=== PATIENT | male | born 1945 | race Caucasian/White ===

== ENCOUNTER 2020-05-09 08:36 | Inpatient (IN) ==
--- NOTE | 2020-05-05 09:35 | Anesthesiology Consultation ---
Date of Service May 05, 2020 Assessment & Plan (1) Encounter for pre-operative examination: Chart Review Chart Review: Acceptable Risk for Surgery (pending 05/05 Covid testing ) and Patient NOT seen in Pre Admission Testing Per nursing assessment 05/02/20, resides in [facility]. Having preop Covid test done 05/05 Last seen by cardio 03/01/19= No recurrence of a fib since 2011. Initially on AC but changed to ASA two years ago. Secondary to remote hx of a fib and absence of arrhythmia in six years- reasonable to continue without AC. CAD- nonobstructive. Hx of PVCs in bigeminy- regular rhythm at appt. F/u in one year. History Surgery Operation Date: 05/09/20 10:20 Proposed Procedures p Laparoscopic Assisted Takedown of Colovesicular Fistula - Lex Marquez MD Height/Weight Height: 5 ft 11 in Weight: 99.79 kg Allergies Allergy/AdvReac Type Severity Reaction Status Date / Time ezetimibe [From Zetia] AdvReac Intermediate sore joints Verified 05/02/20 07:21 lovastatin AdvReac Intermediate sore joints Verified 05/02/20 07:21 Medications Home Medications Medication Instructions Recorded Confirmed Last Taken atorvastatin 10 mg tablet 10 mg PO QPM #90 tab 09/06/19 05/02/20 Unknown metoprolol tartrate 25 mg tablet 25 mg PO BID #180 tab 09/18/19 05/02/20 Unknown lisinopril 5 mg tablet 5 mg PO DAILY 03/21/20 05/02/20 Unknown aspirin 81 mg tablet,delayed 81 mg PO DAILY 04/17/20 05/02/20 Unknown release acetaminophen [Tylenol Extra 500 mg PO DAILY PRN 05/02/20 05/02/20 Unknown Strength] omeprazole 40 mg PO QPM 05/02/20 05/02/20 Unknown sucralfate 1 g PO BID 05/02/20 05/02/20 Unknown Past Medical History Medical History Arteriosclerotic cardiovascular disease Non obstructive CAD Atrial fibrillation follows with [facility] [place] Cardiology, annually. no cardioversion. Colovesical fistula GERD (gastroesophageal reflux disease) "silent" Gout Hyperlipidemia Hypertension Osteoarthritis Urinary tract infection Past Family History Family History Brother Prostate cancer Heart disease Father Heart disease Other No family history of adverse response to anesthesia Past Surgical History Surgical History History of adenoidectomy History of cardiac cath ~2004 & ~2011. no stents. History of colonoscopy History of ear surgery right History of esophagogastroduodenoscopy (EGD) x1 with FB removal and x1 for recheck History of tonsillectomy S/P inguinal hernia repair right inguinal with hernia mesh Social History Smoking Status: Never smoker Do You Dip or Chew Tobacco: Yes (1 can/3 days (advised)) Hx Alcohol Use: No Hx Substance Use: No substance use type: does not use Testing Laboratory Results 04/27/20= WBC: 9.0 H/H: 14.8/45.1 PLATELETS: 209 SODIUM: 141 POTASSIUM: 4.4 CHLORIDE: 107 CO2: 29 BUN: 25 CREATININE: 1.3 GLUCOSE: 92 Electrocardiogram Date: 04/27/20 Findings: + SB @ (51) Chest X-Ray Date: 04/27/20 COPD changes- linear areas of scar/atelecasis in the lower portions of the chest. Hyperaeration and diaphragmatic flattening suggesting underlying COPD. No focal infiltrate, pleural effusion or pulmonary edema.
[~2020-05-09 08:36] MED LIST: LR 15ML/HR IV SCH
[2020-05-09] MEDS ORDERED: PROPOFOL IV EMULSION 10 MG/ML 20 ML VIAL IV ONE (10:08)
[2020-05-09] MEDS ORDERED: LIDOCAINE HCL 2% 2 ML VIAL/AMP(20MG/ML) INFIL ONE (10:08)
[2020-05-09] MEDS ORDERED: fentaNYL citrate 100 MCG/2 ML VIAL ONE ×2 (10:08→11:22)
[2020-05-09] MEDS ORDERED: MIDAZOLAM HCL 1 MG/ML 2ML VIAL ONE (10:08)
[2020-05-09] MEDS ORDERED: ONDANSETRON INJ 2 MG/ML 2 ML VIAL ONE (10:09)
[2020-05-09] MEDS ORDERED: ONDANSETRON INJ 2 MG/ML 2 ML VIAL IV PRN (10:12)
[2020-05-09] MEDS ORDERED: ATROPINE SULFATE 0.1 MG/ML 10ML SYR IV PRN (10:12)
[2020-05-09] MEDS ORDERED: ePHEDrine sulfate 50 MG/ML AMP IV PRN (10:12)
[2020-05-09] MEDS ORDERED: HYDROmorphone INJ 2 MG/ML SYR/VIAL IV PRN (10:12)
[2020-05-09] MEDS ORDERED: fentaNYL citrate 100 MCG/2 ML VIAL IV PRN (10:12)
--- NOTE | 2020-05-09 10:25 | History & Physical Bridge Note ---
Date of Service May 09, 2020 History & Physical Bridge Note I have examined the patient, reviewed the History & Physical and in the interval since the performance of the History & Physical I have noted the following changes of clinical significance: no changes noted all questions answered , admit order written
--- NOTE | 2020-05-09 11:35 | Anesthesiology Progress Note ---
Date of Service May 09, 2020 Anesthesia Post Procedure Vital Signs Vital Signs: Temp Pulse Resp BP Pulse Ox 05/09/20 09:11 36.6 C 60 20 140/69 98 Pain Intensity Right Lower Abdomen: Pain Intensity: 2 Transfer of Care Handoff Completed per policy Notes Mental Status: alert / awake / arousable and participated in evaluation Patient Amnestic to Procedure: Yes Nausea / Vomiting: adequately controlled Pain: adequately controlled Airway Patency, RR, SpO2: stable & adequate BP & HR: stable & adequate Hydration State: stable & adequate Anesthetic Complications: no major complications apparent and Pt Satisfied with anesthetic care
[2020-05-09] MEDS ORDERED: cefOXitin 2,000 MG in DEXTROSE 5% 50 ML IV STA (12:02)
[2020-05-09] MEDS ORDERED: ALBUMIN HUMAN 5% 12.5 GM/250 ML VIAL IV ONE (12:33)
[2020-05-09] MEDS ORDERED: METHYLENE BLUE 0.5% 10 ML VIAL ONE (13:16)
[2020-05-09] MEDS ORDERED: GLYCOPYRROLATE 0.2 MG/ML VIAL ONE (13:44)
[2020-05-09] MEDS ORDERED: NEOSTIGMINE METHYLSULFATE 5 MG/5 ML SYR ONE (13:44)
[2020-05-09] MEDS ORDERED: HYDROmorphone INJ 2 MG/ML SYR/VIAL ONE (13:52)
--- NOTE | 2020-05-09 14:22 | Post Operative Brief Note ---
PG Immediate Post Op with CF Date of Surgery May 09, 2020 Pre & Post Diagnosis Operation Date: 05/09/20 10:20 Pre-Op Diagnosis: Colovesical Fistula Post-Op Diagnosis: Colovesical Fistula I identified the patient and participated in the time-out.: Yes Procedure Operation Date: 05/09/20 10:20 Actual Procedures p Laparoscopic Assisted Takedown of Colovesicular Fistula, Sigmoid Colon Resection, Protective Ileostomy(Not Applicable) - Lex Marquez MD Surgeon Lex Marquez MD Prepleater b denton berkowitz Estimated Blood Loss 250 Findings Consistent with Post-Op Diagnosis Specimens Specimen Description: Culture #1: Urine Clean Catch - Catheter culture and sensitivity Fresh Specimen: A.) Portion of Sigmoid Colon Drains Pablo Drain (19 KITTITIAN), Dsouza Catheter (16 slovenian 10 ml balloon) and [place] Drain (1/4 inch)
--- NOTE | 2020-05-09 14:37 | Operative Report ---
PG Post Operative Report Pre & Post Diagnosis Operation Date: 05/09/20 10:20 Pre-Op Diagnosis: Colovesical Fistula Post-Op Diagnosis: Colovesical Fistula I identified the patient and participated in the time-out.: Yes Procedure Operation Date: 05/09/20 10:20 Actual Procedures p Laparoscopic Assisted Takedown of Colovesicular Fistula, Sigmoid Colon Res ection, Protective Ileostomy(Not Applicable) - Lex Marquez MD The patient was brought into the operating theater supine position general trach anesthesia Dsouza catheter was inserted the abdomen was prepped byline solution properly draped systemic antibiotics given timeout was had the patient was identified this point we made a small incision linearly above the umbilicus sufficient enough to place a Veress needle followed by CO2 followed by 5 mm trocar laparoscopically replaced patient was placed in Trendelenburg visualized the pelvis we could see the patient on the left lateral wall as it entered the pelvic rim significant amount of tissue scarred down very hard area most likely consistent with a primary process of a colovesical fistula. At this point we mobilized the left colon almost to the splenic flexure by dividing just above the white line of Toldt bluntly dissection was instituted where we felt we had enough mobility for possibility colon resection and anastomosis at this point since the patient has significant amount of thick very hard process down in the pelvis and at this point I converted to an open procedure make a lower midline incision deepened through subcutaneous tissue entered the peritoneal cavity Bookwalter instrument was inserted at this point we were able to palpate a near frozen sigmoid colon to the left lateral wall of the pelvis we continued our dissection by taking down proximal sigmoid colon were pathologically it felt free of any disease the indurated area was just adjacent to the hard area that we were seen on the lateral wall we did most of this with blunt dissection were able to break through this very scarred down tissue sigmoid colon that was plastered on the bladder. Bluntly we took down the chronic process that we were able to elevate the sigmoid colon and the pathology out of the pelvis. We can see the bladder there was no active obvious fistula but there was an area just inferior to the dome of the left side where possibility this was the fistulous track we would then we closed this eventually with 2 rows of interrupted 2-0 Vicryl sutures. At this point we then resected the sigmoid colon distally just at the rectal area and divided approximately with a GREGOR stapler specimen was removed after dividing the mesentery we were met with distally with this resected the sigmoid colon and rectum with a right angle clamp I took the right angle clamp and the line of resection appeared to be bluish in nature I was not happy with this so I took more of the distal sigmoid rectal area proximally again we were met with some tension on the proximal colon therefore immobilized more the left colon up towards the splenic flexure by enlarging the incision we then did an end-to-end anastomosis 2 layer using 3-0 silk outer layer 3-0 chromic interlayer there was viability but I was a little concerned still that it was slightly more congested than I would like therefore I elected to do a protective ileostomy. Prior to doing this we took a long tongue of omentum and brought it down onto the area where we thought was the fistula and tied it down with 2-0 Vicryl sutures and silk sutures addendum prior to resecting the sigmoid area we identified the left ureter and mobilized that placing on a vessel loop there was a small venous plexus on the ureter that we did not talk having completed this we then elected to give some methylene blue to see if there was any leak but by the time we finished we had not seen any methylene blue even though the patient was making good urine given the status of the anastomosis that I was uncomfortable with just did not split is viable as I would have liked it I elected to close to a protective a protective ileostomy which we did by taken out silver spoon skin and subcutaneous tissue in the right lower quadrant and bringing out a loop of ileum terminal ileum probably about a foot from the ileocecal valve once we made the opening in the anterior rectus sheath to accommodate 3 fingers we brought out the loop of terminal ileum we placed over a bolster plastic bolster we closed the abdomen by first placing a 19 Pablo drain through the left flank down into the pelvic area attaching significant edge with 2-0 silk suture I closed the abdominal incision using #1 chromic in a running manner to close the peritoneum and we closed the anterior rectus with interrupted #1 PDS Promise drain was placed in the subcu attaching distally approximately 2-0 silk suture and roger for skin edges at this point we matured the ileostomy by using electrocautery Mohave taken a loop out of the anterior surface opening at three quarters the way and inverting over the mucosa with 3-0 chromic suture dressing was applied procedure was tolerated well by the patient estimated blood loss approximately 250 cc addendum Reshma berkowitz present throughout the procedure and helped with exposure suturing wound closure and camera work Surgeon Lex Marquez MD Clerical Assistant price berkowitz Estimated Blood Loss 250 Findings Consistent with Post-Op Diagnosis Specimens sigmoid colon Description of Procedure merda I attest to the content of the Intraoperative Record and any orders documented therein. Any exceptions are noted below.
--- NOTE | 2020-05-09 15:22 | Anesthesiology Progress Note ---
Date of Service May 09, 2020 Anesthesia Post Procedure Vital Signs Vital Signs: Temp Pulse Pulse Resp BP BP Pulse Ox 05/09/20 15:10 91 H 20 114/86 96 05/09/20 15:00 80 18 121/80 98 05/09/20 14:50 83 16 126/87 98 05/09/20 14:43 96.8 F L 88 18 143/79 H 97 05/09/20 09:11 97.9 F 60 20 140/69 98 Pain Intensity Right Lower Abdomen: Pain Intensity: 2 Transfer of Care Handoff Completed per policy Notes Mental Status: alert / awake / arousable and participated in evaluation Patient Amnestic to Procedure: Yes Nausea / Vomiting: adequately controlled Pain: adequately controlled Airway Patency, RR, SpO2: stable & adequate BP & HR: stable & adequate Hydration State: stable & adequate Anesthetic Complications: no major complications apparent and Pt Satisfied with anesthetic care
[2020-05-09] MEDS ORDERED: NALOXONE HCL 0.4 MG/1 ML VIAL/CARP IV PRN (15:37)
[2020-05-09] MEDS ORDERED: SODIUM CHLORIDE 0.9% 1000ML 1,000 ML IV SCH (16:00)
[2020-05-09] MEDS: LACTATED RINGER'S 1,000 ML IV SCH ×2 (16:58→23:27)
[2020-05-09] MEDS: cefOXitin 2,000 MG in DEXTROSE 5% 50 ML IV SCH ×2 (17:35→23:26)
[2020-05-09] MEDS: MORPHINE SULFATE PCA 30 MG/30 ML IV PRN (18:54)
[2020-05-09] MEDS: METOPROLOL TARTRATE 25 MG TAB PO SCH (20:15)
[2020-05-09] MEDS: HEPARIN SOD 5,000 UNIT/0.5 ML VIAL SQ SCH (20:15)
[2020-05-10] MEDS: cefOXitin 2,000 MG in DEXTROSE 5% 50 ML IV SCH ×2 (05:41→11:37)
[2020-05-10 06:20] LABS: Basophils # (auto) 0.01 K/uL (0-0.2); Basophils % (auto) 0.1 %; Eosinophils # (auto) 0.02 K/uL (0-0.5); Eosinophils % (auto) 0.2 %; Hematocrit (blood only) 45.5 % (42-52); Hemoglobin 14.7 g/dL (14.0-18.0); Immature Granulocytes # (auto) 0.02 K/uL (0.00-0.02); Immature Granulocytes % (auto) 0.2 %; Lymphocytes # (auto) 1.05 K/uL (1.2-3.4); Lymphocytes % (auto) 9.5 %; Mean Corpuscular Hemoglobin 29.4 pg (25-34); Mean Corpuscular Hgb Conc 32.3 g/dL (32-36); Mean Platelet Volume 10.1 fL (7.4-10.4); Neutrophils # (auto) 8.99 K/uL (1.4-6.5); Platelet Count 189 K/uL (130-400); RDW Coefficient of Variation 13.7 % (11.5-14.5); RDW Standard Deviation 45.2 fL (36.4-46.3); White Blood Count 11.09 K/uL (4.8-10.8)
[2020-05-10 06:50] LABS: BUN Creatinine Ratio 13.7 (10-20); Calcium 8.6 mg/dl (8.5-10.1); Creatinine Clr Calc Pharmacy 52.3 ml/min; Est GFR (African American) 53.7; Est GFR (Non-African American) 46.3; Potassium 4.1 mmol/L (3.5-5.1)
[2020-05-10] MEDS: LACTATED RINGER'S 1,000 ML IV SCH ×3 (07:28→20:45)
--- NOTE | 2020-05-10 07:28 | Surgery Progress Note ---
Date of Service May 10, 2020 Assessment & Plan (1) Colovesical fistula: POD 1 sigmoid colectomy, repair colovesical fistula, protective ileostomy NG out overnight, ok to leave out will start on clears, po meds keep matthews for [address] Marquez Supervising Physician Co-Signing Physician Notes Patient clinically dry give a bolus fluid is alert coherent NG tube pulled out last night had minimal drainage I will leave it out his abdomen is slightly distended as expected ileostomy is viable with little output Pablo drainage serosanguineous Intraoperative findings was discussed the patient including the need for ileostomy and plan to close this after a contrast study in approximately 10 days or so at that time we will also get a cystogram and plan to remove the Matthews if fine He is aware that we will leave the Matthews in for approximately 10 days Subjective No c/o, pain controlled Physical Exam 2 Gastrointestinal (Abdomen): Inspection/Auscultation: + abdominal surgical incision (dry dressing, ileostomy pink); abdomen not distended FREDIS 30 cc overnight UOP 400 Results & Data Vital Signs (Past 12 Hours) Vital Signs Temp Pulse Pulse Resp BP BP Pulse Ox 05/10/20 04:10 36.6 C 91 H 16 147/97 H 95 05/09/20 23:05 36.6 C 100 H 16 150/100 H 95 05/09/20 22:08 36.8 C 96 H 14 145/100 H 93 05/09/20 21:12 36.6 C 98 H 14 150/99 H 97 05/09/20 20:00 36.9 C 98 H 14 146/98 H 97 05/09/20 19:40 36.8 C 100 H 16 152/90 H 96 PG Care Time/CCT Total # of Minutes Spent Total Time Spent with Patient: Total time spent is greater than 50% in coordination of care (as documented) at patient's floor/unit and/or counseling patient: Coding Level of Care Code None Diagnoses Colovesical fistula N32.1
[2020-05-10] MEDS: HEPARIN SOD 5,000 UNIT/0.5 ML VIAL SQ SCH ×2 (09:01→20:56)
[2020-05-10] MEDS: SUCRALFATE 1 GM TAB PO SCH ×2 (09:04→20:53)
[2020-05-10] MEDS: PANTOprazole 40 MG TAB PO SCH (09:04)
[2020-05-10] MEDS: METOPROLOL TARTRATE 25 MG TAB PO SCH ×2 (09:04→20:53)
[2020-05-10] MEDS: ASPIRIN 81 MG ECTAB PO SCH (09:04)
[2020-05-10] MEDS: lisinopriL 5 MG TAB PO SCH (20:53)
[2020-05-10] MEDS: ATORVASTATIN 10 MG TAB PO SCH (20:54)
[2020-05-10] MEDS: MORPHINE SULFATE PCA 30 MG/30 ML IV PRN (21:54)
[2020-05-11] MEDS: LACTATED RINGER'S 1,000 ML IV SCH ×4 (03:30→21:31)
--- NOTE | 2020-05-11 06:07 | Surgery Progress Note ---
Date of Service May 11, 2020 Assessment & Plan (1) Colovesical fistula: POD 2 Overall progressing well plan to leave the Matthews in for approximately 10 days image him through a cystogram and at the same time to a barium contrast study for the anastomosis We will plan to bring him back in close the ileostomy The lab is pending this morning creatinine was slightly up yesterday just related to fluid status as was the hemoglobin fluid boluses and IV at 150 increase his urine output as expected we will await the labs this morning may cut down on his IV fluids since his urine output appears adequate at this time The path is pending POD 1 sigmoid colectomy, repair colovesical fistula, protective ileostomy NG out overnight, ok to leave out will start on clears, po meds keep matthews for [address] Marquez Subjective Had a good night overall a good day yesterday oral intake fair although he did experience some nausea no vomiting No c/o, pain controlled Physical Exam Physical Exam: Is alert coherent slept well last night easily awoken this morning The abdomen is softly distended dressing is dry ileostomy viable with some drainage Urine clear and output is increased Results & Data Vital Signs (Past 12 Hours) Vital Signs Temp Pulse Pulse Resp BP BP Pulse Ox 05/11/20 03:45 36.9 C 87 18 155/90 H 96 05/10/20 23:10 36.8 C 90 18 152/93 H 94 05/10/20 20:51 88 138/85 05/10/20 19:31 37.1 C 94 H 25 H 145/96 H 95 PG Care Time/CCT Total # of Minutes Spent Total Time Spent with Patient: Total time spent is greater than 50% in coordination of care (as documented) at patient's floor/unit and/or counseling patient: Coding Level of Care Code None Diagnoses Colovesical fistula N32.1
[2020-05-11] MEDS: HEPARIN SOD 5,000 UNIT/0.5 ML VIAL SQ SCH ×3 (06:21→20:49)
[2020-05-11 07:38] LABS: Basophils # (auto) 0.01 K/uL (0-0.2); Basophils % (auto) 0.1 %; Eosinophils # (auto) 0.04 K/uL (0-0.5); Eosinophils % (auto) 0.3 %; Hematocrit (blood only) 41.3 % (42-52); Hemoglobin 13.3 g/dL (14.0-18.0); Immature Granulocytes # (auto) 0.02 K/uL (0.00-0.02); Immature Granulocytes % (auto) 0.2 %; Lymphocytes # (auto) 1.01 K/uL (1.2-3.4); Lymphocytes % (auto) 8.1 %; Mean Corpuscular Hemoglobin 29.1 pg (25-34); Mean Corpuscular Hgb Conc 32.2 g/dL (32-36); Mean Corpuscular Volume 90.4 fL (80-100); Mean Platelet Volume 10.1 fL (7.4-10.4); Monocytes # (auto) 1.53 K/uL (0.11-0.59); Monocytes % (auto) 12.2 %; Neutrophils # (auto) 9.88 K/uL (1.4-6.5); Neutrophils % (auto) 79.1 %; Platelet Count 192 K/uL (130-400); RDW Coefficient of Variation 13.5 % (11.5-14.5); RDW Standard Deviation 44.7 fL (36.4-46.3); Red Blood Count 4.57 M/uL (4.7-6.1); White Blood Count 12.49 K/uL (4.8-10.8)
[2020-05-11 08:10] LABS: BUN Creatinine Ratio 12.6 (10-20); Calcium 8.7 mg/dl (8.5-10.1); Creatinine Clr Calc Pharmacy 90.5 ml/min; Est GFR (African American) 99.5; Est GFR (Non-African American) 85.8; Potassium 3.8 mmol/L (3.5-5.1)
[2020-05-11] MEDS: METOPROLOL TARTRATE 25 MG TAB PO SCH ×2 (08:33→20:48)
[2020-05-11] MEDS: SUCRALFATE 1 GM TAB PO SCH ×2 (08:33→20:48)
[2020-05-11] MEDS: ASPIRIN 81 MG ECTAB PO SCH (08:33)
[2020-05-11] MEDS: PANTOprazole 40 MG TAB PO SCH (08:33)
[2020-05-11] MEDS: ATORVASTATIN 10 MG TAB PO SCH (20:48)
[2020-05-11] MEDS: lisinopriL 5 MG TAB PO SCH (20:48)
[2020-05-12] MEDS: ACETAMINOPHEN 1,000 MG/100 ML VIAL IV PRN (00:10)
[2020-05-12] MEDS: HEPARIN SOD 5,000 UNIT/0.5 ML VIAL SQ SCH ×2 (05:30→17:11)
[2020-05-12 06:58] LABS: Basophils # (auto) 0.01 K/uL (0-0.2); Basophils % (auto) 0.1 %; Eosinophils # (auto) 0.09 K/uL (0-0.5); Eosinophils % (auto) 0.6 %; Hematocrit (blood only) 45.7 % (42-52); Hemoglobin 15.3 g/dL (14.0-18.0); Immature Granulocytes # (auto) 0.05 K/uL (0.00-0.02); Immature Granulocytes % (auto) 0.3 %; Lymphocytes # (auto) 1.18 K/uL (1.2-3.4); Lymphocytes % (auto) 7.8 %; Mean Corpuscular Hemoglobin 29.6 pg (25-34); Mean Corpuscular Hgb Conc 33.5 g/dL (32-36); Mean Corpuscular Volume 88.4 fL (80-100); Mean Platelet Volume 10.5 fL (7.4-10.4); Monocytes # (auto) 1.45 K/uL (0.11-0.59); Monocytes % (auto) 9.6 %; Neutrophils # (auto) 12.29 K/uL (1.4-6.5); Neutrophils % (auto) 81.6 %; Platelet Count 241 K/uL (130-400); RDW Coefficient of Variation 13.5 % (11.5-14.5); RDW Standard Deviation 44.1 fL (36.4-46.3); Red Blood Count 5.17 M/uL (4.7-6.1); White Blood Count 15.07 K/uL (4.8-10.8)
[2020-05-12] MEDS ORDERED: PIPERACILL/TAZOBAC CONSULT ACTIVE PRN (07:23)
[2020-05-12 07:27] LABS: BUN Creatinine Ratio 14.7 (10-20); Calcium 9.4 mg/dl (8.5-10.1); Creatinine Clr Calc Pharmacy 83.6 ml/min; Est GFR (African American) 94.6; Est GFR (Non-African American) 81.6
--- NOTE | 2020-05-12 07:34 | Surgery Progress Note ---
Date of Service May 12, 2020 Assessment & Plan (1) Colovesical fistula: POD#3 sigmoid colectomy, take-down of colovesicular fistula, and creation of protective ileostomy - Patient feels more bloated today and because of nausea will order to replace NGT and back down diet to NPO - WBC up today to 15 from 12 yesterday, will start empiric zosyn for GI coverage - Will also order CT a/p for further evaluation - Some bleeding at midline incision, will decrease heparin to q12 for now. Dressing changed this AM and can change daily & prn. FREDIS drain output is serosanguineous - Increase IVF to 150 - Encourage ambulation and OOB with assistance - Keep matthews in for total of 10 days - Pt seen and examined with Dr. Marquez Supervising Physician Co-Signing Physician Notes 05/14/20 POD #3 The patient does not feel as good as he did yesterday is complaining some nausea no emesis the abdomen is distended the abdominal incision had some drainage bloody most likely related to the heparin he does have some generalized a bdominal guarding Pablo drainage in the left lower quadrant with serosanguineous drainage The ileostomy is viable with some liquid drainage At this point I suspect he just has a postoperative ileus related to the surgery a bit more concerned regarding his white count and also some hemoconcentration lows BUN and creatinine are normal we will increase his IV fluids to 150 cc/h we will insert an NG tube and get an abdominal CAT scan with IV contrast The patient had extensive dissection down in the pelvis the path report on the specimen was noted at this time I suspect it is just a postoperative ileus but will get a CAT scan to rule out any other abdominal cause for his ileus Patient clinically dry give a bolus fluid is alert coherent NG tube pulled out last night had minimal drainage I will leave it out his abdomen is slightly distended as expected ileostomy is viable with little output Pablo drainage serosanguineous Intraoperative findings was discussed the patient including the need for ileostomy and plan to close this after a contrast study in approximately 10 days or so at that time we will also get a cystogram and plan to remove the Matthews if fine He is aware that we will leave the Matthews in for approximately 10 days Subjective Patient awoken from sleep, easily arousable. Feels okay, not up ambulating much. Tolerating some clears, but feeling nauseated. Physical Exam Physical Exam: easily arousable Respiratory: normal respiratory effort Gastrointestinal (Abdomen): Inspection/Auscultation: + abdomen distended, + abdominal surgical incision (midline incision oozy, moderate bloody output on dressing) and + abdominal surgical drain present (Serosanguineous output) Percussion/Palpation: + abdomen tender (generalized ttp) ileostomy viable with some liquid drainage Results & Data Vital Signs (Past 12 Hours) Vital Signs Temp Pulse Pulse Resp BP BP Pulse Ox 05/12/20 02:55 36.9 C 99 H 16 136/94 98 05/12/20 00:52 102 H 128/87 05/12/20 00:13 102 H 162/106 H 05/11/20 23:08 36.7 C 101 H 22 161/106 H 161/115 H 97 05/11/20 20:44 103 H 18 137/90 97 PG Care Time/CCT Total # of Minutes Spent Total Time Spent with Patient: Total time spent is greater than 50% in coordination of care (as documented) at patient's floor/unit and/or counseling patient: Coding Level of Care Code None Diagnoses Colovesical fistula N32.1
[2020-05-12] MEDS ORDERED: PIPERACILLIN/TAZOBACTAM 3.375 GM in DEXTROSE 5% 100 ML IV ONE (07:45)
[2020-05-12] MEDS ORDERED: IOVERSOL 100ml IV PRN (08:05)
--- NOTE | 2020-05-12 08:28 | CT Scan Report ---
CT abd pelvis IV con only CLINICAL HISTORY: Abdominal distention. Postoperative examination. COMPARISON STUDY: 03/24/2020 TECHNIQUE: The patient was scanned in a dynamic helical fashion during intravenous administration of 94 cc of Optiray 320 A dose lowering technique was utilized adhering to the principles of ALARA. CT DOSE: 1227.91 mGy.cm FINDINGS: Lower chest: There is a trace right pleural effusion. There are bibasilar dependent opacity statistic ally atelectatic. Liver: No focal hepatic masses are visualized. There is perihepatic fluid present. Gallbladder: Mildly distended. No calculi visualized. Spleen: No splenic masses. There is perisplenic fluid. Pancreas: Unremarkable. Adrenal glands: Unremarkable. Kidneys: There is symmetric renal cortical enhancement. The kidneys are normal in size without hydron ephrosis. Bowel: There are fluid-filled mildly dilated small bowel loops. The bowel is dilated down to the leve l of a right lower quadrant double barrel ileostomy. The small bowel obstructive pattern may be secon karen to edema at the ostomy site. There is colonic diverticulosis. There is evidence for sigmoid dive rticulitis. Peritoneum: There is an indwelling peritoneal drain which terminates within the pelvis. There is trac e gas in the left inguinal canal, likely postsurgical. There is a tiny air bubble posterior to the le ft rectus sheath, likely postsurgical. There is a tiny air bubble within the right rectus musculature likely postsurgical there are anterior skin roger present. Vasculature: The abdominal aorta is normal in course and caliber. Adenopathy: None. Pelvic viscera: There is an indwelling Dsouza catheter. There is gas present within the bladder, likel y secondary to the Dsouza catheter. The prostate is enlarged. Skeletal structures: No destructive osseous lesions are seen. IMPRESSION: 1. Interval surgery with creation of a double barrel right lower quadrant ileostomy 2. Small bowel obstruction, with a transition at the level of the right-sided ileostomy possibly seco ndary to postsurgical edema 3. Sigmoid diverticulitis 4. Low volume ascites ACT 112: Negative or not required by law. Electronically signed by: John Paul Ramos M.D. 05/12/2020 8:27 AM
[2020-05-12] MEDS ORDERED: HEPARIN SOD 5,000 UNIT/0.5 ML VIAL SQ SCH (09:00)
[2020-05-12] MEDS: LACTATED RINGER'S 1,000 ML IV SCH ×2 (09:14→17:01)
[2020-05-12] MEDS: SUCRALFATE 1 GM TAB PO SCH ×2 (10:33→20:20)
[2020-05-12] MEDS: ASPIRIN 81 MG ECTAB PO SCH (10:33)
[2020-05-12] MEDS: PANTOprazole 40 MG in SYRINGE 0 ML IV SCH (10:33)
[2020-05-12] MEDS: METOPROLOL TARTRATE 25 MG TAB PO SCH ×2 (10:33→20:20)
[2020-05-12] MEDS: ENALAPRILAT 0.625 MG in SYRINGE 9.5 ML IV SCH ×3 (12:34→20:20)
[2020-05-12] MEDS: PIPERACILLIN/TAZOBACTAM 3.375 GM in DEXTROSE 5% 100 ML IV SCH ×2 (13:11→21:53)
--- NOTE | 2020-05-12 16:14 | Consultation ---
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 Marquez Reason for Consultation: Medical management Attending Physician: Lex Marquez MD History of Present Illness 75 yo male with recent history of takedown of possible colovesical fistula, sigmoidectomy and diverting ileostomy, he is post op day 3. He was recovering well until this morning when he developed increased abdominal pain, nausea and vomiting. WBC was elevated at 16k. NGT was placed to LIS with immediate return of biliary fluid, drainage gave him relief. CT abdomen/pelvis showed a possible obstruction at the ileostomy site vs ileus. He says that he has felt warm and was experiencing sweats at night. He denies any chest pain, dyspnea, cough. 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 He has a matthews in place to allow bladder wall to heal. Review of labs today shows WBC 15k, Hb 15, BUN 14, Cr 0.9 and normal CO2 of 26. He has a history of atrial fibrillation that is well controlled. He says he takes aspirin every day for stroke prevention, says he used to take Coumadin but it was stopped years ago. He admits to having hypertension. He denies a history of IL, stroke, DM, kidney disease, cancer. Allergies Allergy/AdvReac Type Severity Reaction Status Date / Time ezetimibe [From Zetia] AdvReac Intermediate sore joints Verified 05/09/20 09:07 lovastatin AdvReac Intermediate sore joints Verified 05/09/20 09:07 Home Medications Home Medications Medication Instructions Recorded Confirmed Type atorvastatin 10 mg tablet 10 mg PO QPM #90 tab 09/06/19 05/09/20 Rx metoprolol tartrate 25 mg tablet 25 mg PO BID #180 tab 09/18/19 05/09/20 Rx lisinopril 5 mg tablet 5 mg PO DAILY 03/21/20 05/09/20 History aspirin 81 mg tablet,delayed 81 mg PO DAILY 04/17/20 05/09/20 History release acetaminophen [Tylenol Extra 500 mg PO DAILY PRN 05/02/20 05/09/20 History Strength] omeprazole 40 mg PO QPM 05/02/20 05/09/20 History sucralfate [Carafate] 1 g PO BID 05/02/20 05/09/20 History Patient History Medical History Arteriosclerotic cardiovascular disease Non obstructive CAD Atrial fibrillation follows with [facility], annually. no cardioversion. Colovesical fistula GERD (gastroesophageal reflux disease) "silent" Gout Hyperlipidemia Hypertension Osteoarthritis Urinary tract infection Surgical History History of adenoidectomy History of cardiac cath ~2004 & ~2011. no stents. 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 Beliefs That Will Affect Care: None marital status: Current Living Situation: Spouse current occupational status: employed current occupation: [employer] Other Information That Helps Us Care for You: No Feels Safe at Home: Yes Safety Concerns: Feels Safe At This Time Smoking Status: Never smoker Do You Dip or Chew Tobacco: Yes (1 can/3 days (advised)) ; Second Hand Exposure: No ; Tobacco Cessation Education Requested by Patient: No Hx Alcohol Use: No Hx Substance Use: No Review of Systems Review of Systems: All systems reviewed & are unremarkable except as noted in HPI & below Physical Exam Constitutional: well developed, well nourished and + diaphoretic; no acute distress Eyes: PERRL, conjunctivae normal, anicteric sclerae ENMT: external ear and nose normal, oropharynx normal Neck: trachea midline, no thyromegaly Respiratory: normal respiratory effort, lungs clear to auscultation Cardiovascular: RRR, no murmur, no edema Gastrointestinal (Abdomen): Inspection/Auscultation: + abdomen distended, + abdominal surgical incision, + abdominal surgical drain present (ileostomy) and + hypoactive bowel sounds Percussion/Palpation: + abdomen tender; no guarding and abdomen not rigid Musculoskeletal: no cyanosis or clubbing, extremities motor strength 5/5 Skin: no rashes, warm and dry Neurologic: patellar DTR's 2+ bilat, sensation intact and PERRL, EOMI, accommodation nl, no face palsy, no dysarthria Psychiatric: A+Ox3, euthymic affect Lymphatic: no cervical or axillary lymphadenopathy Results & Data ([facility]) Vital Signs (Past 12 Hours) Vital Signs Temp Pulse Resp BP Pulse Ox 05/12/20 13:37 36.8 C 99 H 18 137/91 96 05/12/20 08:17 36.5 C 90 18 154/97 H 94 Laboratory Results Laboratory Results - last 24 hr 05/12/20 05/12/20 06:25 06:25 WBC 15.07 H RBC 5.17 Hgb 15.3 Hct 45.7 MCV 88.4 MCH 29.6 MCHC 33.5 RDW Std Deviation 44.1 RDW Coeff of Alda 13.5 Plt Count 241 MPV 10.5 H Immature Gran % (Auto) 0.3 Neut % (Auto) 81.6 Lymph % (Auto) 7.8 [place] % (Auto) 9.6 Eos % (Auto) 0.6 Baso % (Auto) 0.1 Neut # (Auto) 12.29 H Lymph # (Auto) 1.18 L [place] # (Auto) 1.45 H Eos # (Auto) 0.09 Baso # (Auto) 0.01 Immature Gran # (Auto) 0.05 H Sodium 135 L Potassium 4.0 Chloride 101 Carbon Dioxide 26 Anion Gap 9.0 BUN 14 Creatinine 0.92 Est Cr Clr Drug Dosing 83.6 Est GFR ( Amer) 94.6 Est GFR (Non-Af Amer) 81.6 BUN/Creatinine Ratio 14.7 Glucose 119 H Calcium 9.4 Medications Administered Current Inpatient Medications Aspirin (Ecotrin Ectab) 81 mg PO DAILY [facility] Stop: 06/09/20 08:59 Last Admin: 05/12/20 10:33 Dose: 81 mg Documented by: Atorvastatin Calcium (Lipitor) 10 mg PO QPM [facility] Stop: 06/09/20 20:59 Last Admin: 05/11/20 20:48 Dose: 10 mg Documented by: Heparin Sodium (Porcine) (Heparin Sodium (Porcine)) 5,000 units SQ Q12H [facility] Stop: 06/11/20 17:59 Lactated Ringer's (Lr) 1,000 mls @ 150 mls/hr IV .Q6H40M [facility] Stop: 06/08/20 15:59 Last Admin: 05/12/20 09:14 Dose: 150 mls/hr Documented by: Acetaminophen (Ofirmev) 1,000 mg in 100 mls @ 400 mls/hr IV Q8H PRN PRN Reason: Pain Stop: 05/14/20 15:36 Last Infusion: 05/12/20 00:25 Dose: Infused Documented by: Piperacillin Sod/Tazobactam (Sod 3.375 gm/ Dextrose) 115 mls @ 28.75 mls/hr IV Q8H [facility]; Protocol Stop: 05/22/20 13:59 Last Admin: 05/12/20 13:11 Dose: 28.8 mls/hr Documented by: Pantoprazole Sodium 40 mg/ (Syringe) 10 mls @ 5 mls/min IV DAILY@1100 [facility] Stop: 06/11/20 10:59 Last Admin: 05/12/20 10:33 Dose: 5 mls/min Documented by: Enalaprilat 0.625 mg/ Syringe 10 mls @ 2 mls/min IV QID [facility] Stop: 06/11/20 12:59 Last Admin: 05/12/20 12:34 Dose: 2 mls/min Documented by: Ioversol (Optiray 320 100ml) 94 ml IV ONCE PRN PRN Reason: Interaction Checking Stop: 05/16/20 08:04 Last Admin: 05/12/20 08:05 Dose: 94 ml Documented by: Lisinopril (Zestril) 5 mg PO QPM [facility] Stop: 06/09/20 20:59 Last Admin: 05/11/20 20:48 Dose: 5 mg Documented by: Metoprolol Tartrate (Lopressor) 25 mg PO BID [facility] Stop: 06/08/20 20:59 Last Admin: 05/12/20 10:33 Dose: 25 mg Documented by: Miscellaneous Information (Consult) 1 ea N/A UD PRN PRN Reason: Consult Stop: 06/11/20 07:22 Morphine Sulfate () 30 mg IV PRN PRN; Protocol PRN Reason: PEDIATRIC IMMUNOLOGIST Pain Titration Stop: 05/23/20 15:36 Last Admin: 05/10/20 21:54 Dose: 30 mg Documented by: Naloxone HCl (Narcan) 0.1 mg IV Q5M PRN; Protocol PRN Reason: Oversedation/Resp Depression Stop: 05/23/20 15:36 Ondansetron HCl (Zofran) 4 mg IV Q4H PRN PRN Reason: Nausea And Vomiting Stop: 06/08/20 15:36 Sucralfate (Carafate Tab) 1 gm PO BID [facility] Stop: 06/09/20 08:59 Last Admin: 05/12/20 10:33 Dose: 1 gm Documented by: PG Care Time/CCT Total # of Minutes Spent Total Time Spent with Patient: Total time spent is greater than 50% in coordination of care (as documented) at patient's floor/unit and/or counseling patient: Coding Level of Care Code 00003 Inpt Consult Level 3 Diagnoses Leukocytosis D72.829 Colovesical fistula N32.1 Atrial fibrillation I48.91 Arteriosclerotic cardiovascular disease I25.10 Hyperlipidemia E78.5 Gout M10.9
[2020-05-12] MEDS: MORPHINE SULFATE PCA 30 MG/30 ML IV PRN ×2 (17:58→23:09)
[2020-05-13] MEDS: LACTATED RINGER'S 1,000 ML IV SCH ×4 (00:17→22:27)
[2020-05-13] MEDS: PIPERACILLIN/TAZOBACTAM 3.375 GM in DEXTROSE 5% 100 ML IV SCH ×3 (06:13→21:44)
[2020-05-13] MEDS: HEPARIN SOD 5,000 UNIT/0.5 ML VIAL SQ SCH ×2 (06:17→18:05)
[2020-05-13 08:02] LABS: Basophils # (auto) 0.01 K/uL (0-0.2); Basophils % (auto) 0.1 %; Eosinophils # (auto) 0.13 K/uL (0-0.5); Hemoglobin 13.9 g/dL (14.0-18.0); Immature Granulocytes # (auto) 0.02 K/uL (0.00-0.02); Immature Granulocytes % (auto) 0.2 %; Lymphocytes # (auto) 1.19 K/uL (1.2-3.4); Lymphocytes % (auto) 9.4 %; Mean Corpuscular Hemoglobin 29.6 pg (25-34); Mean Corpuscular Hgb Conc 33.1 g/dL (32-36); Mean Corpuscular Volume 89.4 fL (80-100); Mean Platelet Volume 10.3 fL (7.4-10.4); Monocytes # (auto) 1.08 K/uL (0.11-0.59); Monocytes % (auto) 8.5 %; Neutrophils # (auto) 10.23 K/uL (1.4-6.5); Neutrophils % (auto) 80.8 %; Platelet Count 292 K/uL (130-400); RDW Coefficient of Variation 13.6 % (11.5-14.5); White Blood Count 12.66 K/uL (4.8-10.8)
[2020-05-13] MEDS ORDERED: MoRPHine SULFATE 4 MG/ML 1 ML CARP\\VIAL IV PRN (08:14)
--- NOTE | 2020-05-13 08:21 | Surgery Progress Note ---
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 Marquez Subjective feels a little better Physical Exam Gastrointestinal (Abdomen): Inspection/Auscultation: + abdomen distended (less) and + abdominal surgical incision (some old blood on dressing) Percussion/Palpation: abdomen soft UOP 200 NGT 210 ileostomy patent by digital exam Results & Data Vital Signs (Past 12 Hours) Vital Signs Temp Pulse Pulse Resp BP BP Pulse Ox 05/13/20 07:50 16 135/88 94 05/13/20 06:50 37 C 88 20 158/126 H 158/126 H 95 05/13/20 04:08 36.8 C 101 H 18 157/98 H 92 05/12/20 23:30 37 C 99 H 17 158/99 H 93 05/12/20 20:17 96 H 164/99 H PG Care Time/CCT Total # of Minutes Spent Total Time Spent with Patient: Total time spent is greater than 50% in coordination of care (as documented) at patient's floor/unit and/or counseling patient: Coding Level of Care Code None Diagnoses Colovesical fistula N32.1
[2020-05-13 08:37] LABS: BUN Creatinine Ratio 21.2 (10-20); Calcium 8.5 mg/dl (8.5-10.1); Creatinine Clr Calc Pharmacy 88.4 ml/min; Est GFR (African American) 98.5; Potassium 3.7 mmol/L (3.5-5.1)
[2020-05-13] MEDS: ASPIRIN 81 MG ECTAB PO SCH (10:28)
[2020-05-13] MEDS: SUCRALFATE 1 GM TAB PO SCH ×2 (10:28→21:33)
[2020-05-13] MEDS: ENALAPRILAT 0.625 MG in SYRINGE 9.5 ML IV SCH ×4 (10:40→21:34)
[2020-05-13] MEDS: PANTOprazole 40 MG in SYRINGE 0 ML IV SCH (10:41)
[2020-05-13] MEDS: METOPROLOL TARTRATE 25 MG TAB PO SCH ×2 (10:41→21:34)
--- NOTE | 2020-05-13 12:35 | XRay Report ---
XR KUB/Abdomen 1 view CLINICAL HISTORY: post op COMPARISON STUDY: No previous studies for comparison. FINDINGS: Postoperative ileus persists. There is drainage catheter in the soft tissue pelvis. No sign ificant colonic distention. IMPRESSION: Mild postoperative nonobstructive ileus. ACT 112: Negative or not required by law. The above report was generated using voice recognition software. It may contain grammatical, syntax or spelling errors. Electronically signed by: Carlos Enrique Zarate M.D. 05/13/2020 12:34 PM
--- NOTE | 2020-05-13 15:50 | Hospitalist Progress Note ---
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 (3) Atrial fibrillation: examines normal rhythm holding Lopressor 25mg BID while he is NPO normally on aspirin 81mg daily for stroke prevention (4) Arteriosclerotic cardiovascular disease: normally on aspirin, resume once okay with surgery (5) Hyperlipidemia: takes Lipitor 10mg (6) Gout: (7) Hypertension: BP stable, continue Enalapril QID IV resume PO medications once taking PO Admission and Anticipated Discharge Date Admission Date: May 09, 2020 Subjective patient feeling a lot better today, NGT removed, abdomen less distended, no nausea WBC trending down, BMP shows stable Cr and electrolytes surgery d/c MANAGER HOUSE pump still no diet BP acceptable this afternoon at 140/98, was slightly higher this morning in 150's but still not too high Review of Systems Review of Systems: All systems reviewed & are unremarkable except as noted in HPI & below Respiratory: no cough and no dyspnea Cardiovascular: no chest pain and no edema Gastrointestinal: + abdominal pain (mild); no nausea, no vomiting, no co nstipation and no diarrhea/loose stools Physical Exam Constitutional: well developed, well nourished and + diaphoretic; no acute distress Eyes: PERRL, conjunctivae normal, anicteric sclerae ENMT: external ear and nose normal, oropharynx normal Neck: trachea midline, no thyromegaly Respiratory: normal respiratory effort, lungs clear to auscultation Cardiovascular: RRR, no murmur, no edema Gastrointestinal (Abdomen): Inspection/Auscultation: + abdominal surgical incision, + abdominal surgical drain present (ileostomy) and + hypoactive bowel sounds; abdomen not distended Percussion/Palpation: abdomen soft; abdomen nontender, no guarding and abdomen not rigid Musculoskeletal: no cyanosis or clubbing, extremities motor strength 5/5 Skin: no rashes, warm and dry Neurologic: patellar DTR's 2+ bilat, sensation intact and PERRL, EOMI, accommodation nl, no face palsy, no dysarthria Psychiatric: A+Ox3, euthymic affect Lymphatic: no cervical or axillary lymphadenopathy Results & Data Results & Data ([facility]) Vital Signs (Past 12 Hours) Vital Signs Temp Pulse Pulse Pulse Resp BP BP 05/13/20 15:04 37.1 C 89 18 140/98 05/13/20 14:35 157/96 H 05/13/20 14:06 101 H 155/111 H 05/13/20 11:27 36.9 C 87 18 155/91 H 05/13/20 11:15 92 H 162/94 H 05/13/20 10:39 92 H 158/90 H 05/13/20 07:50 16 135/88 05/13/20 06:50 37 C 88 20 158/126 H 158/126 H 05/13/20 04:08 36.8 C 101 H 18 157/98 H Pulse Ox 05/13/20 15:04 94 05/13/20 14:35 05/13/20 14:06 05/13/20 11:27 92 05/13/20 11:15 05/13/20 10:39 05/13/20 07:50 94 05/13/20 06:50 95 05/13/20 04:08 92 Laboratory Results Laboratory Results - last 24 hr 05/13/20 05/13/20 05/13/20 07:36 07:36 14:24 WBC 12.66 H RBC 4.70 Hgb 13.9 L Hct 42.0 MCV 89.4 MCH 29.6 MCHC 33.1 RDW Std Deviation 45.0 RDW Coeff of Alda 13.6 Plt Count 292 MPV 10.3 Immature Gran % (Auto) 0.2 Neut % (Auto) 80.8 Lymph % (Auto) 9.4 [place] % (Auto) 8.5 Eos % (Auto) 1.0 Baso % (Auto) 0.1 Neut # (Auto) 10.23 H Lymph # (Auto) 1.19 L [place] # (Auto) 1.08 H Eos # (Auto) 0.13 Baso # (Auto) 0.01 Immature Gran # (Auto) 0.02 Sodium 136 Potassium 3.7 Chloride 102 Carbon Dioxide 24 Anion Gap 10.0 BUN 19 H Creatinine 0.87 Est Cr Clr Drug Dosing 88.4 Est GFR ( Amer) 98.5 Est GFR (Non-Af Amer) 85.0 BUN/Creatinine Ratio 21.2 H Glucose 203 H Calcium 8.5 Fluid Creatinine 0.88 Medications Administered Current Inpatient Medications Aspirin (Ecotrin Ectab) 81 mg PO DAILY [facility] Stop: 06/09/20 08:59 Last Admin: 05/13/20 10:28 Dose: Not Given Documented by: Atorvastatin Calcium (Lipitor) 10 mg PO QPM [facility] Stop: 06/09/20 20:59 Last Admin: 05/11/20 20:48 Dose: 10 mg Documented by: Heparin Sodium (Porcine) (Heparin Sodium (Porcine)) 5,000 units SQ Q12H [facility] Stop: 06/11/20 17:59 Last Admin: 05/13/20 06:17 Dose: 5,000 units Documented by: Lactated Ringer's (Lr) 1,000 mls @ 150 mls/hr IV .Q6H40M [facility] Stop: 06/08/20 15:59 Last Admin: 05/13/20 14:02 Dose: 150 mls/hr Documented by: Acetaminophen (Ofirmev) 1,000 mg in 100 mls @ 400 mls/hr IV Q8H PRN PRN Reason: Pain Stop: 05/14/20 15:36 Last Infusion: 05/12/20 00:25 Dose: Infused Documented by: Piperacillin Sod/Tazobactam (Sod 3.375 gm/ Dextrose) 115 mls @ 28.75 mls/hr IV Q8H [facility]; Protocol Stop: 05/22/20 13:59 Last Admin: 05/13/20 13:58 Dose: 28.8 mls/hr Documented by: Pantoprazole Sodium 40 mg/ (Syringe) 10 mls @ 5 mls/min IV DAILY@1100 [facility] Stop: 06/11/20 10:59 Last Admin: 05/13/20 10:41 Dose: 5 mls/min Documented by: Enalaprilat 0.625 mg/ Syringe 10 mls @ 2 mls/min IV QID [facility] Stop: 06/11/20 12:59 Last Admin: 05/13/20 14:21 Dose: 2 mls/min Documented by: Ioversol (Optiray 320 100ml) 94 ml IV ONCE PRN PRN Reason: Interaction Checking Stop: 05/16/20 08:04 Last Admin: 05/12/20 08:05 Dose: 94 ml Documented by: Lisinopril (Zestril) 5 mg PO QPM [facility] Stop: 06/09/20 20:59 Last Admin: 05/11/20 20:48 Dose: 5 mg Documented by: Metoprolol Tartrate (Lopressor) 25 mg PO BID [facility] Stop: 06/08/20 20:59 Last Admin: 05/13/20 10:41 Dose: Not Given Documented by: Miscellaneous Information (Consult) 1 ea N/A UD PRN PRN Reason: Consult Stop: 06/11/20 07:22 Morphine Sulfate (Morphine Sulfate) 4 mg IV Q1H PRN PRN Reason: Pain Stop: 05/27/20 08:13 Morphine Sulfate (Morphine Sulfate) 2 mg IV Q1H PRN PRN Reason: Pain Stop: 05/27/20 08:13 Naloxone HCl (Narcan) 0.1 mg IV Q5M PRN; Protocol PRN Reason: Oversedation/Resp Depression Stop: 05/23/20 15:36 Ondansetron HCl (Zofran) 4 mg IV Q4H PRN PRN Reason: Nausea And Vomiting Stop: 06/08/20 15:36 Sucralfate (Carafate Tab) 1 gm PO BID [facility] Stop: 06/09/20 08:59 Last Admin: 05/13/20 10:28 Dose: Not Given Documented by: PG Care Time/CCT Total # of Minutes Spent Total Time Spent with Patient: Total time spent is greater than 50% in coordination of care (as documented) at patient's floor/unit and/or counseling patient: Coding Level of Care Code 31378 Subseq Hosp Care Lvl 2 Diagnoses Leukocytosis D72.829 Colovesical fistula N32.1 Atrial fibrillation I48.91 Arteriosclerotic cardiovascular disease I25.10 Hyperlipidemia E78.5 Gout M10.9 Hypertension I10
[2020-05-13] MEDS: MoRPHine SULFATE 2 MG/ML CARP IV PRN (23:42)
[2020-05-14] MEDS ORDERED: SODIUM CHLORIDE 0.9% 1000ML 1,000 ML IV SCH (01:00)
[2020-05-14] MEDS: MoRPHine SULFATE 2 MG/ML CARP IV PRN (02:02)
[2020-05-14] MEDS: ACETAMINOPHEN 1,000 MG/100 ML VIAL IV PRN (03:51)
[2020-05-14] MEDS: PIPERACILLIN/TAZOBACTAM 3.375 GM in DEXTROSE 5% 100 ML IV SCH ×3 (05:29→22:43)
[2020-05-14] MEDS: HEPARIN SOD 5,000 UNIT/0.5 ML VIAL SQ SCH ×2 (05:30→18:28)
[2020-05-14] MEDS: lisinopriL 20 MG TAB PO SCH (08:30)
[2020-05-14] MEDS: ASPIRIN 81 MG ECTAB PO SCH (08:31)
[2020-05-14] MEDS: SUCRALFATE 1 GM TAB PO SCH ×2 (08:31→20:10)
[2020-05-14] MEDS: METOPROLOL TARTRATE 25 MG TAB PO SCH ×2 (08:31→20:10)
--- NOTE | 2020-05-14 09:29 | Surgery Progress Note ---
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 Marquez POD 5 At this point we will start clear liquids increase his activity use an abdominal binder for his incision keep the patient here for today making sure that he tolerates a diet and is comfortable of DC the FORGESMITH and IV fluids He had moderate amount of drainage last 48 hours from his Kimi drainage we did send out for creatinine which was normal As stated before our plan is to keep the Dsouza catheter least 10 days prior to removal get a contrast study of his bladder and at the same time get a contrast timing of his lower there anastomosis and plan reversal if radiographically shows no leak Subjective Patient feels much better today he had a good night last night not complaining of abdominal pain and is appears more active Physical Exam Physical Exam: Is alert coherent resting comfortably in bed appears well- hydrated without any complaints The abdomen is much softer the ileostomy has increased output bilious in nature the abdominal incision shows moderate amount of drainage still has a Promise in place I do not palpate any defect in the incision concerned that he may have had a developing of one problem we will keep an eye on it Results & Data Vital Signs (Past 12 Hours) Vital Signs Temp Pulse Pulse Resp BP BP Pulse Ox 05/14/20 07:45 36.9 C 76 18 184/126 H 92 05/14/20 06:18 36.8 C 59 L 16 197/111 H 93 05/14/20 03:58 92 H 173/104 H 05/14/20 00:29 79 161/101 H 05/13/20 23:35 37.1 C 84 20 169/104 H 93 05/13/20 21:31 37 C 101 H 152/90 H 92 PG Care Time/CCT Total # of Minutes Spent Total Time Spent with Patient: Total time spent is greater than 50% in coordination of care (as documented) at patient's floor/unit and/or counseling patient: Coding Level of Care Code None Diagnoses Colovesical fistula N32.1
[2020-05-14 10:06] LABS: Basophils # (auto) 0.01 K/uL (0-0.2); Basophils % (auto) 0.1 %; Eosinophils # (auto) 0.28 K/uL (0-0.5); Hematocrit (blood only) 38.6 % (42-52); Hemoglobin 12.5 g/dL (14.0-18.0); Immature Granulocytes # (auto) 0.04 K/uL (0.00-0.02); Immature Granulocytes % (auto) 0.4 %; Lymphocytes % (auto) 11.8 %; Mean Corpuscular Hemoglobin 29.2 pg (25-34); Mean Corpuscular Hgb Conc 32.4 g/dL (32-36); Mean Corpuscular Volume 90.2 fL (80-100); Mean Platelet Volume 9.4 fL (7.4-10.4); Monocytes # (auto) 0.77 K/uL (0.11-0.59); Monocytes % (auto) 8.3 %; Neutrophils # (auto) 7.11 K/uL (1.4-6.5); Neutrophils % (auto) 76.4 %; Platelet Count 287 K/uL (130-400); RDW Coefficient of Variation 13.6 % (11.5-14.5); RDW Standard Deviation 44.9 fL (36.4-46.3); Red Blood Count 4.28 M/uL (4.7-6.1); White Blood Count 9.31 K/uL (4.8-10.8)
[2020-05-14 10:29] LABS: BUN Creatinine Ratio 18.7 (10-20); Calcium 8.5 mg/dl (8.5-10.1); Creatinine Clr Calc Pharmacy 78.5 ml/min; Est GFR (African American) 87.7; Est GFR (Non-African American) 75.6; Potassium 3.5 mmol/L (3.5-5.1)
[2020-05-14] MEDS: PANTOprazole 40 MG in SYRINGE 0 ML IV SCH (10:34)
--- NOTE | 2020-05-14 11:07 | Hospitalist Progress Note ---
Date of Service May 14, 2020 Assessment & Plan (1) Leukocytosis: unclear etiology, no inflammatory/infectious changes seen on CT no pneumonia seen in bases of lungs WBC down to normal at 9k today likely reactive from surgery if he had fevers would check blood cultures continue on Zosyn for now, duration of therapy per surgery (2) Colovesical fistula: POD 5 from takedown of fistula, bladder repair, sigmoidectomy and ileostomy creation now with obstruction/ileus, resolving NGT removed 05/13, some air and small amount of fluid via ostomy general surgery managing NPO excepts sips and meds COMMUNICATIONS ASSISTANT discontinued for PRN pain control (3) Atrial fibrillation: examines normal rhythm resumed Lopressor 25mg BID, HR in 70's normally on aspirin 81mg daily for stroke prevention (4) Arteriosclerotic cardiovascular disease: normally on aspirin, resume once okay with surgery (5) Hyperlipidemia: takes Lipitor 10mg (6) Gout: (7) Hypertension: BP stable, continue Lopressor, Lisinopril increased to 20mg from 5mg Admission and Anticipated Discharge Date Admission Date: May 09, 2020 Subjective patient is now a one to one, has been confused, pulling at IV and pulling at abdominal dressings he is pleasant, oriented to person and place, says he will try to behave himself he is taking his medications, blood pressure better reviewed labs, WBC down to normal at 9k, Hb stable, Cr normal and electrolytes stable will reduce fluids to 75cc/hr as he is positive 10 liters Review of Systems Review of Systems: All systems reviewed & are unremarkable except as noted in HPI & below Respiratory: + cough (dry); no dyspnea Cardiovascular: no chest pain and no edema Gastrointestinal: + abdominal pain; no nausea, no vomiting, no constipation and no diarrhea/loose stools Physical Exam Constitutional: well developed and well nourished; no acute distress Eyes: PERRL, conjunctivae normal, anicteric sclerae ENMT: external ear and nose normal, oropharynx normal Neck: trachea midline, no thyromegaly Respiratory: normal respiratory effort, lungs clear to auscultation Cardiovascular: RRR, no murmur, no edema Gastrointestinal (Abdomen): Inspection/Auscultation: + abdominal surgical incision, + abdominal surgical drain present (ileostomy) and + hypoactive bowel sounds; abdomen not distended Percussion/Palpation: abdomen soft; abdomen nontender, no guarding and abdomen not rigid Musculoskeletal: no cyanosis or clubbing, extremities motor strength 5/5 Skin: no rashes, warm and dry Neurologic: patellar DTR's 2+ bilat, sensation intact and PERRL, EOMI, accommodation nl, no face palsy, no dysarthria Psychiatric: Orientation: alert, oriented to person, oriented to place and cooperative; + not oriented to time Lymphatic: no cervical or axillary lymphadenopathy Results & Data Results & Data ([facility]) Vital Signs (Past 12 Hours) Vital Signs Temp Pulse Pulse Resp BP Pulse Ox 05/14/20 10:40 76 136/93 05/14/20 07:45 36.9 C 76 18 184/126 H 92 05/14/20 06:18 36.8 C 59 L 16 197/111 H 93 05/14/20 03:58 92 H 173/104 H 05/14/20 00:29 79 161/101 H 05/13/20 23:35 37.1 C 84 20 169/104 H 93 Laboratory Results Laboratory Results - last 24 hr 05/13/20 05/14/20 05/14/20 14:24 09:53 09:53 WBC 9.31 RBC 4.28 L Hgb 12.5 L Hct 38.6 L MCV 90.2 MCH 29.2 MCHC 32.4 RDW Std Deviation 44.9 RDW Coeff of Alda 13.6 Plt Count 287 MPV 9.4 Immature Gran % (Auto) 0.4 Neut % (Auto) 76.4 Lymph % (Auto) 11.8 Carter % (Auto) 8.3 Eos % (Auto) 3.0 Baso % (Auto) 0.1 Neut # (Auto) 7.11 H Lymph # (Auto) 1.10 L Carter # (Auto) 0.77 H Eos # (Auto) 0.28 Baso # (Auto) 0.01 Immature Gran # (Auto) 0.04 H Sodium 137 Potassium 3.5 Chloride 105 Carbon Dioxide 26 Anion Gap 6.0 BUN 18 Creatinine 0.98 Est Cr Clr Drug Dosing 78.5 Est GFR ( Amer) 87.7 Est GFR (Non-Af Amer) 75.6 BUN/Creatinine Ratio 18.7 Glucose 122 H Calcium 8.5 Fluid Creatinine 0.88 Medications Administered Current Inpatient Medications Aspirin (Ecotrin Ectab) 81 mg PO DAILY [facility] Stop: 06/09/20 08:59 Last Admin: 05/14/20 08:31 Dose: 81 mg Documented by: Atorvastatin Calcium (Lipitor) 10 mg PO QPM [facility] Stop: 06/09/20 20:59 Last Admin: 05/11/20 20:48 Dose: 10 mg Documented by: Heparin Sodium (Porcine) (Heparin Sodium (Porcine)) 5,000 units SQ Q12H [facility] Stop: 06/11/20 17:59 Last Admin: 05/14/20 05:30 Dose: 5,000 units Documented by: Piperacillin Sod/Tazobactam (Sod 3.375 gm/ Dextrose) 115 mls @ 28.75 mls/hr IV Q8H [facility]; Protocol Stop: 05/22/20 13:59 Last Infusion: 05/14/20 10:11 Dose: Infused Documented by: Pantoprazole Sodium 40 mg/ (Syringe) 10 mls @ 5 mls/min IV DAILY@1100 [facility] Stop: 06/11/20 10:59 Last Admin: 05/14/20 10:34 Dose: 5 mls/min Documented by: Ioversol (Optiray 320 100ml) 94 ml IV ONCE PRN PRN Reason: Interaction Checking Stop: 05/16/20 08:04 Last Admin: 05/12/20 08:05 Dose: 94 ml Documented by: Lisinopril (Zestril) 20 mg PO QAM [facility] Stop: 06/13/20 08:59 Last Admin: 05/14/20 08:30 Dose: 20 mg Documented by: Metoprolol Tartrate (Lopressor) 25 mg PO BID [facility] Stop: 06/08/20 20:59 Last Admin: 05/14/20 08:31 Dose: 25 mg Documented by: Miscellaneous Information (Consult) 1 ea N/A UD PRN PRN Reason: Consult Stop: 06/11/20 07:22 Ondansetron HCl (Zofran) 4 mg IV Q4H PRN PRN Reason: Nausea And Vomiting Stop: 06/08/20 15:36 Oxycodone/Acetaminophen (Percocet 5mg/325mg) 1 tab PO Q4H PRN PRN Reason: Pain Stop: 05/28/20 09:31 Sucralfate (Carafate Tab) 1 gm PO BID [facility] Stop: 06/09/20 08:59 Last Admin: 05/14/20 08:31 Dose: 1 gm Documented by: PG Care Time/CCT Total # of Minutes Spent Total Time Spent with Patient: Total time spent is greater than 50% in coordination of care (as documented) at patient's floor/unit and/or counseling patient: Coding Level of Care Code 47295 Subseq Hosp Care Lvl 2 Diagnoses Leukocytosis D72.829 Colovesical fistula N32.1 Atrial fibrillation I48.91 Arteriosclerotic cardiovascular disease I25.10 Hyperlipidemia E78.5 Gout M10.9 Hypertension I10
[2020-05-14] MEDS: OXYCODONE/ACETAMINOPHEN 5mg/325mg TAB PO PRN ×2 (13:37→18:30)
[2020-05-15] MEDS: PIPERACILLIN/TAZOBACTAM 3.375 GM in DEXTROSE 5% 100 ML IV SCH ×3 (06:02→21:49)
[2020-05-15] MEDS: HEPARIN SOD 5,000 UNIT/0.5 ML VIAL SQ SCH ×2 (06:06→18:01)
[2020-05-15 06:46] LABS: Hematocrit (blood only) 37.7 % (42-52); Hemoglobin 12.5 g/dL (14.0-18.0); Mean Corpuscular Hemoglobin 29.3 pg (25-34); Mean Corpuscular Hgb Conc 33.2 g/dL (32-36); Mean Corpuscular Volume 88.3 fL (80-100); Mean Platelet Volume 9.6 fL (7.4-10.4); Platelet Count 270 K/uL (130-400); RDW Coefficient of Variation 13.4 % (11.5-14.5); RDW Standard Deviation 43.2 fL (36.4-46.3); Red Blood Count 4.27 M/uL (4.7-6.1)
--- NOTE | 2020-05-15 07:07 | Surgery Progress Note ---
Date of Service May 15, 2020 Assessment & Plan (1) Colovesical fistula: At this point I think the best thing is to take the patient to surgery explore his wound for possible dehiscence We will keep the patient n.p.o. surgery was called and they will be ready within a few hours if they can get the staff and anesthesia to staff the room The procedure was explained to the patient and he would like to proceed accordingly Permit this was signed witnessed Present on Admission?: Yes Subjective Overall without any complaints he tolerated his fluid yesterday without any problem and not complaining of any abdominal pain the binders still on that we placed yesterday Physical Exam Physical Exam: Is alert coherent very comfortable in no distress Still moderate amount of drainage from the incision still has a Winthrop in the upper aspect of the incision sutures of the skin in the lower aspect similarly the amount of drainage is seem to be serous slightly sanguinous at this point I explored the wound by taking some 4 5 roger out removing the Promise drain and probed the wound with a Q-tip I could not be 100% sure whether or not the fascia is intact but certainly there was no evidence of any bowel contents per my exploration with a Q-tip Results & Data Vital Signs (Past 12 Hours) Vital Signs Temp Pulse Pulse Resp BP BP Pulse Ox 05/14/20 23:21 37.5 C 76 18 186/112 H 90 05/14/20 19:49 37.0 C 97 H 20 159/108 H 91 PG Care Time/CCT Total # of Minutes Spent Total Time Spent with Patient: Total time spent is greater than 50% in coordination of care (as documented) at patient's floor/unit and/or counseling patient: Coding Level of Care Code None Diagnoses Colovesical fistula N32.1
[2020-05-15 07:16] LABS: BUN Creatinine Ratio 15.8 (10-20); Calcium 8.4 mg/dl (8.5-10.1); Creatinine Clr Calc Pharmacy 83.6 ml/min; Est GFR (African American) 94.6; Est GFR (Non-African American) 81.6; Potassium 3.7 mmol/L (3.5-5.1)
[2020-05-15] MEDS ORDERED: HydrALAZINE HCL 20 MG/ML VIAL IV PRN (07:22)
[2020-05-15] MEDS: ENALAPRILAT 1.25 MG in DEXTROSE 5% 25 ML IV SCH ×4 (07:44→23:37)
[2020-05-15] MEDS ORDERED: MoRPHine SULFATE 4 MG/ML 1 ML CARP\\VIAL IV PRN (08:16)
[2020-05-15] MEDS: METOPROLOL TARTRATE 25 MG TAB PO SCH ×2 (09:00→21:30)
[2020-05-15] MEDS: SUCRALFATE 1 GM TAB PO SCH ×2 (09:00→21:30)
[2020-05-15] MEDS: lisinopriL 20 MG TAB PO SCH (09:00)
[2020-05-15] MEDS: ASPIRIN 81 MG ECTAB PO SCH (09:00)
[2020-05-15] MEDS: MoRPHine SULFATE 2 MG/ML CARP IV PRN ×2 (09:15→14:06)
[2020-05-15] MEDS: LACTATED RINGER'S 1,000 ML IV SCH ×2 (09:28→18:01)
[2020-05-15] MEDS ORDERED: fentaNYL citrate 100 MCG/2 ML VIAL ONE ×2 (09:32→10:47)
[2020-05-15] MEDS ORDERED: ePHEDrine sulfate 50 MG/ML AMP IV PRN (10:06)
[2020-05-15] MEDS ORDERED: PROMETHAZINE HCL 6.25 MG in SODIUM CHLORIDE 0.9% 50 ML IV PRN (10:06)
[2020-05-15] MEDS ORDERED: ONDANSETRON INJ 2 MG/ML 2 ML VIAL IV PRN (10:06)
[2020-05-15] MEDS ORDERED: ATROPINE SULFATE 0.1 MG/ML 10ML SYR IV PRN (10:06)
--- NOTE | 2020-05-15 10:06 | Anesthesiology Consultation ---
Date of Service May 15, 2020 Assessment & Plan (1) Encounter for pre-operative examination: Chart Review Chart Review: Acceptable Risk for Surgery and Patient NOT seen in Pre Admission Testing Consults Requested none ASA ASA3 Proposed Anesthesia Anesthesia Type: General Risk / Benefits Reviewed With: PT / POA / Parent / Guardian, Accepts Plan and In formed Consent Obtained History Surgery Operation Date: 05/09/20 10:20 Proposed Procedures p Laparoscopic Assisted Takedown of Colovesicular Fistula - Lex Marquez MD Operation Date: 05/15/20 11:50 Proposed Procedures p Exploratory Abdominal Wound, Possible Dehiscence - Lex Marquez MD Height/Weight Height: 5 ft 11 in Weight: 96.8 kg Allergies Allergy/AdvReac Type Severity Reaction Status Date / Time ezetimibe [From Zetia] AdvReac Intermediate sore joints Verified 05/09/20 09:07 lovastatin AdvReac Intermediate sore joints Verified 05/09/20 09:07 Medications Home Medications Medication Instructions Recorded Confirmed Last Taken atorvastatin 10 mg tablet 10 mg PO QPM #90 tab 09/06/19 05/09/20 05/08/20 22:00 metoprolol tartrate 25 mg tablet 25 mg PO BID #180 tab 09/18/19 05/09/20 05/09/20 06:00 lisinopril 5 mg tablet 5 mg PO DAILY 03/21/20 05/09/20 05/08/20 22:00 aspirin 81 mg tablet,delayed 81 mg PO DAILY 04/17/20 05/09/20 05/08/20 22:00 release acetaminophen [Tylenol Extra 500 mg PO DAILY PRN 05/02/20 05/09/20 05/02/20 Strength] omeprazole 40 mg PO QPM 05/02/20 05/09/20 05/08/20 22:00 sucralfate [Carafate] 1 g PO BID 05/02/20 05/09/20 05/09/20 06:00 Active Medications Generic Name Dose Route Start Last Admin Trade Name Freq PRN Reason Stop Dose Admin Aspirin 81 mg 05/10/20 09:00 05/14/20 08:31 Ecotrin Ectab PO 06/09/20 08:59 81 mg DAILY POLI Administration Atorvastatin Calcium 10 mg 05/10/20 21:00 06/25/20 20:48 Lipitor PO 06/09/20 20:59 10 mg QPM POLI Administration Heparin Sodium (Porcine) 5,000 units 05/12/20 18:00 05/15/20 06:06 Heparin Sodium (Porcine) SQ 06/11/20 17:59 5,000 units Q12H POLI Administration Piperacillin Sod/Tazobactam 115 mls @ 28.75 mls/hr 05/12/20 14:00 05/15/20 08 :05 Sod 3.375 gm/ Dextrose IV 05/22/20 13:59 28.8 mls/hr Q8H POLI Infusion Protocol Pantoprazole Sodium 40 mg/ 10 mls @ 5 mls/min 05/12/20 11:00 05/14/20 10:34 Syringe IV 06/11/20 10:59 5 mls/min DAILY@1100 [facility]I Administration Enalaprilat 1.25 mg/ Dextrose 26 mls @ 100 mls/hr 05/15/20 07:25 05/15/20 08:05 IV 06/14/20 07:24 Infused Q6 [facility]I Infusion Lactated Ringer's 1,000 mls @ 125 mls/hr 05/15/20 08:45 05/15/20 09:28 Lr IV 06/14/20 08:44 125 mls/hr .Q8H POLI Administration Ioversol 94 ml 05/12/20 08:05 05/12/20 08:05 Optiray 320 100ml IV 05/16/20 08:04 94 ml ONCE PRN Administration Interaction Checking Lisinopril 20 mg 05/14/20 09:00 05/14/20 08:30 Zestril PO 06/13/20 08:59 20 mg QAM POLI Administration Metoprolol Tartrate 25 mg 05/09/20 21:00 05/14/20 20:10 Lopressor PO 06/08/20 20:59 25 mg BID POLI Administration Morphine Sulfate 2 mg 05/15/20 08:16 05/15/20 09:15 Morphine Sulfate IV 05/29/20 08:15 2 mg Q4H PRN Administration Pain Oxycodone/Acetaminophen 1 tab 05/14/20 09:32 05/14/20 18:30 Percocet 5mg/325mg PO 05/28/20 09:31 1 tab Q4H PRN Administration Pain Sucralfate 1 gm 05/10/20 09:00 05/14/20 20:10 Carafate Tab PO 06/09/20 08:59 1 gm BID POLI Administration NPO Date Last Intake of Fluids: 05/14/20 Time Last Intake of Fluids: 18:00 Last Intake of Fluids Comment: had few sips of water this am at 0600 Date Last Intake of Solids: 05/14/20 Time Last Intake of Solids: 18:00 Last Intake of Solids Comment: clear liquid diet times three days Past Medical History Medical History Arteriosclerotic cardiovascular disease Non obstructive CAD Atrial fibrillation follows with [facility], annually. no cardioversion. Colovesical fistula GERD (gastroesophageal reflux disease) "silent" Gout Hyperlipidemia Hypertension Osteoarthritis Urinary tract infection Exercise / Class Metabolic Activity II 4-5 Yardwork/Stairs/Walk up hill Past Family History Family History Brother Prostate cancer Heart disease Father Heart disease Other No family history of adverse response to anesthesia Past Surgical History Surgical History History of adenoidectomy History of cardiac cath ~2004 & ~2011. no stents. History of colonoscopy History of ear surgery right History of esophagogastroduodenoscopy (EGD) x1 with FB removal and x1 for recheck History of tonsillectomy S/P inguinal hernia repair right inguinal with hernia mesh Past Anesthesia History No Hx of Anesthesia Complications and No Family Hx of Anesthesia Complications History of PONV No Hx of PONV and No Hx of Motion Sickness Social History Smoking Status: Never smoker Do You Dip or Chew Tobacco: Yes (1 can/3 days (advised)) Hx Alcohol Use: No Hx Substance Use: No substance use type: does not use Physical Exam Vital Signs Last Vital Signs Temp 36.8 C 05/15/20 09:52 Pulse 90 05/15/20 09:52 Resp 20 05/15/20 09:52 BP 169/114 H 05/15/20 09:52 Pulse Ox 94 05/15/20 09:52 ENMT Mouth: no dentition abnormality Thyromental Distance: > or= 3.5 Finger Breadths Mallampati Class: II Neck normal visual inspection Respiratory normal respiratory effort Auscultation: lungs clear to auscultation bilaterally Cardiovascular Rate/Rhythm: regular rate and regular rhythm Psychiatric Orientation: alert Testing Laboratory Results 05/15/20 06:36 05/15/20 06:36 05/09/20 11:00 Urine Culture - Final Urine,Indwelling Cath Three types of organisms present, all low counts probable skin brittnee. No further identifications or sensitivities to follow. Electrocardiogram Date: 04/27/20 Findings: + SB @ (51) Chest X-Ray Date: 04/27/20 COPD changes- linear areas of scar/atelecasis in the lower portions of the chest. Hyperaeration and diaphragmatic flattening suggesting underlying COPD. No focal infiltrate, pleural effusion or pulmonary edema.
[2020-05-15] MEDS ORDERED: DEXAMETHASONE SOD INJ 4 MG/ML VIAL ONE (10:24)
[2020-05-15] MEDS ORDERED: PROPOFOL IV EMULSION 10 MG/ML 20 ML VIAL IV ONE (10:24)
[2020-05-15] MEDS ORDERED: ONDANSETRON INJ 2 MG/ML 2 ML VIAL ONE (10:24)
[2020-05-15] MEDS ORDERED: LIDOCAINE HCL 2% 2 ML VIAL/AMP(20MG/ML) INFIL ONE (10:24)
[2020-05-15] MEDS ORDERED: PHENYLEPHRINE HCL 10 MG/ML VIAL ONE (11:04)
[2020-05-15] MEDS ORDERED: ePHEDrine sulfate 50 MG/ML AMP ONE (11:04)
--- NOTE | 2020-05-15 11:13 | Post Operative Brief Note ---
PG Immediate Post Op with CF Date of Surgery May 15, 2020 Pre & Post Diagnosis Operation Date: 05/09/20 10:20 Pre-Op Diagnosis: Colovesical Fistula Post-Op Diagnosis: Colovesical Fistula Operation Date: 05/15/20 11:50 Pre-Op Diagnosis: Colovesical Fistula Post-Op Diagnosis: Colovesical Fistula I identified the patient and participated in the time-out.: Yes Procedure Operation Date: 05/09/20 10:20 Actual Procedures p Laparoscopic Assisted Takedown of Colovesicular Fistula, Sigmoid Colon Resection, Protective Ileostomy(Not Applicable) - Lex Marquez MD Operation Date: 05/15/20 11:50 Actual Procedures p Exploratory Abdominal Wound Closure abdominal dehisence - Lex Marquez MD Surgeon Lex Maruqez MD Finish Opener b denton berkowitz Estimated Blood Loss 50 Findings Consistent with Post-Op Diagnosis Specimens Specimen Description: Culture#1 abdominal wound for aerobic, anaerobic, gram stain Drains Dsouza Catheter, Perry-Valencia Drain and [place] Drain
--- NOTE | 2020-05-15 11:33 | Operative Report ---
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 I identified the patient and participated in the time-out.: Yes Procedure Operation Date: 05/09/20 10:20 Actual Procedures p Laparoscopic Assisted Takedown of Colovesicular Fistula, Sigmoid Colon Resection, Protective Ileostomy(Not Applicable) - Lex Marquez MD Operation Date: 05/15/20 11:50 Actual Procedures p Exploratory Abdominal Wound Closure abdominal dehisence - Lex Marquez MD The patient was brought into the operating theater general endotracheal anesthesia the abdomen prepped Betadine solution properly draped timeout was had patient was identified there is a hemostat to remove the roger and lower midline incision once that was all removed we were finger dissected out the subcutaneous tissue and encountered some old blood and pretty much once we freed this all up we saw that the whole incision in the fascial closure it come undone there was no evidence of any bowel we could see the omentum we did not touch any of this we irrigated the wound took cultures and then closed with retention sutures #5 Ethibond that would be tied over a bolster and #1 PDS continuous fascia at this point I felt that the repair was quite solid we irrigated and I placed 1/4 inch [place] in the subcu after we closed the retention sutures on top of the incision with a bolster dressing was applied the procedure was tolerated well by the patient estimated blood loss 50 cc patient was taken recovery in good condition addendum I talk with the son Kris and brought him up-to-date Surgeon Lex Marquez MD Full Roll Inspector price berkowitz Estimated Blood Loss 50 Findings Consistent with Post-Op Diagnosis Specimens none Description of Procedure merda I attest to the content of the Intraoperative Record and any orders documented therein. Any exceptions are noted below.
[2020-05-15] MEDS: fentaNYL citrate 100 MCG/2 ML VIAL IV PRN ×2 (11:58→12:04)
--- NOTE | 2020-05-15 12:29 | Anesthesiology Progress Note ---
Date of Service May 15, 2020 Anesthesia Post Procedure Vital Signs Vital Signs: Temp Pulse Pulse Pulse Resp BP BP 05/15/20 12:15 36.9 C 101 H 16 148/96 H 05/15/20 12:05 36.9 C 107 H 16 121/96 05/15/20 11:55 115 H 16 126/92 05/15/20 11:45 117 H 16 116/87 05/15/20 11:35 106 H 16 104/79 05/15/20 11:26 36.4 C L 107 H 16 117/92 05/15/20 09:52 36.8 C 90 20 169/114 H 05/15/20 08:16 137/103 H 155/110 H 05/15/20 07:12 87 20 170/104 H 183/121 H 05/14/20 23:21 37.5 C 76 18 186/112 H 05/14/20 19:49 37.0 C 97 H 20 159/108 H 05/14/20 14:59 36.5 C 85 18 137/94 Pulse Ox 05/15/20 12:15 94 05/15/20 12:05 94 05/15/20 11:55 94 05/15/20 11:45 97 05/15/20 11:35 97 05/15/20 11:26 93 05/15/20 09:52 94 05/15/20 08:16 05/15/20 07:12 93 05/14/20 23:21 90 05/14/20 19:49 91 05/14/20 14:59 94 Pain Intensity Right Lower Abdomen: Pain Intensity: 0 Abdomen: Pain Intensity: 5 Transfer of Care Handoff Completed per policy Notes Mental Status: alert / awake / arousable Patient Amnestic to Procedure: Yes Nausea / Vomiting: adequately controlled Pain: adequately controlled Airway Patency, RR, SpO2: stable & adequate BP & HR: stable & adequate Hydration State: stable & adequate Anesthetic Complications: no major complications apparent
[2020-05-15] MEDS: PANTOprazole 40 MG in SYRINGE 0 ML IV SCH (12:56)
[2020-05-15] MEDS: ATORVASTATIN 10 MG TAB PO SCH (21:30)
[2020-05-16] MEDS ORDERED: LORazepam 2 MG/4 ML VIAL IV ONE (01:30)
[2020-05-16] MEDS: LACTATED RINGER'S 1,000 ML IV SCH ×3 (02:37→19:05)
[2020-05-16] MEDS: ENALAPRILAT 1.25 MG in DEXTROSE 5% 25 ML IV SCH ×3 (05:38→17:11)
[2020-05-16] MEDS: HEPARIN SOD 5,000 UNIT/0.5 ML VIAL SQ SCH ×2 (06:00→17:21)
[2020-05-16] MEDS: PIPERACILLIN/TAZOBACTAM 3.375 GM in DEXTROSE 5% 100 ML IV SCH ×3 (06:04→21:38)
--- NOTE | 2020-05-16 06:50 | Surgery Progress Note ---
Date of Service May 16, 2020 Assessment & Plan (1) Dehiscence of fascia: The patient is 7 days status post resection of colovesicular fistula He is 1 day postop closure abdominal dehiscence He appears comfortable without any extrusion pain in the ileostomy has some output he has good urine output for at this time we will start him on a diet and hopefully his mental status will improve His vitals also show that he was not hypoxic Present on Admission?: Yes Subjective Beeping and as I walked into the room easily awoken although still a bit confused Nurses report he was really agitated all of a sudden 11:00 last night and received some Ativan and stating that this is the almost he has been When I talked to him he was not complaining of abdominal pain and the nurses likewise stated that during the night did not complain of any pain Physical Exam Physical Exam: As stated above the patient was asleep but easily awoken but bit confused to time and place The abdomen is soft he has moderate amount of drainage on the dressing as expected there is a Celeste drain in the incision although the incision is free of any cellulitis and the retention sutures are intact He has moderate amount of drainage through the ileostomy tube Results & Data Vital Signs (Past 12 Hours) Vital Signs Temp Pulse Pulse Pulse Pulse Resp BP 05/16/20 06:33 36.7 C 83 22 05/16/20 04:30 05/16/20 03:07 36.5 C 94 H 18 05/15/20 22:55 37.2 C 106 H 18 05/15/20 21:26 103 H 102 H 158/105 H 05/15/20 19:06 37.0 C 100 H 20 BP Pulse Ox 05/16/20 06:33 154/97 H 91 05/16/20 04:30 170/102 H 05/16/20 03:07 165/107 H 91 05/15/20 22:55 159/108 H 96 05/15/20 21:26 166/120 H 05/15/20 19:06 137/93 96 PG Care Time/CCT Total # of Minutes Spent Total Time Spent with Patient: Total time spent is greater than 50% in coordination of care (as documented) at patient's floor/unit and/or counseling patient: Coding Level of Care Code None Diagnoses Dehiscence of fascia T81.30XA
[2020-05-16 07:14] LABS: Basophils # (auto) 0.02 K/uL (0-0.2); Basophils % (auto) 0.1 %; Eosinophils # (auto) 0.08 K/uL (0-0.5); Eosinophils % (auto) 0.6 %; Hematocrit (blood only) 36.4 % (42-52); Hemoglobin 12.1 g/dL (14.0-18.0); Immature Granulocytes # (auto) 0.13 K/uL (0.00-0.02); Immature Granulocytes % (auto) 0.9 %; Lymphocytes # (auto) 1.18 K/uL (1.2-3.4); Lymphocytes % (auto) 8.6 %; Mean Corpuscular Hemoglobin 29.3 pg (25-34); Mean Corpuscular Hgb Conc 33.2 g/dL (32-36); Mean Corpuscular Volume 88.1 fL (80-100); Mean Platelet Volume 9.5 fL (7.4-10.4); Monocytes # (auto) 1.25 K/uL (0.11-0.59); Monocytes % (auto) 9.1 %; Neutrophils # (auto) 11.08 K/uL (1.4-6.5); Neutrophils % (auto) 80.7 %; Platelet Count 286 K/uL (130-400); RDW Coefficient of Variation 13.4 % (11.5-14.5); Red Blood Count 4.13 M/uL (4.7-6.1); White Blood Count 13.74 K/uL (4.8-10.8)
[2020-05-16 07:45] LABS: BUN Creatinine Ratio 13.7 (10-20); Calcium 8.5 mg/dl (8.5-10.1); Creatinine Clr Calc Pharmacy 73.2 ml/min; Est GFR (African American) 80.7; Est GFR (Non-African American) 69.6; Potassium 3.8 mmol/L (3.5-5.1)
--- NOTE | 2020-05-16 08:20 | Anesthesiology Progress Note ---
Date of Service May 16, 2020 Anesthesia Post Procedure Vital Signs Vital Signs: Temp Pulse Pulse Pulse Pulse Pulse Resp 05/16/20 06:33 36.7 C 83 22 05/16/20 04:30 05/16/20 03:07 36.5 C 94 H 18 05/15/20 22:55 37.2 C 106 H 18 05/15/20 21:26 103 H 102 H 05/15/20 19:06 37.0 C 100 H 20 05/15/20 15:23 37.1 C 106 H 18 05/15/20 13:43 36.5 C 103 H 18 05/15/20 13:08 36.6 C 104 H 18 05/15/20 12:40 36.5 C 103 H 16 05/15/20 12:15 36.9 C 101 H 16 05/15/20 12:05 36.9 C 107 H 16 05/15/20 11:55 115 H 16 05/15/20 11:45 117 H 16 05/15/20 11:35 106 H 05/15/20 11:26 36.4 C L 107 H 05/15/20 09:52 36.8 C 90 20 05/15/20 08:16 BP BP Pulse Ox 05/16/20 06:33 154/97 H 91 05/16/20 04:30 170/102 H 05/16/20 03:07 165/107 H 91 05/15/20 22:55 159/108 H 96 05/15/20 21:26 158/105 H 166/120 H 05/15/20 19:06 137/93 96 05/15/20 15:23 143/89 H 95 05/15/20 13:43 119/86 94 05/15/20 13:08 123/90 93 05/15/20 12:40 140/93 92 05/15/20 12:15 148/96 H 94 05/15/20 12:05 121/96 94 05/15/20 11:55 126/92 94 05/15/20 11:45 116/87 97 05/15/20 11:35 104/79 97 05/15/20 11:26 117/92 93 05/15/20 09:52 169/114 H 94 05/15/20 08:16 137/103 H 155/110 H Pain Intensity Right Lower Abdomen: Pain Intensity: 0 Abdomen: Pain Intensity: 0 Notes Mental Status: see notes below (Patient has been somewhat confused since 11 pm 05/15, has been sedated, but arouses when stimulated....one-on-one nursing cove rage required.) Patient Amnestic to Procedure: Yes Nausea / Vomiting: adequately controlled Pain: adequately controlled Airway Patency, RR, SpO2: stable & adequate BP & HR: stable & adequate Hydration State: stable & adequate Anesthetic Complications: no major complications apparent and Pt Satisfied with anesthetic care
[2020-05-16] MEDS: ASPIRIN 81 MG ECTAB PO SCH (09:34)
[2020-05-16] MEDS: SUCRALFATE 1 GM TAB PO SCH ×2 (09:34→20:04)
[2020-05-16] MEDS: METOPROLOL TARTRATE 25 MG TAB PO SCH ×2 (09:34→20:04)
[2020-05-16] MEDS: lisinopriL 20 MG TAB PO SCH (09:35)
[2020-05-16] MEDS: PANTOprazole 40 MG in SYRINGE 0 ML IV SCH (10:51)
[2020-05-16] MEDS: NYSTATIN SUSP 500,000 U/5 ML UDC PO SCH ×3 (13:36→20:04)
[2020-05-16] MEDS: TRIAMCINOLONE ACET NASAL SPRAY 10.8ML BTL NAE SCH (13:36)
[2020-05-16] MEDS: ATORVASTATIN 10 MG TAB PO SCH (20:03)
[2020-05-16] MEDS: OXYCODONE/ACETAMINOPHEN 5mg/325mg TAB PO PRN (20:09)
--- NOTE | 2020-05-16 21:23 | Hospitalist Progress Note ---
Date of Service May 16, 2020 Assessment & Plan (1) Colovesical fistula: POD #7 s/p takedown of fistula, bladder repair, sigmoidectomy and ileostomy creation. NGT removed 05/13. Tolerating liquids. Good ostomy output. General surgery managing. Post-op course complicated by dehiscence of incision/fascia - see below. (2) Dehiscence of fascia: POD #1 s/p exploratory abdominal wound closure due to abdominal dehiscence. Intra-op culture with pseudomonas - sensitivities pending. Cont zosyn for now. Defer management to surgery. (3) Atrial fibrillation: Continue Lopressor 25mg BID. He is not on chronic anticoagulation at home. (4) Arteriosclerotic cardiovascular disease: Typically takes 81mg asa. Resume when ok with gen surgery. (5) Hyperlipidemia: Cont lipitor (6) Gout: no flares at this time (7) Hypertension: still high despite recent increase in lisinopril. increase metoprolol to 50mg BID. adjust further if needed. stop IV enalapril. (8) Candidiasis of mouth and esophagus: nystatin amanda - 5cc qid (9) Metabolic encephalopathy: likely 2nd to hospital psychosis, narcotics, cannot rule out pseudomonas infection contributing. supportive care. (10) DVT prophylaxis: heparin SC will cont to follow Admission and Anticipated Discharge Date Admission Date: May 09, 2020 Subjective patient confused; stating he has to go outside and take care of the animals. interesting he remembers his surgeries. eating <50% of full liquid meals. passing stool via ostomy. no dyspnea. c/o post-nasal drip/throat clearing. sitter at bedside. Review of Systems Respiratory: no cough and no dyspnea Cardiovascular: no chest pain and no orthopnea Gastrointestinal: + abdominal pain; no vomiting Physical Exam Constitutional: + altered mental status; no acute distress ENMT: Mouth: + oral mucosal abnormality (thrush plaques ) and + dry oral mucous membranes Respiratory: normal respiratory effort, lungs clear to auscultation Auscultation: + crackles (dry, bases ) Cardiovascular: Rate/Rhythm: regular rate and regular rhythm Heart Sounds: normal S1 and normal S2; no murmur Vessels: posterior tibial pulses present and dorsalis pedis pulses present; no JVD Extremities: no edema Gastrointestinal (Abdomen): Inspection/Auscultation: + abdomen distended and normal bowel sounds Percussion/Palpation: abdomen nontender abdominal binder and drain in place; ostomy in place with brown/green stool Psychiatric: Orientation: alert and oriented to person; + not oriented to place and + not oriented to time Results & Data Results & Data ([facility]) Vital Signs (Past 12 Hours) Vital Signs Temp Pulse Pulse Resp BP BP Pulse Ox 05/16/20 19:44 36.7 C 92 H 17 172/118 H 93 05/16/20 15:14 36.9 C 90 22 173/117 H 170/114 H 95 Laboratory Results Laboratory Results - last 24 hr 05/16/20 05/16/20 05/16/20 07:03 07:03 07:03 WBC 13.74 H RBC 4.13 L Hgb 12.1 L Hct 36.4 L MCV 88.1 MCH 29.3 MCHC 33.2 RDW Std Deviation 43.0 RDW Coeff of Alda 13.4 Plt Count 286 MPV 9.5 Immature Gran % (Auto) 0.9 Neut % (Auto) 80.7 Lymph % (Auto) 8.6 [place] % (Auto) 9.1 Eos % (Auto) 0.6 Baso % (Auto) 0.1 Neut # (Auto) 11.08 H Lymph # (Auto) 1.18 L [place] # (Auto) 1.25 H Eos # (Auto) 0.08 Baso # (Auto) 0.02 Immature Gran # (Auto) 0.13 H Sodium 138 Potassium 3.8 Chloride 106 Carbon Dioxide 27 Anion Gap 5.0 BUN 14 Creatinine 1.05 Est Cr Clr Drug Dosing 73.2 Est GFR ( Amer) 80.7 Est GFR (Non-Af Amer) 69.6 BUN/Creatinine Ratio 13.7 Glucose 103 H Calcium 8.5 Magnesium 2.0 PG Care Time/CCT Total # of Minutes Spent Total Time Spent with Patient: Total time spent is greater than 50% in coordination of care (as documented) at patient's floor/unit and/or counseling patient: Coding Level of Care Code 99388 Subseq Hosp Care Lvl 2 Diagnoses Colovesical fistula N32.1 Dehiscence of fascia T81.30XD Encounter type: subsequent encounter Atrial fibrillation I48.0 Atrial fibrillation type: paroxysmal Arteriosclerotic cardiovascular disease I25.10 Hyperlipidemia E78.2 Hyperlipidemia type: mixed hyperlipidemia Gout M10.9 Hypertension I10 Candidiasis of mouth and esophagus B37.81; B37.0 Metabolic encephalopathy G93.41 DVT prophylaxis Z29.9 (1) Atrial fibrillation Atrial fibrillation type: paroxysmal Qualified Code(s): I48.0 - Paroxysmal atrial fibrillation (2) Hyperlipidemia Hyperlipidemia type: mixed hyperlipidemia Qualified Code(s): E78.2 - Mixed hyperlipidemia (3) Dehiscence of fascia Encounter type: subsequent encounter Qualified Code(s): T81.30XD - Disruption of wound, unspecified, subsequent encounter
[2020-05-16] MEDS ORDERED: METOPROLOL TARTRATE 25 MG TAB PO ONE (22:00)
[2020-05-17 05:41] LABS: Basophils # (auto) 0.02 K/uL (0-0.2); Basophils % (auto) 0.2 %; Eosinophils # (auto) 0.39 K/uL (0-0.5); Hematocrit (blood only) 38.3 % (42-52); Hemoglobin 12.6 g/dL (14.0-18.0); Immature Granulocytes # (auto) 0.16 K/uL (0.00-0.02); Immature Granulocytes % (auto) 1.2 %; Lymphocytes # (auto) 1.44 K/uL (1.2-3.4); Lymphocytes % (auto) 11.2 %; Mean Corpuscular Hemoglobin 29.1 pg (25-34); Mean Corpuscular Hgb Conc 32.9 g/dL (32-36); Mean Corpuscular Volume 88.5 fL (80-100); Mean Platelet Volume 9.6 fL (7.4-10.4); Monocytes % (auto) 10.9 %; Neutrophils % (auto) 73.5 %; Platelet Count 383 K/uL (130-400); RDW Coefficient of Variation 13.6 % (11.5-14.5); RDW Standard Deviation 43.9 fL (36.4-46.3); Red Blood Count 4.33 M/uL (4.7-6.1); White Blood Count 12.81 K/uL (4.8-10.8)
[2020-05-17 06:20] LABS: BUN Creatinine Ratio 16.8 (10-20); Calcium 8.3 mg/dl (8.5-10.1); Est GFR (Non-African American) 78.5
[2020-05-17] MEDS: PIPERACILLIN/TAZOBACTAM 3.375 GM in DEXTROSE 5% 100 ML IV SCH (06:22)
[2020-05-17] MEDS: HEPARIN SOD 5,000 UNIT/0.5 ML VIAL SQ SCH ×2 (06:23→17:08)
--- NOTE | 2020-05-17 07:10 | Surgery Progress Note ---
Date of Service He said he had a very good night and yesterday was a fairly good day he tolerated some diet without any problem minimal abdominal discomfort May 17, 2020 Assessment & Plan (1) Dehiscence of fascia: At this point will increase diet cut back on fluids increase activity I removed the Promise drain from subcu tomorrow Patient is approximately 8 days postop colon resection closure of colovesical fistula with protective ileostomy Patient is 2 days postop closure abdominal wound dehiscence Present on Admission?: Yes Subjective He was sleeping when I walked in the room nurses state that he slept pretty much all night he awoke easily and is oriented to type in place Physical Exam Physical Exam: Is comfortable well-hydrated in no distress The abdomen is softly distended no tenderness ileostomy is output liquid greenish as expected the abdominal incision is unchanged some drainage on the bandage he has a Promise drain Results & Data Vital Signs (Past 12 Hours) Vital Signs Temp Pulse Pulse Resp BP BP Pulse Ox 05/17/20 06:33 37.1 C 79 20 160/104 H 161/104 H 93 05/16/20 23:04 36.8 C 81 20 151/97 H 93 05/16/20 19:44 36.7 C 92 H 17 172/118 H 93 lab this morning noted his white count is decreasing renal function back to normal PG Care Time/CCT Total # of Minutes Spent Total Time Spent with Patient: Total time spent is greater than 50% in coordination of care (as documented) at patient's floor/unit and/or counseling patient: Coding Level of Care Code None Diagnoses Dehiscence of fascia T81.30XA
[2020-05-17] MEDS ORDERED: Nursing to Pharmacy Communication SCH (08:30)
[2020-05-17] MEDS: TRIAMCINOLONE ACET NASAL SPRAY 10.8ML BTL NAE SCH (08:55)
[2020-05-17] MEDS: ASPIRIN 81 MG ECTAB PO SCH (08:56)
[2020-05-17] MEDS: PANTOprazole 40 MG TAB PO SCH (08:56)
[2020-05-17] MEDS: NYSTATIN SUSP 500,000 U/5 ML UDC PO SCH ×4 (08:56→20:47)
[2020-05-17] MEDS: SUCRALFATE 1 GM TAB PO SCH ×2 (08:56→20:45)
[2020-05-17] MEDS: METOPROLOL TARTRATE 50 MG TAB PO SCH ×2 (08:56→20:46)
[2020-05-17] MEDS: lisinopriL 20 MG TAB PO SCH (08:56)
[2020-05-17] MEDS: ONDANSETRON INJ 2 MG/ML 2 ML VIAL IV PRN (10:02)
[2020-05-17] MEDS: AMLODIPINE BESYLATE 5 MG TAB PO SCH (10:33)
[2020-05-17] MEDS: OXYCODONE/ACETAMINOPHEN 5mg/325mg TAB PO PRN (16:12)
[2020-05-17] MEDS: ATORVASTATIN 10 MG TAB PO SCH (20:45)
[2020-05-17] MEDS: CIPROFLOXACIN 500 MG TAB PO SCH (20:46)
--- NOTE | 2020-05-17 23:30 | Hospitalist Progress Note ---
Date of Service May 17, 2020 Assessment & Plan (1) Colovesical fistula: POD #8 s/p takedown of fistula, bladder repair, sigmoidectomy and ileostomy creation. NGT removed 05/13. Tolerating liquids and diet advanced by surgery today. Good ostomy output. General surgery managing. Post-op course complicated by dehiscence of incision/fascia - see below. (2) Dehiscence of fascia: POD #2 s/p exploratory abdominal wound closure due to abdominal dehis cence. Intra-op culture with pseudomonas - pansensitive. I spoke with Dr Marquez. He is ok with stopping zosyn; transitioning to oral abx. will go with cipro. would recommend a week of oral cipro at minimum. (3) Atrial fibrillation: Continue Lopressor 25mg BID. He is not on chronic anticoagulation at home. (4) Arteriosclerotic cardiovascular disease: cont asa cont statin (5) Hyperlipidemia: Cont lipitor (6) Gout: no flares at this time (7) Hypertension: improved with increased dose of metoprolol to 50mg BID and increased dose of lisinopril 20mg daily. (8) Candidiasis of mouth and esophagus: nystatin amanda - 5cc qid improving (9) Metabolic encephalopathy: likely 2nd to hospital psychosis, narcotics, cannot rule out pseudomonas infection contributing. much improved today (10) DVT prophylaxis: heparin SC d/c matthews?? updated pt's extensively on 05/17 by phone PT/OT evals today - possibly can return home - did well Admission and Anticipated Discharge Date Admission Date: May 09, 2020 Subjective during my visit patient was sitting in chair by bedside. he looked great today. he was alert and oriented. remembered events of last few days. worked with PT today and surprisingly walked 200+ feet. may be able to return home at d/c. mild abdominal discomfort but otherwise feeling good. Review of Systems Constitutional: no fever, no chills and no anorexia Respiratory: no dyspnea on exertion Cardiovascular: no chest pain Gastrointestinal: no nausea and no vomiting Physical Exam Constitutional: no acute distress and no altered mental status looks good today ENMT: Mouth: + oral mucosal abnormality (thrush plaques improved ); oral mucous membranes not dry Respiratory: normal respiratory effort, lungs clear to auscultation Auscultation: + crackles (dry, bases ) Cardiovascular: Rate/Rhythm: regular rate and regular rhythm Heart Sounds: normal S1 and normal S2; no murmur Vessels: posterior tibial pulses present and dorsalis pedis pulses present; no JVD Extremities: no edema Gastrointestinal (Abdomen): Inspection/Auscultation: + abdomen distended and normal bowel sounds Percussion/Palpation: abdomen nontender binder in place; drain in place; ostomy bag with liquid stool Psychiatric: Orientation: alert and oriented x 3 Results & Data Results & Data ([facility]) Vital Signs (Past 12 Hours) Vital Signs Temp Pulse Resp BP Pulse Ox 05/17/20 15:38 37.1 C 90 16 137/89 92 Laboratory Results Laboratory Results - last 24 hr 05/17/20 05/17/20 05:12 05:12 WBC 12.81 H RBC 4.33 L Hgb 12.6 L Hct 38.3 L MCV 88.5 MCH 29.1 MCHC 32.9 RDW Std Deviation 43.9 RDW Coeff of Alda 13.6 Plt Count 383 MPV 9.6 Immature Gran % (Auto) 1.2 Neut % (Auto) 73.5 Lymph % (Auto) 11.2 [place] % (Auto) 10.9 Eos % (Auto) 3.0 Baso % (Auto) 0.2 Neut # (Auto) 9.40 H Lymph # (Auto) 1.44 [place] # (Auto) 1.40 H Eos # (Auto) 0.39 Baso # (Auto) 0.02 Immature Gran # (Auto) 0.16 H Sodium 137 Potassium 4.0 Chloride 106 Carbon Dioxide 28 Anion Gap 3.0 BUN 16 Creatinine 0.95 Est Cr Clr Drug Dosing 81.0 Est GFR ( Amer) 91.0 Est GFR (Non-Af Amer) 78.5 BUN/Creatinine Ratio 16.8 Glucose 99 Calcium 8.3 L PG Care Time/CCT Total # of Minutes Spent Total Time Spent with Patient: Total time spent is greater than 50% in coordination of care (as documented) at patient's floor/unit and/or counseling patient: Coding Level of Care Code 17635 Subseq Hosp Care Lvl 3 Diagnoses Colovesical fistula N32.1 Dehiscence of fascia T81.30XD Encounter type: subsequent encounter Atrial fibrillation I48.0 Atrial fibrillation type: paroxysmal Arteriosclerotic cardiovascular disease I25.10 Hyperlipidemia E78.2 Hyperlipidemia type: mixed hyperlipidemia Gout M10.9 Hypertension I10 Candidiasis of mouth and esophagus B37.81; B37.0 Metabolic encephalopathy G93.41 DVT prophylaxis Z29.9 (1) Atrial fibrillation Atrial fibrillation type: paroxysmal Qualified Code(s): I48.0 - Paroxysmal atrial fibrillation (2) Hyperlipidemia Hyperlipidemia type: mixed hyperlipidemia Qualified Code(s): E78.2 - Mixed hyperlipidemia (3) Dehiscence of fascia Encounter type: subsequent encounter Qualified Code(s): T81.30XD - Disruption of wound, unspecified, subsequent encounter
[2020-05-18] MEDS: LACTATED RINGER'S 1,000 ML IV SCH (02:09)
[2020-05-18] MEDS: HEPARIN SOD 5,000 UNIT/0.5 ML VIAL SQ SCH ×2 (06:12→18:17)
[2020-05-18 06:16] LABS: Basophils # (auto) 0.03 K/uL (0-0.2); Basophils % (auto) 0.2 %; Eosinophils # (auto) 0.39 K/uL (0-0.5); Eosinophils % (auto) 2.8 %; Hematocrit (blood only) 39.5 % (42-52); Immature Granulocytes # (auto) 0.24 K/uL (0.00-0.02); Immature Granulocytes % (auto) 1.7 %; Lymphocytes # (auto) 1.73 K/uL (1.2-3.4); Lymphocytes % (auto) 12.2 %; Mean Corpuscular Hemoglobin 29.5 pg (25-34); Mean Corpuscular Hgb Conc 32.9 g/dL (32-36); Mean Corpuscular Volume 89.6 fL (80-100); Mean Platelet Volume 9.5 fL (7.4-10.4); Monocytes # (auto) 1.44 K/uL (0.11-0.59); Monocytes % (auto) 10.2 %; Neutrophils % (auto) 72.9 %; Platelet Count 427 K/uL (130-400); RDW Coefficient of Variation 13.6 % (11.5-14.5); RDW Standard Deviation 44.5 fL (36.4-46.3); Red Blood Count 4.41 M/uL (4.7-6.1); White Blood Count 14.13 K/uL (4.8-10.8)
[2020-05-18 06:52] LABS: BUN Creatinine Ratio 19.3 (10-20); Calcium 8.7 mg/dl (8.5-10.1); Creatinine Clr Calc Pharmacy 70.6 ml/min; Est GFR (African American) 77.1; Est GFR (Non-African American) 66.5; Potassium 3.8 mmol/L (3.5-5.1)
[2020-05-18] MEDS: ASPIRIN 81 MG ECTAB PO SCH (08:41)
[2020-05-18] MEDS: AMLODIPINE BESYLATE 5 MG TAB PO SCH (08:41)
[2020-05-18] MEDS: CIPROFLOXACIN 500 MG TAB PO SCH ×2 (08:41→21:59)
[2020-05-18] MEDS: SUCRALFATE 1 GM TAB PO SCH ×2 (08:41→21:59)
[2020-05-18] MEDS: PANTOprazole 40 MG TAB PO SCH (08:41)
[2020-05-18] MEDS: NYSTATIN SUSP 500,000 U/5 ML UDC PO SCH ×4 (08:41→22:00)
[2020-05-18] MEDS: lisinopriL 20 MG TAB PO SCH (08:41)
[2020-05-18] MEDS: METOPROLOL TARTRATE 50 MG TAB PO SCH ×2 (08:41→21:59)
[2020-05-18] MEDS: TRIAMCINOLONE ACET NASAL SPRAY 10.8ML BTL NAE SCH (08:42)
--- NOTE | 2020-05-18 13:34 | Surgery Progress Note ---
Date of Service May 18, 2020 Assessment & Plan (1) Dehiscence of fascia: POD#3 closure of abdominal wall dehiscence; POD#9 colon resection and with closure of colo-vesicle fistula and creation of protective ileoostomy WBC 14, patient afebrile. Agree with switching abx to Flagyl Keep yina drain in today as still with some serosang. drainage + output from ostomy; pt tolerating a regular diet Continue to work on ambulation as tolerates Keep matthews catheter in place Possible discharge over next 24-48hrs pending ongoing progress Will change to Tramadol and Tylenol prn pain to see if this helps with confusion Pt seen and examined with Dr. Marquez Subjective Patient visualized walking the halls with PT and we evaluated him at bedside thereafter. Voices no complaints. Hoping to go home soon, states he has good support to help him after discharge. Physical Exam Physical Exam: awake Gastrointestinal (Abdomen): Inspection/Auscultation: + abdominal surgical drain present (FREDIS serosang.) midline incision intact with yina drain and retention sutures. some expected ecchymosis vinh-incision. Incision draining some serosanguineous fluid. Ostomy with brown liquid output. Results & Data Vital Signs (Past 12 Hours) Vital Signs Temp Pulse Resp BP Pulse Ox /02/20 07:40 36.8 C 73 18 149/96 H 94 PG Care Time/CCT Total # of Minutes Spent Total Time Spent with Patient: Total time spent is greater than 50% in coordination of care (as documented) at patient's floor/unit and/or counseling patient: Coding Level of Care Code None Diagnoses Dehiscence of fascia T81.30XD Encounter type: subsequent encounter (1) Dehiscence of fascia Encounter type: subsequent encounter Qualified Code(s): T81.30XD - Disruption of wound, unspecified, subsequent encounter
--- NOTE | 2020-05-18 16:50 | Hospitalist Progress Note ---
Date of Service May 18, 2020 Assessment & Plan (1) Colovesical fistula: s/p takedown of fistula, bladder repair, sigmoidectomy and ileostomy creation on 05/09. NGT removed 05/13. Tolerating liquids and diet advanced by surgery today. Good ostomy output. General surgery managing. Post-op course complicated by dehiscence of incision/fascia - see below. (2) Dehiscence of fascia: s/p exploratory abdominal wound closure due to abdominal dehiscence on 05/15 Intra-op culture with pseudomonas - pansensitive. Dr Marquez agrees with stopping zosyn; transitioning to oral abx. will go with cipro starting 05/17 x1 week at minimum. (3) Atrial fibrillation: Continue Lopressor 25mg BID. aspirin 81mg at home (4) Arteriosclerotic cardiovascular disease: cont asa cont statin (5) Hyperlipidemia: Cont lipitor (6) Gout: no flares at this time (7) Hypertension: improved with increased dose of metoprolol to 50mg BID and increased dose of lisinopril 20mg daily. (8) Candidiasis of mouth and esophagus: nystatin amanda - 5cc qid improving (9) Metabolic encephalopathy: likely 2nd to hospital psychosis, narcotics, cannot rule out pseudomonas infection contributing. (10) DVT prophylaxis: heparin SC d/c matthews?? PT/OT jonah--recs for home Admission and Anticipated Discharge Date Admission Date: May 09, 2020 Subjective Pt feels he is improving. Slight abd pain, but manageable. States he ate without issue this AM, but with decreased appetite. Has been urinating but low output per nursing. Pt denies fever, SOB, chest pain, n/v/c/d, LE pain or swelling. Review of Systems Review of Systems: Pertinent positives and negatives reviewed in HPI--all others negative Physical Exam Constitutional: WD/WN, vitals as above Eyes: normal visual watters by confrontation and + anicteric sclerae Neck: normal visual inspection and trachea midline Respiratory: normal respiratory effort, lungs clear to auscultation Cardiovascular: Rate/Rhythm: regular rate and regular rhythm Gastrointestinal (Abdomen): Inspection/Auscultation: + abdomen distended Percussion/Palpation: abdomen soft; abdomen nontender (light palpation) Musculoskeletal: Head/Neck/Chest: normocephalic and head atraumatic negative for edema, peripheral pulses intact Skin: no rashes, warm and dry Neurologic: awake; not confused Speech / Cognition: normal speech Psychiatric: A+Ox3, euthymic affect Results & Data Results & Data ([facility]) Vital Signs (Past 12 Hours) Vital Signs Temp Pulse Pulse Resp BP Pulse Ox 05/18/20 16:00 36.7 C 70 16 136/90 94 05/18/20 07:40 36.8 C 73 18 149/96 H 94 PG Care Time/CCT Total # of Minutes Spent Total Time Spent with Patient: Total time spent is greater than 50% in coordination of care (as documented) at patient's floor/unit and/or counseling patient: Coding Level of Care Code 54907 Subseq Hosp Care Lvl 3 Diagnoses Colovesical fistula N32.1 Dehiscence of fascia T81.30XD Encounter type: subsequent encounter Atrial fibrillation I48.0 Atrial fibrillation type: paroxysmal Arteriosclerotic cardiovascular disease I25.10 Hyperlipidemia E78.2 Hyperlipidemia type: mixed hyperlipidemia Gout M10.9 Hypertension I10 Candidiasis of mouth and esophagus B37.81; B37.0 Metabolic encephalopathy G93.41 DVT prophylaxis Z29.9 (1) Dehiscence of fascia Encounter type: subsequent encounter Qualified Code(s): T81.30XD - Disruption of wound, unspecified, subsequent encounter (2) Atrial fibrillation Atrial fibrillation type: paroxysmal Qualified Code(s): I48.0 - Paroxysmal atrial fibrillation (3) Hyperlipidemia Hyperlipidemia type: mixed hyperlipidemia Qualified Code(s): E78.2 - Mixed hyperlipidemia
[2020-05-18] MEDS: ACETAMINOPHEN 325 MG TAB PO PRN (21:59)
[2020-05-18] MEDS: ATORVASTATIN 10 MG TAB PO SCH (21:59)
[2020-05-18] MEDS: TRAMADOL HCL 50 MG TABLET PO PRN (22:44)
[2020-05-19] MEDS: HEPARIN SOD 5,000 UNIT/0.5 ML VIAL SQ SCH ×2 (06:06→17:50)
[2020-05-19 06:26] LABS: Hematocrit (blood only) 36.6 % (42-52); Hemoglobin 11.9 g/dL (14.0-18.0); Mean Corpuscular Hemoglobin 29.6 pg (25-34); Mean Corpuscular Hgb Conc 32.5 g/dL (32-36); Mean Platelet Volume 9.6 fL (7.4-10.4); Platelet Count 392 K/uL (130-400); RDW Coefficient of Variation 13.7 % (11.5-14.5); RDW Standard Deviation 45.2 fL (36.4-46.3); Red Blood Count 4.02 M/uL (4.7-6.1); White Blood Count 12.49 K/uL (4.8-10.8)
[2020-05-19 07:03] LABS: BUN Creatinine Ratio 15.4 (10-20); Calcium 8.6 mg/dl (8.5-10.1); Creatinine Clr Calc Pharmacy 69.3 ml/min; Est GFR (African American) 75.4; Est GFR (Non-African American) 65.1; Potassium 3.8 mmol/L (3.5-5.1)
--- NOTE | 2020-05-19 07:07 | Surgery Progress Note ---
Date of Service May 19, 2020 Assessment & Plan (1) Colovesical fistula: At this point the patient is not ready to be discharged his mental status needs to improve apparently arrangements have been made that he would go at home with visiting nurse At this point he is 10 days postop primary colon resection closure of the colovesical fistula Since he has pulled out his Dsouza I would like to get the Dsouza out before discharge therefore today we will order a cystogram make sure that the repair is intact and may remove the Dsouza catheter Similarly I will discuss with radiologist to see if we can get a contrast study of the low colon anastomosis to check for any leaks in anticipation the close the ileostomy in the near future Of importance the patient must maintain well hydration since the ileostomy output may be quite significant Lab was noted the white count is decreased Present on Admission?: Yes Subjective Patient is awake but confused respond somewhat appropriately but apparently during the night he really became confused and pulled out his catheter medical service was notified of this and talking to the nurses this morning he has maintained a good urine output He states he ate fairly well yesterday complaining minimal abdominal pain Physical Exam Physical Exam: As stated above confused but at times he was appropriate response The abdomen is softly distended without any localized tenderness Good output through the ileostomy which is liquid bilious in nature The abdominal incision still has retention sutures in with a Promise drain showed moderate amount of serous drainage The Dsouza catheter is draining a little blood-tinged Results & Data Vital Signs (Past 12 Hours) Vital Signs Temp Pulse Resp BP Pulse Ox 05/18/20 23:29 36.8 C 69 20 123/78 95 PG Care Time/CCT Total # of Minutes Spent Total Time Spent with Patient: Total time spent is greater than 50% in coord ination of care (as documented) at patient's floor/unit and/or counseling patient: Coding Level of Care Code None Diagnoses Colovesical fistula N32.1
[2020-05-19] MEDS: PANTOprazole 40 MG TAB PO SCH (10:10)
[2020-05-19] MEDS: AMLODIPINE BESYLATE 5 MG TAB PO SCH (10:10)
[2020-05-19] MEDS: METOPROLOL TARTRATE 50 MG TAB PO SCH ×2 (10:10→20:49)
[2020-05-19] MEDS: CIPROFLOXACIN 500 MG TAB PO SCH ×2 (10:10→20:49)
[2020-05-19] MEDS: SUCRALFATE 1 GM TAB PO SCH ×2 (10:10→20:49)
[2020-05-19] MEDS: ASPIRIN 81 MG ECTAB PO SCH (10:10)
[2020-05-19] MEDS: NYSTATIN SUSP 500,000 U/5 ML UDC PO SCH ×4 (10:11→20:49)
[2020-05-19] MEDS: TRIAMCINOLONE ACET NASAL SPRAY 10.8ML BTL NAE SCH (10:11)
[2020-05-19] MEDS: lisinopriL 20 MG TAB PO SCH (10:12)
--- NOTE | 2020-05-19 13:05 | Fluoroscopy Report ---
[place] cystogram CLINICAL HISTORY: to check for leaks s/p closure of colovesical fistula COMPARISON STUDY: Abdomen and pelvis CT 05/12/2020. FLUOROSCOPY TIME: 0.7 minutes.. 10 fluoroscopic spot images obtained. FINDINGS: Telephone Interceptor Operator images demonstrate a surgical drain overlying the pelvis. A total of 175 cc of Cysto- Conray was placed in the bladder through the indwelling Dsouza catheter. Mild deformity along the left superior bladder dome. Otherwise, the bladder is normal in size. No extraluminal contrast to suggest a leak or residual fistula. Postevacuation study demonstrates a small post residual. IMPRESSION: No extraluminal contrast to suggest a leak or residual colovesical fistula. Small post vo id residual. ACT 112: Negative or not required by law. Electronically signed by: Mickey Barney M.D. 05/19/2020 1:04 PM
[2020-05-19] MEDS: ACETAMINOPHEN 325 MG TAB PO PRN ×2 (13:55→19:51)
--- NOTE | 2020-05-19 15:05 | Urology Consultation ---
Date of Consultation May 19, 2020 Assessment & Plan (1) Colovesical fistula: Fistula s/p takedown and repair - no leak on cystogram - some retaining contrast within the bladder after 45 min - matthews appears appropriately positioned, but based on the images, I suspect the tip of the catheter was resting within a small tic or against some edematous bladder wall - I was able to manipulate it and feel it is draining appropriately - blood is nearly certainly from his matthews pull/trauma - he reports baseline voiding dysfunction - but no treatments plan: 1. leave matthews tonight - possible voiding trial tomorrow if no issues overnight 2. start tamsulosin History of Present Illness Attending Physician: Lex Marquez MD History of Present Illness colovesical fistula from diverticulitis - s/p take down and repair - progressing appropriately from surgery - matthews in place - minor matthews trauma earlier this week (pulled/confusion) - cystogram today - no leak, but his 45min post film still had some contrast within the bladder - matthews positioning seems appropriate - describes bladder spasms over the past several days- but gradually decreasing - good UoP - labs appropriate Allergies Allergy/AdvReac Type Severity Reaction Status Date / Time ezetimibe [From Zetia] AdvReac Intermediate sore joints Verified 05/09/20 09:07 lovastatin AdvReac Intermediate sore joints Verified 05/09/20 09:07 Home Medications Home Medications Medication Instructions Recorded Confirmed Type atorvastatin 10 mg tablet 10 mg PO QPM #90 tab 09/06/19 05/09/20 Rx metoprolol tartrate 25 mg tablet 25 mg PO BID #180 tab 09/18/19 05/09/20 Rx lisinopril 5 mg tablet 5 mg PO DAILY 03/21/20 05/09/20 History aspirin 81 mg tablet,delayed 81 mg PO DAILY 04/17/20 05/09/20 History release acetaminophen [Tylenol Extra 500 mg PO DAILY PRN 05/02/20 05/09/20 History Strength] omeprazole 40 mg PO QPM 05/02/20 05/09/20 History sucralfate [Carafate] 1 g PO BID 05/02/20 05/09/20 History Patient History Medical History Arteriosclerotic cardiovascular disease Non obstructive CAD Atrial fibrillation follows with [facility], annually. no cardioversion. Colovesical fistula GERD (gastroesophageal reflux disease) "silent" Gout Hyperlipidemia Hypertension Osteoarthritis Urinary tract infection Surgical History H/O exploratory laparotomy (05/15/20) Exploratory Abdominal Wound Closure abdominal dehisence Dr. Marquez 05/15/20 History of adenoidectomy History of cardiac cath ~2004 & ~2011. no stents. 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 Beliefs That Will Affect Care: None marital status: Current Living Situation: Spouse current occupational status: employed current occupation: [employer] Other Information That Helps Us Care for You: No Feels Safe at Home: Yes Safety Concerns: Feels Safe At This Time Smoking Status: Never smoker Do You Dip or Chew Tobacco: Yes (1 can/3 days (advised)) ; Second Hand Exposure: No ; Tobacco Cessation Education Requested by Patient: No Hx Alcohol Use: No Hx Substance Use: No Review of Systems Constitutional: no fever and no chills Ear, Nose, Mouth, Throat: no hearing loss Respiratory: no cough and no dyspnea Cardiovascular: no chest pain Gastrointestinal: no abdominal pain Genitourinary: + hematuria Musculoskeletal: no back pain and no limited range of motion Integumentary: no rash Neurologic: no gait abnormality Psychiatric: + confusion Endocrine: no fatigue Physical Exam Constitutional: well developed and well nourished Neck: neck nontender Respiratory: normal respiratory effort; no respiratory distress and does not use accessory muscles Cardiovascular: Rate/Rhythm: regular rate Vessels: radial pulses present Extremities: no edema Gastrointestinal (Abdomen): Percussion/Palpation: abdomen soft (incisions healing, stoma healthy); abdomen nontender and no guarding Musculoskeletal: Head/Neck/Chest: normocephalic and head atraumatic Extremities: extremities normal to inspection Skin: no rashes and no lesions Trauma: no evidence of skin trauma Neurologic: awake; not obtunded Speech / Cognition: normal speech Motor/Sensory: no tremor Psychiatric: Orientation: alert interacts appropriately - but certainly with some difficulty answering quetions re his hx Genitourinary: no CVA tenderness slightly bloody urine Lymphatic: no lymphadenopathy Results & Data Vital Signs (Past 12 Hours) Vital Signs Temp Pulse Resp BP Pulse Ox 05/19/20 14:49 36.6 C 66 19 114/77 98 05/19/20 07:45 37.0 C 78 16 137/84 95 PG Care Time/CCT Total # of Minutes Spent Total Time Spent with Patient: Total time spent is greater than 50% in coordination of care (as documented) at patient's floor/unit and/or counseling patient: Coding Level of Care Code 22712 Inpt Consult Level 4 Diagnoses Colovesical fistula N32.1
--- NOTE | 2020-05-19 15:15 | Hospitalist Progress Note ---
Date of Service May 19, 2020 Assessment & Plan (1) Colovesical fistula: s/p takedown of fistula, bladder repair, sigmoidectomy and ileostomy creation on 05/09. NGT removed 05/13. Tolerating liquids and diet advanced by surgery today. Good ostomy output. General surgery managing. Post-op course complicated by dehiscence of incision/fascia - see below. (2) Dehiscence of fascia: s/p exploratory abdominal wound closure due to abdominal dehiscence on 05/15 Intra-op culture with pseudomonas - pansensitive. Dr Marquez agrees with stopping zosyn; transitioning to oral abx. Cipro since 05/17 x1 week at minimum. (3) Atrial fibrillation: Continue Lopressor 25mg BID. aspirin 81mg at home (4) Arteriosclerotic cardiovascular disease: cont asa cont statin (5) Hyperlipidemia: Cont lipitor (6) Gout: no flares at this time (7) Hypertension: improved with increased dose of metoprolol to 50mg BID and increased dose of lisinopril 20mg daily. (8) Candidiasis of mouth and esophagus: nystatin amanda - 5cc qid improving (9) Metabolic encephalopathy: likely 2nd to hospital psychosis, narcotics, cannot rule out pseudomonas infection contributing. (10) DVT prophylaxis: heparin SC Cystoscopy on 05/19 after pt pulled out matthews PT/OT evals--recs for home Admission and Anticipated Discharge Date Admission Date: May 09, 2020 Subjective Pt still with slight abd pain, but manageable. Tolerating PO, but with decreased appetite. Ongoing UOP. Pt denies fever, SOB, chest pain, n/v/c/d, LE pain or swelling. Review of Systems Review of Systems: Pertinent positives and negatives reviewed in HPI--all others negative Physical Exam Constitutional: WD/WN, vitals as above Eyes: normal visual watters by confrontation and + anicteric sclerae Neck: normal visual inspection and trachea midline Respiratory: normal respiratory effort, lungs clear to auscultation Cardiovascular: Rate/Rhythm: regular rate and regular rhythm Gastrointestinal (Abdomen): Inspection/Auscultation: + abdomen distended Percussion/Palpation: abdomen soft; abdomen nontender (light palpation) Musculoskeletal: Head/Neck/Chest: normocephalic and head atraumatic Skin: no rashes, warm and dry Neurologic: awake; not confused Speech / Cognition: normal speech Psychiatric: A+Ox3, euthymic affect Results & Data Results & Data ([facility]) Vital Signs (Past 12 Hours) Vital Signs Temp Pulse Resp BP Pulse Ox 05/19/20 14:49 36.6 C 66 19 114/77 98 05/19/20 07:45 37.0 C 78 16 137/84 95 PG Care Time/CCT Total # of Minutes Spent Total Time Spent with Patient: Total time spent is greater than 50% in coordi nation of care (as documented) at patient's floor/unit and/or counseling patient: Coding Level of Care Code 26967 Inpt Consult Level 3 Diagnoses Colovesical fistula N32.1 Dehiscence of fascia T81.30XD Encounter type: subsequent encounter Atrial fibrillation I48.0 Atrial fibrillation type: paroxysmal Arteriosclerotic cardiovascular disease I25.10 Hyperlipidemia E78.2 Hyperlipidemia type: mixed hyperlipidemia Gout M10.9 Hypertension I10 Candidiasis of mouth and esophagus B37.81; B37.0 Metabolic encephalopathy G93.41 DVT prophylaxis Z29.9 (1) Dehiscence of fascia Encounter type: subsequent encounter Qualified Code(s): T81.30XD - Disruption of wound, unspecified, subsequent encounter (2) Atrial fibrillation Atrial fibrillation type: paroxysmal Qualified Code(s): I48.0 - Paroxysmal atrial fibrillation (3) Hyperlipidemia Hyperlipidemia type: mixed hyperlipidemia Qualified Code(s): E78.2 - Mixed hyperlipidemia
[2020-05-19] MEDS: ATORVASTATIN 10 MG TAB PO SCH (20:49)
[2020-05-19] MEDS: TAMSULOSIN HCL 0.4 MG CAP PO SCH (20:49)
[2020-05-20] MEDS: HEPARIN SOD 5,000 UNIT/0.5 ML VIAL SQ SCH ×2 (06:07→18:31)
[2020-05-20 07:27] LABS: Basophils # (auto) 0.03 K/uL (0-0.2); Basophils % (auto) 0.2 %; Eosinophils # (auto) 0.23 K/uL (0-0.5); Eosinophils % (auto) 1.4 %; Hematocrit (blood only) 37.1 % (42-52); Hemoglobin 12.3 g/dL (14.0-18.0); Immature Granulocytes # (auto) 0.19 K/uL (0.00-0.02); Immature Granulocytes % (auto) 1.2 %; Lymphocytes # (auto) 1.14 K/uL (1.2-3.4); Mean Corpuscular Hemoglobin 29.8 pg (25-34); Mean Corpuscular Hgb Conc 33.2 g/dL (32-36); Mean Corpuscular Volume 89.8 fL (80-100); Mean Platelet Volume 9.2 fL (7.4-10.4); Monocytes # (auto) 1.28 K/uL (0.11-0.59); Monocytes % (auto) 7.9 %; Neutrophils % (auto) 82.3 %; Platelet Count 422 K/uL (130-400); RDW Coefficient of Variation 13.6 % (11.5-14.5); Red Blood Count 4.13 M/uL (4.7-6.1); White Blood Count 16.27 K/uL (4.8-10.8)
[2020-05-20 07:52] LABS: BUN Creatinine Ratio 13.4 (10-20); Calcium 8.7 mg/dl (8.5-10.1); Creatinine Clr Calc Pharmacy 76.9 ml/min; Est GFR (African American) 85.6; Est GFR (Non-African American) 73.8; Potassium 3.8 mmol/L (3.5-5.1)
--- NOTE | 2020-05-20 08:59 | Surgery Progress Note ---
Date of Service May 20, 2020 Assessment & Plan (1) Dehiscence of fascia: With the elevated white count the lower abdominal incision I removed the skin sutures probed the skin with a Q-tip went into the subcutaneous tissue without any drainage of the fascia appears to be intact with the retention suture in the midportion I packed it with 1/4 inch plain gauze the Promise drain was removed the Pablo drainage in the left lower quadrant continues to have serous slightly sanguinous fluid low volume and this was removed Dr. Herrera yesterday reposition the Dsouza catheter since the patient had pulled it the night before and there was some bloody drainage with the urine he felt that this is in good position now in fact the urine is clear nonbloody theoretically could probably take the Dsouza catheter out since the cystogram was normal no leak but given his overall situation I felt the best to leave it in to monitor more closely As far as the elevated white count we will get a chest x-ray this morning and get an EKG may need CT angiogram to rule out a PE this was discussed with Dr. Lo cosme and he will follow-up on those results At this point I do not think he needs a CTA of the abdomen but if his blood count continues to be elevated then we may have to look for another source to a ccount for it Is present antibiotic coverage is Cipro 500 mg twice daily to treat the Pseudomonas cultures that was taken at the time of the wound dehiscence exploration in the OR antibiotic coverage may need to be expanded pending further work-up results Subjective Intermittently alert and coherent pretty much unchanged from the last few days this morning is complaining of left lower chest wall pain not really associated with any shortness of breath does not radiate has not had any coughing spells does not feel like he is short of breath states that he had a fairly good day yesterday he ate well.complaining of any abdominal pain Physical Exam Physical Exam: As stated above he is intermittently coherent to time and place but overall appears comfortable The chest discomfort is appears to be more chest wall in nature with pain in the left lower chest laterally no abdominal findings He appears well-hydrated The ileostomy continues to have bilious drainage as expected The abdominal incision with retention sutures there is no evidence of any cellulitis except for the skin sutures are between the retention sutures the Promise is still in the subcu the drainage appears to be serous slightly sanguinous nonpurulent in nature No calf tenderness The Dsouza catheter is draining clear urine nonbloody Results & Data Vital Signs (Past 12 Hours) Vital Signs Temp Pulse Pulse Pulse Resp BP Pulse Ox 05/20/20 07:01 36.8 C 96 H 96 H 18 150/97 H 92 05/20/20 00:15 36.8 C 76 18 147/89 H 94 vitals were noted slightly tachycardia 96 his white count was elevated today PG Care Time/CCT Total # of Minutes Spent Total Time Spent with Patient: Total time spent is greater than 50% in coordination of care (as documented) at patient's floor/unit and/or counseling patient: Coding Level of Care Code None Diagnoses Dehiscence of fascia T81.30XD Encounter type: subsequent encounter (1) Dehiscence of fascia Encounter type: subsequent encounter Qualified Code(s): T81.30XD - Disruption of wound, unspecified, subsequent encounter
--- NOTE | 2020-05-20 09:09 | Urology Progress Note ---
Date of Service May 20, 2020 Assessment & Plan (1) Hematuria: Stable from a standpoint Still trying to stabilize other aspects of his care Does not appear to have an active infection of his incision Catheter remains slightly blood-tingedlikely all related to the Dsouza trauma from self DC of the catheter earlier this week I think at this stage it is reasonable to remove his catheter when he has stabilized overall I have started him on tamsulosin to try to improve the likelihood of passing his voiding trial Subjective No major issues from a standpoint overnight Appropriate urine output Urine remains pink White count increased today, Dr. Marquez open his abdominal wound which did not appear to show active infection Subjectively complaining only of some left upper abdominal/lower chest discomfort Review of Systems Review of Systems: All systems reviewed & are unremarkable except as noted in HPI & below Physical Exam Physical Exam: Retention sutures remain in place, stoma healthy Catheter draining pink-tinged urine Constitutional: well developed and well nourished Respiratory: no respiratory distress Cardiovascular: Extremities: no pedal edema Gastrointestinal (Abdomen): Inspection/Auscultation: abdomen normal to inspection Results & Data Vital Signs (Past 12 Hours) Vital Signs Temp Pulse Pulse Pulse Resp BP Pulse Ox 05/20/20 07:01 36.8 C 96 H 96 H 18 150/97 H 92 05/20/20 00:15 36.8 C 76 18 147/89 H 94 PG Care Time/CCT Total # of Minutes Spent Total Time Spent with Patient: Total time spent is greater than 50% in coordination of care (as documented) at patient's floor/unit and/or counseling patient: Coding Level of Care Code 60956 Subseq Hosp Care Lvl 2 Diagnoses Hematuria R31.9
--- NOTE | 2020-05-20 09:44 | XRay Report ---
XR chest 1V portable HISTORY: 75 years-old Male elevated WBC left lower chest pain acute atypical chest pain with leukocy tosis COMPARISON: CT abdomen and pelvis 05/12/2020 TECHNIQUE: Portable AP view of the chest FINDINGS: Cardiomediastinal and hilar silhouettes are within normal limits. Ill-defined hazy bibasilar densitie s suggest probable atelectasis/scarring. No pneumothorax, large pleural effusion, overt pulmonary ryan ma or airspace consolidation typical for pneumonia. Degenerative changes of the shoulders and spine i nclude severe osteoarthritis of the glenohumeral joint. IMPRESSION: No acute process. ACT 112: Negative or not required by law. The above report was generated using voice recognition software. It may contain grammatical, syntax o r spelling errors. Electronically signed by: Joseluis Vang M.D. 05/20/2020 9:42 AM
[2020-05-20] MEDS: SUCRALFATE 1 GM TAB PO SCH ×2 (09:48→21:45)
[2020-05-20] MEDS: CIPROFLOXACIN 500 MG TAB PO SCH (09:48)
[2020-05-20] MEDS: METOPROLOL TARTRATE 50 MG TAB PO SCH ×2 (09:48→21:44)
[2020-05-20] MEDS: PANTOprazole 40 MG TAB PO SCH (09:49)
[2020-05-20] MEDS: lisinopriL 20 MG TAB PO SCH (09:49)
[2020-05-20] MEDS: ASPIRIN 81 MG ECTAB PO SCH (09:49)
[2020-05-20] MEDS: NYSTATIN SUSP 500,000 U/5 ML UDC PO SCH ×4 (09:49→21:44)
[2020-05-20] MEDS: AMLODIPINE BESYLATE 5 MG TAB PO SCH (09:49)
[2020-05-20] MEDS: TRIAMCINOLONE ACET NASAL SPRAY 10.8ML BTL NAE SCH (09:50)
[2020-05-20] MEDS ORDERED: PIPERACILL/TAZOBAC CONSULT ACTIVE PRN (13:06)
[2020-05-20] MEDS ORDERED: PIPERACILLIN/TAZOBACTAM 3.375 GM in DEXTROSE 5% 100 ML IV ONE (14:00)
--- NOTE | 2020-05-20 14:39 | Electrocardiogram Report ---
Test Reason : Blood Pressure : / mmHG Vent. Rate : 116 BPM Atrial Rate : 116 BPM P-R Int : 130 ms QRS Dur : 096 ms QT Int : 340 ms P-R-T Axes : 032 -17 000 degrees QTc Int : 472 ms Sinus tachycardia Nonspecific ST abnormality Abnormal ECG No previous ECGs available Confirmed by Robb Donahue ([id number]) on 05/20/2020 2:39:03 PM Referred By: Lex Marquez Confirmed By:Robb Donahue
[2020-05-20] MEDS ORDERED: OPTIRAY 320 125ml IV PRN (17:22)
[2020-05-20 17:59] LABS: Base Excess VBG -0.3 mEq/L; HCO3 VBG 24 mmol/L; PCO2 VBG 40 mmHg (38-50); PO2 VBG 26 mmHg; pH VBG 7.41 (7.36-7.41)
--- NOTE | 2020-05-20 17:59 | CT Scan Report ---
CT ANGIOGRAPHY OF THE CHEST, PULMONARY EMBOLUS PROTOCOL CLINICAL HISTORY: left-sided chest pain, recent surgery x 2; eval PE COMPARISON STUDY: Chest radiograph May 20, 2020. TECHNIQUE: Following IV administration of 90 mL of Optiray-320, helical axial images of the chest wer e obtained utilizing the pulmonary embolus protocol. Maximal intensity projections and sagittal and coronal reformats were viewed on an independent 3D workstation. IV contrast was administered without complication. Automated exposure control was utilized for the study. A dose lowering technique was utilized adhering to the principles of ALARA. CT DOSE: 620.40 mGy.cm FINDINGS: Numerous bilateral pulmonary emboli. These are located within the lobar and segmental pulm onary arteries of both lungs. There is no CT evidence for right heart strain. A subpleural right lowe r lobe opacity favors infarct. There is a possible additional lingular infarct. Lungs are suboptimall y assessed given respiratory motion. There is a trace left pleural effusion. There is no pneumothorax . There is no thoracic lymphadenopathy. Bony structures unremarkable. A few mildly dilated loops of s mall bowel within the upper abdomen are incidentally noted. IMPRESSION: 1. Numerous bilateral pulmonary emboli. Suspected right lower lobe pulmonary infarct. Possible additi onal infarcts within the lingula. 2. Trace left pleural effusion. 3. Mild dilatation of several small bowel loops within the upper abdomen, partially imaged on this ex am. ACT 112: Negative or not required by law. Electronically signed by: Figueroa Wu M.D. 05/20/2020 5:58 PM
[2020-05-20 18:02] LABS: Oxygen Saturation VBG < 60.0 %
--- NOTE | 2020-05-20 18:35 | Hospitalist Progress Note ---
Date of Service May 20, 2020 Assessment & Plan (1) Pulmonary embolism and infarction: Cause of chest complaints today, tachypnea, and probably even the mild leukocytosis on cbc this am. Tachycardia this am also likely due to PEs. PROVOKED - 2 recent surgeries. Unfortunately developed VTE despite heparin SC DVT prophylaxis. 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 NGT removed 05/13. Tolerating diet with good ostomy output. Post-op course complicated by dehiscence of incision/fascia - see below. POD #5 from surgery for such. Course now also complicated by VTE. (3) Dehiscence of fascia: POD #5 s/p exploratory abdominal wound closure due to abdominal dehiscence. Intra-op culture with pseudomonas - pansensitive. Dr Marquez inspected the wound today - no purulent material obtained and no drainage. [id number], because of leukocytosis, cipro changed back to Zosyn IV. (4) Atrial fibrillation: Continue Lopressor 25mg BID. He is not on chronic anticoagulation at home. I spoke with today regarding PAF. She could not remember a specific reason why he was taken off anticoagulation for PAF. She doesn't recall GI bleeding, falls, etc (5) Arteriosclerotic cardiovascular disease: cont asa cont statin EKG today w/o ischemic changes troponin negative (6) Hyperlipidemia: Cont lipitor (7) Gout: no flares at this time (8) Hypertension: controlled cont metoprolol 50mg BID and lisinopril 20mg daily. (9) Candidiasis of mouth and esophagus: nystatin amanda - 5cc qid improved/resolved (10) Metabolic encephalopathy: likely 2nd to hospital psychosis at this point. now 11 days into his stay. little access to sunlight given his room location. start risperdal 0.25mg at HS. I have asked staff that when he transfers to [facility] that he be placed by window to allow access to sunlight, etc. (11) DVT prophylaxis: heparin drip I updated pt's extensively by phone today care also d/w Dr Marquez twice minor blood from rectum today likely from hemorrhoid -- start anusol cream transfer patient to [facility] because of VTE Admission and Anticipated Discharge Date Admission Date: May 09, 2020 Subjective Prior to my visit with patient Dr Marquez had informed me that the patient had complained of chest discomfort on left this am. During my rounds the patient did confirm such with me. He stated it was left- sided chest, coming and going, and worse with deep breaths. Denied substernal chest pain. Denied orthopnea or cough. He was confused, stating that he "had been outside working hard and that is why my chest is hurting." Eating decently per flowsheets. Staff report that during a trip to the bathroom he passed a formed stool that had blood covering the stool. Dsouza with gross hematuria. Review of Systems Constitutional: no fever Respiratory: no cough and no pain on inspiration Cardiovascular: as per Subjective / HPI; no dyspnea Gastrointestinal: no abdominal pain, no nausea and no vomiting Physical Exam Constitutional: + acute distress (Mild "quiet" tachypnea noted but no retractions or accessory muscle use) and + altered mental status ENMT: Mouth: + oral mucosal abnormality (thrush plaques improved ) Respiratory: + tachypneic Auscultation: no crackles and no wheezes Cardiovascular: Rate/Rhythm: regular rate and regular rhythm Heart Sounds: normal S1 and normal S2; no murmur Vessels: posterior tibial pulses present and dorsalis pedis pulses present; no JVD Extremities: no edema Gastrointestinal (Abdomen): Inspection/Auscultation: normal bowel sounds; abdomen not distended Percussion/Palpation: abdomen soft; abdomen nontender, no guarding and no hepatosplenomegaly dressings in place abdominal wall LUCILA - hemorrhoid at 6 o'clock; no gross blood ostomy bag in place right abdomen with dark green stool Psychiatric: Orientation: alert and oriented to person; + not oriented to place and + not oriented to time Results & Data Results & Data ([facility]) Vital Signs (Past 12 Hours) Vital Signs Temp Pulse Pulse Resp BP Pulse Ox 05/20/20 15:47 36.9 C 90 28 H 110/72 95 05/20/20 07:01 36.8 C 96 H 96 H 18 150/97 H 92 Laboratory Results Laboratory Results - last 24 hr 05/20/20 05/20/20 05/20/20 07:07 07:07 17:48 WBC 16.27 H RBC 4.13 L Hgb 12.3 L Hct 37.1 L MCV 89.8 MCH 29.8 MCHC 33.2 RDW Std Deviation 45.0 RDW Coeff of Alda 13.6 Plt Count 422 H MPV 9.2 Immature Gran % (Auto) 1.2 Neut % (Auto) 82.3 Lymph % (Auto) 7.0 [place] % (Auto) 7.9 Eos % (Auto) 1.4 Baso % (Auto) 0.2 Neut # (Auto) 13.40 H Lymph # (Auto) 1.14 L [place] # (Auto) 1.28 H Eos # (Auto) 0.23 Baso # (Auto) 0.03 Immature Gran # (Auto) 0.19 H APTT PTT Ratio VBG pH VBG pCO2 VBG pO2 VBG HCO3 VBG O2 Saturation VBG Base Excess Barometric Pressure Sodium 138 Potassium 3.8 Chloride 106 Carbon Dioxide 29 Anion Gap 3.0 BUN 13 Creatinine 1.00 Est Cr Clr Drug Dosing 76.9 Est GFR ( Amer) 85.6 Est GFR (Non-Af Amer) 73.8 BUN/Creatinine Ratio 13.4 Glucose 104 H Lactate Calcium 8.7 Troponin I < 0.015 05/20/20 05/20/20 05/20/20 17:48 17:48 20:27 WBC RBC Hgb Hct MCV MCH MCHC RDW Std Deviation RDW Coeff of Alda Plt Count MPV Immature Gran % (Auto) Neut % (Auto) Lymph % (Auto) [place] % (Auto) Eos % (Auto) Baso % (Auto) Neut # (Auto) Lymph # (Auto) [place] # (Auto) Eos # (Auto) Baso # (Auto) Immature Gran # (Auto) APTT > 139.0 H* PTT Ratio > 5.0 VBG pH 7.41 VBG pCO2 40 VBG pO2 26 VBG HCO3 24 VBG O2 Saturation < 60.0 VBG Base Excess -0.3 Barometric Pressure 730.5 Sodium Potassium Chloride Carbon Dioxide Anion Gap BUN Creatinine Est Cr Clr Drug Dosing Est GFR ( Amer) Est GFR (Non-Af Amer) BUN/Creatinine Ratio Glucose Lactate 1.4 Calcium Troponin I 05/20/20 21:40 WBC RBC Hgb Hct MCV MCH MCHC RDW Std Deviation RDW Coeff of Alda Plt Count MPV Immature Gran % (Auto) Neut % (Auto) Lymph % (Auto) [place] % (Auto) Eos % (Auto) Baso % (Auto) Neut # (Auto) Lymph # (Auto) [place] # (Auto) Eos # (Auto) Baso # (Auto) Immature Gran # (Auto) APTT 59.5 H* PTT Ratio 2.1 VBG pH VBG pCO2 VBG pO2 VBG HCO3 VBG O2 Saturation VBG Base Excess Barometric Pressure Sodium Potassium Chloride Carbon Dioxide Anion Gap BUN Creatinine Est Cr Clr Drug Dosing Est GFR ( Amer) Est GFR (Non-Af Amer) BUN/Creatinine Ratio Glucose Lactate Calcium Troponin I Diagnostic Findings CTA chest - b/l PEs; RLL pulmonary infarction; possible infarcts lingula PG Care Time/CCT Total # of Minutes Spent Total Time Spent with Patient: Total time spent is greater than 50% in coordination of care (as documented) at patient's floor/unit and/or counseling patient: Coding Level of Care Code 44425 Subseq Hosp Care Lvl 3 Diagnoses Pulmonary embolism and infarction I26.99 Colovesical fistula N32.1 Dehiscence of fascia T81.30XD Encounter type: subsequent encounter Atrial fibrillation I48.0 Atrial fibrillation type: paroxysmal Arteriosclerotic cardiovascular disease I25.10 Hyperlipidemia E78.2 Hyperlipidemia type: mixed hyperlipidemia Gout M10.9 Hypertension I10 Candidiasis of mouth and esophagus B37.81; B37.0 Metabolic encephalopathy G93.41 DVT prophylaxis Z29.9 (1) Atrial fibrillation Atrial fibrillation type: paroxysmal Qualified Code(s): I48.0 - Paroxysmal atrial fibrillation (2) Hyperlipidemia Hyperlipidemia type: mixed hyperlipidemia Qualified Code(s): E78.2 - Mixed hyperlipidemia (3) Dehiscence of fascia Encounter type: subsequent encounter Qualified Code(s): T81.30XD - Disruption of wound, unspecified, subsequent encounter
[2020-05-20] MEDS ORDERED: HEPARIN IV BOLUS 7,000 UNITS in SYRINGE 0 ML IV ONE (19:30)
--- NOTE | 2020-05-20 20:03 | Ultrasound Report ---
BILATERAL LOWER EXTREMITY VENOUS DOPPLER CLINICAL HISTORY: b/l PEs; eval for LE DVT COMPARISON STUDY: No previous studies for comparison. TECHNIQUE: Sonography of the deep venous system of the bilateral lower extremities was performed. Co mpression and augmentation were evaluated. FINDINGS: The bilateral common femoral, superficial femoral and popliteal veins were compressible. A ugmentation was normal. No was made of deep venous thrombus within a right peroneal vein and both lef t peroneal veins. IMPRESSION: Deep venous thrombus within the bilateral peroneal veins. ACT 112: Negative or not required by law. Electronically signed by: Figueroa Wu M.D. 05/20/2020 8:02 PM
[2020-05-20] MEDS: PIPERACILLIN/TAZOBACTAM 3.375 GM in DEXTROSE 5% 100 ML IV SCH (20:06)
[2020-05-20] MEDS: HEPARIN SODIUM/DEXTROSE 25,000 UNITS/500 ML BAG IV SCH ×2 (20:06→22:32)
[2020-05-20 20:54] LABS: Partial Thromboplastin Ratio > 5.0
[2020-05-20 21:06] LABS: Partial Thromboplastin Time > 139.0 Seconds (21.0-31.0)
[2020-05-20] MEDS: TAMSULOSIN HCL 0.4 MG CAP PO SCH (21:43)
[2020-05-20] MEDS: ATORVASTATIN 10 MG TAB PO SCH (21:45)
[2020-05-20] MEDS: HYDROCORTISONE HC 2.5% CRM 30GM TUBE EXT SCH (21:46)
[2020-05-20] MEDS ORDERED: risperiDONE 0.5 MG TABLET PO SCH (21:50)
[2020-05-20 22:19] LABS: Partial Thromboplastin Ratio 2.1
[2020-05-20 22:26] LABS: Partial Thromboplastin Time 59.5 Seconds (21.0-31.0)
[2020-05-21] MEDS: PIPERACILLIN/TAZOBACTAM 3.375 GM in DEXTROSE 5% 100 ML IV SCH ×3 (04:52→19:50)
[2020-05-21 05:17] LABS: Partial Thromboplastin Ratio 1.4; Partial Thromboplastin Time 39.1 Seconds (21.0-31.0)
[2020-05-21] MEDS ORDERED: HEPARIN IV BOLUS 7,000 UNITS in SYRINGE 0 ML IV ONE (07:15)
[2020-05-21 08:39] LABS: Basophils # (auto) 0.03 K/uL (0-0.2); Basophils % (auto) 0.2 %; Eosinophils # (auto) 0.33 K/uL (0-0.5); Eosinophils % (auto) 1.9 %; Hematocrit (blood only) 35.9 % (42-52); Hemoglobin 11.6 g/dL (14.0-18.0); Immature Granulocytes # (auto) 0.14 K/uL (0.00-0.02); Immature Granulocytes % (auto) 0.8 %; Lymphocytes # (auto) 1.16 K/uL (1.2-3.4); Lymphocytes % (auto) 6.7 %; Mean Corpuscular Hgb Conc 32.3 g/dL (32-36); Mean Corpuscular Volume 89.8 fL (80-100); Mean Platelet Volume 9.8 fL (7.4-10.4); Monocytes % (auto) 8.7 %; Neutrophils # (auto) 14.18 K/uL (1.4-6.5); Neutrophils % (auto) 81.7 %; Platelet Count 486 K/uL (130-400); RDW Coefficient of Variation 13.6 % (11.5-14.5); RDW Standard Deviation 44.9 fL (36.4-46.3); White Blood Count 17.34 K/uL (4.8-10.8)
--- NOTE | 2020-05-21 08:39 | Urology Progress Note ---
Date of Service May 21, 2020 Assessment & Plan (1) Hematuria: Catheter draining appropriately Hematuria has resolved Okay to remove catheter when deemed appropriate by the primary team Continue tamsulosin We will arrange outpatient follow-up Subjective Subjectively reports that he feels well No drastic changes abdominal discomfort He is actively eating breakfast and reports that he is having no issue with diet His urine has cleared His labs are pending for today Physical Exam Physical Exam: Unchanged abdominal exam Stoma healthy Retention sutures in place No significant drainage or change in appearance of the surrounding skin Urine is clear in the tubing and catheter bag Constitutional: well developed and well nourished Respiratory: no respiratory distress Cardiovascular: Extremities: no pedal edema Results & Data Vital Signs (Past 12 Hours) Vital Signs Temp Pulse Pulse Resp BP BP Pulse Ox 05/21/20 07:29 88 05/21/20 05:39 96 H 05/21/20 03:13 36.4 C L 83 19 122/77 94 05/20/20 23:41 36.8 C 76 20 118/65 93 05/20/20 21:15 37.1 C 95 H 18 134/77 95 PG Care Time/CCT Total # of Minutes Spent Total Time Spent with Patient: Total time spent is greater than 50% in coordination of care (as documented) at patient's floor/unit and/or counseling patient: Coding Level of Care Code 05792 Subseq Hosp Care Lvl 2 Diagnoses Hematuria R31.9
[2020-05-21 08:49] LABS: BUN Creatinine Ratio 12.4 (10-20); Creatinine Clr Calc Pharmacy 72.7 ml/min; Est GFR (African American) 80.7; Est GFR (Non-African American) 69.6; Potassium 4.1 mmol/L (3.5-5.1)
--- NOTE | 2020-05-21 08:49 | Surgery Progress Note ---
Date of Service May 21, 2020 Assessment & Plan (1) Dehiscence of fascia: This point from his pulmonary status is seems to be stabilized he is less tachycardic and O2 sats are 94 room air He is afebrile and does not appear to be septic I am concerned that his white count is elevated and his abdomen is still low but distended even though he has good output through the ileostomy I will get a KUB of his abdomen today and will plan probably to get a CT scan of the abdomen and pelvis tomorrow Certainly the etiology of his weighted white count could be related pulmonary but certainly could be an intra-abdominal process since he had abdominal wound dehiscence and he had a pretty significant inflammatory process in the left lower quadrant and last CAT scan the redness possibly diverticulitis Also of note yesterday he had a bowel movement which by Dr. Moffett reported was bloody and felt that may been related to his hemorrhoid I talked to his this morning for about 15 minutes brought her up-to-date on what is going on and she was going to try to come in and spend some time with him today which I think will help his mental status and I asked her to bring something that he has at home that may orient him to that status Present on Admission?: Yes Subjective Just had breakfast clear liquids without any issues denies any nausea only abdominal discomfort is with a Dsouza catheter: That seems like his point on his bladder The left lower chest pain that he had yesterday he denies have any pain today denies any shortness of breath denies any nausea Physical Exam Physical Exam: Patient continues to have periods of confusion in fact today he was not sure if family member came in to see him yesterday Is resting comfortably sitting up in his bed just finished breakfast The abdomen is still distended there is no tenderness the ileostomy has good output the abdominal incision the retention sutures are intact continues to have some serous slightly sanguinous drainage The extremities without any peripheral edema Results & Data Vital Signs (Past 12 Hours) Vital Signs Temp Pulse Pulse Resp BP BP Pulse Ox 05/21/20 07:29 88 05/21/20 05:39 96 H 05/21/20 03:13 36.4 C L 83 19 122/77 94 05/20/20 23:41 36.8 C 76 20 118/65 93 05/20/20 21:15 37.1 C 95 H 18 134/77 95 the white count continues to increase with increasing left shift PG Care Time/CCT Total # of Minutes Spent Total Time Spent with Patient: Total time spent is greater than 50% in coordination of care (as documented) at patient's floor/unit and/or counseling patient: Coding Level of Care Code None Diagnoses Dehiscence of fascia T81.30XD Encounter type: subsequent encounter (1) Dehiscence of fascia Encounter type: subsequent encounter Qualified Code(s): T81.30XD - Disruption of wound, unspecified, subsequent encounter
[2020-05-21] MEDS: PANTOprazole 40 MG TAB PO SCH (09:36)
[2020-05-21] MEDS: lisinopriL 20 MG TAB PO SCH (09:36)
[2020-05-21] MEDS: SUCRALFATE 1 GM TAB PO SCH ×2 (09:36→20:13)
[2020-05-21] MEDS: AMLODIPINE BESYLATE 5 MG TAB PO SCH (09:36)
[2020-05-21] MEDS: ASPIRIN 81 MG ECTAB PO SCH (09:36)
[2020-05-21] MEDS: METOPROLOL TARTRATE 50 MG TAB PO SCH ×2 (09:36→20:13)
[2020-05-21] MEDS: NYSTATIN SUSP 500,000 U/5 ML UDC PO SCH ×4 (09:37→20:13)
[2020-05-21] MEDS: TRIAMCINOLONE ACET NASAL SPRAY 10.8ML BTL NAE SCH (09:37)
--- NOTE | 2020-05-21 10:06 | XRay Report ---
KUB CLINICAL HISTORY: Possible ileus. COMPARISON STUDY: CT of the abdomen and pelvis May 12, 2020. KUB May 13, 2020. FINDINGS: Contrast is noted within the bladder. Multiple loops of moderately dilated small bowel annita ure up to 5.8 cm in caliber. This has mildly increased since exam of May 13, 2020. There is a paucit y of colonic gas. IMPRESSION: Increase in moderate small bowel dilatation. The findings favor a small bowel obstructio n. An ileus could appear similar but is considered less likely. ACT 112: Negative or not required by law. Electronically signed by: Figueroa Wu M.D. 05/21/2020 10:04 AM
[2020-05-21] MEDS: HYDROCORTISONE HC 2.5% CRM 30GM TUBE EXT SCH ×3 (10:30→21:36)
--- NOTE | 2020-05-21 11:57 | Surgery Progress Note ---
Date of Service This is the second visit today after I reviewed the KUB that was done this morning Seem like it may be either partial obstruction or an ileus and I have asked that the NG tube be inserted but the nurses stated that the patient refused they tried a few times and he does not want this is both been going on with him since the day of of surgery where he keeps pulling the NG tube However he feels very comfortable no abdominal discomfort in fact he stated that he is passing some flatus through the rectum and nurses report good output through the ileostomy almost formed contents May 21, 2020 Assessment & Plan (1) Dehiscence of fascia: At this point we will keep the patient that n.p.o. and see how he does unless the condition deteriorates overnight I plan to get a CAT scan on him tomorrow since he has this elevated white count although he is afebrile his pulse was up to 110 blood pressure is 101/69 he appears to be making good urine output although it seems like it slight blood-tinged Slight elevation of creatinine therefore I restarted his fluids at 125 cc an hour Present on Admission?: Yes Physical Exam Physical Exam: In bed comfortably at this time without any complaints the nurses have him completely undressed there emptying out the ileostomy tube and doing wound dressing his abdomen appears softer than areas this morning the patient denies any nausea or any emesis Results & Data Vital Signs (Past 12 Hours) Vital Signs Temp Pulse Pulse Resp BP Pulse Ox 05/21/20 08:00 37.1 C 110 H 18 101/69 93 05/21/20 07:29 88 05/21/20 05:39 96 H 05/21/20 03:13 36.4 C L 83 19 122/77 94 PG Care Time/CCT Total # of Minutes Spent Total Time Spent with Patient: Total time spent is greater than 50% in c oordination of care (as documented) at patient's floor/unit and/or counseling patient: Coding Level of Care Code None Diagnoses Dehiscence of fascia T81.30XD Encounter type: subsequent encounter (1) Dehiscence of fascia Encounter type: subsequent encounter Qualified Code(s): T81.30XD - Disruption of wound, unspecified, subsequent encounter
[2020-05-21] MEDS: HEPARIN SODIUM/DEXTROSE 25,000 UNITS/500 ML BAG IV SCH ×2 (11:58→14:24)
[2020-05-21] MEDS: LACTATED RINGER'S 1,000 ML IV SCH ×2 (11:58→18:21)
[2020-05-21 13:33] LABS: Partial Thromboplastin Ratio 2.7
[2020-05-21 13:34] LABS: Partial Thromboplastin Time 75.7 Seconds (21.0-31.0)
--- NOTE | 2020-05-21 17:58 | Hospitalist Progress Note ---
Date of Service May 21, 2020 Assessment & Plan (1) Pulmonary embolism and infarction: PROVOKED - 2 recent surgeries. With b/l peroneal vein DVTs. Unfortunately developed VTE despite heparin SC DVT prophylaxis. Continue heparin drip per protocol. (2) DVT (deep venous thrombosis): b/l peroneal vein DVTs. Heparin drip. will choose oral agent later in admission once it is clear patient will not need any additional procedures, etc. (3) Colovesical fistula: POD #12 s/p takedown of fistula, bladder repair, sigmoidectomy and ileostomy creation. NGT removed 6. Had been tolerating diet with good ostomy output. Then developed small bowel dilatation and distension on exam today. NG tube refused by patient. Patient made NPO and placed back on IVF by Dr Marquez. Post-op course also complicated by dehiscence of incision/fascia - see below. POD #6 from surgery for such. Course also complicated by VTE. (4) Dehiscence of fascia: POD #6 s/p exploratory abdominal wound closure due to abdominal dehiscence. Intra-op culture with pseudomonas - pansensitive. Dr Marquez inspected the wound 7/ - no purulent drainage. [id number], because of worsening leukocytosis, cipro changed back to Zosyn IV on 05/20. Dr Marquez likely to perform CT on 7. (5) Atrial fibrillation: Continue Lopressor 25mg BID. He is not on chronic anticoagulation at home. I spoke with regarding PAF. She could not remember a specific reason why he was taken off anticoagulation for PAF. She doesn't recall GI bleeding, falls, etc Patient will be on anticoagulation for VTE. Would advise anticoagulation for PAF long-term after course for VTE is complete. (6) Metabolic encephalopathy: ongoing. likely 2nd to hospital psychosis. Urine cx negative but final culture pending. VBG yesterday w/o hypercarbia. now 12 days into his stay. started risperdal 0.25mg at HS on 05/20. Will increase dose to 0.5mg tonight. If necessary can repeat the 0.5mg dose for total of 1mg. If confusion continues consider head imaging. (7) Arteriosclerotic cardiovascular disease: cont asa cont statin EKG 05/20 w/o ischemic changes troponin negative 05/20 (8) Hyperlipidemia: Cont lipitor (9) Gout: no flares at this time (10) Hypertension: controlled cont metoprolol 50mg BID and lisinopril 20mg daily. (11) Candidiasis of mouth and esophagus: nystatin amanda - 5cc qid resolved, but would keep on nystatin due to ongoing broad-spectrum IV abx use (12) DVT prophylaxis: heparin drip I updated pt's extensively by phone 05/20/20 Admission and Anticipated Discharge Date Admission Date: May 09, 2020 Subjective patient was very confused overnight; had significant sundowning despite scheduled risperdal during the visit he was confused but calm telling stories about his did know it was 2019 and it was May but didn't realize he was in the hospital tele stable overnight c/o mild abdominal discomfort Review of Systems Respiratory: no dyspnea Cardiovascular: no chest pain Gastrointestinal: no vomiting Physical Exam Constitutional: + altered mental status; no acute distress ENMT: external ear and nose normal, oropharynx normal Mouth: no oral mucosal abnormality (thrush plaques resolved ) Respiratory: normal respiratory effort, lungs clear to auscultation no respiratory distress Auscultation: + crackles (minimal - bases ) Cardiovascular: Rate/Rhythm: regular rate and regular rhythm Heart Sounds: normal S1 and normal S2; no murmur Vessels: posterior tibial pulses present and dorsalis pedis pulses present; no JVD Extremities: no edema Gastrointestinal (Abdomen): Inspection/Auscultation: + abdomen distended and normal bowel sounds (decreased) Percussion/Palpation: abdomen nontender, no guarding and no hepatosplenomegaly ileostomy right abdomen with liquid stool Psychiatric: Orientation: alert, oriented to person and oriented to time; + not oriented to place Results & Data Results & Data ([facility]) Vital Signs (Past 12 Hours) Vital Signs Temp Pulse Pulse Resp BP BP Pulse Ox 05/21/20 15:47 36.9 C 77 20 122/76 93 05/21/20 15:14 80 05/21/20 08:00 37.1 C 110 H 18 101/69 93 05/21/20 07:29 88 Laboratory Results Laboratory Results - last 24 hr 05/20/20 05/20/20 05/20/20 17:48 17:48 17:48 WBC RBC Hgb Hct MCV MCH MCHC RDW Std Deviation RDW Coeff of Alda Plt Count MPV Immature Gran % (Auto) Neut % (Auto) Lymph % (Auto) [place] % (Auto) Eos % (Auto) Baso % (Auto) Neut # (Auto) Lymph # (Auto) [place] # (Auto) Eos # (Auto) Baso # (Auto) Immature Gran # (Auto) APTT PTT Ratio VBG pH 7.41 VBG pCO2 40 VBG pO2 26 VBG HCO3 24 VBG O2 Saturation < 60.0 VBG Base Excess -0.3 Barometric Pressure 730.5 Sodium Potassium Chloride Carbon Dioxide Anion Gap BUN Creatinine Est Cr Clr Drug Dosing Est GFR ( Amer) Est GFR (Non-Af Amer) BUN/Creatinine Ratio Glucose Lactate 1.4 Calcium Troponin I < 0.015 05/20/20 05/20/20 05/21/20 20:27 21:40 04:50 WBC RBC Hgb Hct MCV MCH MCHC RDW Std Deviation RDW Coeff of Alda Plt Count MPV Immature Gran % (Auto) Neut % (Auto) Lymph % (Auto) [place] % (Auto) Eos % (Auto) Baso % (Auto) Neut # (Auto) Lymph # (Auto) [place] # (Auto) Eos # (Auto) Baso # (Auto) Immature Gran # (Auto) APTT > 139.0 H* 59.5 H* 39.1 H PTT Ratio > 5.0 2.1 1.4 VBG pH VBG pCO2 VBG pO2 VBG HCO3 VBG O2 Saturation VBG Base Excess Barometric Pressure Sodium Potassium Chloride Carbon Dioxide Anion Gap BUN Creatinine Est Cr Clr Drug Dosing Est GFR ( Amer) Est GFR (Non-Af Amer) BUN/Creatinine Ratio Glucose Lactate Calcium Troponin I 05/21/20 05/21/20 05/21/20 08:18 08:18 12:59 WBC 17.34 H RBC 4.00 L Hgb 11.6 L Hct 35.9 L MCV 89.8 MCH 29.0 MCHC 32.3 RDW Std Deviation 44.9 RDW Coeff of Alda 13.6 Plt Count 486 H MPV 9.8 Immature Gran % (Auto) 0.8 Neut % (Auto) 81.7 Lymph % (Auto) 6.7 [place] % (Auto) 8.7 Eos % (Auto) 1.9 Baso % (Auto) 0.2 Neut # (Auto) 14.18 H Lymph # (Auto) 1.16 L [place] # (Auto) 1.50 H Eos # (Auto) 0.33 Baso # (Auto) 0.03 Immature Gran # (Auto) 0.14 H APTT 75.7 H* PTT Ratio 2.7 VBG pH VBG pCO2 VBG pO2 VBG HCO3 VBG O2 Saturation VBG Base Excess Barometric Pressure Sodium 136 Potassium 4.1 Chloride 104 Carbon Dioxide 24 Anion Gap 9.0 BUN 13 Creatinine 1.05 Est Cr Clr Drug Dosing 72.7 Est GFR ( Amer) 80.7 Est GFR (Non-Af Amer) 69.6 BUN/Creatinine Ratio 12.4 Glucose 113 H Lactate Calcium 9.0 Troponin I Diagnostic Findings b/l dopplers with peroneal vein DVT PG Care Time/CCT Total # of Minutes Spent Total Time Spent with Patient: Total time spent is greater than 50% in coordination of care (as documented) at patient's floor/unit and/or counseling patient: Coding Level of Care Code 69986 Subseq Hosp Care Lvl 2 Diagnoses Pulmonary embolism and infarction I26.99 DVT (deep venous thrombosis) I82.409 Colovesical fistula N32.1 Dehiscence of fascia T81.30XD Encounter type: subsequent encounter Atrial fibrillation I48.0 Atrial fibrillation type: paroxysmal Metabolic encephalopathy G93.41 Arteriosclerotic cardiovascular disease I25.10 Hyperlipidemia E78.2 Hyperlipidemia type: mixed hyperlipidemia Gout M10.9 Hypertension I10 Candidiasis of mouth and esophagus B37.81; B37.0 DVT prophylaxis Z29.9 (1) Dehiscence of fascia Encounter type: subsequent encounter Qualified Code(s): T81.30XD - Disruption of wound, unspecified, subsequent encounter (2) Atrial fibrillation Atrial fibrillation type: paroxysmal Qualified Code(s): I48.0 - Paroxysmal atrial fibrillation (3) Hyperlipidemia Hyperlipidemia type: mixed hyperlipidemia Qualified Code(s): E78.2 - Mixed hyperlipidemia
[2020-05-21] MEDS: ATORVASTATIN 10 MG TAB PO SCH (20:13)
[2020-05-21] MEDS: risperiDONE 0.5 MG TABLET PO SCH (20:13)
[2020-05-21] MEDS: TAMSULOSIN HCL 0.4 MG CAP PO SCH (20:13)
[2020-05-21 20:31] LABS: Partial Thromboplastin Ratio 2.2
[2020-05-21 20:36] LABS: Partial Thromboplastin Time 60.9 Seconds (21.0-31.0)
[2020-05-22] MEDS: ACETAMINOPHEN 325 MG TAB PO PRN (00:24)
[2020-05-22] MEDS: LACTATED RINGER'S 1,000 ML IV SCH ×2 (02:19→10:07)
[2020-05-22] MEDS: HEPARIN SODIUM/DEXTROSE 25,000 UNITS/500 ML BAG IV SCH ×2 (02:51→17:54)
[2020-05-22 03:05] LABS: Basophils # (auto) 0.01 K/uL (0-0.2); Basophils % (auto) 0.1 %; Eosinophils # (auto) 0.24 K/uL (0-0.5); Eosinophils % (auto) 1.5 %; Hematocrit (blood only) 30.9 % (42-52); Hemoglobin 10.5 g/dL (14.0-18.0); Immature Granulocytes # (auto) 0.12 K/uL (0.00-0.02); Immature Granulocytes % (auto) 0.7 %; Lymphocytes # (auto) 1.15 K/uL (1.2-3.4); Lymphocytes % (auto) 7.1 %; Mean Corpuscular Hemoglobin 29.9 pg (25-34); Mean Platelet Volume 8.9 fL (7.4-10.4); Monocytes # (auto) 1.41 K/uL (0.11-0.59); Monocytes % (auto) 8.7 %; Neutrophils # (auto) 13.26 K/uL (1.4-6.5); Neutrophils % (auto) 81.9 %; Platelet Count 437 K/uL (130-400); RDW Coefficient of Variation 13.7 % (11.5-14.5); Red Blood Count 3.51 M/uL (4.7-6.1); White Blood Count 16.19 K/uL (4.8-10.8)
[2020-05-22] MEDS: PANTOprazole 40 MG in DEXTROSE 5% 100 ML IV SCH ×5 (03:20→22:30)
[2020-05-22 03:25] LABS: BUN Creatinine Ratio 8.8 (10-20); Calcium 8.4 mg/dl (8.5-10.1); Creatinine Clr Calc Pharmacy 67.5 ml/min; Est GFR (African American) 73.8; Est GFR (Non-African American) 63.7; Magnesium 1.8 mg/dl (1.8-2.4); Potassium 3.7 mmol/L (3.5-5.1)
[2020-05-22 03:27] LABS: Partial Thromboplastin Ratio 1.9
[2020-05-22 03:34] LABS: Partial Thromboplastin Time 52.8 Seconds (21.0-31.0)
[2020-05-22] MEDS: PIPERACILLIN/TAZOBACTAM 3.375 GM in DEXTROSE 5% 100 ML IV SCH ×3 (04:19→19:28)
--- NOTE | 2020-05-22 06:02 | Communication Note ---
Date of Service: May 22, 2020 Patient having continued hematuria with clot obstruction and minimal output requiring manual irrigation by nursing before getting about 700 cc's out. Hemocc ult of ileostomy output was positive. Despite patient's bilateral DVT and PE with infarction made decision to stop heparin drip. H and H showing hemoglobin of 10.5 this has been steadily dropping from normal at admission. Consulted vascular surgery for placement of IVC filter. Will discuss with primary in am.
--- NOTE | 2020-05-22 07:25 | XRay Report ---
XR KUB/Abdomen 1 view CLINICAL HISTORY: follow up bowel ileus COMPARISON STUDY: 05/21/2020 FINDINGS: Slight improvement in the pattern previously described. Air-filled small bowel distention i s diminished. Sample loop previously evident diameter 5.7 cm has diminished to 5.0 cm. No secondary signs of free air. Slight increase in gas within the colon. IMPRESSION: Slight improvement in bowel pattern with a mild decrease in small bowel distention. ACT 112: Negative or not required by law. The above report was generated using voice recognition software. It may contain grammatical, syntax or spelling errors. Electronically signed by: Carlos Enrique Zarate M.D. 05/22/2020 7:24 AM
--- NOTE | 2020-05-22 08:02 | Surgery Progress Note ---
Date of Service States he feels better than yesterday denies any emesis or any nausea states that he moved his bowels through the rectum and has good output through the ileostomy May 22, 2020 Assessment & Plan (1) Dehiscence of fascia: He appears to have improved since yesterday or yesterday he has moderate amount of small bowel distention try to put an NG tube and he could not tolerated and refused At this point since he is clinically appears improved I will hold off any imaging studies restart him on a diet We will check the liver function tests look at his albumin and prealbumin since his oral intake has been off and on since surgery We will replace his abdominal binder and increase his activity as tolerated Present on Admission?: Yes Physical Exam Physical Exam: He appears to be more coherent although he still has some periods where he is may be confused states that he has not seen his who I thought was coming in yesterday she very well could have been here and he does not remember He is resting comfortably in bed without any complaints The abdomen is much softer than yesterday appears to have good output through the ileostomy just bilious large amount Inspected the abdominal incision where the cellulitis around the retention suture has decreased I took the packing out that I had placed in one area and there was no evidence of any purulent drainage is serous sanguinous I repacked it No peripheral edema noticed in his ankle Results & Data Vital Signs (Past 12 Hours) Vital Signs Temp Pulse Pulse Resp BP Pulse Ox 05/22/20 07:24 88 05/22/20 06:23 36.7 C 82 20 132/78 92 05/22/20 03:00 36.8 C 84 18 144/84 H 95 05/22/20 01:47 87 05/21/20 22:54 37.1 C 80 16 129/83 96 His white count is slightly decreased her diet could be related to her rehydration is abdominal x-ray this morning showed her to have less small bowel distention PG Care Time/CCT Total # of Minutes Spent Total Time Spent with Patient: Total time spent is greater than 50% in coordination of care (as documented) at patient's floor/unit and/or counseling patient: Coding Level of Care Code None Diagnoses Dehiscence of fascia T81.30XD Encounter type: subsequent encounter (1) Dehiscence of fascia Encounter type: subsequent encounter Qualified Code(s): T81.30XD - Disruption of wound, unspecified, subsequent encounter
[2020-05-22] MEDS: METOPROLOL TARTRATE 50 MG TAB PO SCH ×2 (08:44→20:30)
[2020-05-22] MEDS: ASPIRIN 81 MG ECTAB PO SCH (08:44)
[2020-05-22] MEDS: SUCRALFATE 1 GM TAB PO SCH ×2 (08:44→20:29)
[2020-05-22] MEDS: NYSTATIN SUSP 500,000 U/5 ML UDC PO SCH ×4 (08:44→20:30)
[2020-05-22] MEDS: AMLODIPINE BESYLATE 5 MG TAB PO SCH (08:44)
[2020-05-22] MEDS: lisinopriL 20 MG TAB PO SCH (08:44)
[2020-05-22] MEDS: TRIAMCINOLONE ACET NASAL SPRAY 10.8ML BTL NAE SCH (08:49)
[2020-05-22] MEDS: HYDROCORTISONE HC 2.5% CRM 30GM TUBE EXT SCH ×3 (08:50→20:30)
[2020-05-22 08:54] LABS: Bilirubin Direct 0.2 mg/dl (0-0.2); Bilirubin,Total 0.8 mg/dl (0.2-1); Prealbumin 10.5 mg/dl (20-40); Total Protein 5.7 gm/dl (6.4-8.2)
--- NOTE | 2020-05-22 09:28 | Consultation ---
Date of Consultation May 22, 2020 Assessment & Plan (1) DVT (deep venous thrombosis): Pt also seen by Dr Latham today. Pt with nearly clear urine presently. Do not recommend IVC filter insertion at this time. Recommend continue AC as soon as able. Please call if needed. Patient was seen, examined, and chart reviewed. Agree with exam and treatment plan of the Vascular PA. Thank you very much for letting us participate in the care of this patient. (2) Pulmonary embolism and infarction: see above History of Present Illness Reason for Consultation: DVT/PE, hematuria Attending Physician: Lex Marquez MD History of Present Illness 75 yo m with multiple medical problems, including HTN, gout, hyperlipidemia, a fib, CAD, admitted after takedown of colovesical fistula with ileostomy, post operatively with wound dehiscence requiring surgical repair and DVT/PE, seen in consultation today after developing hematuria for possible IVC filter insertion. Pt is somewhat confused and has been pulling at his matthews per staff. Admits minimal abd pain at incisions. Denies LOGAN, fever, chills, chest pain, N/V, rest pain, claudication, other complaints. Allergies Allergy/AdvReac Type Severity Reaction Status Date / Time ezetimibe [From Zetia] AdvReac Intermediate sore joints Verified 05/09/20 09:07 lovastatin AdvReac Intermediate sore joints Verified 05/09/20 09:07 Home Medications Home Medications Medication Instructions Recorded Confirmed Type atorvastatin 10 mg tablet 10 mg PO QPM #90 tab 09/06/19 05/09/20 Rx metoprolol tartrate 25 mg tablet 25 mg PO BID #180 tab 09/18/19 05/09/20 Rx lisinopril 5 mg tablet 5 mg PO DAILY 03/21/20 05/09/20 History aspirin 81 mg tablet,delayed 81 mg PO DAILY 04/17/20 05/09/20 History release acetaminophen [Tylenol Extra 500 mg PO DAILY PRN 05/02/20 05/09/20 History Strength] omeprazole 40 mg PO QPM 05/02/20 05/09/20 History sucralfate [Carafate] 1 g PO BID 05/02/20 05/09/20 History Patient History Medical History Arteriosclerotic cardiovascular disease Non obstructive CAD Atrial fibrillation follows with [facility] [place] Cardiology, annually. no cardioversion. Colovesical fistula GERD (gastroesophageal reflux disease) "silent" Gout Hyperlipidemia Hypertension Osteoarthritis Urinary tract infection Surgical History H/O exploratory laparotomy (05/15/20) Exploratory Abdominal Wound Closure abdominal dehisence Dr. Marquez 05/15/20 History of adenoidectomy History of cardiac cath ~2004 & ~2011. no stents. History of colonoscopy History of ear surgery right History of esophagogastroduodenoscopy (EGD) x1 with FB removal and x1 for recheck History of tonsillectomy S/P inguinal hernia repair right inguinal with hernia mesh Family History Brother Prostate cancer Heart disease Father Heart disease Other No family history of adverse response to anesthesia Social History Preferred Language: [place] Citizen Communication Ability: Effective Grades 1 Through 5 Teacher Required: No Beliefs That Will Affect Care: None marital status: Current Living Situation: Spouse current occupational status: employed current occupation: [employer] Other Information That Helps Us Care for You: No Feels Safe at Home: Yes Safety Concerns: Feels Safe At This Time Smoking Status: Never smoker Do You Dip or Chew Tobacco: Yes (1 can/3 days (advised)) ; Second Hand Exposure: No ; Tobacco Cessation Education Requested by Patient: No Hx Alcohol Use: No Hx Substance Use: No Review of Systems Review of Systems: All systems reviewed & are unremarkable except as noted in HPI & below (pt is mildly confused) Physical Exam Constitutional: WD/WN, vitals as above healthy appearing, cooperative and comfortable; not in distress Eyes: PERRL, conjunctivae normal, anicteric sclerae ENMT: external ear and nose normal, oropharynx normal Neck: normal visual inspection Respiratory: normal respiratory effort, lungs clear to auscultation Cardiovascular: Rate/Rhythm: + irregularly irregular Vessels: posterior tibial pulses present, dorsalis pedis pulses present, brachial pulses present and radial pulses present; no carotid bruit Extremities: normal capillary refill; no edema Gastrointestinal (Abdomen): Inspection/Auscultation: normal bowel sounds and + abdominal surgical incision Percussion/Palpation: + abdomen tender (mildly) Musculoskeletal: no cyanosis or clubbing, extremities motor strength 5/5 Skin: no rashes, warm and dry Neurologic: moves all extremities, awake and + confused (mild); no focal motor deficits Psychiatric: Orientation: oriented to person and oriented to place; + not oriented to time Results & Data Vital Signs (Past 12 Hours) Vital Signs Temp Pulse Pulse Resp BP Pulse Ox 05/22/20 07:24 88 05/22/20 06:23 36.7 C 82 20 132/78 92 05/22/20 03:00 36.8 C 84 18 144/84 H 95 05/22/20 01:47 87 05/21/20 22:54 37.1 C 80 16 129/83 96
--- NOTE | 2020-05-22 09:36 | Gastrointestinal Consultation ---
Date of Consultation May 22, 2020 Assessment & Plan (1) Colovesical fistula: (2) Heme positive stool: 1. Agree with holding heparin. 2. Continue PPI ggt with Protonix at 8 mg/hr. 3. NPO as per surgery. 4. Continue supportive care. Thank you for allowing us to participate in the care of this patient. If you have any questions or concerns, please do not hesitate contact us. Supervising Physician Co-Signing Physician Notes Agree with ARA Sheldon Abd: Soft, NT, Ostomy draining dark green liquid, no blood Continue supportive care Off Heparin gtt at this time without blood in ostomy bag Continue Protonix gtt History of Present Illness Reason for Consultation: Heme positive stool Requesting Physician: Dr. Elias Attending Physician: Lex Marquez MD History of Present Illness Patient is a 75 year-old male with a history of colon polyps and diverticular disease typically followed by Dr. Klein in [place], [place]. States he did have his last colonoscopy ~ 3 years ago which was reportedly unremarkable. Interestingly, he did develop a colovesical fistula and is s/p sigmoid resection with diverting ostomy complicated by wound dehiscence and DVT/PE. On heparin, he has been noted to have heme positive stool and gross hematuria. The heparin ggt was discontinued last evening and he has been placed on a PPI ggt. He currently denies any abdominal pain, nausea or vomiting. Hemoglobin did drop from 11.6 to 10.5 this morning. Allergies Allergy/AdvReac Type Severity Reaction Status Date / Time ezetimibe [From Zetia] AdvReac Intermediate sore joints Verified 05/09/20 09:07 lovastatin AdvReac Intermediate sore joints Verified 05/09/20 09:07 Home Medications Home Medications Medication Instructions Recorded Confirmed Type atorvastatin 10 mg tablet 10 mg PO QPM #90 tab 09/06/19 05/09/20 Rx metoprolol tartrate 25 mg tablet 25 mg PO BID #180 tab 09/18/19 05/09/20 Rx lisinopril 5 mg tablet 5 mg PO DAILY 03/21/20 05/09/20 History aspirin 81 mg tablet,delayed 81 mg PO DAILY 04/17/20 05/09/20 History release acetaminophen [Tylenol Extra 500 mg PO DAILY PRN 05/02/20 05/09/20 History Strength] omeprazole 40 mg PO QPM 05/02/20 05/09/20 History sucralfate [Carafate] 1 g PO BID 05/02/20 05/09/20 History Patient History Medical History Arteriosclerotic cardiovascular disease Non obstructive CAD Atrial fibrillation follows with [facility] Cardiology, annually. no cardioversion. Colovesical fistula GERD (gastroesophageal reflux disease) "silent" Gout Hyperlipidemia Hypertension Osteoarthritis Urinary tract infection Surgical History H/O exploratory laparotomy (05/15/20) Exploratory Abdominal Wound Closure abdominal dehisence Dr. Marquez 05/15/20 History of adenoidectomy History of cardiac cath ~2004 & ~2011. no stents. History of colonoscopy History of ear surgery right History of esophagogastroduodenoscopy (EGD) x1 with FB removal and x1 for recheck History of tonsillectomy S/P inguinal hernia repair right inguinal with hernia mesh Family History Brother Prostate cancer Heart disease Father Heart disease Other No family history of adverse response to anesthesia Social History Preferred Language: Serbian Communication Ability: Effective Policy Loan Calculator Required: No Beliefs That Will Affect Care: None marital status: Current Living Situation: Spouse current occupational status: employed current occupation: [employer] Other Information That Helps Us Care for You: No Feels Safe at Home: Yes Safety Concerns: Feels Safe At This Time Smoking Status: Never smoker Do You Dip or Chew Tobacco: Yes (1 can/3 days (advised)) ; Second Hand Exposure: No ; Tobacco Cessation Education Requested by Patient: No Hx Alcohol Use: No Hx Substance Use: No Review of Systems Constitutional: no fever and no chills Eyes: no problem reported Ear, Nose, Mouth, Throat: no dysphagia and no pain with swallowing Respiratory: no cough and no dyspnea Cardiovascular: no chest pain and no palpitations Gastrointestinal: as per Subjective / HPI Genitourinary: + as per Subjective / HPI Musculoskeletal: no joint pain and no swelling Integumentary: no problem reported Neurologic: no problem reported Psychiatric: no problem reported Endocrine: no problem reported Physical Exam Constitutional: WD/WN, vitals as above Eyes: EOM intact bilaterally Neck: normal appearance Respiratory: normal respiratory effort Auscultation: + diminished lung sounds (bases) Cardiovascular: Rate/Rhythm: regular rate and regular rhythm Heart Sounds: no gallop and no murmur Gastrointestinal (Abdomen): Inspection/Auscultation: normal bowel sounds Percussion/Palpation: abdomen soft; abdomen nontender ostomy with greenish- black liquid stool. Dressing intact on abdomen. Musculoskeletal: Extremities: no cyanosis no lower extremity edema Skin: no rashes, warm and dry Neurologic: moves all extremities Psychiatric: A+Ox3, euthymic affect Results & Data ([facility]) Vital Signs (Past 12 Hours) Vital Signs Temp Pulse Pulse Resp BP Pulse Ox 05/22/20 07:24 88 05/22/20 06:23 36.7 C 82 20 132/78 92 05/22/20 03:00 36.8 C 84 18 144/84 H 95 05/22/20 01:47 87 05/21/20 22:54 37.1 C 80 16 129/83 96 Laboratory Results Abnormal lab results 05/21/20 05/21/20 05/21/20 Range/Units 12:59 19:55 23:40 WBC (4.8-10.8) K/uL RBC (4.7-6.1) M/uL Hgb (14.0-18.0) g/dL Hct (42-52) % Plt Count (130-400) K/uL Neut # (Auto) (1.4-6.5) K/uL Lymph # (Auto) (1.2-3.4) K/uL [place] # (Auto) (0.11-0.59) K/uL Immature Gran # (Auto) (0.00-0.02) K/uL APTT 75.7 H* 60.9 H* (21.0-31.0) Seconds BUN/Creatinine Ratio (10-20) Glucose (70-99) mg/dl Calcium (8.5-10.1) mg/dl Total Protein (6.4-8.2) gm/dl Albumin (3.4-5.0) gm/dl Prealbumin (20-40) mg/dl Stool Occult Bld Scrn Positive A (Negative) 05/22/20 05/22/20 05/22/20 Range/Units 02:56 02:56 02:56 WBC 16.19 H (4.8-10.8) K/uL RBC 3.51 L (4.7-6.1) M/uL Hgb 10.5 L (14.0-18.0) g/dL Hct 30.9 L (42-52) % Plt Count 437 H (130-400) K/uL Neut # (Auto) 13.26 H (1.4-6.5) K/uL Lymph # (Auto) 1.15 L (1.2-3.4) K/uL [place] # (Auto) 1.41 H (0.11-0.59) K/uL Immature Gran # (Auto) 0.12 H (0.00-0.02) K/uL APTT 52.8 H* (21.0-31.0) Seconds BUN/Creatinine Ratio 8.8 L (10-20) Glucose 119 H (70-99) mg/dl Calcium 8.4 L (8.5-10.1) mg/dl Total Protein (6.4-8.2) gm/dl Albumin (3.4-5.0) gm/dl Prealbumin (20-40) mg/dl Stool Occult Bld Scrn (Negative) 05/22/20 Range/Units 02:56 WBC (4.8-10.8) K/uL RBC (4.7-6.1) M/uL Hgb (14.0-18.0) g/dL Hct (42-52) % Plt Count (130-400) K/uL Neut # (Auto) (1.4-6.5) K/uL Lymph # (Auto) (1.2-3.4) K/uL [place] # (Auto) (0.11-0.59) K/uL Immature Gran # (Auto) (0.00-0.02) K/uL APTT (21.0-31.0) Seconds BUN/Creatinine Ratio (10-20) Glucose (70-99) mg/dl Calcium (8.5-10.1) mg/dl Total Protein 5.7 L (6.4-8.2) gm/dl Albumin 2.0 L (3.4-5.0) gm/dl Prealbumin 10.5 L (20-40) mg/dl Stool Occult Bld Scrn (Negative) PG Care Time/CCT Total # of Minutes Spent Total Time Spent with Patient: Total time spent is greater than 50% in coordination of care (as documented) at patient's floor/unit and/or counseling patient: Coding Level of Care Code 13121 Initial Inpt Care Lvl 3 Diagnoses Colovesical fistula N32.1 Heme positive stool R19.5
[2020-05-22] MEDS ORDERED: Heparin IV Standard *NO* Bolus IV SCH (16:39)
--- NOTE | 2020-05-22 17:14 | Hospitalist Progress Note ---
Date of Service May 22, 2020 Assessment & Plan (1) Pulmonary embolism and infarction: PROVOKED - 2 recent surgeries. With b/l peroneal vein DVTs. Unfortunately developed VTE despite heparin SC DVT prophylaxis. heparin drip stopped temporarily for some hematuria Hb is 10.5 will resume heparin drip this evening and observe for further bleeding (2) DVT (deep venous thrombosis): b/l peroneal vein DVTs. Heparin drip. will choose oral agent later in admission once it is clear patient will not need any additional procedures, etc. 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 NGT removed 6. Had been tolerating diet with good ostomy output. developed small bowel dilatation and distension on exam on 05/21 NG tube refused by patient. Patient made NPO and placed back on IVF by Dr Marquez. no he can have liquid diet, IV fluids stopped monitor closely Post-op course also complicated by dehiscence of incision/fascia - see below. POD #7 from surgery for such. Course also complicated by VTE. (4) Dehiscence of fascia: POD #7 s/p exploratory abdominal wound closure due to abdominal dehiscence. Intra-op culture with pseudomonas - pansensitive. Dr Marquez inspected the wound / - no purulent drainage. [id number], because of worsening leukocytosis, cipro changed back to Zosyn IV on 05/20. KUB 7/6 with less bowel distension (5) Atrial fibrillation: Continue Lopressor 25mg BID. He is not on chronic anticoagulation at home. She could not remember a specific reason why he was taken off anticoagulation for PAF. She doesn't recall GI bleeding, falls, etc Patient will be on anticoagulation for VTE. Would advise anticoagulation for PAF long-term after course for VTE is complete. (6) Metabolic encephalopathy: ongoing. likely 2nd to hospital psychosis. Urine cx negative but final culture pending. VBG 05/20 w/o hypercarbia. now 13 days into his stay. started risperdal 0.25mg at HS on 05/20. increased to 0.5mg 05/21 If necessary can repeat the 0.5mg dose for total of 1mg. patient more cooperative today, monitor closely (7) Arteriosclerotic cardiovascular disease: cont asa cont statin EKG 05/20 w/o ischemic changes troponin negative 05/20 (8) Hyperlipidemia: Cont lipitor (9) Gout: no flares at this time (10) Hypertension: controlled cont metoprolol 50mg BID and lisinopril 20mg daily. (11) Candidiasis of mouth and esophagus: nystatin amanda - 5cc qid resolved, but would keep on nystatin due to ongoing broad-spectrum IV abx use (12) DVT prophylaxis: heparin drip Admission and Anticipated Discharge Date Admission Date: May 09, 2020 Subjective reviewed chart from last night, d/w night resident had some hematuria and heme tested ostomy output with + blood heparin drip stopped vascular consult appreciated, no indication for IVC filter patient is doing better, he is tolerating diet, no abdominal pain, no nausea labs reviewed, WBC 16k, Hb 10.5, Cr is normal and electrolytes stable Review of Systems Review of Systems: All systems reviewed & are unremarkable except as noted in HPI & below Respiratory: no cough and no dyspnea Cardiovascular: no chest pain and no edema Gastrointestinal: no abdominal pain, no nausea, no vomiting, no constipation and no diarrhea/loose stools Physical Exam Constitutional: well developed and well nourished; no acute distress Eyes: PERRL, conjunctivae normal, anicteric sclerae ENMT: external ear and nose normal, oropharynx normal Neck: trachea midline, no thyromegaly Respiratory: normal respiratory effort, lungs clear to auscultation Cardiovascular: RRR, no murmur, no edema Gastrointestinal (Abdomen): Inspection/Auscultation: normal bowel sounds, + abdominal surgical incision and + abdominal surgical drain present (ileostomy); abdomen not distended Percussion/Palpation: abdomen soft; abdomen nontender, no guarding and abdomen not rigid Musculoskeletal: no cyanosis or clubbing, extremities motor strength 5/5 Skin: no rashes, warm and dry Neurologic: patellar DTR's 2+ bilat, sensation intact and PERRL, EOMI, accommodation nl, no face palsy, no dysarthria Psychiatric: A+Ox3, euthymic affect Orientation: alert, oriented to person, oriented to place and cooperative; + not oriented to time Lymphatic: no cervical or axillary lymphadenopathy Results & Data Results & Data ([facility]) Vital Signs (Past 12 Hours) Vital Signs Temp Pulse Pulse Resp BP BP Pulse Ox 05/22/20 11:22 36.6 C 86 16 111/73 95 05/22/20 07:24 88 05/22/20 06:23 36.7 C 82 20 132/78 92 Laboratory Results Laboratory Results - last 24 hr 05/21/20 05/21/20 05/22/20 19:55 23:40 02:56 WBC 16.19 H RBC 3.51 L Hgb 10.5 L Hct 30.9 L MCV 88.0 MCH 29.9 MCHC 34.0 RDW Std Deviation 44.0 RDW Coeff of Lada 13.7 Plt Count 437 H MPV 8.9 Immature Gran % (Auto) 0.7 Neut % (Auto) 81.9 Lymph % (Auto) 7.1 [place] % (Auto) 8.7 Eos % (Auto) 1.5 Baso % (Auto) 0.1 Neut # (Auto) 13.26 H Lymph # (Auto) 1.15 L [place] # (Auto) 1.41 H Eos # (Auto) 0.24 Baso # (Auto) 0.01 Immature Gran # (Auto) 0.12 H APTT 60.9 H* PTT Ratio 2.2 Sodium Potassium Chloride Carbon Dioxide Anion Gap BUN Creatinine Est Cr Clr Drug Dosing Est GFR ( Amer) Est GFR (Non-Af Amer) BUN/Creatinine Ratio Glucose Calcium Magnesium Total Bilirubin Direct Bilirubin AST ALT Alkaline Phosphatase Total Protein Albumin Prealbumin Stool Occult Bld Scrn Positive A 05/22/20 05/22/20 05/22/20 02:56 02:56 02:56 WBC RBC Hgb Hct MCV MCH MCHC RDW Std Deviation RDW Coeff of Alda Plt Count MPV Immature Gran % (Auto) Neut % (Auto) Lymph % (Auto) [place] % (Auto) Eos % (Auto) Baso % (Auto) Neut # (Auto) Lymph # (Auto) [place] # (Auto) Eos # (Auto) Baso # (Auto) Immature Gran # (Auto) APTT 52.8 H* PTT Ratio 1.9 Sodium 137 Potassium 3.7 Chloride 106 Carbon Dioxide 27 Anion Gap 4.0 BUN 10 Creatinine 1.13 Est Cr Clr Drug Dosing 67.5 Est GFR ( Amer) 73.8 Est GFR (Non-Af Amer) 63.7 BUN/Creatinine Ratio 8.8 L Glucose 119 H Calcium 8.4 L Magnesium 1.8 Total Bilirubin 0.8 Direct Bilirubin 0.2 AST 20 ALT 32 Alkaline Phosphatase 103 Total Protein 5.7 L Albumin 2.0 L Prealbumin 10.5 L Stool Occult Bld Scrn Medications Administered Current Inpatient Medications Acetaminophen (Tylenol) 650 mg PO Q6H PRN PRN Reason: Pain Stop: 06/17/20 13:42 Last Admin: 05/22/20 00:24 Dose: 650 mg Documented by: Amlodipine Besylate (Norvasc) 5 mg PO QAM [facility] Stop: 06/16/20 08:59 Last Admin: 05/22/20 08:44 Dose: 5 mg Documented by: Aspirin (Ecotrin Ectab) 81 mg PO DAILY [facility] Stop: 06/09/20 08:59 Last Admin: 05/22/20 08:44 Dose: 81 mg Documented by: Atorvastatin Calcium (Lipitor) 10 mg PO QPM [facility] Stop: 06/09/20 20:59 Last Admin: 05/21/20 20:13 Dose: 10 mg Documented by: Hydrocortisone (Proctozone Hc 2.5%) 1 appln EXT TID [facility] Stop: 06/19/20 20:59 Last Admin: 05/22/20 14:39 Dose: 1 appln Documented by: Piperacillin Sod/Tazobactam (Sod 3.375 gm/ Dextrose) 115 mls @ 28.75 mls/hr IV Q8H [facility]; Protocol Stop: 05/30/20 19:59 Last Admin: 05/22/20 19:28 Dose: 28.8 mls/hr Documented by: Pantoprazole Sodium 40 mg/ (Dextrose) 100 mls @ 20 mls/hr IV Q5H [facility] Stop: 06/21/20 03:29 Last Admin: 05/22/20 17:26 Dose: 8 mg/hr, 20 mls/hr Documented by: Heparin Sodium/Dextrose (Heparin Sodium/Dextrose) 25,000 units in 500 mls @ 30 mls/hr IV .[id number] [facility]; Protocol Stop: 06/21/20 17:49 Last Titration: 05/22/20 19:20 Dose: 1,500 units/hr, 30 mls/hr Documented by: Lisinopril (Zestril) 20 mg PO QAM [facility] Stop: 06/13/20 08:59 Last Admin: 05/22/20 08:44 Dose: 20 mg Documented by: Metoprolol Tartrate (Lopressor) 50 mg PO BID [facility] Stop: 06/16/20 08:59 Last Admin: 05/22/20 08:44 Dose: 50 mg Documented by: Miscellaneous Information (Consult) 1 ea N/A UD PRN PRN Reason: Consult Stop: 06/19/20 13:05 Nystatin (Mycostatin) 5 ml PO QID [facility] Stop: 05/26/20 12:59 Last Admin: 05/22/20 17:53 Dose: 5 ml Documented by: Ondansetron HCl (Zofran) 4 mg IV Q4H PRN PRN Reason: Nausea And Vomiting Stop: 06/08/20 15:36 Last Admin: 05/17/20 10:02 Dose: 4 mg Documented by: Risperidone (Risperdal) 0.5 mg PO [facility] Stop: 06/20/20 20:59 Last Admin: 05/21/20 20:13 Dose: 0.5 mg Documented by: Sucralfate (Carafate Tab) 1 gm PO BID [facility] Stop: 06/09/20 08:59 Last Admin: 05/22/20 08:44 Dose: 1 gm Documented by: Tamsulosin HCl (Flomax) 0.4 mg PO [facility] Stop: 06/18/20 20:59 Last Admin: 05/21/20 20:13 Dose: 0.4 mg Documented by: Tramadol HCl (Ultram) 50 mg PO Q4H PRN PRN Reason: Pain Stop: 06/17/20 13:42 Last Admin: 05/18/20 22:44 Dose: 50 mg Documented by: Triamcinolone Acetonide (Nasacort) 2 sprays ROSSY DAILY [facility] Stop: 06/15/20 12:24 Last Admin: 05/22/20 08:49 Dose: 2 sprays Documented by: PG Care Time/CCT Total # of Minutes Spent Total Time Spent with Patient: Total time spent is greater than 50% in coordination of care (as documented) at patient's floor/unit and/or counseling patient: Coding Level of Care Code 38145 Subseq Hosp Care Lvl 3 Diagnoses Pulmonary embolism and infarction I26.99 DVT (deep venous thrombosis) I82.409 Colovesical fistula N32.1 Dehiscence of fascia T81.30XD Encounter type: subsequent encounter Atrial fibrillation I48.0 Atrial fibrillation type: paroxysmal Metabolic encephalopathy G93.41 Arteriosclerotic cardiovascular disease I25.10 Hyperlipidemia E78.2 Hyperlipidemia type: mixed hyperlipidemia Gout M10.9 Hypertension I10 Candidiasis of mouth and esophagus B37.81; B37.0 DVT prophylaxis Z29.9 (1) Atrial fibrillation Atrial fibrillation type: paroxysmal Qualified Code(s): I48.0 - Paroxysmal atrial fibrillation (2) Hyperlipidemia Hyperlipidemia type: mixed hyperlipidemia Qualified Code(s): E78.2 - Mixed hyperlipidemia (3) Dehiscence of fascia Encounter type: subsequent encounter Qualified Code(s): T81.30XD - Disruption of wound, unspecified, subsequent encounter
[2020-05-22] MEDS: risperiDONE 0.5 MG TABLET PO SCH (20:30)
[2020-05-22] MEDS: ATORVASTATIN 10 MG TAB PO SCH (20:30)
[2020-05-22] MEDS: TAMSULOSIN HCL 0.4 MG CAP PO SCH (20:30)
[2020-05-23 00:27] LABS: Partial Thromboplastin Ratio 1.4; Partial Thromboplastin Time 39.2 Seconds (21.0-31.0)
[2020-05-23] MEDS ORDERED: HEPARIN IV BOLUS 7,000 UNITS in SYRINGE 0 ML IV ONE (01:00)
[2020-05-23] MEDS: PANTOprazole 40 MG in DEXTROSE 5% 100 ML IV SCH ×4 (03:08→18:22)
[2020-05-23] MEDS: PIPERACILLIN/TAZOBACTAM 3.375 GM in DEXTROSE 5% 100 ML IV SCH ×3 (04:01→21:00)
[2020-05-23 07:32] LABS: Basophils # (auto) 0.02 K/uL (0-0.2); Basophils % (auto) 0.2 %; Eosinophils % (auto) 3.5 %; Hematocrit (blood only) 35.2 % (42-52); Hemoglobin 11.1 g/dL (14.0-18.0); Immature Granulocytes # (auto) 0.09 K/uL (0.00-0.02); Immature Granulocytes % (auto) 0.8 %; Lymphocytes # (auto) 1.37 K/uL (1.2-3.4); Lymphocytes % (auto) 11.9 %; Mean Corpuscular Hemoglobin 28.6 pg (25-34); Mean Corpuscular Hgb Conc 31.5 g/dL (32-36); Mean Corpuscular Volume 90.7 fL (80-100); Mean Platelet Volume 8.9 fL (7.4-10.4); Monocytes # (auto) 1.15 K/uL (0.11-0.59); Monocytes % (auto) 9.9 %; Neutrophils # (auto) 8.53 K/uL (1.4-6.5); Neutrophils % (auto) 73.7 %; Platelet Count 466 K/uL (130-400); RDW Coefficient of Variation 13.9 % (11.5-14.5); Red Blood Count 3.88 M/uL (4.7-6.1); White Blood Count 11.56 K/uL (4.8-10.8)
[2020-05-23 07:57] LABS: Partial Thromboplastin Ratio 2.6
[2020-05-23] MEDS: TRIAMCINOLONE ACET NASAL SPRAY 10.8ML BTL NAE SCH (07:58)
[2020-05-23] MEDS: HYDROCORTISONE HC 2.5% CRM 30GM TUBE EXT SCH ×3 (07:58→21:12)
[2020-05-23] MEDS: ASPIRIN 81 MG ECTAB PO SCH (07:58)
[2020-05-23] MEDS: METOPROLOL TARTRATE 50 MG TAB PO SCH ×2 (07:58→21:08)
[2020-05-23] MEDS: lisinopriL 20 MG TAB PO SCH (07:58)
[2020-05-23] MEDS: NYSTATIN SUSP 500,000 U/5 ML UDC PO SCH ×4 (07:58→21:08)
[2020-05-23] MEDS: AMLODIPINE BESYLATE 5 MG TAB PO SCH (07:58)
[2020-05-23] MEDS: SUCRALFATE 1 GM TAB PO SCH ×2 (07:59→21:07)
[2020-05-23 08:00] LABS: BUN Creatinine Ratio 6.9 (10-20); Calcium 8.9 mg/dl (8.5-10.1); Creatinine Clr Calc Pharmacy 59.8 ml/min; Est GFR (African American) 62.9; Est GFR (Non-African American) 54.3
[2020-05-23 08:01] LABS: Phosphorus 2.8 mg/dl (2.5-4.9)
--- NOTE | 2020-05-23 08:21 | Surgery Progress Note ---
Date of Service May 23, 2020 Assessment & Plan (1) Dehiscence of fascia: WBC 11.5, down from 16 yesterday.. continues on zosyn On heparin gtt for PE's, trending PTT's Advance to regular diet today, + output from ostomy and abdominal exam improving Will change midline packing at bedside later today Will discuss with urology removing matthews catheter today pt seen and examined with Dr. Marquez Supervising Physician Co-Signing Physician Notes The patient appears a bit more oriented today but the nurses state that times he keeps pulling on his Matthews catheter is blood-tinged but no clots according to the records he has had good urine output we checked there is catheter is not been irrigated according to the nurses He tolerated all his diet this morning without any nausea the abdomen is much softer the incision is minimal cellulitis around the retention sutures we will plan to change the quarter inch packing later today His labs noted that his white count is dropping as his left shift is hemoglobin stable Only issue is his creatinine is slightly going up and does not appear to be dehydrated his BUN is 9 discussed with urology and the plan to take the Matthews catheter out at this time see how he does may need an ultrasound to visualize the kidney for possible hydro-from obstruction although unlikely He has had no further bowel movements he has had only one episode of bloody bowel movement approximately 5 days ago but resolved without any further issues now he has some liquid bowel movements not bloody Plan is to leave him on antibiotics for now may eventually change him to Cipro oral twice daily Once his mental status improves and he is voiding without any issues tolerating a diet her plans to be discharged whether he goes home or possibly rehab needs to be decided Subjective Patient tolerating a regular diet. Has + ostomy output. Not sure if he had a BM from below. Remains slightly confused this AM. Physical Exam Physical Exam: Awake Gastrointestinal (Abdomen): + output from ostomy, midline incision with retention sutures in place, some surrounding ecchymosis, packing in midline, abdomen more soft Genitourinary: bloody output from matthews catheter Results & Data Vital Signs (Past 12 Hours) Vital Signs Temp Pulse Pulse Resp BP BP Pulse Ox 05/23/20 08:00 36.8 C 85 18 96/63 L 92 05/23/20 03:17 36.5 C 81 18 120/79 92 05/23/20 01:15 78 05/22/20 22:53 36.8 C 80 20 151/78 H 94 PG Care Time/CCT Total # of Minutes Spent Total Time Spent with Patient: Total time spent is greater than 50% in coordination of care (as documented) at patient's floor/unit and/or counseling patient: Coding Level of Care Code None Diagnoses Dehiscence of fascia T81.30XD Encounter type: subsequent encounter (1) Dehiscence of fascia Encounter type: subsequent encounter Qualified Code(s): T81.30XD - Disruption of wound, unspecified, subsequent encounter
[2020-05-23] MEDS: HEPARIN SODIUM/DEXTROSE 25,000 UNITS/500 ML BAG IV SCH (09:19)
--- NOTE | 2020-05-23 10:04 | Gastroenterology Progress Note ---
Date of Service May 23, 2020 Assessment & Plan (1) Heme positive stool: 1. No further blood in stool. 2. Continue supportive care and recommendations as per general surgery. 3. Will sign off from a GI standpoint. Thank you for allowing us to participate in the care of this patient. If you h ave any questions or concerns, please do not hesitate contact us. Admission and Anticipated Discharge Date Admission Date: May 09, 2020 Supervising Physician Co-Signing Physician Notes I personally evaluated the patient and agree with the findings as documented by RAA Sheldon Exam: abd: soft, right sided tenderness, nd; stool output is dark black/yellowish hgb improving, will sign off at this time, recall as needed. Subjective Stool remains green in the ostomy bag without any overt blood noted. He reports some mild incisional abdominal pain but is otherwise not having any GI com plaints. Review of Systems Constitutional: no fever and no chills Gastrointestinal: as per Subjective / HPI Physical Exam Constitutional: WD/WN, vitals as above Eyes: EOM intact bilaterally Gastrointestinal (Abdomen): Inspection/Auscultation: normal bowel sounds Percussion/Palpation: abdomen soft ostomy bag in place with green liquid stool Psychiatric: A+Ox3, euthymic affect Results & Data Results & Data ([facility]) Vital Signs (Past 12 Hours) Vital Signs Temp Pulse Pulse Resp BP BP Pulse Ox 05/23/20 08:00 36.8 C 85 18 96/63 L 92 05/23/20 03:17 36.5 C 81 18 120/79 92 05/23/20 01:15 78 05/22/20 22:53 36.8 C 80 20 151/78 H 94 PG Care Time/CCT Total # of Minutes Spent Total Time Spent with Patient: Total time spent is greater than 50% in coordination of care (as documented) at patient's floor/unit and/or counseling patient: Coding Level of Care Code 02720 Subseq Hosp Care Lvl 2 Diagnoses Heme positive stool R19.5
[2020-05-23] MEDS ORDERED: Nursing to Pharmacy Communication SCH (11:15)
--- NOTE | 2020-05-23 13:24 | Urology Progress Note ---
Date of Service May 23, 2020 Assessment & Plan (1) Hematuria: Colovesical fistula status post takedown; prostate trauma secondary to self DC of Dsouza catheter His urine is been draining appropriately for the last several days He does have intermittent hematuriayesterday he was relatively clear and then today bloodier again I think it is okay to remove his catheter He will likely have continued hematuria but I think he will ultimately be safer without the catheter Subjective Gradually progressing from a general surgery standpoint Urinary status is stable He continues to have hematuria He has good urine output His creatinine is increased slightly over the last several days Physical Exam Constitutional: well developed and well nourished Respiratory: no respiratory distress Cardiovascular: Extremities: no pedal edema Gastrointestinal (Abdomen): Incision without drainage Stoma healthy Genitourinary: Dsouza catheter still in placedark urine, maroon-colored, but draining appropriately Results & Data Vital Signs (Past 12 Hours) Vital Signs Temp Pulse Resp BP BP Pulse Ox 05/23/20 11:50 36.8 C 79 20 103/67 94 05/23/20 08:00 36.8 C 85 18 96/63 L 92 05/23/20 03:17 36.5 C 81 18 120/79 92 PG Care Time/CCT Total # of Minutes Spent Total Time Spent with Patient: Total time spent is greater than 50% in coordination of care (as documented) at patient's floor/unit and/or counseling patient: Coding Level of Care Code 46731 Subseq Hosp Care Lvl 2 Diagnoses Hematuria R31.9
[2020-05-23 14:22] LABS: Partial Thromboplastin Time 28.3 Seconds (21.0-31.0)
[2020-05-23] MEDS: TAMSULOSIN HCL 0.4 MG CAP PO SCH (21:07)
[2020-05-23] MEDS: ATORVASTATIN 10 MG TAB PO SCH (21:08)
[2020-05-23] MEDS: risperiDONE 0.5 MG TABLET PO SCH (21:12)
--- NOTE | 2020-05-23 22:27 | Hospitalist Progress Note ---
Date of Service May 23, 2020 Assessment & Plan (1) Pulmonary embolism and infarction: PROVOKED - 2 recent surgeries. With b/l peroneal vein DVTs. Unfortunately developed VTE despite heparin SC DVT prophylaxis. heparin drip stopped temporarily for some hematuria evaluated for IVC filter on 05/22, no indication found resumed heparin drip evening of 05/22, now with hematuria again and dark ostomy output stop heparin drip again and observe (2) DVT (deep venous thrombosis): b/l peroneal vein DVTs. Heparin drip again on hold will choose oral agent later in admission once it is clear patient will not need any additional procedures, etc. (3) Colovesical fistula: POD #14 s/p takedown of fistula, bladder repair, sigmoidectomy and ileostomy creation. NGT removed 05/13. tolerating liquid diet today has output from ostomy Post-op course also complicated by dehiscence of incision/fascia - see below. POD #8 from surgery for such. Course also complicated by VTE. (4) Dehiscence of fascia: POD #8 s/p exploratory abdominal wound closure due to abdominal dehiscence. Intra-op culture with pseudomonas - pansensitive. Dr Marquez inspected the wound 05/20 - no purulent drainage. [id number], because of worsening leukocytosis, cipro changed back to Zosyn IV on 05/20. KUB 7/ with less bowel distension WBC going down (5) Atrial fibrillation: Continue Lopressor 25mg BID. He is not on chronic anticoagulation at home. he could not remember a specific reason why he was taken off anticoagulation for PAF. he doesn't recall GI bleeding, falls, etc Patient will be on anticoagulation for VTE. Would advise anticoagulation for PAF long-term after course for VTE is complete. (6) Metabolic encephalopathy: ongoing. likely 2nd to hospital psychosis. Urine cx negative but final culture pending. VBG 05/20 w/o hypercarbia. now 14 days into his stay. started risperdal 0.25mg at HS on 05/20. increased to 0.5mg 05/21 If necessary can repeat the 0.5mg dose for total of 1mg. patient more cooperative today, monitor closely (7) Arteriosclerotic cardiovascular disease: cont asa cont statin EKG 05/20 w/o ischemic changes troponin negative 05/20 (8) Hyperlipidemia: Cont lipitor (9) Gout: no flares at this time (10) Hypertension: controlled cont metoprolol 50mg BID and lisinopril 20mg daily. (11) Candidiasis of mouth and esophagus: nystatin amanda - 5cc qid resolved, but would keep on nystatin due to ongoing broad-spectrum IV abx use (12) DVT prophylaxis: heparin drip Admission and Anticipated Discharge Date Admission Date: May 09, 2020 Subjective patient doing fine he had more hematuria in matthews today, darker output via ostomy ordered heparin to be stopped this morning Hb actually going up WBC down, no fever tolerating diet, has been up and ambulating Review of Systems Review of Systems: All systems reviewed & are unremarkable except as noted in HPI & below Respiratory: no cough and no dyspnea Cardiovascular: no chest pain Gastrointestinal: + diarrhea/loose stools; no abdominal pain, no nausea, no vomiting and no constipation Genitourinary: + hematuria Physical Exam Constitutional: well developed and well nourished; no acute distress Eyes: PERRL, conjunctivae normal, anicteric sclerae ENMT: external ear and nose normal, oropharynx normal Neck: trachea midline, no thyromegaly Respiratory: normal respiratory effort, lungs clear to auscultation Cardiovascular: RRR, no murmur, no edema Gastrointestinal (Abdomen): Inspection/Auscultation: normal bowel sounds, + abdominal surgical incision and + abdominal surgical drain present (ileostomy); abdomen not distended Percussion/Palpation: abdomen soft; abdomen nontender, no guarding and abdomen not rigid Musculoskeletal: no cyanosis or clubbing, extremities motor strength 5/5 Skin: no rashes, warm and dry Neurologic: patellar DTR's 2+ bilat, sensation intact and PERRL, EOMI, accommodation nl, no face palsy, no dysarthria Psychiatric: A+Ox3, euthymic affect Orientation: alert, oriented to person, oriented to place and cooperative; + not oriented to time Lymphatic: no cervical or axillary lymphadenopathy Results & Data Results & Data ([facility] [place]) Vital Signs (Past 12 Hours) Vital Signs Temp Pulse Pulse Resp BP Pulse Ox 05/23/20 18:46 37.2 C 91 H 18 110/74 93 05/23/20 15:12 87 05/23/20 15:04 36.8 C 72 18 106/66 93 05/23/20 11:50 36.8 C 79 20 103/67 94 Laboratory Results Laboratory Results - last 24 hr 05/23/20 05/23/20 05/23/20 00:01 07:23 07:23 WBC 11.56 H RBC 3.88 L Hgb 11.1 L Hct 35.2 L MCV 90.7 MCH 28.6 MCHC 31.5 L RDW Std Deviation 46.0 RDW Coeff of Alda 13.9 Plt Count 466 H MPV 8.9 Immature Gran % (Auto) 0.8 Neut % (Auto) 73.7 Lymph % (Auto) 11.9 Emmons % (Auto) 9.9 Eos % (Auto) 3.5 Baso % (Auto) 0.2 Neut # (Auto) 8.53 H Lymph # (Auto) 1.37 Emmons # (Auto) 1.15 H Eos # (Auto) 0.40 Baso # (Auto) 0.02 Immature Gran # (Auto) 0.09 H APTT 39.2 H PTT Ratio 1.4 Sodium 137 Potassium 4.0 Chloride 104 Carbon Dioxide 29 Anion Gap 4.0 BUN 9 Creatinine 1.29 Est Cr Clr Drug Dosing 59.8 Est GFR ( Amer) 62.9 Est GFR (Non-Af Amer) 54.3 BUN/Creatinine Ratio 6.9 L Glucose 112 H Calcium 8.9 Phosphorus 2.8 Magnesium 2.0 05/23/20 05/23/20 07:23 13:57 WBC RBC Hgb Hct MCV MCH MCHC RDW Std Deviation RDW Coeff of Alda Plt Count MPV Immature Gran % (Auto) Neut % (Auto) Lymph % (Auto) Emmons % (Auto) Eos % (Auto) Baso % (Auto) Neut # (Auto) Lymph # (Auto) Emmons # (Auto) Eos # (Auto) Baso # (Auto) Immature Gran # (Auto) APTT 73.0 H* 28.3 PTT Ratio 2.6 1.0 Sodium Potassium Chloride Carbon Dioxide Anion Gap BUN Creatinine Est Cr Clr Drug Dosing Est GFR ( Amer) Est GFR (Non-Af Amer) BUN/Creatinine Ratio Glucose Calcium Phosphorus Magnesium Medications Administered Current Inpatient Medications Acetaminophen (Tylenol) 650 mg PO Q6H PRN PRN Reason: Pain Stop: 06/17/20 13:42 Last Admin: 05/22/20 00:24 Dose: 650 mg Documented by: Amlodipine Besylate (Norvasc) 5 mg PO QAM [facility] Stop: 06/16/20 08:59 Last Admin: 05/23/20 07:58 Dose: 5 mg Documented by: Aspirin (Ecotrin Ectab) 81 mg PO DAILY [facility] Stop: 06/09/20 08:59 Last Admin: 05/23/20 07:58 Dose: 81 mg Documented by: Atorvastatin Calcium (Lipitor) 10 mg PO QPM [facility] Stop: 06/09/20 20:59 Last Admin: 05/23/20 21:08 Dose: 10 mg Documented by: Hydrocortisone (Proctozone Hc 2.5%) 1 appln EXT TID [facility] Stop: 06/19/20 20:59 Last Admin: 05/23/20 21:12 Dose: 1 appln Documented by: Piperacillin Sod/Tazobactam (Sod 3.375 gm/ Dextrose) 115 mls @ 28.75 mls/hr IV Q8H [facility]; Protocol Stop: 05/30/20 19:59 Last Admin: 05/23/20 21:00 Dose: 28.8 mls/hr Documented by: Pantoprazole Sodium 40 mg/ (Dextrose) 100 mls @ 20 mls/hr IV Q5H [facility] Stop: 06/21/20 03:29 Last Admin: 05/23/20 18:22 Dose: 8 mg/hr, 20 mls/hr Documented by: Heparin Sodium/Dextrose (Heparin Sodium/Dextrose) 25,000 units in 500 mls @ 35 mls/hr IV .[id number] [facility]; Protocol Stop: 06/21/20 17:49 Last Titration: 05/23/20 10:52 Dose: 0 units/hr, 0 mls/hr Documented by: Lisinopril (Zestril) 20 mg PO QAM [facility] Stop: 06/13/20 08:59 Last Admin: 05/23/20 07:58 Dose: 20 mg Documented by: Metoprolol Tartrate (Lopressor) 50 mg PO BID [facility] Stop: 06/16/20 08:59 Last Admin: 05/23/20 21:08 Dose: 50 mg Documented by: Miscellaneous Information (Consult) 1 ea N/A UD PRN PRN Reason: Consult Stop: 06/19/20 13:05 Nystatin (Mycostatin) 5 ml PO QID [facility] Stop: 05/26/20 12:59 Last Admin: 05/23/20 21:08 Dose: 5 ml Documented by: Ondansetron HCl (Zofran) 4 mg IV Q4H PRN PRN Reason: Nausea And Vomiting Stop: 06/08/20 15:36 Last Admin: 05/17/20 10:02 Dose: 4 mg Documented by: Risperidone (Risperdal) 0.5 mg PO [facility] Stop: 06/20/20 20:59 Last Admin: 05/23/20 21:12 Dose: 0.5 mg Documented by: Sucralfate (Carafate Tab) 1 gm PO BID [facility] Stop: 06/09/20 08:59 Last Admin: 05/23/20 21:07 Dose: 1 gm Documented by: Tamsulosin HCl (Flomax) 0.4 mg PO [facility] Stop: 06/18/20 20:59 Last Admin: 05/23/20 21:07 Dose: 0.4 mg Documented by: Tramadol HCl (Ultram) 50 mg PO Q4H PRN PRN Reason: Pain Stop: 06/17/20 13:42 Last Admin: 05/18/20 22:44 Dose: 50 mg Documented by: Triamcinolone Acetonide (Nasacort) 2 sprays ROSSY DAILY [facility] Stop: 06/15/20 12:24 Last Admin: 05/23/20 07:58 Dose: 2 sprays Documented by: PG Care Time/CCT Total # of Minutes Spent Total Time Spent with Patient: Total time spent is greater than 50% in coordination of care (as documented) at patient's floor/unit and/or counseling patient: Coding Level of Care Code 16295 Subseq Hosp Care Lvl 2 Diagnoses Pulmonary embolism and infarction I26.99 DVT (deep venous thrombosis) I82.409 Colovesical fistula N32.1 Dehiscence of fascia T81.30XD Encounter type: subsequent encounter Atrial fibrillation I48.0 Atrial fibrillation type: paroxysmal Metabolic encephalopathy G93.41 Arteriosclerotic cardiovascular disease I25.10 Hyperlipidemia E78.2 Hyperlipidemia type: mixed hyperlipidemia Gout M10.9 Hypertension I10 Candidiasis of mouth and esophagus B37.81; B37.0 DVT prophylaxis Z29.9 (1) Dehiscence of fascia Encounter type: subsequent encounter Qualified Code(s): T81.30XD - Disruption of wound, unspecified, subsequent encounter (2) Atrial fibrillation Atrial fibrillation type: paroxysmal Qualified Code(s): I48.0 - Paroxysmal atrial fibrillation (3) Hyperlipidemia Hyperlipidemia type: mixed hyperlipidemia Qualified Code(s): E78.2 - Mixed hyperlipidemia
[2020-05-24] MEDS: PANTOprazole 40 MG in DEXTROSE 5% 100 ML IV SCH ×5 (00:49→19:10)
[2020-05-24] MEDS: PIPERACILLIN/TAZOBACTAM 3.375 GM in DEXTROSE 5% 100 ML IV SCH (03:39)
[2020-05-24 06:48] LABS: Basophils # (auto) 0.02 K/uL (0-0.2); Basophils % (auto) 0.2 %; Eosinophils # (auto) 0.51 K/uL (0-0.5); Eosinophils % (auto) 4.9 %; Hematocrit (blood only) 34.1 % (42-52); Hemoglobin 10.7 g/dL (14.0-18.0); Immature Granulocytes # (auto) 0.09 K/uL (0.00-0.02); Immature Granulocytes % (auto) 0.9 %; Lymphocytes # (auto) 1.16 K/uL (1.2-3.4); Lymphocytes % (auto) 11.1 %; Mean Corpuscular Hgb Conc 31.4 g/dL (32-36); Mean Corpuscular Volume 89.3 fL (80-100); Monocytes % (auto) 9.5 %; Neutrophils % (auto) 73.4 %; Platelet Count 511 K/uL (130-400); RDW Coefficient of Variation 13.9 % (11.5-14.5); RDW Standard Deviation 45.3 fL (36.4-46.3); Red Blood Count 3.82 M/uL (4.7-6.1); White Blood Count 10.48 K/uL (4.8-10.8)
[2020-05-24 07:05] LABS: Partial Thromboplastin Time 26.8 Seconds (21.0-31.0)
[2020-05-24 07:15] LABS: BUN Creatinine Ratio 9.5 (10-20); Calcium 8.9 mg/dl (8.5-10.1); Creatinine Clr Calc Pharmacy 57.5 ml/min; Est GFR (African American) 60.6; Est GFR (Non-African American) 52.3; Potassium 3.5 mmol/L (3.5-5.1)
--- NOTE | 2020-05-24 07:27 | Surgery Progress Note ---
Date of Service May 24, 2020 Assessment & Plan (1) Dehiscence of fascia: This point the patient does not seem to have any active bleeding from the heparin apparently is voided without any blood in his urine the ileostomy output is free of any grossly bloody contents the contents are more bilious in nature he has not had any more blood through the rectum The patient had a significant output through the ileostomy as far as volume and I am concerned that this may be a problem if he goes home to maintaining his hydration therefore at this time I was going to get a barium enema to visualize the anastomosis and a colorectal area and may consider closure of the ileostomy before discharge if no leak is appreciated If we decide that he is not a candidate at this time to close the ileostomy and I think the patient would be better served to go to a rehab rather than home where someone can monitor his care closer The white count is normal decreasing left shift at this point I do not see any need to continue antibiotics Present on Admission?: Yes Subjective Patient denies any abdominal pain according to the patient he ate a regular diet yesterday Physical Exam Physical Exam: Patient appears more confused this morning he responds appropriately at times The abdomen is completely benign lower midline incision is free of any cellulitis and no drainage The ileostomy has moderate amount of dark green bilious drainage somewhat formed no evidence of any coffee-ground or blood The abdomen is completely benign We left the packing in the incision in one area retention suture are loosening up but not ready to be removed Results & Data Vital Signs (Past 12 Hours) Vital Signs Temp Pulse Pulse Resp BP Pulse Ox 05/24/20 06:59 87 05/24/20 06:56 36.9 C 90 20 111/71 99 05/24/20 03:34 36.8 C 83 20 107/68 94 05/24/20 03:20 76 05/23/20 23:28 36.8 C 66 18 97/66 L 95 this morning lab was reviewed hemoglobin appears stable slight increase in his creatinine and BUN most likely related to the moderate output that he has through the ileostomy does have an IV running PG Care Time/CCT Total # of Minutes Spent Total Time Spent with Patient: Total time spent is greater than 50% in coordination of care (as documented) at patient's floor/unit and/or counseling patient: Coding Level of Care Code None Diagnoses Dehiscence of fascia T81.30XD Encounter type: subsequent encounter (1) Dehiscence of fascia Encounter type: subsequent encounter Qualified Code(s): T81.30XD - Disruption of wound, unspecified, subsequent encounter
[2020-05-24] MEDS: lisinopriL 20 MG TAB PO SCH (07:37)
[2020-05-24] MEDS: AMLODIPINE BESYLATE 5 MG TAB PO SCH (07:37)
[2020-05-24] MEDS: NYSTATIN SUSP 500,000 U/5 ML UDC PO SCH ×4 (07:38→21:31)
[2020-05-24] MEDS: SUCRALFATE 1 GM TAB PO SCH ×2 (07:38→21:30)
[2020-05-24] MEDS: ASPIRIN 81 MG ECTAB PO SCH (07:38)
[2020-05-24] MEDS: METOPROLOL TARTRATE 50 MG TAB PO SCH ×2 (07:38→21:33)
[2020-05-24] MEDS: TRIAMCINOLONE ACET NASAL SPRAY 10.8ML BTL NAE SCH (07:38)
[2020-05-24] MEDS: HYDROCORTISONE HC 2.5% CRM 30GM TUBE EXT SCH ×3 (07:39→21:31)
--- NOTE | 2020-05-24 09:13 | Fluoroscopy Report ---
FL barium enema CLINICAL HISTORY: Status post colorectal anastomosis. Evaluate for anastomotic leak. COMPARISON STUDY: None FLUOROSCOPY TIME: 36 seconds. NUMBER OF FLUOROSCOPIC IMAGES: 16 FINDINGS: A rectal enema tip was inserted and the balloon was inflated under direct fluoroscopic visu alization. Gastrografin was infused in a retrograde fashion. There is chronic diverticulosis, most pr onounced the level the sigmoid colon. There is no evidence for contrast extravasation. There is no ev idence for anastomotic leak. A linear defect within the rectum is felt to represent postsurgical galeas ge. IMPRESSION: 1. Postsurgical changes of a colorectal anastomosis 2. No evidence of anastomotic leak 3. Diverticulosis ACT 112: Negative or not required by law. Electronically signed by: John Paul Ramos M.D. 05/24/2020 9:12 AM
[2020-05-24] MEDS: LACTATED RINGER'S 1,000 ML IV SCH ×2 (09:57→21:29)
[2020-05-24] MEDS ORDERED: Heparin IV Standard *NO* Bolus IV SCH (10:48)
[2020-05-24] MEDS: HEPARIN SODIUM/DEXTROSE 25,000 UNITS/500 ML BAG IV SCH (11:21)
--- NOTE | 2020-05-24 11:29 | Urology Progress Note ---
Date of Service May 24, 2020 Assessment & Plan (1) Hematuria: Patient voiding dark colored urine Check PVR Subjective Afebrile, VSS Somewhat confused this morning Dsouza has been removed Nurse reports patient has voided 75ml of dark colored urine this morning and the PVR was 0. Review of Systems Constitutional: as per Subjective / HPI Genitourinary: + as per Subjective / HPI Psychiatric: as per Subjective / HPI Physical Exam Constitutional: well developed and well nourished; no acute distress Respiratory: normal respiratory effort and able to speak in complete sentences Cardiovascular: Vessels: radial pulses present Skin: warm and dry, normal color to exposed skin areas Neurologic: moves all extremities, awake and + confused Results & Data Vital Signs (Past 12 Hours) Vital Signs Temp Pulse Pulse Resp BP Pulse Ox 05/24/20 11:14 36.4 C L 78 20 96/67 L 92 05/24/20 06:59 87 05/24/20 06:56 36.9 C 90 20 111/71 99 05/24/20 03:34 36.8 C 83 20 107/68 94 05/24/20 03:20 76 05/23/20 23:28 36.8 C 66 18 97/66 L 95 PG Care Time/CCT Total # of Minutes Spent Total Time Spent with Patient: Total time spent is greater than 50% in coordination of care (as documented) at patient's floor/unit and/or counseling patient: Coding Level of Care Code 71152 Subseq Hosp Care Lvl 1 Diagnoses Hematuria R31.9
[2020-05-24 16:52] LABS: Partial Thromboplastin Ratio 1.2; Partial Thromboplastin Time 33.1 Seconds (21.0-31.0)
[2020-05-24] MEDS ORDERED: HEPARIN IV BOLUS 7,000 UNITS in SYRINGE 0 ML IV ONE (17:45)
--- NOTE | 2020-05-24 20:38 | Hospitalist Progress Note ---
Date of Service May 24, 2020 Assessment & Plan (1) Pulmonary embolism and infarction: PROVOKED - 2 recent surgeries. With b/l peroneal vein DVTs. Unfortunately developed VTE despite heparin SC DVT prophylaxis. heparin drip stopped temporarily for some hematuria evaluated for IVC filter on 7, no indication found resumed heparin drip now that Hb is stable, no more significant signs of bleeding (2) Urinary retention: not much urine output since matthews removed this morning d/w urology, if he retains urine then place 18F Coude catheter, not straight cath (3) DVT (deep venous thrombosis): b/l peroneal vein DVTs. Heparin drip will choose oral agent later in admission once it is clear patient will not need any additional procedures, etc. (4) Colovesical fistula: POD #15 s/p takedown of fistula, bladder repair, sigmoidectomy and ileostomy creation. NGT removed 6. tolerating diet today has output from ostomy and he had a BM today Post-op course also complicated by dehiscence of incision/fascia - see below. POD #9 from surgery for such. Course also complicated by VTE. (5) Dehiscence of fascia: POD #9 s/p exploratory abdominal wound closure due to abdominal dehiscence. Intra-op culture with pseudomonas - pansensitive. Dr Marquez inspected the wound 7/ - no purulent drainage. KUB 7/6 with less bowel distension WBC normal, stop Zosyn IV (6) Atrial fibrillation: Continue Lopressor 25mg BID. He is not on chronic anticoagulation at home. he could not remember a specific reason why he was taken off anticoagulation for PAF. he doesn't recall GI bleeding, falls, etc Patient will be on anticoagulation for VTE. Would advise anticoagulation for PAF long-term after course for VTE is complete. (7) Metabolic encephalopathy: ongoing. likely 2nd to hospital psychosis. Urine cx negative. VBG 05/20 w/o hypercarbia. now 15 days into his stay. started risperdal 0.25mg at HS on 05/20. increased to 0.5mg 05/21 will increase to 1mg HS starting tonight (8) Arteriosclerotic cardiovascular disease: cont asa cont statin EKG 05/20 w/o ischemic changes troponin negative 05/20 (9) Hyperlipidemia: Cont lipitor (10) Gout: no flares at this time (11) Hypertension: controlled cont metoprolol 50mg BID and lisinopril 20mg daily. (12) Candidiasis of mouth and esophagus: nystatin amanda - 5cc qid resolved, but would keep on nystatin due to ongoing broad-spectrum IV abx use (13) DVT prophylaxis: heparin drip Admission and Anticipated Discharge Date Admission Date: May 09, [address] Marquez this morning, Hb stable, no signs of bleeding, he is okay with resuming heparin drip discussed with Dr. Herrera, he recommended pulling matthews catheter, bleeding likely from trauma matthews pulled, very little in way of UO today, only 75mL although he may have voided when he had a BM bladder scan with very little, only 45mL in bladder patient eating well but he is more confused today, unclear etiology, would not participate much with therapy Dr. Marquez will stop Zosyn as WBC normal, plans to reverse/close up the diverting ostomy during this hospital stay reviewed labs, WBC normal, Hb stable at 10.7, Cr up slightly at 1.3 when he was having trouble voiding, d/w Dr. Herrera, he said that if he retains or cannot void, he would recommend 18F Coude catheter, not straight cath Review of Systems Review of Systems: Unobtainable due to cognitive status (confused) Physical Exam Constitutional: well developed and well nourished; no acute distress Eyes: PERRL, conjunctivae normal, anicteric sclerae ENMT: external ear and nose normal, oropharynx normal Neck: trachea midline, no thyromegaly Respiratory: normal respiratory effort, lungs clear to auscultation Cardiovascular: RRR, no murmur, no edema Gastrointestinal (Abdomen): Inspection/Auscultation: normal bowel sounds, + abdominal surgical incision and + abdominal surgical drain present (ileostomy); abdomen not distended Percussion/Palpation: abdomen soft; abdomen nontender, no guarding and abdomen not rigid Musculoskeletal: no cyanosis or clubbing, extremities motor strength 5/5 Skin: no rashes, warm and dry Neurologic: patellar DTR's 2+ bilat, sensation intact and PERRL, EOMI, accommodation nl, no face palsy, no dysarthria Psychiatric: Orientation: alert, oriented to person, oriented to place and cooperative; + not oriented to time Lymphatic: no cervical or axillary lymphadenopathy Results & Data Results & Data ([facility]) Vital Signs (Past 12 Hours) Vital Signs Temp Pulse Pulse Pulse Resp BP BP 05/24/20 19:06 36.5 C 71 18 115/76 05/24/20 17:03 79 05/24/20 15:03 36.7 C 76 106 H 19 118/74 05/24/20 11:14 36.4 C L 78 20 96/67 L Pulse Ox 05/24/20 19:06 96 05/24/20 17:03 05/24/20 15:03 94 05/24/20 11:14 92 Laboratory Results Laboratory Results - last 24 hr 05/24/20 05/24/20 05/24/20 06:24 06:24 06:24 WBC 10.48 RBC 3.82 L Hgb 10.7 L Hct 34.1 L MCV 89.3 MCH 28.0 MCHC 31.4 L RDW Std Deviation 45.3 RDW Coeff of Alda 13.9 Plt Count 511 H MPV 9.0 Immature Gran % (Auto) 0.9 Neut % (Auto) 73.4 Lymph % (Auto) 11.1 Briscoe % (Auto) 9.5 Eos % (Auto) 4.9 Baso % (Auto) 0.2 Neut # (Auto) 7.70 H Lymph # (Auto) 1.16 L [place]iscoe # (Auto) 1.00 H Eos # (Auto) 0.51 H Baso # (Auto) 0.02 Immature Gran # (Auto) 0.09 H APTT 26.8 PTT Ratio 1.0 Sodium 137 Potassium 3.5 Chloride 103 Carbon Dioxide 28 Anion Gap 6.0 BUN 13 Creatinine 1.33 Est Cr Clr Drug Dosing 57.5 Est GFR ( Amer) 60.6 Est GFR (Non-Af Amer) 52.3 BUN/Creatinine Ratio 9.5 L Glucose 110 H Calcium 8.9 05/24/20 16:24 WBC RBC Hgb Hct MCV MCH MCHC RDW Std Deviation RDW Coeff of Alda Plt Count MPV Immature Gran % (Auto) Neut % (Auto) Lymph % (Auto) Briscoe % (Auto) Eos % (Auto) Baso % (Auto) Neut # (Auto) Lymph # (Auto) Briscoe # (Auto) Eos # (Auto) Baso # (Auto) Immature Gran # (Auto) APTT 33.1 H PTT Ratio 1.2 Sodium Potassium Chloride Carbon Dioxide Anion Gap BUN Creatinine Est Cr Clr Drug Dosing Est GFR ( Amer) Est GFR (Non-Af Amer) BUN/Creatinine Ratio Glucose Calcium Medications Administered Current Inpatient Medications Acetaminophen (Tylenol) 650 mg PO Q6H PRN PRN Reason: Pain Stop: 06/17/20 13:42 Last Admin: 05/22/20 00:24 Dose: 650 mg Documented by: Amlodipine Besylate (Norvasc) 5 mg PO QAM [facility] Stop: 06/16/20 08:59 Last Admin: 05/24/20 07:37 Dose: 5 mg Documented by: Aspirin (Ecotrin Ectab) 81 mg PO DAILY [facility] Stop: 06/09/20 08:59 Last Admin: 05/24/20 07:38 Dose: 81 mg Documented by: Atorvastatin Calcium (Lipitor) 10 mg PO QPM [facility] Stop: 06/09/20 20:59 Last Admin: 05/23/20 21:08 Dose: 10 mg Documented by: Hydrocortisone (Proctozone Hc 2.5%) 1 appln EXT TID [facility] Stop: 06/19/20 20:59 Last Admin: 05/24/20 13:11 Dose: Not Given Documented by: Pantoprazole Sodium 40 mg/ (Dextrose) 100 mls @ 20 mls/hr IV Q5H [facility] Stop: 06/21/20 03:29 Last Admin: 05/24/20 19:10 Dose: 8 mg/hr, 20 mls/hr Documented by: Lactated Ringer's (Lr) 1,000 mls @ 80 mls/hr IV .[id number] [facility] Stop: 06/23/20 08:29 Last Admin: 05/24/20 09:57 Dose: 80 mls/hr Documented by: Heparin Sodium/Dextrose (Heparin Sodium/Dextrose) 25,000 units in 500 mls @ 37 mls/hr IV .[id number] [facility]; Protocol Stop: 06/23/20 11:14 Last Titration: 05/24/20 17:09 Dose: 1,850 units/hr, 37 mls/hr Documented by: Lisinopril (Zestril) 20 mg PO QAM [facility] Stop: 06/13/20 08:59 Last Admin: 05/24/20 07:37 Dose: 20 mg Documented by: Metoprolol Tartrate (Lopressor) 50 mg PO BID [facility] Stop: 06/16/20 08:59 Last Admin: 05/24/20 07:38 Dose: 50 mg Documented by: Nystatin (Mycostatin) 5 ml PO QID [facility] Stop: 05/26/20 12:59 Last Admin: 05/24/20 17:48 Dose: 5 ml Documented by: Ondansetron HCl (Zofran) 4 mg IV Q4H PRN PRN Reason: Nausea And Vomiting Stop: 06/08/20 15:36 Last Admin: 05/17/20 10:02 Dose: 4 mg Documented by: Risperidone (Risperdal) 0.5 mg PO HS [facility] Stop: 06/20/20 20:59 Last Admin: 05/23/20 21:12 Dose: 0.5 mg Documented by: Sucralfate (Carafate Tab) 1 gm PO BID [facility] Stop: 06/09/20 08:59 Last Admin: 05/24/20 07:38 Dose: 1 gm Documented by: Tamsulosin HCl (Flomax) 0.4 mg PO HS [facility] Stop: 06/18/20 20:59 Last Admin: 05/23/20 21:07 Dose: 0.4 mg Documented by: Tramadol HCl (Ultram) 50 mg PO Q4H PRN PRN Reason: Pain Stop: 06/17/20 13:42 Last Admin: 05/18/20 22:44 Dose: 50 mg Documented by: Triamcinolone Acetonide (Nasacort) 2 sprays ROSSY DAILY [facility] Stop: 06/15/20 12:24 Last Admin: 05/24/20 07:38 Dose: 2 sprays Documented by: PG Care Time/CCT Total # of Minutes Spent Total Time Spent with Patient: Total time spent is greater than 50% in coordination of care (as documented) at patient's floor/unit and/or counseling patient: Coding Level of Care Code 15859 Subseq Hosp Care Lvl 3 Diagnoses Pulmonary embolism and infarction I26.99 Urinary retention R33.9 DVT (deep venous thrombosis) I82.409 Colovesical fistula N32.1 Dehiscence of fascia T81.30XD Encounter type: subsequent encounter Atrial fibrillation I48.0 Atrial fibrillation type: paroxysmal Metabolic encephalopathy G93.41 Arteriosclerotic cardiovascular disease I25.10 Hyperlipidemia E78.2 Hyperlipidemia type: mixed hyperlipidemia Gout M10.9 Hypertension I10 Candidiasis of mouth and esophagus B37.81; B37.0 DVT prophylaxis Z29.9 (1) Dehiscence of fascia Encounter type: subsequent encounter Qualified Code(s): T81.30XD - Disruption of wound, unspecified, subsequent encounter (2) Atrial fibrillation Atrial fibrillation type: paroxysmal Qualified Code(s): I48.0 - Paroxysmal atrial fibrillation (3) Hyperlipidemia Hyperlipidemia type: mixed hyperlipidemia Qualified Code(s): E78.2 - Mixed hyperlipidemia
[2020-05-24] MEDS: TAMSULOSIN HCL 0.4 MG CAP PO SCH (21:30)
[2020-05-24] MEDS: risperiDONE 1 MG TABLET PO SCH (21:32)
[2020-05-24] MEDS: ATORVASTATIN 10 MG TAB PO SCH (21:33)
[2020-05-24] MEDS: ACETAMINOPHEN 325 MG TAB PO PRN (21:34)
[2020-05-24] MEDS: TRAMADOL HCL 50 MG TABLET PO PRN (22:04)
[2020-05-24 22:13] LABS: Partial Thromboplastin Ratio 2.5
[2020-05-24] MEDS ORDERED: LIDOCAINE 2% JELLY 5 ML TUBE EXT ONE (22:15)
[2020-05-24 22:18] LABS: Partial Thromboplastin Time 68.6 Seconds (21.0-31.0)
[2020-05-25] MEDS: PANTOprazole 40 MG in DEXTROSE 5% 100 ML IV SCH ×5 (00:38→21:17)
[2020-05-25] MEDS: HEPARIN SODIUM/DEXTROSE 25,000 UNITS/500 ML BAG IV SCH (02:07)
[2020-05-25 06:21] LABS: Basophils # (auto) 0.02 K/uL (0-0.2); Basophils % (auto) 0.2 %; Eosinophils # (auto) 0.37 K/uL (0-0.5); Eosinophils % (auto) 4.3 %; Hematocrit (blood only) 30.9 % (42-52); Immature Granulocytes # (auto) 0.11 K/uL (0.00-0.02); Immature Granulocytes % (auto) 1.3 %; Lymphocytes # (auto) 1.47 K/uL (1.2-3.4); Lymphocytes % (auto) 16.9 %; Mean Corpuscular Hemoglobin 28.6 pg (25-34); Mean Corpuscular Hgb Conc 32.4 g/dL (32-36); Mean Corpuscular Volume 88.3 fL (80-100); Mean Platelet Volume 8.9 fL (7.4-10.4); Monocytes # (auto) 0.79 K/uL (0.11-0.59); Monocytes % (auto) 9.1 %; Neutrophils # (auto) 5.92 K/uL (1.4-6.5); Neutrophils % (auto) 68.2 %; Platelet Count 501 K/uL (130-400); RDW Coefficient of Variation 13.6 % (11.5-14.5); RDW Standard Deviation 43.5 fL (36.4-46.3); White Blood Count 8.68 K/uL (4.8-10.8)
[2020-05-25 06:31] LABS: Partial Thromboplastin Ratio 1.1; Partial Thromboplastin Time 30.6 Seconds (21.0-31.0)
--- NOTE | 2020-05-25 07:08 | Communication Note ---
Date of Service: May 25, 2020 Was called to evaluate patient for worsening abdominal pain and inability to void, Placed matthews catheter and had clots and dark red hematuria, decision was made after irrigating bladder and having continued dark red hematuria to discontinue heparin drip for now. May be candidate for IVC filter.
[2020-05-25 07:30] LABS: BUN Creatinine Ratio 11.7 (10-20); Calcium 8.5 mg/dl (8.5-10.1); Creatinine Clr Calc Pharmacy 58.8 ml/min; Est GFR (African American) 62.3; Est GFR (Non-African American) 53.8
[2020-05-25] MEDS: NYSTATIN SUSP 500,000 U/5 ML UDC PO SCH ×4 (08:01→21:20)
[2020-05-25] MEDS: METOPROLOL TARTRATE 50 MG TAB PO SCH ×2 (08:01→21:20)
[2020-05-25] MEDS: AMLODIPINE BESYLATE 5 MG TAB PO SCH (08:01)
[2020-05-25] MEDS: ASPIRIN 81 MG ECTAB PO SCH (08:02)
[2020-05-25] MEDS: HYDROCORTISONE HC 2.5% CRM 30GM TUBE EXT SCH ×3 (08:02→21:21)
[2020-05-25] MEDS: lisinopriL 20 MG TAB PO SCH (08:02)
[2020-05-25] MEDS: SUCRALFATE 1 GM TAB PO SCH ×2 (08:02→21:19)
[2020-05-25] MEDS: TRIAMCINOLONE ACET NASAL SPRAY 10.8ML BTL NAE SCH (08:02)
--- NOTE | 2020-05-25 09:46 | Surgery Progress Note ---
Date of Service May 25, 2020 Assessment & Plan (1) Dehiscence of fascia: On evaluation patient seen resting in bed, arousable, and appears comfortable; remains on 1:1 for confusion - Overnight patient w/ increased abdominal pain and low urine output, matthews was replaced it had bloody output apparently mixed with some clots... heparin gtt currently on hold - WBC: 8.6, Hb, and VSS - Patient may need to be re-considered for IVC filter with vascular - Can advance diet if no decision for IVC today - Keep matthews catheter in place for now - Abdominal wound looks well, packing changed at bedside - Pt seen and examined with Dr. Marquez Subjective Patient seen resting in bed. Still with some ongoing confusion. He has been tolerating a diet. Physical Exam Physical Exam: resting in bed, easily arousable Constitutional: no acute distress Gastrointestinal (Abdomen): midline wound looks well, retention sutures in place. nu-gauze packing changed at bedside. Ostomy with + output Results & Data Vital Signs (Past 12 Hours) Vital Signs Temp Pulse Pulse Resp BP Pulse Ox 05/25/20 07:28 36.4 C L 71 18 104/69 99 05/25/20 07:08 72 05/24/20 23:59 112 H 05/24/20 23:03 36.4 C L 85 20 103/71 95 PG Care Time/CCT Total # of Minutes Spent Total Time Spent with Patient: Total time spent is greater than 50% in coordination of care (as documented) at patient's floor/unit and/or counseling patient: Coding Level of Care Code None Diagnoses Dehiscence of fascia T81.30XD Encounter type: subsequent encounter (1) Dehiscence of fascia Encounter type: subsequent encounter Qualified Code(s): T81.30XD - Disruption of wound, unspecified, subsequent encounter
[2020-05-25] MEDS: LACTATED RINGER'S 1,000 ML IV SCH ×2 (10:33→21:21)
--- NOTE | 2020-05-25 10:51 | Urology Progress Note ---
Date of Service May 25, 2020 Assessment & Plan (1) Hematuria: Significant hematuria I have manually irrigated his bladder and was able to evacuate a significant amount of small clot We are somewhat limited on manual irrigation secondary to the size of this catheter At present I do not want to switch his catheter but I would continue to manage him conservatively His creatinine is 1.3 which is stable from yesterday but up from baseline Heparin drip held If he continues to clot his catheter regularly I would likely upgrade him to a 22 Niuean three-way hematuria catheter to allow better irrigation and free his bladder of all clot I would try to avoid cystoscopy and clot evacuation unless he is truly failing catheters Avoid CBI given his recent fistula repair Subjective 75-year-old gentleman with a complex history including takedown of a colovesical fistula He is also had Dsouza trauma secondary to self DC of a Dsouza catheter last week He has hematuriawas on a heparin drip Attempted voiding trial yesterday but he was unable to void Ultimately had catheter replaced and he had quite significant hematuria after replacement of the catheter They placed an 18 Niuean three-way Dsouza catheter This is been draining appropriately throughout the morning, but he did require manual irrigation on several occasions last night Review of Systems Review of Systems: All systems reviewed & are unremarkable except as noted in HPI & below Physical Exam Constitutional: well developed and well nourished Neck: neck nontender Respiratory: normal respiratory effort; no respiratory distress and does not use accessory muscles Cardiovascular: Rate/Rhythm: regular rate Vessels: radial pulses present Extremities: no edema Gastrointestinal (Abdomen): Percussion/Palpation: abdomen soft; abdomen nontender and no guarding Incision stable, stoma healthy Musculoskeletal: Head/Neck/Chest: normocephalic and head atraumatic Extremities: extremities normal to inspection Skin: no rashes and no lesions Trauma: no evidence of skin trauma Neurologic: awake; not obtunded Speech / Cognition: normal speech Motor/Sensory: no tremor Psychiatric: Orientation: alert and oriented x 3 Genitourinary: no CVA tenderness Bloody urine18 Niuean three-way Dsouza catheter in place Lymphatic: no lymphadenopathy Results & Data Vital Signs (Past 12 Hours) Vital Signs Temp Pulse Pulse Resp BP Pulse Ox 05/25/20 07:28 36.4 C L 71 18 104/69 99 05/25/20 07:08 72 05/24/20 23:59 112 H 05/24/20 23:03 36.4 C L 85 20 103/71 95 PG Care Time/CCT Total # of Minutes Spent Total Time Spent with Patient: Total time spent is greater than 50% in coordination of care (as documented) at patient's floor/unit and/or counseling patient: Coding Level of Care Code 13205 Subseq Hosp Care Lvl 2 Diagnoses Hematuria R31.9
--- NOTE | 2020-05-25 15:22 | Surgery Progress Note ---
Date of Service May 25, 2020 Assessment & Plan (1) DVT (deep venous thrombosis): Pt discussed wtih Dr Latham. D/T increased hematuria whenever AC restarted, recommend IVC filter insertion. Scheduled for tomorrow AM. Will have Dr Latham discuss consent with , Meena, d/t pt confusion. (2) Pulmonary embolism and infarction: see above Subjective 75 yo m with multiple medical problems, including a fib, HTN, CAD, hyperlipidemia, gout, confusion, and colovesical fistula now s/p takedown and ileostomy, seen d/t increased hematuria while on AC for DVT/PE. Pt very confused and unable to give any hx. Review of Systems Review of Systems: Unobtainable due to cognitive status Physical Exam Constitutional: WD/WN, vitals as above healthy appearing, cooperative and comfortable; not in distress Respiratory: normal respiratory effort, lungs clear to auscultation Cardiovascular: Rate/Rhythm: + irregularly irregular Vessels: posterior tibial pulses present, dorsalis pedis pulses present, brachial pulses present and radial pulses present; no carotid bruit Extremities: normal capillary refill; no edema Gastrointestinal (Abdomen): Inspection/Auscultation: normal bowel sounds and + abdominal surgical incision (ileostomy) Percussion/Palpation: + abdomen tender (mildly) Musculoskeletal: no cyanosis or clubbing, extremities motor strength 5/5 Skin: no rashes, warm and dry Neurologic: moves all extremities, awake and + confused (mild); no focal motor deficits Psychiatric: Orientation: oriented to person and oriented to place; + not oriented to time Results & Data Vital Signs (Past 12 Hours) Vital Signs Temp Pulse Pulse Resp BP Pulse Ox 05/25/20 15:13 75 05/25/20 10:53 36.7 C 70 18 105/66 94 05/25/20 07:28 36.4 C L 71 18 104/69 99 05/25/20 07:08 72
[2020-05-25] MEDS: ATORVASTATIN 10 MG TAB PO SCH (21:19)
[2020-05-25] MEDS: TAMSULOSIN HCL 0.4 MG CAP PO SCH (21:19)
[2020-05-25] MEDS: risperiDONE 1 MG TABLET PO SCH (21:21)
--- NOTE | 2020-05-25 23:44 | Hospitalist Progress Note ---
Date of Service May 25, 2020 Assessment & Plan (1) Pulmonary embolism and infarction: PROVOKED - 2 recent surgeries. With b/l peroneal vein DVTs. Unfortunately developed VTE despite heparin SC DVT prophylaxis. heparin drip stopped temporarily for some hematuria evaluated for IVC filter on 05/22, no indication found resumed heparin drip now that Hb is stable, again with hematuria on 05/24 plan for IVC filter on 05/[address] Latham (2) Urinary retention: required repeat matthews insertion on 05/[address] Herrera following will keep matthews for time being, anticipate being discharged with it unless urology wants voiding trial prior to discharge (3) DVT (deep venous thrombosis): b/l peroneal vein DVTs. Heparin drip off plan for IVC filter (4) Colovesical fistula: POD #16 s/p takedown of fistula, bladder repair, sigmoidectomy and ileostomy creation. NGT removed 05/13. tolerating diet for several days has output from ostomy and he had a BM 05/24 Post-op course also complicated by dehiscence of incision/fascia - see below. POD #10 from surgery for such. Course also complicated by VTE, plan for IVC filter due to recurrent hematuria (5) Dehiscence of fascia: POD #10 s/p exploratory abdominal wound closure due to abdominal dehiscence. Intra-op culture with pseudomonas - pansensitive. Dr Marquez inspected the wound 05/20 - no purulent drainage. KUB 7/6 with less bowel distension WBC normal, stop Zosyn IV (6) Atrial fibrillation: Continue Lopressor 25mg BID. He is not on chronic anticoagulation at home. he could not remember a specific reason why he was taken off anticoagulation for PAF. he doesn't recall GI bleeding, falls, etc Patient will be on anticoagulation for VTE. Would advise anticoagulation for PAF long-term after course for VTE is complete. hold on anticoagulation until hematuria resolved (7) Metabolic encephalopathy: ongoing. likely 2nd to hospital psychosis. Urine cx negative. VBG 05/20 w/o hypercarbia. now 16 days into his stay. started risperdal 0.25mg at HS on 05/20. increased to 0.5mg 05/21 will increase to 1mg HS on 05/24 he is oriented to time, thinks he is in [facility], he is cooperative still with one to one because he will occasionally pull at lines (8) Arteriosclerotic cardiovascular disease: cont asa cont statin EKG 05/20 w/o ischemic changes troponin negative 05/20 (9) Hyperlipidemia: Cont lipitor (10) Gout: no flares at this time (11) Hypertension: controlled cont metoprolol 50mg BID and lisinopril 20mg daily. (12) Candidiasis of mouth and esophagus: nystatin amanda - 5cc qid resolved, but would keep on nystatin due to ongoing broad-spectrum IV abx use (13) DVT prophylaxis: holding heparin IVC filter Admission and Anticipated Discharge Date Admission Date: May 09, 2020 Subjective discussed recurrent hematuria and need for new matthews catheter with vascular surgery Dr. Latham plans for IVC filter tomorrow, heparin drip is off patient calmer today, he thinks he is in [facility], he knows it is May 2020 updated his daughter at the bedside discussed with Dr. Marquez, he still plans to close up ileostomy at some point during hospitalization reviewed labs, WBC 8k, Hb 10, plts 501, Cr 1.3 and electrolytes stable Review of Systems Review of Systems: All systems reviewed & are unremarkable except as noted in Subjective Physical Exam Constitutional: well developed and well nourished; no acute distress Eyes: PERRL, conjunctivae normal, anicteric sclerae ENMT: external ear and nose normal, oropharynx normal Neck: trachea midline, no thyromegaly Respiratory: normal respiratory effort, lungs clear to auscultation Cardiovascular: RRR, no murmur, no edema Gastrointestinal (Abdomen): Inspection/Auscultation: normal bowel sounds, + abdominal surgical incision and + abdominal surgical drain present (ileostomy); abdomen not distended Percussion/Palpation: abdomen soft; abdomen nontender, no guarding and abdomen not rigid Musculoskeletal: no cyanosis or clubbing, extremities motor strength 5/5 Skin: no rashes, warm and dry Neurologic: patellar DTR's 2+ bilat, sensation intact and PERRL, EOMI, accommodation nl, no face palsy, no dysarthria Psychiatric: A+Ox3, euthymic affect Orientation: alert, oriented to person, oriented to place and cooperative; + not oriented to time Lymphatic: no cervical or axillary lymphadenopathy Results & Data Results & Data ([facility]) Vital Signs (Past 12 Hours) Vital Signs Temp Pulse Pulse Resp BP Pulse Ox 05/25/20 22:54 36.8 C 83 19 111/72 98 05/25/20 19:00 36.9 C 80 19 114/75 94 05/25/20 15:13 75 Laboratory Results Laboratory Results - last 24 hr 05/25/20 05/25/20 05/25/20 06:04 06:04 06:04 WBC 8.68 RBC 3.50 L Hgb 10.0 L Hct 30.9 L MCV 88.3 MCH 28.6 MCHC 32.4 RDW Std Deviation 43.5 RDW Coeff of Alda 13.6 Plt Count 501 H MPV 8.9 Immature Gran % (Auto) 1.3 Neut % (Auto) 68.2 Lymph % (Auto) 16.9 [place] % (Auto) 9.1 Eos % (Auto) 4.3 Baso % (Auto) 0.2 Neut # (Auto) 5.92 Lymph # (Auto) 1.47 [place] # (Auto) 0.79 H Eos # (Auto) 0.37 Baso # (Auto) 0.02 Immature Gran # (Auto) 0.11 H APTT 30.6 PTT Ratio 1.1 Sodium 142 Potassium 4.0 Chloride 108 H Carbon Dioxide 28 Anion Gap 6.0 BUN 15 Creatinine 1.30 Est Cr Clr Drug Dosing 58.8 Est GFR ( Amer) 62.3 Est GFR (Non-Af Amer) 53.8 BUN/Creatinine Ratio 11.7 Glucose 103 H Calcium 8.5 SARS-CoV-2 RNA (RT-PCR) 05/25/20 14:10 WBC RBC Hgb Hct MCV MCH MCHC RDW Std Deviation RDW Coeff of Alda Plt Count MPV Immature Gran % (Auto) Neut % (Auto) Lymph % (Auto) [place] % (Auto) Eos % (Auto) Baso % (Auto) Neut # (Auto) Lymph # (Auto) [place] # (Auto) Eos # (Auto) Baso # (Auto) Immature Gran # (Auto) APTT PTT Ratio Sodium Potassium Chloride Carbon Dioxide Anion Gap BUN Creatinine Est Cr Clr Drug Dosing Est GFR ( Amer) Est GFR (Non-Af Amer) BUN/Creatinine Ratio Glucose Calcium SARS-CoV-2 RNA (RT-PCR) Pending Medications Administered Current Inpatient Medications Acetaminophen (Tylenol) 650 mg PO Q6H PRN PRN Reason: Pain Stop: 06/17/20 13:42 Last Admin: 05/24/20 21:34 Dose: 650 mg Documented by: Amlodipine Besylate (Norvasc) 5 mg PO QAM [facility] Stop: 06/16/20 08:59 Last Admin: 05/25/20 08:01 Dose: 5 mg Documented by: Aspirin (Ecotrin Ectab) 81 mg PO DAILY [facility] Stop: 06/09/20 08:59 Last Admin: 05/25/20 08:02 Dose: 81 mg Documented by: Atorvastatin Calcium (Lipitor) 10 mg PO QPM [facility] Stop: 06/09/20 20:59 Last Admin: 05/25/20 21:19 Dose: 10 mg Documented by: Hydrocortisone (Proctozone Hc 2.5%) 1 appln EXT TID [facility] Stop: 06/19/20 20:59 Last Admin: 05/25/20 21:21 Dose: 1 appln Documented by: Pantoprazole Sodium 40 mg/ (Dextrose) 100 mls @ 20 mls/hr IV Q5H [facility] Stop: 06/21/20 03:29 Last Admin: 05/25/20 21:17 Dose: 8 mg/hr, 20 mls/hr Documented by: Lactated Ringer's (Lr) 1,000 mls @ 80 mls/hr IV .[id number] [facility] Stop: 06/23/20 08:29 Last Admin: 05/25/20 21:21 Dose: 80 mls/hr Documented by: Heparin Sodium/Dextrose (Heparin Sodium/Dextrose) 25,000 units in 500 mls @ 0 mls/hr IV .Q0M [facility]; Protocol Stop: 06/23/20 11:14 Last Titration: 05/25/20 07:04 Dose: Infused Documented by: Cefazolin Sodium (Ancef 2000mg) 2,000 mg in 15 mls @ 2.5 mls/min IV PREOP [facility]; Protocol Stop: 05/26/20 06:01 Lisinopril (Zestril) 20 mg PO QAM [facility] Stop: 06/13/20 08:59 Last Admin: 05/25/20 08:02 Dose: 20 mg Documented by: Metoprolol Tartrate (Lopressor) 50 mg PO BID [facility] Stop: 06/16/20 08:59 Last Admin: 05/25/20 21:20 Dose: 50 mg Documented by: Nystatin (Mycostatin) 5 ml PO QID [facility] Stop: 05/26/20 12:59 Last Admin: 05/25/20 21:20 Dose: 5 ml Documented by: Ondansetron HCl (Zofran) 4 mg IV Q4H PRN PRN Reason: Nausea And Vomiting Stop: 06/08/20 15:36 Last Admin: 05/17/20 10:02 Dose: 4 mg Documented by: Risperidone (Risperdal) 1 mg PO HS [facility] Stop: 06/23/20 20:59 Last Admin: 05/25/20 21:21 Dose: 1 mg Documented by: Sucralfate (Carafate Tab) 1 gm PO BID [facility] Stop: 06/09/20 08:59 Last Admin: 05/25/20 21:19 Dose: 1 gm Documented by: Tamsulosin HCl (Flomax) 0.4 mg PO [facility] Stop: 06/18/20 20:59 Last Admin: 05/25/20 21:19 Dose: 0.4 mg Documented by: Tramadol HCl (Ultram) 50 mg PO Q4H PRN PRN Reason: Pain Stop: 06/17/20 13:42 Last Admin: 05/24/20 22:04 Dose: 50 mg Documented by: Triamcinolone Acetonide (Nasacort) 2 sprays ROSSY DAILY [facility] Stop: 06/15/20 12:24 Last Admin: 05/25/20 08:02 Dose: 2 sprays Documented by: PG Care Time/CCT Total # of Minutes Spent Total Time Spent with Patient: Total time spent is greater than 50% in coordination of care (as documented) at patient's floor/unit and/or counseling patient: Coding Level of Care Code 23604 Subseq Hosp Care Lvl 3 Diagnoses Pulmonary embolism and infarction I26.99 Urinary retention R33.9 DVT (deep venous thrombosis) I82.409 Colovesical fistula N32.1 Dehiscence of fascia T81.30XD Encounter type: subsequent encounter Atrial fibrillation I48.0 Atrial fibrillation type: paroxysmal Metabolic encephalopathy G93.41 Arteriosclerotic cardiovascular disease I25.10 Hyperlipidemia E78.2 Hyperlipidemia type: mixed hyperlipidemia Gout M10.9 Hypertension I10 Candidiasis of mouth and esophagus B37.81; B37.0 DVT prophylaxis Z29.9 (1) Dehiscence of fascia Encounter type: subsequent encounter Qualified Code(s): T81.30XD - Disruption of wound, unspecified, subsequent encounter (2) Atrial fibrillation Atrial fibrillation type: paroxysmal Qualified Code(s): I48.0 - Paroxysmal atrial fibrillation (3) Hyperlipidemia Hyperlipidemia type: mixed hyperlipidemia Qualified Code(s): E78.2 - Mixed hyperlipidemia
[2020-05-26] MEDS: PANTOprazole 40 MG in DEXTROSE 5% 100 ML IV SCH ×5 (01:50→21:32)
[2020-05-26] MEDS ORDERED: CEFAZOLIN 2000MG 2,000 MG/15 ML SYR IV SCH ×2 (06:00→08:15)
--- NOTE | 2020-05-26 07:37 | Surgery Progress Note ---
Date of Service May 26, 2020 Assessment & Plan (1) Dehiscence of fascia: Patient is to have a [place] filter placed today He continues to have hematuria gross and Dsouza catheter even though the heparin has been stopped since yesterday His mental status is not improving not sure the etiology could be multifactorial I am considering closing the ileostomy prior to the patient being discharged since I feel with his mental status and possibly going home without proper care he may become dehydrated with colostomy output Patient no doubt will be here over the weekend and will make the final decision on Friday hopefully by that time his mental status may normalize Present on Admission?: Yes Subjective Patient was sleeping when I went to see him this morning he is one-on-one in the nurse stated that he has not slept all night On awakening him he continues to be confused Physical Exam Physical Exam: He appears well-hydrated The abdomen is completely benign The incision was virtually no drainage no cellulitis retention sutures are loosening up the packings intact will change it later today The ileostomy continues to have good drainage bilious in nature nonbloody The Dsouza catheter continues to drain with moderate amount of blood tinged Results & Data Vital Signs (Past 12 Hours) Vital Signs Temp Pulse Pulse Resp BP Pulse Ox 05/26/20 04:04 36.9 C 81 18 109/67 97 05/26/20 02:55 89 05/25/20 22:54 36.8 C 83 19 111/72 98 Lab from this morning is pending PG Care Time/CCT Total # of Minutes Spent Total Time Spent with Patient: Total time spent is greater than 50% in coordination of care (as documented) at patient's floor/unit and/or counseling patient: Coding Level of Care Code None Diagnoses Dehiscence of fascia T81.30XD Encounter type: subsequent encounter (1) Dehiscence of fascia Encounter type: subsequent encounter Qualified Code(s): T81.30XD - Disruption of wound, unspecified, subsequent encounter
[2020-05-26 07:46] LABS: Basophils # (auto) 0.02 K/uL (0-0.2); Basophils % (auto) 0.2 %; Eosinophils # (auto) 0.38 K/uL (0-0.5); Eosinophils % (auto) 4.1 %; Hematocrit (blood only) 29.6 % (42-52); Hemoglobin 9.5 g/dL (14.0-18.0); Immature Granulocytes # (auto) 0.06 K/uL (0.00-0.02); Immature Granulocytes % (auto) 0.6 %; Lymphocytes # (auto) 0.82 K/uL (1.2-3.4); Lymphocytes % (auto) 8.8 %; Mean Corpuscular Hgb Conc 32.1 g/dL (32-36); Mean Corpuscular Volume 90.2 fL (80-100); Mean Platelet Volume 8.7 fL (7.4-10.4); Monocytes # (auto) 0.81 K/uL (0.11-0.59); Monocytes % (auto) 8.7 %; Neutrophils # (auto) 7.24 K/uL (1.4-6.5); Neutrophils % (auto) 77.6 %; Platelet Count 498 K/uL (130-400); RDW Coefficient of Variation 13.6 % (11.5-14.5); RDW Standard Deviation 45.6 fL (36.4-46.3); Red Blood Count 3.28 M/uL (4.7-6.1); White Blood Count 9.33 K/uL (4.8-10.8)
[2020-05-26 07:54] LABS: Partial Thromboplastin Ratio 0.9; Partial Thromboplastin Time 26.4 Seconds (21.0-31.0)
[2020-05-26] MEDS ORDERED: fentaNYL citrate 100 MCG/2 ML VIAL ONE (08:13)
[2020-05-26] MEDS ORDERED: MIDAZOLAM HCL 1 MG/ML 2ML VIAL ONE (08:13)
[2020-05-26] MEDS ORDERED: HEPARIN SOD (PORCINE) 1000 UNIT/ML 10 ML VIAL ONE (08:13)
[2020-05-26 08:20] LABS: BUN Creatinine Ratio 10.3 (10-20); Calcium 8.8 mg/dl (8.5-10.1); Creatinine Clr Calc Pharmacy 67.9 ml/min; Est GFR (African American) 73.8; Est GFR (Non-African American) 63.7
[2020-05-26] MEDS: METOPROLOL TARTRATE 50 MG TAB PO SCH ×2 (08:20→20:39)
[2020-05-26] MEDS: lisinopriL 20 MG TAB PO SCH (08:20)
--- NOTE | 2020-05-26 08:20 | History & Physical Bridge Note ---
Date of Service May 26, 2020 History & Physical Bridge Note This 75-year-old gentleman who has contraindication anticoagulation due to hematuria. Filter was recommended due to his DVT and pulmonary emboli. I have discussed the risks options and benefits of the procedure with the patient's . The patient's understands the risks options and benefits and agrees to the procedure. I have examined the patient, reviewed the History & Physical and in the interval since the performance of the History & Physical I have noted the following changes of clinical significance: no changes noted
[2020-05-26] MEDS: NYSTATIN SUSP 500,000 U/5 ML UDC PO SCH (08:21)
[2020-05-26] MEDS: ASPIRIN 81 MG ECTAB PO SCH (08:21)
[2020-05-26] MEDS: AMLODIPINE BESYLATE 5 MG TAB PO SCH (08:21)
[2020-05-26] MEDS: SUCRALFATE 1 GM TAB PO SCH ×2 (08:21→20:38)
[2020-05-26] MEDS: HYDROCORTISONE HC 2.5% CRM 30GM TUBE EXT SCH ×3 (08:22→20:39)
[2020-05-26] MEDS: TRIAMCINOLONE ACET NASAL SPRAY 10.8ML BTL NAE SCH (08:26)
[2020-05-26] MEDS ORDERED: LIDOCAINE HCL 1% 20 ML VIAL ONE (08:37)
--- NOTE | 2020-05-26 09:03 | Pre Anesthesia Assessment ---
Date of Service May 26, 2020 Pre Sedation Assessment Vital Signs Temp Pulse Pulse Pulse Resp BP BP 05/26/20 08:42 36.7 C 90 16 128/86 05/26/20 04:04 36.9 C 81 18 109/67 05/26/20 02:55 89 05/25/20 22:54 36.8 C 83 19 111/72 05/25/20 19:00 36.9 C 80 19 114/75 05/25/20 15:13 75 05/25/20 10:53 36.7 C 70 18 105/66 Pulse Ox 05/26/20 08:42 94 05/26/20 04:04 97 05/26/20 02:55 05/25/20 22:54 98 05/25/20 19:00 94 05/25/20 15:13 05/25/20 10:53 94 Cardiovascular RRR, no murmur, no edema Respiratory normal respiratory effort, lungs clear to auscultation Pre-Sedation Airway Assessment Smoking Status: Never smoker Short, Thick Neck: No Thyromental Distance: > or= 3.5 Finger Breadths Oral Cavity: + WNL Mallampati Class: III ASA: ASA3 NPO Status Date of Last Intake of Fluids: 05/26/20 Time of Last Intake of Fluids: 06:00 Date of Last Intake of Solid Food: 05/25/20 Time of Last Intake of Solid Foods: 18:00 Procedure Planning Contraindications for Sedation: none Current Medications Reviewed: Yes Notes The planned sedation has been discussed with the patient. Informed Consent was obtained. I have identified the patient, determined the appropriateness of sedation and have assessed the patient immediately prior to the procedure. All medicine(s) and interventions are by my order.
--- NOTE | 2020-05-26 09:19 | Urology Progress Note ---
Date of Service May 26, 2020 Assessment & Plan (1) Hematuria: Hematuria Gradually improving Creatinine better Good urine output Heparin heldIVC filter being placed today Continue to observe for now, if persistent hematuria or trouble with the catheter I would consider a cystoscopy and fulguration early next week but no urgency given his overall stability from a standpoint Subjective Manually irrigated some clot clot out of his bladder yesterday His urine is still bloody today but draining wellgood U OP Creatinine improved Subjectively unchangedstill pleasantly confused Planning for IVC filter todayheparin gtt has been held Physical Exam Physical Exam: Urine bloody without clots Constitutional: well developed and well nourished Respiratory: no respiratory distress Cardiovascular: Extremities: no pedal edema Gastrointestinal (Abdomen): Inspection/Auscultation: abdomen normal to inspection Results & Data Vital Signs (Past 12 Hours) Vital Signs Temp Pulse Pulse Pulse Resp BP Pulse Ox 05/26/20 08:42 36.7 C 90 16 128/86 94 05/26/20 04:04 36.9 C 81 18 109/67 97 05/26/20 02:55 89 05/25/20 22:54 36.8 C 83 19 111/72 98 PG Care Time/CCT Total # of Minutes Spent Total Time Spent with Patient: Total time spent is greater than 50% in coordination of care (as documented) at patient's floor/unit and/or counseling patient: Coding Level of Care Code 11111 Subseq Hosp Care Lvl 2 Diagnoses Hematuria R31.9
--- NOTE | 2020-05-26 09:47 | Procedure Note ---
Angiogram Post Procedure Fluoroscopy Time (minutes): 1.6 Conscious Sedation Time (minutes): 23 Radiation (mGy): 55 Contrast: 20 Post Operative Report Pre & Post Diagnosis Operation Date: 05/09/20 10:20 Pre-Op Diagnosis: Colovesical Fistula Post-Op Diagnosis: Colovesical Fistula Operation Date: 05/15/20 11:50 Pre-Op Diagnosis: Colovesical Fistula Post-Op Diagnosis: Colovesical Fistula Operation Date: 05/26/20 08:50 Pre-Op Diagnosis: Deep Venous Thrombosis Pulmonary embolism and infarction Contraindication anticoagulation secondary hematuria Post-Op Diagnosis: Deep Venous Thrombosis Pulmonary embolism and infarction Contraindication anticoagulation secondary to hematuria I identified the patient and participated in the time-out.: Yes Procedure Operation Date: 05/09/20 10:20 Actual Procedures p Laparoscopic Assisted Takedown of Colovesicular Fistula, Sigmoid Colon Resection, Protective Ileostomy(Not Applicable) - Lex Marquez MD Operation Date: 05/15/20 11:50 Actual Procedures p Exploratory Abdominal Wound Closure abdominal dehisence - Lex Marquez MD Operation Date: 05/26/20 08:50 Actual Procedures p Inferior Vena Cava Filter Placement with Conscious Sedation ([id number])(Right) - Christoph Latham MD Surgeon Christoph Latham MD Compounder Flavorings MD Handy Estimated Blood Loss 0 Findings Consistent with Post-Op Diagnosis Specimens None Anesthesia Type RN Sedation Disposition Accompanied Patient To Recovery: No Disposition: Recovery Room Indications This is a 75-year-old gentleman acute deep venous thrombosis lower extremity pulmonary emboli. He has a Dsouza catheter in place secondary to a colovesical fistula repair. He is having gross hematuria while on the heparin. Stopping the heparin and placed in the filter was recommended. I have discussed the risks options and benefits of the procedure with the patient's . The patient's understands the risks options and benefits and agrees to the procedure. Description of Procedure The patient was brought to the angio suite and placed in the supine position. The patient was identified and a timeout performed. The right side of the neck was prepped and draped in the usual fashion. The right internal jugular vein was located with ultrasound. It was patent, compressed easily, and had no filling defects. The vein was then punctured under ultrasound visualization. A guidewire was then passed centrally into the inferior vena cava under fluoroscopic guidance. The puncture site was then dilated and the filter sheath inserted. It was passed to the infra renal vena cava. A venacavagram was done which showed no cava clot and an acceptable size. The renal veins were identified. The filter was then passed through the sheath and deployed in the infra renal vena cava in an upright position. Satisfied with the positioning of the filter, the sheath was removed. Pressure was applied to the puncture site. Adequate hemostasis was obtained and a sterile dressing was applied. The patient left the operation room in satisfactory condition and tolerated the procedure well. All needle and sponge counts were correct at the end of the procedure. I attest to the content of the Intraoperative Record and any orders documented therein. Any exceptions are noted below.
--- NOTE | 2020-05-26 09:50 | Post Anesthesia Assessment ---
Date of Service May 26, 2020 Post Sedation Assessment Vital Signs Temp Pulse Pulse Pulse Resp BP BP 05/26/20 09:44 77 17 100/75 05/26/20 09:39 81 17 105/76 05/26/20 09:35 85 26 H 118/79 05/26/20 09:30 88 25 H 118/83 05/26/20 09:25 87 24 104/74 05/26/20 09:20 88 24 125/72 05/26/20 09:17 92 H 20 123/85 05/26/20 08:42 36.7 C 90 16 128/86 05/26/20 04:04 36.9 C 81 18 109/67 05/26/20 02:55 89 05/25/20 22:54 36.8 C 83 19 111/72 05/25/20 19:00 36.9 C 80 19 114/75 05/25/20 15:13 75 05/25/20 10:53 36.7 C 70 18 105/66 Pulse Ox 05/26/20 09:44 99 05/26/20 09:39 97 05/26/20 09:35 99 05/26/20 09:30 99 05/26/20 09:25 99 05/26/20 09:20 99 05/26/20 09:17 99 05/26/20 08:42 94 05/26/20 04:04 97 05/26/20 02:55 05/25/20 22:54 98 05/25/20 19:00 94 05/25/20 15:13 05/25/20 10:53 94 Recovery Score Activity: Moves 4 extremities Respiration: Deep Breath/Cough Circulation: +/-20% PreAnes Value Consciousness: Fully Awake Oxygen Saturation: > 92% On Room Air Post Anesthesia Score: 10 Discharge Sedation Level of Care: Fast Track Phase II Post Sedation Plan On clinical assessment, the patient appears to have tolerated the sedation without complications. Patient is recovering as anticipated. Patient will continue to be monitored by nursing and may be discharged when sedation discharge criteria are met per below protocol. Upon Completions of procedure up to 15 minutes continue every 5 minute vital signs and the P.A.R. score; then discharge to a Phase I or Fast Track to Phase II per the following guidelines: * Discharge Patient to appropriate Phase II area if PAR is 8 or greater or return to pre- procedure baseline. The post - procedure orders will be as directed. * If PAR score is less than 8 or not return to pre-procedure baseline then patient will follow Phase I monitoring till PAR is reached for Phase II. The Phase I may be done in procedure room or may call to secure a Phase I area. * If naloxone or flumazenil are used for reversal, hold in Phase I for continued monitoring from when last reversal dose was given for a minimum of 60 minutes or longer pending the nurse and/or physician discretion of patient condition before discharge to Phase II. Please call the Sedation Physician to re-evaluate and complete post-note for discharge to Phase II area. Do NOT discharge from procedure sedation or Phase 1 until post- sedation evaluation note is complete by procedure /sedation MD Sedation Discharge Instructions to be given to the patient at discharge to home.
[2020-05-26] MEDS ORDERED: MIX: VIPERSLIDE 20ML + NITRO 5MG + NSS 1000ML IART ONE (09:51)
[2020-05-26] MEDS ORDERED: VISIPAQUE IV PRN (09:52)
--- NOTE | 2020-05-26 10:47 | Hospitalist Progress Note ---
Date of Service May 26, 2020 Assessment & Plan (1) Pulmonary embolism and infarction: PROVOKED - 2 recent surgeries. With b/l peroneal vein DVTs. Unfortunately developed VTE despite heparin SC DVT prophylaxis. heparin drip stopped temporarily for some hematuria evaluated for IVC filter on 05/22, no indication found resumed heparin drip now that Hb is stable, again with hematuria on 05/24 Again on hold 05/25 and on 05/26. Patient had IVC filter placed on 05/[address] Latham will continue to hold heparin as patient is still having hematuria. (2) Urinary retention: required repeat matthews insertion on 05/[address] Herrera following will keep matthews for time being, anticipate being discharged with it unless urology wants voiding trial prior to discharge (3) DVT (deep venous thrombosis): b/l peroneal vein DVTs. Heparin drip off plan for IVC filter. once hematuria improves, will resume heparin. 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 NGT removed 05/13. tolerating diet for several days has output from ostomy and he had a BM 7/ Post-op course also complicated by dehiscence of incision/fascia - see below. POD #10 from surgery for such. Course also complicated by VTE, plan for IVC filter due to recurrent hematuria (5) Dehiscence of fascia: POD #10 s/p exploratory abdominal wound closure due to abdominal dehiscence. Intra-op culture with pseudomonas - pansensitive. Dr Marquez inspected the wound 05/20 - no purulent drainage. KUB 7/6 with less bowel distension WBC normal, stop Zosyn IV (6) Atrial fibrillation: Continue Lopressor 25mg BID. He is not on chronic anticoagulation at home. he could not remember a specific reason why he was taken off anticoagulation for PAF. he doesn't recall GI bleeding, falls, etc Patient will be on anticoagulation for VTE. Would advise anticoagulation for PAF long-term after course for VTE is complete. hold on anticoagulation until hematuria resolved (7) Metabolic encephalopathy: ongoing. likely 2nd to hospital psychosis. Urine cx negative. VBG 05/20 w/o hypercarbia. now 17 days into his stay. started risperdal 0.25mg at HS on 05/20. increased to 0.5mg 05/21 will increase to 1mg HS on 05/24 he is oriented to time, thinks he is in [facility], he is cooperative still with one to one because he will occasionally pull at lines (8) Arteriosclerotic cardiovascular disease: cont asa cont statin EKG 05/20 w/o ischemic changes troponin negative 05/20 (9) Hyperlipidemia: Cont lipitor (10) Gout: no flares at this time (11) Hypertension: controlled cont metoprolol 50mg BID and lisinopril 20mg daily. (12) Candidiasis of mouth and esophagus: nystatin amanda - 5cc qid resolved, but would keep on nystatin due to ongoing broad-spectrum IV abx use (13) DVT prophylaxis: holding heparin IVC filter Admission and Anticipated Discharge Date Admission Date: May 09, 2020 Subjective 75 yo male reports no new symptoms today. Review of Systems Review of Systems: All systems reviewed & are unremarkable except as noted in HPI & below Physical Exam Physical Exam: Constitutional: well developed and well nourished; no acute distress Eyes: PERRL, conjunctivae normal, anicteric sclerae ENMT: external ear and nose normal, oropharynx normal Neck: trachea midline, no thyromegaly Respiratory: normal respiratory effort, lungs clear to auscultation Cardiovascular: RRR, no murmur, no edema Gastrointestinal (Abdomen): Inspection/Auscultation: normal bowel sounds, + abdominal surgical incision and + abdominal surgical drain present (ileostomy); abdomen not distended Percussion/Palpation: abdomen soft; abdomen nontender, no guarding and abdomen not rigid Musculoskeletal: no cyanosis or clubbing, extremities motor strength 5/5 Skin: no rashes, warm and dry Neurologic: patellar DTR's 2+ bilat, sensation intact and PERRL, EOMI, accommodation nl, no face palsy, no dysarthria Psychiatric: A+Ox3, euthymic affect Orientation: alert, oriented to person, oriented to place and cooperative; + not oriented to time Lymphatic: no cervical or axillary lymphadenopathy Results & Data Results & Data ([facility]) Vital Signs (Past 12 Hours) Vital Signs Temp Pulse Pulse Pulse Resp BP Pulse Ox 05/26/20 10:28 36.6 C 81 18 136/88 97 05/26/20 10:15 36.9 C 74 18 100/67 94 05/26/20 10:00 36.5 C 75 18 98/62 L 95 05/26/20 09:44 77 17 100/75 99 05/26/20 09:39 81 17 105/76 97 05/26/20 09:35 85 26 H 118/79 99 05/26/20 09:30 88 25 H 118/83 99 05/26/20 09:25 87 24 104/74 99 05/26/20 09:20 88 24 125/72 99 05/26/20 09:17 92 H 20 123/85 99 05/26/20 08:42 36.7 C 90 16 128/86 94 05/26/20 04:04 36.9 C 81 18 109/67 97 05/26/20 02:55 89 05/25/20 22:54 36.8 C 83 19 111/72 98 PG Care Time/CCT Total # of Minutes Spent Total Time Spent with Patient: Total time spent is greater than 50% in coordination of care (as documented) at patient's floor/unit and/or counseling patient: Coding Level of Care Code 95373 Subseq Hosp Care Lvl 3 Diagnoses Pulmonary embolism and infarction I26.99 Urinary retention R33.9 DVT (deep venous thrombosis) I82.409 Colovesical fistula N32.1 Dehiscence of fascia T81.30XD Encounter type: subsequent encounter Atrial fibrillation I48.0 Atrial fibrillation type: paroxysmal Metabolic encephalopathy G93.41 Arteriosclerotic cardiovascular disease I25.10 Hyperlipidemia E78.2 Hyperlipidemia type: mixed hyperlipidemia Gout M10.9 Hypertension I10 Candidiasis of mouth and esophagus B37.81; B37.0 DVT prophylaxis Z29.9 Time Spent (min) 35 (1) Atrial fibrillation Atrial fibrillation type: paroxysmal Qualified Code(s): I48.0 - Paroxysmal atrial fibrillation (2) Hyperlipidemia Hyperlipidemia type: mixed hyperlipidemia Qualified Code(s): E78.2 - Mixed hyperlipidemia (3) Dehiscence of fascia Encounter type: subsequent encounter Qualified Code(s): T81.30XD - Disruption of wound, unspecified, subsequent encounter
[2020-05-26] MEDS: LACTATED RINGER'S 1,000 ML IV SCH ×2 (11:01→22:33)
[2020-05-26] MEDS: TRAMADOL HCL 50 MG TABLET PO PRN (11:13)
[2020-05-26] MEDS: TAMSULOSIN HCL 0.4 MG CAP PO SCH (20:38)
[2020-05-26] MEDS: ATORVASTATIN 10 MG TAB PO SCH (20:39)
[2020-05-26] MEDS: risperiDONE 1 MG TABLET PO SCH (20:39)
[2020-05-26] MEDS: ACETAMINOPHEN 325 MG TAB PO PRN (20:46)
[2020-05-27] MEDS: PANTOprazole 40 MG in DEXTROSE 5% 100 ML IV SCH ×5 (02:24→22:08)
[2020-05-27] MEDS: SUCRALFATE 1 GM TAB PO SCH ×2 (09:10→20:39)
[2020-05-27] MEDS: ASPIRIN 81 MG ECTAB PO SCH (09:11)
[2020-05-27] MEDS: METOPROLOL TARTRATE 50 MG TAB PO SCH ×2 (09:12→20:40)
[2020-05-27] MEDS: AMLODIPINE BESYLATE 5 MG TAB PO SCH (09:13)
[2020-05-27] MEDS: TRIAMCINOLONE ACET NASAL SPRAY 10.8ML BTL NAE SCH (09:14)
[2020-05-27] MEDS: lisinopriL 20 MG TAB PO SCH (09:14)
[2020-05-27] MEDS: HYDROCORTISONE HC 2.5% CRM 30GM TUBE EXT SCH ×3 (09:15→20:41)
[2020-05-27 09:50] LABS: Hematocrit (blood only) 30.7 % (42-52); Mean Corpuscular Hemoglobin 28.5 pg (25-34); Mean Corpuscular Hgb Conc 32.6 g/dL (32-36); Mean Corpuscular Volume 87.5 fL (80-100); Mean Platelet Volume 8.6 fL (7.4-10.4); Platelet Count 441 K/uL (130-400); RDW Coefficient of Variation 13.4 % (11.5-14.5); RDW Standard Deviation 43.2 fL (36.4-46.3); Red Blood Count 3.51 M/uL (4.7-6.1); White Blood Count 9.09 K/uL (4.8-10.8)
[2020-05-27 10:28] LABS: BUN Creatinine Ratio 9.1 (10-20); Calcium 8.5 mg/dl (8.5-10.1); Creatinine Clr Calc Pharmacy 69.8 ml/min; Est GFR (African American) 76.2; Est GFR (Non-African American) 65.8; Potassium 4.3 mmol/L (3.5-5.1)
--- NOTE | 2020-05-27 11:01 | Surgery Progress Note ---
Date of Service May 27, 2020 Assessment & Plan (1) Dehiscence of fascia: patient now pod#1 IVC filter placement with vascular surgery he is overall stable WBC: 9, Cr: 1.[address] with ongoing hematuria, appreciate urology following along continue regular diet and conservative care over weekend will change midline packing at bedside today encourage ongoing ambulation and out of bed as tolerates dr. simon will decide early next week regarding ileostomy closure Supervising Physician Co-Signing Physician Notes Patient seen and examined, agree with above. Status post sigmoid colectomy for colovesical fistula with diverting loop ileostomy, status post takeback for dehiscence. PPD #1 IVC filter placement. Off anticoagulation, still with hematuria, appreciate urology's input. Tolerating diet, good ostomy output. Continue low fiber diet, possible takedown of ileostomy next week. Subjective Patient seen resting in bed. Tolerating a regular diet. Offers no complaints. Physical Exam Physical Exam: awake Gastrointestinal (Abdomen): Inspection/Auscultation: + abdominal surgical incision (midline wound with retention sutures in place) + brown liquid stool in ostomy bag Results & Data Vital Signs (Past 12 Hours) Vital Signs Temp Pulse Pulse Resp BP BP Pulse Ox 05/27/20 07:15 37.3 C 83 18 131/72 96 05/27/20 02:28 36.7 C 76 20 125/80 97 05/26/20 23:59 70 PG Care Time/CCT Total # of Minutes Spent Total Time Spent with Patient: Total time spent is greater than 50% in coordination of care (as documented) at patient's floor/unit and/or counseling patient: Coding Level of Care Code None Diagnoses Dehiscence of fascia T81.30XD Encounter type: subsequent encounter (1) Dehiscence of fascia Encounter type: subsequent encounter Qualified Code(s): T81.30XD - Disruption of wound, unspecified, subsequent encounter
[2020-05-27] MEDS: LACTATED RINGER'S 1,000 ML IV SCH (11:53)
--- NOTE | 2020-05-27 15:31 | Hospitalist Progress Note ---
Date of Service May 27, 2020 Assessment & Plan (1) Pulmonary embolism and infarction: PROVOKED - 2 recent surgeries. With b/l peroneal vein DVTs. Unfortunately developed VTE despite heparin SC DVT prophylaxis. heparin drip stopped temporarily due to hematuria evaluated for IVC filter on 05/22, no indication found resumed heparin drip now that Hb is stable, again with hematuria on 05/24 Again on hold 05/25 and on 05/26. Patient had IVC filter placed on 05/[address] Latham will continue to hold heparin as patient is still having hematuria. (2) Urinary retention: required repeat matthews insertion on 05/[address] Herrera following will keep matthews for time being, anticipate being discharged with it unless urology wants voiding trial prior to discharge (3) DVT (deep venous thrombosis): b/l peroneal vein DVTs. Heparin drip off plan for IVC filter. once hematuria improves, will resume heparin. (4) Colovesical fistula: s/p takedown of fistula, bladder repair, sigmoidectomy and ileostomy creation on 05/09 NGT removed 05/13. tolerating diet for several days has output from ostomy and he had a BM 05/24 Post-op course also complicated by dehiscence of incision/fascia - see below. POD #10 from surgery for such. Course also complicated by VTE, plan for IVC filter due to recurrent hematuria (5) Dehiscence of fascia: s/p exploratory abdominal wound closure on 05/15 due to abdominal dehiscence. Intra-op culture with pseudomonas - pansensitive. KUB 05/22 with less bowel distension WBC normal, stop Zosyn IV (6) Atrial fibrillation: Continue Lopressor 25mg BID. He is not on chronic anticoagulation at home. he could not remember a specific reason why he was taken off anticoagulation for PAF. he doesn't recall GI bleeding, falls, etc Patient will be on anticoagulation for VTE. Would advise anticoagulation for PAF long-term after course for VTE is complete. hold on anticoagulation until hematuria resolved (7) Metabolic encephalopathy: ongoing. likely 2nd to hospital psychosis. Urine cx negative. VBG 05/20 w/o hypercarbia. started risperdal 0.25mg at HS on 05/20. increased to 0.5mg 05/21 will increase to 1mg HS on 05/24 he is oriented to time, thinks he is in [facility], he is cooperative still with one to one because he will occasionally pull at lines (8) Arteriosclerotic cardiovascular disease: cont asa cont statin EKG 05/20 w/o ischemic changes troponin negative 05/20 (9) Hyperlipidemia: Cont lipitor (10) Gout: no flares at this time (11) Hypertension: controlled cont metoprolol 50mg BID and lisinopril 20mg daily. (12) Candidiasis of mouth and esophagus: nystatin amanda - 5cc qid resolved, but would keep on nystatin due to ongoing broad-spectrum IV abx use (13) DVT prophylaxis: holding heparin IVC filter Admission and Anticipated Discharge Date Admission Date: May 09, 2020 Subjective Pt states he is feeling pretty good today. Minimal abd pain that is related to incisions. Tolerating PO. Pt denies fever, SOB, chest pain, n/v/c/d, LE pain or swelling. Review of Systems Review of Systems: Pertinent positives and negatives reviewed in HPI--all others negative Physical Exam Constitutional: WD/WN, vitals as above Eyes: normal visual watters by confrontation and + anicteric sclerae Neck: normal visual inspection and trachea midline Respiratory: normal respiratory effort, lungs clear to auscultation Cardiovascular: Rate/Rhythm: regular rate and regular rhythm Gastrointestinal (Abdomen): Inspection/Auscultation: + abdomen distended Percussion/Palpation: abdomen soft; abdomen nontender (light palpation) Musculoskeletal: Head/Neck/Chest: normocephalic and head atraumatic Skin: no rashes, warm and dry Neurologic: awake; not confused Speech / Cognition: normal speech Psychiatric: Orientation: alert Speech: normal rate/rhythm/volume of speech Affect: euthymic affect Results & Data Results & Data ([facility]) Vital Signs (Past 12 Hours) Vital Signs Temp Pulse Resp BP BP Pulse Ox 05/27/20 12:50 36.9 C 91 H 18 107/67 95 05/27/20 07:15 37.3 C 83 18 131/72 96 PG Care Time/CCT Total # of Minutes Spent Total Time Spent with Patient: Total time spent is greater than 50% in coordination of care (as documented) at patient's floor/unit and/or counseling patient: Coding Level of Care Code 24169 Subseq Hosp Care Lvl 3 Diagnoses Pulmonary embolism and infarction I26.99 Urinary retention R33.9 DVT (deep venous thrombosis) I82.409 Colovesical fistula N32.1 Dehiscence of fascia T81.30XD Encounter type: subsequent encounter Atrial fibrillation I48.0 Atrial fibrillation type: paroxysmal Metabolic encephalopathy G93.41 Arteriosclerotic cardiovascular disease I25.10 Hyperlipidemia E78.2 Hyperlipidemia type: mixed hyperlipidemia Gout M10.9 Hypertension I10 Candidiasis of mouth and esophagus B37.81; B37.0 DVT prophylaxis Z29.9 (1) Dehiscence of fascia Encounter type: subsequent encounter Qualified Code(s): T81.30XD - Disruption of wound, unspecified, subsequent encounter (2) Atrial fibrillation Atrial fibrillation type: paroxysmal Qualified Code(s): I48.0 - Paroxysmal atrial fibrillation (3) Hyperlipidemia Hyperlipidemia type: mixed hyperlipidemia Qualified Code(s): E78.2 - Mixed hyperlipidemia
[2020-05-27] MEDS: ATORVASTATIN 10 MG TAB PO SCH (20:40)
[2020-05-27] MEDS: TAMSULOSIN HCL 0.4 MG CAP PO SCH (20:40)
[2020-05-27] MEDS: risperiDONE 1 MG TABLET PO SCH (20:41)
[2020-05-28] MEDS: LACTATED RINGER'S 1,000 ML IV SCH ×2 (00:32→13:05)
[2020-05-28] MEDS: PANTOprazole 40 MG in DEXTROSE 5% 100 ML IV SCH ×5 (03:05→23:41)
[2020-05-28 06:32] LABS: Hematocrit (blood only) 30.6 % (42-52); Hemoglobin 9.7 g/dL (14.0-18.0); Mean Corpuscular Hemoglobin 28.2 pg (25-34); Mean Corpuscular Hgb Conc 31.7 g/dL (32-36); Mean Platelet Volume 8.6 fL (7.4-10.4); Platelet Count 459 K/uL (130-400); RDW Coefficient of Variation 13.6 % (11.5-14.5); RDW Standard Deviation 44.1 fL (36.4-46.3); Red Blood Count 3.44 M/uL (4.7-6.1); White Blood Count 8.88 K/uL (4.8-10.8)
[2020-05-28 07:13] LABS: BUN Creatinine Ratio 7.8 (10-20); Calcium 8.5 mg/dl (8.5-10.1); Creatinine Clr Calc Pharmacy 74.5 ml/min; Est GFR (African American) 82.6; Est GFR (Non-African American) 71.2; Potassium 3.7 mmol/L (3.5-5.1)
[2020-05-28] MEDS: TRIAMCINOLONE ACET NASAL SPRAY 10.8ML BTL NAE SCH (08:01)
[2020-05-28] MEDS: AMLODIPINE BESYLATE 5 MG TAB PO SCH (08:01)
[2020-05-28] MEDS: lisinopriL 20 MG TAB PO SCH (08:01)
[2020-05-28] MEDS: METOPROLOL TARTRATE 50 MG TAB PO SCH ×2 (08:01→20:00)
[2020-05-28] MEDS: ASPIRIN 81 MG ECTAB PO SCH (08:01)
[2020-05-28] MEDS: HYDROCORTISONE HC 2.5% CRM 30GM TUBE EXT SCH ×3 (08:01→20:02)
[2020-05-28] MEDS: SUCRALFATE 1 GM TAB PO SCH ×2 (08:01→20:00)
--- NOTE | 2020-05-28 09:45 | Surgery Progress Note ---
Date of Service May 28, 2020 Assessment & Plan (1) Dehiscence of fascia: urine is pink, less than yesterday wound packing changed Cr 1.[address] Zazueta will review with Dr. Marquez tomorrow Subjective tolerating diet, still a little confused Physical Exam Gastrointestinal (Abdomen): Inspection/Auscultation: + abdominal surgical incision; abdomen not distended Percussion/Palpation: abdomen soft approx 300, forming UOP 2L Results & Data Vital Signs (Past 12 Hours) Vital Signs Temp Pulse Pulse Resp BP BP Pulse Ox 05/28/20 07:38 70 05/28/20 07:18 36.7 C 81 16 134/88 95 05/28/20 05:45 36.7 C 90 21 153/83 H 94 05/27/20 23:16 36.9 C 90 81 18 125/76 96 PG Care Time/CCT Total # of Minutes Spent Total Time Spent with Patient: Total time spent is greater than 50% in coordination of care (as documented) at patient's floor/unit and/or counseling patient: Coding Level of Care Code None Diagnoses Dehiscence of fascia T81.30XD Encounter type: subsequent encounter (1) Dehiscence of fascia Encounter type: subsequent encounter Qualified Code(s): T81.30XD - Disruption of wound, unspecified, subsequent encounter
--- NOTE | 2020-05-28 16:25 | Hospitalist Progress Note ---
Date of Service May 28, 2020 Assessment & Plan (1) Pulmonary embolism and infarction: PROVOKED - 2 recent surgeries. With b/l peroneal vein DVTs. Unfortunately developed VTE despite heparin SC DVT prophylaxis. heparin drip stopped temporarily due to hematuria evaluated for IVC filter on 05/22, no indication found resumed heparin drip now that Hb is stable, again with hematuria on 05/24 Again on hold 05/25 and on 05/26. Patient had IVC filter placed on 05/[address] Latham will continue to hold heparin as patient is still having hematuria. (2) Urinary retention: required repeat matthews insertion on 05/[address] Herrera following ongoing matthews for time being, anticipate being discharged with it unless urology wants voiding trial prior to discharge (3) DVT (deep venous thrombosis): b/l peroneal vein DVTs. Heparin drip off plan for IVC filter. once hematuria improves, will resume heparin. (4) Colovesical fistula: s/p takedown of fistula, bladder repair, sigmoidectomy and ileostomy creation on 05/09 NGT removed 05/13. tolerating diet for several days has output from ostomy and he had a BM 05/24 Post-op course also complicated by dehiscence of incision/fascia - see below. On 05/15 from surgery for such. Course also complicated by VTE, plan for IVC filter due to recurrent hematuria (5) Dehiscence of fascia: s/p exploratory abdominal wound closure on 05/15 due to abdominal dehiscence. Intra-op culture with pseudomonas - pansensitive. KUB 05/22 with less bowel distension WBC normal, stop Zosyn IV (6) Atrial fibrillation: Continue Lopressor 25mg BID. He is not on chronic anticoagulation at home. he could not remember a specific reason why he was taken off anticoagulation for PAF. he doesn't recall GI bleeding, falls, etc Patient will be on anticoagulation for VTE. Would advise anticoagulation for PAF long-term after course for VTE is complete. hold on anticoagulation until hematuria resolved (7) Metabolic encephalopathy: ongoing. likely 2nd to hospital psychosis. Urine cx negative. VBG 05/20 w/o hypercarbia. started risperdal 0.25mg at HS on 05/20. increased to 0.5mg 05/21 will increase to 1mg HS on 05/24 he is oriented to time, thinks he is in [facility], he is cooperative still with one to one because he will occasionally pull at lines (8) Arteriosclerotic cardiovascular disease: cont asa cont statin EKG 05/20 w/o ischemic changes troponin negative 05/20 (9) Hyperlipidemia: Cont lipitor (10) Gout: no flares at this time (11) Hypertension: controlled cont metoprolol 50mg BID and lisinopril 20mg daily. (12) Candidiasis of mouth and esophagus: nystatin amanda - 5cc qid resolved, but would keep on nystatin due to ongoing broad-spectrum IV abx use (13) DVT prophylaxis: holding heparin IVC filter Admission and Anticipated Discharge Date Admission Date: May 09, 2020 Subjective Pt continues to do well. Pt denies fever, SOB, chest pain, abd pain, n/v/c/d, LE pain or swelling. Review of Systems Review of Systems: Pertinent positives and negatives reviewed in HPI--all others negative Physical Exam Constitutional: WD/WN, vitals as above Eyes: normal visual watters by confrontation and + anicteric sclerae Neck: normal visual inspection and trachea midline Respiratory: normal respiratory effort, lungs clear to auscultation Cardiovascular: Rate/Rhythm: regular rate and regular rhythm Gastrointestinal (Abdomen): Inspection/Auscultation: + abdomen distended Percussion/Palpation: abdomen soft; abdomen nontender (light palpation) Musculoskeletal: Head/Neck/Chest: normocephalic and head atraumatic Skin: no rashes, warm and dry Neurologic: awake; not confused Speech / Cognition: normal speech Psychiatric: A+Ox3, euthymic affect Orientation: alert Speech: normal rate/rhythm/volume of speech Affect: euthymic affect Results & Data Results & Data ([facility]) Vital Signs (Past 12 Hours) Vital Signs Temp Pulse Pulse Resp BP BP Pulse Ox 05/28/20 15:11 66 05/28/20 15:03 37.0 C 73 16 97/69 L 96 05/28/20 11:31 36.6 C 70 18 107/73 99 05/28/20 07:38 70 05/28/20 07:18 36.7 C 81 16 134/88 95 05/28/20 05:45 36.7 C 90 21 153/83 H 94 PG Care Time/CCT Total # of Minutes Spent Total Time Spent with Patient: Total time spent is greater than 50% in coordination of care (as documented) at patient's floor/unit and/or counseling patient: Coding Level of Care Code 08126 Subseq Hosp Care Lvl 3 Diagnoses Pulmonary embolism and infarction I26.99 Urinary retention R33.9 DVT (deep venous thrombosis) I82.409 Colovesical fistula N32.1 Dehiscence of fascia T81.30XD Encounter type: subsequent encounter Atrial fibrillation I48.0 Atrial fibrillation type: paroxysmal Metabolic encephalopathy G93.41 Arteriosclerotic cardiovascular disease I25.10 Hyperlipidemia E78.2 Hyperlipidemia type: mixed hyperlipidemia Gout M10.9 Hypertension I10 Candidiasis of mouth and esophagus B37.81; B37.0 DVT prophylaxis Z29.9 (1) Dehiscence of fascia Encounter type: subsequent encounter Qualified Code(s): T81.30XD - Disruption of wound, unspecified, subsequent encounter (2) Atrial fibrillation Atrial fibrillation type: paroxysmal Qualified Code(s): I48.0 - Paroxysmal atrial fibrillation (3) Hyperlipidemia Hyperlipidemia type: mixed hyperlipidemia Qualified Code(s): E78.2 - Mixed hyperlipidemia
[2020-05-28] MEDS: TAMSULOSIN HCL 0.4 MG CAP PO SCH (20:00)
[2020-05-28] MEDS: risperiDONE 1 MG TABLET PO SCH (20:02)
[2020-05-28] MEDS: ATORVASTATIN 10 MG TAB PO SCH (20:02)
[2020-05-29] MEDS: LACTATED RINGER'S 1,000 ML IV SCH ×2 (01:40→14:01)
[2020-05-29] MEDS: PANTOprazole 40 MG in DEXTROSE 5% 100 ML IV SCH ×5 (05:01→23:11)
[2020-05-29 07:29] LABS: Hemoglobin 9.5 g/dL (14.0-18.0); Mean Corpuscular Hemoglobin 28.8 pg (25-34); Mean Corpuscular Hgb Conc 32.8 g/dL (32-36); Mean Corpuscular Volume 87.9 fL (80-100); Mean Platelet Volume 8.7 fL (7.4-10.4); Platelet Count 434 K/uL (130-400); RDW Coefficient of Variation 13.5 % (11.5-14.5); RDW Standard Deviation 43.3 fL (36.4-46.3); White Blood Count 8.85 K/uL (4.8-10.8)
--- NOTE | 2020-05-29 07:31 | Surgery Progress Note ---
Date of Service May 29, 2020 Assessment & Plan (1) Ileostomy in place: At this time is 20 days postop colon resection closure of colovesical fistula 15 days postop closure of wound dehiscence Contrast study through the rectum done last week the anastomosis is healed well there is no leakage The cystoscopy done approximately 10 days ago was free of any leakage At this point I feel that he probably be best to close the ileostomy I am afraid with his mental status may be a problem to keep the bag in place and secondly given his mental status he may become dehydrated from output of the ileostomy I have discussed with the patient but more so I talk with his who has power of assistant attorney general we will proceed with surgery tomorrow consent was given over the phone nurse witnessed that Given that this ileostomy has some consistency to it I will scale back on his diet to full liquid although he is been eating a regular diet for about a week and given 2 Dulcolax 5 mg tablets today Risk and complication of the procedure were explained to the patient and his and is stated the gave his consent Present on Admission?: Yes Subjective Not seen in [place] over the weekend but this morning he seems to be more oriented he knows regarding place not so much time He denies any abdominal pain states he is moved his bowels and the bag is filling up Physical Exam Physical Exam: He is awake as stated above he appears to be more oriented than he had been 72 hours ago he is without any complaints Oropharyngeal area he is well-hydrated tongue is moist The abdomen is completely benign there is no drainage from the suprapubic incision there is no cellulitis The ileostomy has good output has some substance to it No calf tenderness The urine is minimally blood-tinged Results & Data Vital Signs (Past 12 Hours) Vital Signs Temp Pulse Pulse Resp BP Pulse Ox 05/29/20 06:54 36.6 C 82 18 125/75 94 05/29/20 03:29 36.5 C 89 18 118/76 95 05/28/20 23:22 74 PG Care Time/CCT Total # of Minutes Spent Total Time Spent with Patient: Total time spent is greater than 50% in coordi nation of care (as documented) at patient's floor/unit and/or counseling patient: Coding Level of Care Code None Diagnoses Ileostomy in place Z93.2
[2020-05-29 08:02] LABS: BUN Creatinine Ratio 6.4 (10-20); Calcium 8.6 mg/dl (8.5-10.1); Est GFR (African American) 76.2; Est GFR (Non-African American) 65.8
[2020-05-29] MEDS: METOPROLOL TARTRATE 50 MG TAB PO SCH ×2 (08:06→20:05)
[2020-05-29] MEDS: ASPIRIN 81 MG ECTAB PO SCH (08:06)
[2020-05-29] MEDS: HYDROCORTISONE HC 2.5% CRM 30GM TUBE EXT SCH ×3 (08:07→20:05)
[2020-05-29] MEDS: SUCRALFATE 1 GM TAB PO SCH ×2 (08:07→20:05)
[2020-05-29] MEDS: lisinopriL 20 MG TAB PO SCH (08:07)
[2020-05-29] MEDS: TRIAMCINOLONE ACET NASAL SPRAY 10.8ML BTL NAE SCH (08:07)
[2020-05-29] MEDS: AMLODIPINE BESYLATE 5 MG TAB PO SCH (08:08)
[2020-05-29] MEDS: bisacodyL 5 MG TABEC PO PRN ×2 (11:24→23:45)
[2020-05-29] MEDS: risperiDONE 1 MG TABLET PO SCH (20:04)
[2020-05-29] MEDS: TAMSULOSIN HCL 0.4 MG CAP PO SCH (20:04)
[2020-05-29] MEDS: ATORVASTATIN 10 MG TAB PO SCH (20:04)
--- NOTE | 2020-05-29 20:47 | Hospitalist Progress Note ---
Date of Service May 29, 2020 Assessment & Plan (1) Pulmonary embolism and infarction: PROVOKED - 2 recent abdominal surgeries. With b/l peroneal vein DVTs. On 2 occasions with heparin he had significant hematuria necessitating the stoppage of heparin. Ultimately had IVC filter placed by Dr Latham on 05/26/20. Remains off anticoagulation at this time. (2) DVT (deep venous thrombosis): b/l peroneal vein DVTs. See above in "PE." (3) Colovesical fistula: POD #20 s/p takedown of fistula, bladder repair, sigmoidectomy and ileostomy creation. POD #14 s/p abdominal wound dehiscence exploratory surgery and closure. Course complicated by dehiscence as well as VTE, metabolic encephalopathy/delirium, feeding intolerance/ileus. To OR tomorrow for closure of ileostomy by Dr Marquez. (4) Dehiscence of fascia: POD #14 s/p exploratory abdominal wound closure due to abdominal dehiscence. Intra-op culture with pseudomonas - pansensitive. Received a course of IV abx for the pseudomonas above. Abx now off. (5) Atrial fibrillation: Continue Lopressor but lower dose back to 25mg BID since BPs are low. He is not on chronic anticoagulation at home. Not an anticoagulation candidate at this time due to recurrent hematuria. Remains in NSR on tele. (6) Metabolic encephalopathy: ongoing. likely 2nd to hospital psychosis. improved from last visit with him about a week ago. [id number] still confused. cont risperdal. consider head CT to r/o subacute stroke or other pathology. (7) Arteriosclerotic cardiovascular disease: cont asa cont statin EKG 05/20 w/o ischemic changes troponin negative 05/20 (8) Hyperlipidemia: Cont lipitor (9) Gout: no flares at this time (10) Hypertension: BPs low or low-normal. HOLD lisinopril. lower dose of metoprolol to 25mg from 50mg. cont amlodipine. (11) Candidiasis of mouth and esophagus: resolved (12) DVT prophylaxis: IVC filter in place ambulation chemical means contraindicated due to recent hematuria Admission and Anticipated Discharge Date Admission Date: May 09, 2020 Subjective pt resting comfortably in bed. confused as on previous visits but did know he was at [facility]. he thought we were in [place] however. knew he had recent surgery for colon. denied any complaints. tele stable overnight (NSR). Review of Systems Constitutional: no anorexia Respiratory: no cough and no dyspnea Cardiovascular: no chest pain Gastrointestinal: + abdominal pain (mild - right side of abdomen ) Physical Exam Constitutional: + altered mental status; no acute distress ENMT: external ear and nose normal, oropharynx normal Respiratory: normal respiratory effort, lungs clear to auscultation Auscultation: + diminished lung sounds (bases) Cardiovascular: Rate/Rhythm: regular rate and regular rhythm Heart Sounds: normal S1 and normal S2; no murmur Vessels: posterior tibial pulses present and dorsalis pedis pulses present; no JVD Extremities: no edema Gastrointestinal (Abdomen): Inspection/Auscultation: abdomen not distended and + abnormal bowel sounds Percussion/Palpation: abdomen soft; abdomen nontender, no guarding and no hepatosplenomegaly ostomy in place right abdomen with stool; dressings intact abdominal wall Psychiatric: Orientation: alert, oriented to person and oriented to time; + not oriented to place Results & Data Results & Data ([facility]) Vital Signs (Past 12 Hours) Vital Signs Temp Pulse Pulse Resp BP BP Pulse Ox 05/29/20 18:51 36.7 C 88 18 92/59 L 95 05/29/20 16:05 79 05/29/20 15:00 36.8 C 84 22 112/65 94 05/29/20 14:53 37.5 C 96 H 20 170/92 H 91 05/29/20 11:05 37.0 C 70 18 106/71 96 Laboratory Results Laboratory Results - last 24 hr 05/29/20 05/29/20 07:10 07:10 WBC 8.85 RBC 3.30 L Hgb 9.5 L Hct 29.0 L MCV 87.9 MCH 28.8 MCHC 32.8 RDW Std Deviation 43.3 RDW Coeff of Alda 13.5 Plt Count 434 H MPV 8.7 Sodium 141 Potassium 4.0 Chloride 108 H Carbon Dioxide 27 Anion Gap 6.0 BUN 7 Creatinine 1.10 Est Cr Clr Drug Dosing 69.0 Est GFR ( Amer) 76.2 Est GFR (Non-Af Amer) 65.8 BUN/Creatinine Ratio 6.4 L Glucose 102 H Calcium 8.6 PG Care Time/CCT Total # of Minutes Spent Total Time Spent with Patient: Total time spent is greater than 50% in coordination of care (as documented) at patient's floor/unit and/or counseling patient: Coding Level of Care Code 77082 Subseq Hosp Care Lvl 2 Diagnoses Pulmonary embolism and infarction I26.99 DVT (deep venous thrombosis) I82.409 Colovesical fistula N32.1 Dehiscence of fascia T81.30XD Encounter type: subsequent encounter Atrial fibrillation I48.0 Atrial fibrillation type: paroxysmal Metabolic encephalopathy G93.41 Arteriosclerotic cardiovascular disease I25.10 Hyperlipidemia E78.2 Hyperlipidemia type: mixed hyperlipidemia Gout M10.9 Hypertension I10 Candidiasis of mouth and esophagus B37.81; B37.0 DVT prophylaxis Z29.9 (1) Dehiscence of fascia Encounter type: subsequent encounter Qualified Code(s): T81.30XD - Disruption of wound, unspecified, subsequent encounter (2) Atrial fibrillation Atrial fibrillation type: paroxysmal Qualified Code(s): I48.0 - Paroxysmal atrial fibrillation (3) Hyperlipidemia Hyperlipidemia type: mixed hyperlipidemia Qualified Code(s): E78.2 - Mixed hyperlipidemia
[2020-05-29] MEDS: METOPROLOL TARTRATE 25 MG TAB PO SCH (21:28)
[2020-05-29] MEDS ORDERED: Nursing to Pharmacy Communication SCH (23:45)
[2020-05-30] MEDS: LACTATED RINGER'S 1,000 ML IV SCH ×4 (01:56→23:31)
[2020-05-30] MEDS: PANTOprazole 40 MG in DEXTROSE 5% 100 ML IV SCH ×4 (03:48→22:47)
[2020-05-30] MEDS: AMLODIPINE BESYLATE 5 MG TAB PO SCH (08:08)
[2020-05-30] MEDS: METOPROLOL TARTRATE 25 MG TAB PO SCH ×2 (08:08→21:37)
[2020-05-30] MEDS: TRIAMCINOLONE ACET NASAL SPRAY 10.8ML BTL NAE SCH (08:09)
[2020-05-30] MEDS: HYDROCORTISONE HC 2.5% CRM 30GM TUBE EXT SCH ×3 (08:09→20:57)
[2020-05-30] MEDS ORDERED: fentaNYL citrate 100 MCG/2 ML VIAL ONE ×3 (09:49→11:52)
[2020-05-30] MEDS ORDERED: PROPOFOL IV EMULSION 10 MG/ML 20 ML VIAL IV ONE (09:49)
[2020-05-30] MEDS ORDERED: ROCURONIUM BROMIDE 10 MG/ML 5 ML VIAL IV ONE ×4 (09:49→12:00)
--- NOTE | 2020-05-30 10:42 | History & Physical Bridge Note ---
Date of Service May 30, 2020 History & Physical Bridge Note I have examined the patient, reviewed the History & Physical and in the interval since the performance of the History & Physical I have noted the following changes of clinical significance: no changes noted pt oriented to place not day abd neg liquid output from ileostomy
--- NOTE | 2020-05-30 10:56 | Anesthesiology Consultation ---
Date of Service May 30, 2020 Assessment & Plan ASA ASA3 Proposed Anesthesia Anesthesia Type: General Risk / Benefits Reviewed With: PT / POA / Parent / Guardian, Accepts Plan and Informed Consent Obtained History Surgery Operation Date: 05/09/20 10:20 Proposed Procedures p Laparoscopic Assisted Takedown of Colovesicular Fistula - Lex Marquez MD Operation Date: 05/15/20 11:50 Proposed Procedures p Exploratory Abdominal Wound, Possible Dehiscence - Lex Marquez MD Operation Date: 05/26/20 08:50 Proposed Procedures p Inferior Vena Cava Filter Placement - Christoph Latham MD Operation Date: 05/30/20 10:00 Proposed Procedures p Closure of Ileostomy - Lex Marquez MD Height/Weight Height: 5 ft 11 in Weight: 95.8 kg Allergies Allergy/AdvReac Type Severity Reaction Status Date / Time ezetimibe [From Zetia] AdvReac Intermediate sore joints Verified 05/09/20 09:07 lovastatin AdvReac Intermediate sore joints Verified 05/09/20 09:07 Medications Home Medications Medication Instructions Recorded Confirmed Last Taken atorvastatin 10 mg tablet 10 mg PO QPM #90 tab 09/06/19 05/09/20 05/08/20 22:00 metoprolol tartrate 25 mg tablet 25 mg PO BID #180 tab 09/18/19 05/09/20 05/09/20 06:00 lisinopril 5 mg tablet 5 mg PO DAILY 03/21/20 05/09/20 05/08/20 22:00 aspirin 81 mg tablet,delayed 81 mg PO DAILY 04/17/20 05/09/20 05/08/20 22:00 release acetaminophen [Tylenol Extra 500 mg PO DAILY PRN 05/02/20 05/09/20 05/02/20 Strength] omeprazole 40 mg PO QPM 05/02/20 05/09/20 05/08/20 22:00 sucralfate [Carafate] 1 g PO BID 05/02/20 05/09/20 05/09/20 06:00 Active Medications Generic Name Dose Route Start Last Admin Trade Name Freq PRN Reason Stop Dose Admin Acetaminophen 650 mg 05/18/20 13:43 05/26/20 20:46 Tylenol PO 06/17/20 13:42 650 mg Q6H PRN Administration Pain Amlodipine Besylate 5 mg 05/17/20 09:00 05/30/20 08:08 Norvasc PO 06/16/20 08:59 5 mg QAM POLI Administration Aspirin 81 mg 05/10/20 09:00 05/29/20 08:06 Ecotrin Ectab PO 06/09/20 08:59 81 mg DAILY POLI Administration Atorvastatin Calcium 10 mg 05/10/20 21:00 05/29/20 20:04 Lipitor PO 06/09/20 20:59 10 mg QPM POLI Administration Bisacodyl 5 mg 05/29/20 07:24 05/29/20 23:45 Dulcolax PO 06/28/20 07:23 5 mg BID PRN Administration Constipation Hydrocortisone 1 appln 05/20/20 21:00 05/30/20 08:09 Proctozone Hc 2.5% EXT 06/19/20 20:59 1 appln TID POLI Administration Pantoprazole Sodium 40 mg/ 100 mls @ 20 mls/hr 05/22/20 03:30 05/30/20 10:44 Dextrose IV 06/21/20 03:29 0 mg/hr Q5H POLI 0 mls/hr Infusion 8 MG/HR Lactated Ringer's 1,000 mls @ 80 mls/hr 05/24/20 08:30 05/30/20 10:44 Lr IV 06/23/20 08:29 0 mls/hr .[id number] POLI Infusion Lisinopril 20 mg 05/14/20 09:00 05/29/20 08:07 Zestril PO 06/13/20 08:59 20 mg QAM OPLI Administration Metoprolol Tartrate 25 mg 05/29/20 21:00 05/30/20 08:08 Lopressor PO 06/28/20 20:59 25 mg BID POLI Administration Ondansetron HCl 4 mg 05/09/20 15:37 05/17/20 10:02 Zofran IV 06/08/20 15:36 4 mg Q4H PRN Administration Nausea And Vomiting Risperidone 1 mg 05/24/20 21:00 05/29/20 20:04 Risperdal PO 06/23/20 20:59 1 mg HS POLI Administration Sucralfate 1 gm 05/10/20 09:00 05/29/20 20:05 Carafate Tab PO 06/09/20 08:59 1 gm BID POLI Administration Tamsulosin HCl 0.4 mg 05/19/20 21:00 05/29/20 20:04 Flomax PO 06/18/20 20:59 0.4 mg HS POLI Administration Tramadol HCl 50 mg 05/18/20 13:43 05/26/20 11:13 Ultram PO 06/17/20 13:42 50 mg Q4H PRN Administration Pain Triamcinolone Acetonide 2 sprays 05/16/20 12:25 05/30/20 08:09 Nasacort ROSSY 06/15/20 12:24 2 sprays DAILY POLI Administration NPO Date Last Intake of Fluids: 05/29/20 Time Last Intake of Fluids: 23:00 Last Intake of Fluids Comment: sip with meds Date Last Intake of Solids: 05/25/20 Time Last Intake of Solids: 17:30 Last Intake of Solids Comment: full liquid diet Past Medical History Medical History Arteriosclerotic cardiovascular disease Non obstructive CAD Atrial fibrillation follows with [facility] Cardiology, annually. no cardioversion. Colovesical fistula GERD (gastroesophageal reflux disease) "silent" Gout Hyperlipidemia Hypertension Osteoarthritis Urinary tract infection Exercise / Class Metabolic Activity III < 4 Walking/Shop/Light housework Past Family History Family History Brother Prostate cancer Heart disease Father Heart disease Other No family history of adverse response to anesthesia Past Surgical History Surgical History H/O exploratory laparotomy (05/15/20) Exploratory Abdominal Wound Closure abdominal dehisence Dr. Marquez 05/15/20 History of adenoidectomy History of cardiac cath ~2004 & ~2011. no stents. History of colonoscopy History of ear surgery right History of esophagogastroduodenoscopy (EGD) x1 with FB removal and x1 for recheck History of tonsillectomy S/P inguinal hernia repair right inguinal with hernia mesh Past Anesthesia History No Hx of Anesthesia Complications and No Family Hx of Anesthesia Complications History of PONV No Hx of PONV and No Hx of Motion Sickness Social History Smoking Status: Never smoker Do You Dip or Chew Tobacco: Yes (1 can/3 days (advised)) Hx Alcohol Use: No Hx Substance Use: No substance use type: does not use Review of Systems denies fever/cough/ colds/ chest pain/ SOB/ FARRAH pt confused Constitutional: no fever and no chills Respiratory: no cough and no dyspnea denies FARRAH Cardiovascular: no chest pain and no dyspnea on exertion Physical Exam Vital Signs Last Vital Signs Temp 36.5 C 05/30/20 07:31 Pulse 82 05/30/20 07:31 Resp 18 05/30/20 07:31 BP 115/74 05/30/20 07:31 Pulse Ox 95 05/30/20 07:31 ENMT Mouth: no TMJ abnormality and no dentition abnormality Thyromental Distance: > or= 3.5 Finger Breadths Mallampati Class: II Neck neck extension not limited Respiratory normal respiratory effort; no respiratory distress Auscultation: lungs clear to auscultation bilaterally Cardiovascular Rate/Rhythm: regular rate and regular rhythm Neurologic moves all extremities Psychiatric Orientation: alert and oriented x 3 Testing Laboratory Results 05/29/20 07:10 05/29/20 07:10 APTT 27.0 Seconds (21.0-31.0) 05/27/20 09:37 05/20/20 15:10 Urine Culture - Final Urine,Indwelling Cath Yady albicans 05/15/20 10:32 Gram Stain - Final Abdomen Aerobic and Anaerobic Culture - Final Pseudomonas aeruginosa 05/09/20 11:00 Urine Culture - Final Urine,Indwelling Cath Three types of organisms present, all low counts probable skin brittnee. No further identifications or sensitivities to follow.
[2020-05-30] MEDS ORDERED: PHENYLEPHRINE 100MCG/ML 5ML SYR ONE ×2 (11:30→12:41)
[2020-05-30] MEDS ORDERED: ePHEDrine sulfate 50 MG/ML SYR ONE (11:30)
[2020-05-30] MEDS ORDERED: ONDANSETRON INJ 2 MG/ML 2 ML VIAL IV PRN (11:51)
[2020-05-30] MEDS ORDERED: HYDROmorphone INJ 2 MG/ML SYR/VIAL IV PRN (11:51)
[2020-05-30] MEDS ORDERED: ePHEDrine sulfate 50 MG/ML AMP IV PRN (11:51)
[2020-05-30] MEDS ORDERED: ATROPINE SULFATE 0.1 MG/ML 10ML SYR IV PRN (11:51)
[2020-05-30] MEDS ORDERED: fentaNYL citrate 100 MCG/2 ML VIAL IV PRN (11:51)
[2020-05-30] MEDS ORDERED: HYDROmorphone INJ 2 MG/ML SYR/VIAL ONE (11:56)
[2020-05-30] MEDS ORDERED: ePHEDrine sulfate 50 MG/ML AMP ONE (12:55)
[2020-05-30] MEDS ORDERED: cefOXitin 2,000 MG in DEXTROSE 5% 50 ML IV STA (13:00)
--- NOTE | 2020-05-30 13:10 | Post Operative Brief Note ---
PG Immediate Post Op with CF Date of Surgery May 30, 2020 Pre & Post Diagnosis Operation Date: 05/09/20 10:20 Pre-Op Diagnosis: Colovesical Fistula Post-Op Diagnosis: Colovesical Fistula Operation Date: 05/15/20 11:50 Pre-Op Diagnosis: Colovesical Fistula Post-Op Diagnosis: Colovesical Fistula Operation Date: 05/26/20 08:50 Pre-Op Diagnosis: Deep Venous Thrombosis Pulmonary embolism and infarction Post-Op Diagnosis: Deep Venous Thrombosis Pulmonary embolism and infarction Operation Date: 05/30/20 10:00 Pre-Op Diagnosis: Ileostomy Post-Op Diagnosis: Ileostomy I identified the patient and participated in the time-out.: Yes Procedure Operation Date: 05/09/20 10:20 Actual Procedures p Laparoscopic Assisted Takedown of Colovesicular Fistula, Sigmoid Colon Resection, Protective Ileostomy(Not Applicable) - Lex Marquez MD Operation Date: 05/15/20 11:50 Actual Procedures p Exploratory Abdominal Wound Closure abdominal dehisence - Lex Marquez MD Operation Date: 05/26/20 08:50 Actual Procedures p Inferior Vena Cava Filter Placement with Conscious Sedation(Right) - Christoph Latham MD Operation Date: 05/30/20 10:00 Actual Procedures p Small Bowel Resection with Closure of Ileostomy - Lex Marquez MD Surgeon Lex Marquez MD Warehouse Receiving Supervisor MD Handy Estimated Blood Loss 100 Findings Consistent with Post-Op Diagnosis Specimens Specimen Description: A. Portion of Ileum Drains Dsouza Catheter (Dsouza catheter in place prior to entering OR room. Dsouza drained for 900ml of clear yellow urine. Anesthesia made aware.) and Brunswick Drain (1/4") Anesthesia Type RN Sedation
[2020-05-30] MEDS ORDERED: NEOSTIGMINE METHYLSULFATE 5 MG/5 ML SYR ONE (13:13)
[2020-05-30] MEDS ORDERED: ONDANSETRON INJ 2 MG/ML 2 ML VIAL ONE (13:13)
[2020-05-30] MEDS ORDERED: GLYCOPYRROLATE 0.2 MG/ML VIAL ONE ×2 (13:13→13:17)
--- NOTE | 2020-05-30 13:19 | Operative Report ---
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 Operation Date: 05/26/20 08:50 Pre-Op Diagnosis: Deep Venous Thrombosis Pulmonary embolism and infarction Post-Op Diagnosis: Deep Venous Thrombosis Pulmonary embolism and infarction Operation Date: 05/30/20 10:00 Pre-Op Diagnosis: Ileostomy Post-Op Diagnosis: Ileostomy I identified the patient and participated in the time-out.: Yes Procedure Operation Date: 05/09/20 10:20 Actual Procedures p Laparoscopic Assisted Takedown of Colovesicular Fistula, Sigmoid Colon Resection, Protective Ileostomy(Not Applicable) - Lex Marquez MD Operation Date: 05/15/20 11:50 Actual Procedures p Exploratory Abdominal Wound Closure abdominal dehisence - Lex Marquez MD Operation Date: 05/26/20 08:50 Actual Procedures p Inferior Vena Cava Filter Placement with Conscious Sedation(Right) - Christoph Latham MD Operation Date: 05/30/20 10:00 Actual Procedures p Small Bowel Resection with Closure of Ileostomy - Lex Marquez MD The patient was brought into the operating theater supine position general endotracheal anesthesia the bridge underneath the ileostomy was removed and the abdomen was prepped Betadine solution properly draped systemic antibiotics given a timeout was had patient was identified this point we use electrocautery on a cutting set do an elliptical incision around the ileostomy in the right lower quadrant we dissected down through the subcutaneous tissue the patient had a very significant amount of reaction in the subcutaneous tissue until we were able to get to the abdominal wall and actually mobilizing the superior aspect medially with our into the mesentery of the loop of bowel that was coming out of the ileostomy area we control the bleeding with 3-0 silk sutures we then circumferentially was able to mobilize the small bowel and bring it out of the abdomen although it was quite difficulty we placed a finger around and circumferentially preperitoneal only and intraperitoneally so we can free up the loop coming out. Of note for that the patient was quite tight as far as trying to get this out so therefore we enlarged the incision and also enlarged the subcutaneous opening on the abdominal wall sufficiently that we have moved but the only. Inferior epigastric vessels were identified ligated with 2-0 silk. At this point we used a GREGOR stapler to create an opening in the anterior adjacent to the Farrand loop using a GREGOR 60 were able to divide this. The inferior inferior loop was actually quite viable the a femoral loop seem to be of dusky therefore we mobilized the incision more and I think a lot had to do with the opening and abdominal wall being too tight. Medially with dad incised the anterior rectus further till we are able to more freely deliver the a fairly fair loop quite easily. The vasculature at this time appeared quite normal and it was not dusky. We then resected the a fair loop an area that appeared to be viable with another GREGOR stapler the mesentery to this area was then divided ligated with 2-0 silk. We then oversewed the 2 staple line with interrupted 3-0 silk suture and then that did a [id number] anastomosis using 3-0 silk outer layer 3-0 chromic interlayer the vasculature was quite normal the 2 loops of bowel were normal in color and and bleeding. We then make sure that we closed the mesentery not even any opening with 2-0 silk suture. We checked the abdomen as we can see for any bleeding appear satisfactory we return to slope intra- abdominally and then were able to close the abdominal wall ostomy site by using a diagonal 5 her posterior rectus peritoneum laterally and interrupted #1 PDS to the external Bleich fascia and external anterior rectus. Subcutaneous tissue was brought together after we placed 1/4 inch Promise in the subcu as a drain suturing it laterally and medially with 2-0 silk to the skin edge dressing was applied procedure was tolerated well by the patient estimated blood loss approximately 100 cc patient was taken recovery in good condition addendum Blu berkowitz was present throughout the procedure and helped the retraction exposure wound closure Surgeon Lex Marquez MD Adjunct Communications Faculty Member MD Handy Estimated Blood Loss 100 Findings Consistent with Post-Op Diagnosis Specimens ileostomy and adjacent small bowel Description of Procedure merda I attest to the content of the Intraoperative Record and any orders documented therein. Any exceptions are noted below.
[2020-05-30] MEDS: ONDANSETRON INJ 2 MG/ML 2 ML VIAL IV PRN (14:07)
--- NOTE | 2020-05-30 14:14 | Anesthesiology Progress Note ---
Date of Service May 30, 2020 Anesthesia Post Procedure Vital Signs Vital Signs: Temp Pulse Pulse Pulse Resp BP BP 05/30/20 14:05 98.1 F 105 H 19 101/73 05/30/20 13:55 106 H 22 106/69 05/30/20 13:45 101 H 21 124/92 05/30/20 13:36 97.2 F L 101 H 21 103/65 05/30/20 11:26 79 05/30/20 10:58 98.2 F 77 20 122/76 05/30/20 07:31 97.7 F 82 18 115/74 05/30/20 03:24 97.7 F 86 20 133/82 05/29/20 23:48 82 05/29/20 22:53 97.7 F 89 18 118/70 05/29/20 18:51 98.1 F 88 18 92/59 L 05/29/20 16:05 79 05/29/20 15:00 98.2 F 84 22 112/65 05/29/20 14:53 99.5 F 96 H 20 170/92 H Pulse Ox 05/30/20 14:05 96 05/30/20 13:55 98 05/30/20 13:45 96 05/30/20 13:36 99 05/30/20 11:26 05/30/20 10:58 97 05/30/20 07:31 95 05/30/20 03:24 95 05/29/20 23:48 05/29/20 22:53 95 05/29/20 18:51 95 05/29/20 16:05 05/29/20 15:00 94 05/29/20 14:53 91 Pain Intensity Right Lower Abdomen: Pain Intensity: 10 Abdomen: Pain Intensity: 3 Right Neck: Pain Intensity: 5 Transfer of Care Handoff Completed per policy Notes Mental Status: alert / awake / arousable and participated in evaluation Patient Amnestic to Procedure: Yes Nausea / Vomiting: adequately controlled Pain: adequately controlled Airway Patency, RR, SpO2: stable & adequate BP & HR: stable & adequate Hydration State: stable & adequate Anesthetic Complications: no major complications apparent and Pt Satisfied with anesthetic care
[2020-05-30] MEDS: SUCRALFATE 1 GM TAB PO SCH (15:19)
[2020-05-30] MEDS: ASPIRIN 81 MG ECTAB PO SCH (15:19)
[2020-05-30] MEDS: MoRPHine SULFATE 2 MG/ML CARP IV PRN (16:04)
[2020-05-30 17:03] LABS: Basophils # (auto) 0.01 K/uL (0-0.2); Basophils % (auto) 0.1 %; Eosinophils % (auto) 1.4 %; Hematocrit (blood only) 30.5 % (42-52); Hemoglobin 9.8 g/dL (14.0-18.0); Immature Granulocytes # (auto) 0.04 K/uL (0.00-0.02); Immature Granulocytes % (auto) 0.3 %; Lymphocytes # (auto) 0.69 K/uL (1.2-3.4); Lymphocytes % (auto) 4.8 %; Mean Corpuscular Hemoglobin 28.5 pg (25-34); Mean Corpuscular Hgb Conc 32.1 g/dL (32-36); Mean Corpuscular Volume 88.7 fL (80-100); Mean Platelet Volume 8.8 fL (7.4-10.4); Monocytes # (auto) 0.73 K/uL (0.11-0.59); Neutrophils # (auto) 12.81 K/uL (1.4-6.5); Neutrophils % (auto) 88.4 %; Platelet Count 396 K/uL (130-400); RDW Coefficient of Variation 13.5 % (11.5-14.5); Red Blood Count 3.44 M/uL (4.7-6.1); White Blood Count 14.48 K/uL (4.8-10.8)
[2020-05-30] MEDS ORDERED: dilTIAZem HCl 5 MG/ML 5 ML VIAL IV STA (18:53)
[2020-05-30] MEDS ORDERED: METOPROLOL TARTRATE 1 MG/ML VIAL IV STA ×2 (18:55→20:31)
--- NOTE | 2020-05-30 20:02 | Hospitalist Progress Note ---
Date of Service May 30, 2020 Assessment & Plan (1) Tachycardia: on monitor HRs were staying about 140 with no variability. STAT ekg obtained - P waves could be seen, but question if this is atrial tachycardia. lopressor IV x 1 given. night-physician team informed of the patient's rapid HR and plan of care reviewed. they will assess his response to the beta stephan. awaiting BMP, mag, TSH, troponin. CBC from post-op noted (anemia present but stable). (2) Pulmonary embolism and infarction: Earlier this stay. PROVOKED due to recent abdominal surgeries. With b/l peroneal vein DVTs. On 2 occasions with heparin he had significant hematuria necessitating the stoppage of heparin. Ultimately had IVC filter placed by Dr Latham on 05/26/20. Remains off anticoagulation at this time. (3) DVT (deep venous thrombosis): b/l peroneal vein DVTs. 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 POD #15 s/p abdominal wound dehiscence exploratory surgery and closure. Course complicated by dehiscence as well as VTE, metabolic encephalopathy/delirium, feeding intolerance/ileus. s/p closure of ileostomy by Dr Marquez today. (5) Dehiscence of fascia: POD #15 s/p exploratory abdominal wound closure due to abdominal dehiscence. Intra-op culture with pseudomonas - pansensitive. Received a course of IV abx for the pseudomonas above. Abx now off. (6) Atrial fibrillation: Continue Lopressor BID. He is not on chronic anticoagulation at home. Not an anticoagulation candidate at this time due to recurrent hematuria. No PAF during this stay. Now with tachycardia -- see above. (7) Metabolic encephalopathy: ongoing. likely 2nd to hospital psychosis. cont risperdal. consider head CT to r/o subacute stroke or other pathology if this persists. (8) Arteriosclerotic cardiovascular disease: cont asa cont statin (9) Hyperlipidemia: Cont lipitor (10) Gout: no flares at this time (11) Hypertension: BPs low or low-normal last several days. HOLD lisinopril. lowered dose of metoprolol to 25mg from 50mg on 05/29. cont amlodipine. follow. (12) Candidiasis of mouth and esophagus: resolved (13) DVT prophylaxis: IVC filter in place SCDs chemical means contraindicated due to recent hematuria Admission and Anticipated Discharge Date Admission Date: May 09, 2020 Subjective saw patient post-op on medical floor. had received morphine just prior to arrival and was sound asleep. had one-to-one sitter. sitter told me he had been complaining of abdominal pain prior to morphine. unable to elicit ROS since he was asleep. Review of Systems Review of Systems: Unobtainable due to cognitive status Physical Exam Constitutional: no acute distress sleeping ENMT: external ear and nose normal, oropharynx normal NG tube in place Respiratory: normal respiratory effort, lungs clear to auscultation + tachypneic; no respiratory distress Auscultation: + diminished lung sounds (bases) Cardiovascular: Rate/Rhythm: regular rhythm and + tachycardic Heart Sounds: normal S1 and normal S2; no murmur Vessels: posterior tibial pulses present and dorsalis pedis pulses present; no JVD Extremities: no edema Gastrointestinal (Abdomen): Inspection/Auscultation: + abdomen distended; + abnormal bowel sounds (Decreased) Percussion/Palpation: abdomen nontender, no guarding and no hepatosplenomegaly Skin: dressings in place over abdominal wall Results & Data Results & Data ([facility]) Vital Signs (Past 12 Hours) Vital Signs Temp Pulse Pulse Pulse Pulse Resp BP 05/30/20 19:45 36.6 C 143 H 24 101/72 05/30/20 18:47 36.9 C 144 H 20 05/30/20 17:45 36.8 C 122 H 20 05/30/20 16:46 36.8 C 120 H 18 05/30/20 15:45 36.6 C 116 H 18 05/30/20 15:11 36.6 C 112 H 20 05/30/20 14:33 36.6 C 110 H 20 05/30/20 14:15 105 H 05/30/20 14:05 36.7 C 105 H 19 05/30/20 13:55 106 H 22 05/30/20 13:45 101 H 05/30/20 13:36 36.2 C L 101 H 05/30/20 11:26 79 05/30/20 10:58 36.8 C 77 20 BP Pulse Ox 05/30/20 19:45 91 05/30/20 18:47 120/81 92 05/30/20 17:45 122/82 92 05/30/20 16:46 110/73 98 05/30/20 15:45 102/65 98 05/30/20 15:11 100/67 94 05/30/20 14:33 103/66 93 05/30/20 14:15 117/70 95 05/30/20 14:05 101/73 96 05/30/20 13:55 106/69 98 05/30/20 13:45 124/92 96 05/30/20 13:36 103/65 99 05/30/20 11:26 05/30/20 10:58 122/76 97 Laboratory Results Laboratory Results - last 24 hr 05/30/20 16:50 WBC 14.48 H RBC 3.44 L Hgb 9.8 L Hct 30.5 L MCV 88.7 MCH 28.5 MCHC 32.1 RDW Std Deviation 44.0 RDW Coeff of Alda 13.5 Plt Count 396 MPV 8.8 Immature Gran % (Auto) 0.3 Neut % (Auto) 88.4 Lymph % (Auto) 4.8 Quay % (Auto) 5.0 Eos % (Auto) 1.4 Baso % (Auto) 0.1 Neut # (Auto) 12.81 H Lymph # (Auto) 0.69 L Quay # (Auto) 0.73 H Eos # (Auto) 0.20 Baso # (Auto) 0.01 Immature Gran # (Auto) 0.04 H PG Care Time/CCT Total # of Minutes Spent Total Time Spent with Patient: Total time spent is greater than 50% in coordination of care (as documented) at patient's floor/unit and/or counseling patient: Coding Level of Care Code 20818 Subseq Hosp Care Lvl 2 Diagnoses Tachycardia R00.0 Pulmonary embolism and infarction I26.99 DVT (deep venous thrombosis) I82.409 Colovesical fistula N32.1 Dehiscence of fascia T81.30XD Encounter type: subsequent encounter Atrial fibrillation I48.0 Atrial fibrillation type: paroxysmal Metabolic encephalopathy G93.41 Arteriosclerotic cardiovascular disease I25.10 Hyperlipidemia E78.2 Hyperlipidemia type: mixed hyperlipidemia Gout M10.9 Hypertension I10 Candidiasis of mouth and esophagus B37.81; B37.0 DVT prophylaxis Z29.9 (1) Atrial fibrillation Atrial fibrillation type: paroxysmal Qualified Code(s): I48.0 - Paroxysmal atrial fibrillation (2) Hyperlipidemia Hyperlipidemia type: mixed hyperlipidemia Qualified Code(s): E78.2 - Mixed hyperlipidemia (3) Dehiscence of fascia Encounter type: subsequent encounter Qualified Code(s): T81.30XD - Disruption of wound, unspecified, subsequent encounter
[2020-05-30] MEDS ORDERED: LACTATED RINGER'S 500 ML IV ONE ×2 (20:33→23:47)
[2020-05-30 20:35] LABS: Blood Urea Nitrogen 9 mg/dl (7-18); Calcium 8.4 mg/dl (8.5-10.1); Carbon Dioxide 26 mmol/L (21-32); Chloride 104 mmol/L (98-107); Est GFR (African American) 71.5; Est GFR (Non-African American) 61.7; Glucose 135 mg/dl (70-99); Magnesium 1.7 mg/dl (1.8-2.4); Potassium 4.2 mmol/L (3.5-5.1); Sodium 137 mmol/L (136-145)
[2020-05-30 20:45] LABS: Troponin I < 0.015 ng/ml (0-0.045)
[2020-05-30] MEDS ORDERED: LORazepam 1 MG/2 ML VIAL IV STA (21:28)
--- NOTE | 2020-05-30 21:33 | Communication Note ---
Date of Service: May 30, 2020 Carotid massage performed by myself after receiving signout performed without any noticable slowing of HR. Lopressor 5mg IV was given as pressures stable 101/72. Will give 500cc Bolus to help with hemodynamics and give hydration to see if there is a component of hypovolemia increasing rate. Rate did improve to 110s after Lopressor, around 9pm. Around 9:20pm notified that patient removed NG tube, while one-on-one was in the room. No need for restraint mittens as there is a one-on-one available. While attempting to replace, patient non-compliant with tube being placed, nursing requested medical sedative for procedure compliance. Ativan 1mg IVP ordered. Will continue to follow HR and hemodynamics.
[2020-05-30] MEDS: MoRPHine SULFATE 4 MG/ML 1 ML CARP\\VIAL IV PRN (21:47)
[2020-05-30] MEDS ORDERED: ACETAMINOPHEN 1,000 MG/100 ML VIAL IV PRN (22:31)
[2020-05-30] MEDS ORDERED: PIPERACILL/TAZOBAC CONSULT ACTIVE PRN (22:37)
--- NOTE | 2020-05-30 22:42 | Communication Note ---
Date of Service: May 30, 2020 Now febrile s/p NG tube placement. Tylenol IV ordered. Blood cultures ordered. Will start back on Zosyn. Chart review shows prior pseudomonas wound culture treatment. Since patient is medically ill. Will resume Zosyn. Fever could be from inflammation or from blood clot from PE/DVT. Since patiet fragile, will start on abx overnight with decision to continue/discontinue in the AM after re- evaluation by daytime team. Will also send UA for source of infection if this is driving fever. Hand Mittens ordered as patient is failing one-to-one being able to keep patient form removing NG tube. KUB ordered s/p NG tube placement to check position. Nursing noted some blood with placement and requested repeat Hemoglobin, will repeat H+H. 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
[2020-05-30] MEDS ORDERED: PIPERACILLIN/TAZOBACTAM 3.375 GM in DEXTROSE 5% 100 ML IV SCH (22:45)
[2020-05-30] MEDS ORDERED: PIPERACILLIN/TAZOBACTAM 3.375 GM in DEXTROSE 5% 100 ML IV ONE (23:00)
[2020-05-30 23:12] LABS: Hematocrit (blood only) 30.2 % (42-52); Hemoglobin 9.7 g/dL (14.0-18.0)
[2020-05-30] MEDS ORDERED: MAGNESIUM SULFATE / D5W 1 GM/100 ML BAG IV ONE (23:51)
[2020-05-31] MEDS ORDERED: Nursing to Pharmacy Communication SCH (01:15)
[2020-05-31 02:53] LABS: Appearance Urine Cloudy (Clear); Bacteria Urine Automated Negative (Negative); Bilirubin Urine Negative (Negative); Blood Urine 3+ (Negative); Color Urine Orange; Glucose Urine UA Negative (Negative); Ketones Urine Negative (Negative); Leukocyte Esterase Urine 1+ (Negative); Nitrite Urine Negative (Negative); Protein Urine Trace (Negative); RBC Urine Automated >30 /hpf (0-4); Specific Gravity Urine 1.013 (1.000-1.030); Urobilinogen Urine Negative (Negative)
[2020-05-31] MEDS: PANTOprazole 40 MG in DEXTROSE 5% 100 ML IV SCH ×5 (03:54→23:10)
[2020-05-31] MEDS: PIPERACILLIN/TAZOBACTAM 3.375 GM in DEXTROSE 5% 100 ML IV SCH ×3 (04:34→20:38)
[2020-05-31] MEDS: LACTATED RINGER'S 1,000 ML IV SCH ×3 (06:28→19:06)
--- NOTE | 2020-05-31 07:04 | XRay Report ---
XR KUB/Abdomen 1 view CLINICAL HISTORY: Check NG tube placement COMPARISON STUDY: 05/22/2020 FINDINGS: There is contrast within nondilated colon. There is a nasogastric tube with its tip positio petty within the stomach. There are left basilar parenchymal opacities possibly atelectatic IMPRESSION: The nasogastric tube is positioned with its tip in the stomach ACT 112: Negative or not required by law. Electronically signed by: John Paul Ramos M.D. 05/31/2020 7:02 AM
--- NOTE | 2020-05-31 07:30 | Surgery Progress Note ---
Date of Service May 31, 2020 Assessment & Plan (1) Ileostomy in place: Patient is first postoperative day status post closure ileostomy with temperature spike last night and tachycardia broad-spectrum antibiotics were instituted fluid boluses were given His temperature is down this morning his heart rate is slightly elevated 108 there is no evidence of fluid overload that is status tongue scaling oropharyngeal area dry mucosa At this time continue present therapy continue with fluid resuscitation and broad-spectrum antibiotics the patient has he had the preemie other previous surgery keeps pulling his NG tube out it was reinserted and the patient has mittens at this time and one-on-one care The lab this morning is pending last evening's lab was noted The temperature spike last night most likely related to atelectasis will obtain a chest x-ray this morning Present on Admission?: Yes Physical Exam Physical Exam: Patient is very sedated responds with verbal stimuli but not oriented to time and place The mouth is dry tongue is scaling the NG tube in place with dark nonbloody nonbilious drainage The abdomen as expected postoperatively as some tenderness in the right lower quadrant around the ileostomy closure site the rest of the abdomen appears soft there is minimal drainage from the Promise drain the edges of the skin appear a little bit cyanotic almost does have been bruised retention sutures are loosening up there is no drainage from the abdominal incision the extremities no edema Results & Data Vital Signs (Past 12 Hours) Vital Signs Temp Pulse Pulse Pulse Resp BP BP 05/31/20 07:21 37.2 C 108 H 18 111/81 05/31/20 04:00 36.9 C 98 H 20 110/73 05/30/20 23:35 37.8 C H 05/30/20 23:13 38.4 C H 120 H 26 H 93/62 L 05/30/20 22:30 38.8 C H 05/30/20 22:20 132 H 05/30/20 19:45 36.6 C 143 H 24 101/72 Pulse Ox 05/31/20 07:21 95 05/31/20 04:00 95 05/30/20 23:35 05/30/20 23:13 94 05/30/20 22:30 05/30/20 22:20 05/30/20 19:45 91 vitals were noted with temperature elevation last night this morning is afebrile his heart rate was 143 last evening responded to carotid massage and now is in the 108 fluid boluses was given his main IVs going 150 cc an hour urine output noted diluted nonbloody PG Care Time/CCT Total # of Minutes Spent Total Time Spent with Patient: Total time spent is greater than 50% in coordination of care (as documented) at patient's floor/unit and/or counseling patient: Coding Level of Care Code None Diagnoses Ileostomy in place Z93.2
--- NOTE | 2020-05-31 07:41 | Urology Progress Note ---
Date of Service May 31, 2020 Assessment & Plan (1) Urinary retention: Hematuria has resolved Gradually progressing from a general care standpoint I think it is okay to try a voiding trial again when deemed medically stable Subjective Ileostomy takedown yesterday Resting comfortably now Abdomen soft Urine clear Physical Exam Constitutional: well developed and well nourished Respiratory: no respiratory distress Cardiovascular: Extremities: no pedal edema Gastrointestinal (Abdomen): Incisions appropriate Genitourinary: No hematuria todayclear urine in the tubing and bag Results & Data Vital Signs (Past 12 Hours) Vital Signs Temp Pulse Pulse Pulse Resp BP BP 05/31/20 07:22 100 H 05/31/20 07:21 37.2 C 108 H 18 111/81 05/31/20 04:00 36.9 C 98 H 20 110/73 05/30/20 23:35 37.8 C H 05/30/20 23:13 38.4 C H 120 H 26 H 93/62 L 05/30/20 22:30 38.8 C H 05/30/20 22:20 132 H 05/30/20 19:45 36.6 C 143 H 24 101/72 Pulse Ox 05/31/20 07:22 05/31/20 07:21 95 05/31/20 04:00 95 05/30/20 23:35 05/30/20 23:13 94 05/30/20 22:30 05/30/20 22:20 05/30/20 19:45 91 PG Care Time/CCT Total # of Minutes Spent Total Time Spent with Patient: Total time spent is greater than 50% in coordination of care (as documented) at patient's floor/unit and/or counseling patient: Coding Level of Care Code 23897 Subseq Hosp Care Lvl 2 Diagnoses Urinary retention R33.9
[2020-05-31] MEDS: TRIAMCINOLONE ACET NASAL SPRAY 10.8ML BTL NAE SCH (08:00)
[2020-05-31] MEDS: METOPROLOL TARTRATE 25 MG TAB PO SCH ×2 (08:00→20:39)
[2020-05-31] MEDS: HYDROCORTISONE HC 2.5% CRM 30GM TUBE EXT SCH ×3 (08:00→20:43)
[2020-05-31 08:09] LABS: Basophils # (auto) 0.01 K/uL (0-0.2); Basophils % (auto) 0.1 %; Eosinophils # (auto) 0.13 K/uL (0-0.5); Eosinophils % (auto) 1.2 %; Hematocrit (blood only) 29.5 % (42-52); Hemoglobin 9.4 g/dL (14.0-18.0); Immature Granulocytes # (auto) 0.04 K/uL (0.00-0.02); Immature Granulocytes % (auto) 0.4 %; Lymphocytes % (auto) 6.4 %; Mean Corpuscular Hemoglobin 27.9 pg (25-34); Mean Corpuscular Hgb Conc 31.9 g/dL (32-36); Mean Corpuscular Volume 87.5 fL (80-100); Mean Platelet Volume 8.8 fL (7.4-10.4); Monocytes % (auto) 6.4 %; Neutrophils # (auto) 9.34 K/uL (1.4-6.5); Neutrophils % (auto) 85.5 %; Platelet Count 410 K/uL (130-400); RDW Coefficient of Variation 13.6 % (11.5-14.5); RDW Standard Deviation 43.8 fL (36.4-46.3); Red Blood Count 3.37 M/uL (4.7-6.1); White Blood Count 10.92 K/uL (4.8-10.8)
--- NOTE | 2020-05-31 08:10 | XRay Report ---
XR chest 1V portable CLINICAL HISTORY: possible atelectasis post op temperature elevation COMPARISON STUDY: 05/20/2020 FINDINGS: The heart is enlarged. There is a nasogastric tube which passes into the stomach. There is no failure. There is no lobar consolidation. There are mild basilar opacity statistically atelectatic . Arthritic changes are present within the shoulders.[ IMPRESSION: Mildly increased basilar markings, likely atelectatic. ACT 112: Negative or not required by law. Electronically signed by: John Paul Ramos M.D. 05/31/2020 8:08 AM
[2020-05-31 08:39] LABS: Albumin Level 1.9 gm/dl (3.4-5.0); Calcium 8.3 mg/dl (8.5-10.1); Creatinine Clr Calc Pharmacy 63.5 ml/min; Est GFR (African American) 68.6; Est GFR (Non-African American) 59.2; Potassium 3.6 mmol/L (3.5-5.1)
[2020-05-31 08:42] LABS: Albumin Globulin Ratio 0.5 (0.9-2); Bilirubin,Total 0.9 mg/dl (0.2-1); Globulin 3.7 gm/dl (2.5-4.0); T4 Free Thyroxine 1.45 ng/dl (0.8-1.6); Total Protein 5.6 gm/dl (6.4-8.2)
[2020-05-31] MEDS: MoRPHine SULFATE 2 MG/ML CARP IV PRN (11:14)
[2020-05-31 17:13] LABS: Basophils # (auto) 0.01 K/uL (0-0.2); Basophils % (auto) 0.1 %; Eosinophils # (auto) 0.06 K/uL (0-0.5); Eosinophils % (auto) 0.5 %; Hematocrit (blood only) 27.4 % (42-52); Immature Granulocytes # (auto) 0.04 K/uL (0.00-0.02); Immature Granulocytes % (auto) 0.3 %; Lymphocytes # (auto) 0.57 K/uL (1.2-3.4); Lymphocytes % (auto) 4.3 %; Mean Corpuscular Hemoglobin 28.5 pg (25-34); Mean Corpuscular Hgb Conc 32.8 g/dL (32-36); Mean Corpuscular Volume 86.7 fL (80-100); Mean Platelet Volume 8.6 fL (7.4-10.4); Monocytes # (auto) 1.05 K/uL (0.11-0.59); Monocytes % (auto) 7.9 %; Neutrophils % (auto) 86.9 %; Platelet Count 386 K/uL (130-400); RDW Coefficient of Variation 13.5 % (11.5-14.5); RDW Standard Deviation 43.3 fL (36.4-46.3); Red Blood Count 3.16 M/uL (4.7-6.1); White Blood Count 13.23 K/uL (4.8-10.8)
[2020-05-31] MEDS ORDERED: METOPROLOL TARTRATE 1 MG/ML VIAL IV STA (17:14)
[2020-05-31 17:21] LABS: Base Excess VBG 2.4 mEq/L; HCO3 VBG 26 mmol/L; PCO2 VBG 38 mmHg (38-50); PO2 VBG 22 mmHg; pH VBG 7.46 (7.36-7.41)
[2020-05-31 17:23] LABS: Oxygen Saturation VBG < 60.0 %
[2020-05-31 17:33] LABS: Albumin Level 1.9 gm/dl (3.4-5.0); BUN Creatinine Ratio 7.7 (10-20); Calcium 8.2 mg/dl (8.5-10.1); Est GFR (Non-African American) 50.9; Magnesium 1.8 mg/dl (1.8-2.4); Potassium 4.2 mmol/L (3.5-5.1)
[2020-05-31 17:41] LABS: Albumin Globulin Ratio 0.5 (0.9-2); Bilirubin,Total 1.1 mg/dl (0.2-1); Phosphorus 2.3 mg/dl (2.5-4.9); Total Protein 5.9 gm/dl (6.4-8.2)
--- NOTE | 2020-05-31 19:13 | Electrocardiogram Report ---
Test Reason : Blood Pressure : / mmHG Vent. Rate : 141 BPM Atrial Rate : 141 BPM P-R Int : 142 ms QRS Dur : 082 ms QT Int : 364 ms P-R-T Axes : 024 -29 014 degrees QTc Int : 557 ms Sinus tachycardia Nonspecific ST abnormality Otherwise normal ECG When compared with ECG of 20-MAY-2020 09:01, No significant change was found Confirmed by Pito Abraham [id number]) on 05/31/2020 7:13:08 PM Referred By: Lex Marquez Confirmed By:Joes Abraham
--- NOTE | 2020-05-31 22:33 | Hospitalist Progress Note ---
Date of Service May 31, 2020 Assessment & Plan (1) Tachycardia: on monitor HRs were staying about 140 with no variability. Patient remains tachycardic, in the low 100s, however in the afteroon again it increased to 130s. Repeat labs. His HR responded to 100. Concern over possible new infection. On zosyn, however unclear source. CBC from post-op noted (anemia present but stable). (2) Pulmonary embolism and infarction: Earlier this stay. PROVOKED due to recent abdominal surgeries. With b/l peroneal vein DVTs. On 2 occasions with heparin he had significant hematuria necessitating the stoppage of heparin. Ultimately had IVC filter placed by Dr Latham on 05/26/20. Remains off anticoagulation at this time. D/W urology, may consider restarting anticoagulant. (3) DVT (deep venous thrombosis): b/l peroneal vein DVTs. 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 POD #15 s/p abdominal wound dehiscence exploratory surgery and closure. Course complicated by dehiscence as well as VTE, metabolic encephalopathy/delirium, feeding intolerance/ileus. s/p closure of ileostomy by Dr Marquez (5) Dehiscence of fascia: POD #15 s/p exploratory abdominal wound closure due to abdominal dehiscence. Intra-op culture with pseudomonas - pansensitive. Received a course of IV abx for the pseudomonas above. Abx resumed due to fever and elevated HR. (6) Atrial fibrillation: Continue Lopressor BID. He is not on chronic anticoagulation at home. Not an anticoagulation candidate at this time due to recurrent hematuria. No PAF during this stay. Now with tachycardia -- see above. (7) Metabolic encephalopathy: ongoing. likely 2nd to hospital psychosis. cont risperdal. consider head CT to r/o subacute stroke or other pathology if this persists. (8) Arteriosclerotic cardiovascular disease: cont asa cont statin (9) Hyperlipidemia: Cont lipitor (10) Gout: no flares at this time (11) Hypertension: BPs low or low-normal last several days. HOLD lisinopril. lowered dose of metoprolol to 25mg from 50mg on 05/29. cont amlodipine. follow. (12) Candidiasis of mouth and esophagus: resolved (13) DVT prophylaxis: IVC filter in place SCDs chemical means contraindicated due to recent hematuria Admission and Anticipated Discharge Date Admission Date: May 09, 2020 Subjective 75 yo male reports no new symptoms. He continues to be confused. He wants to remove his matthews catheter. Updated family Review of Systems Review of Systems: All systems reviewed & are unremarkable except as noted in HPI & below Physical Exam Physical Exam: Constitutional: well developed and well nourished; no acute distress Eyes: PERRL, conjunctivae normal, anicteric sclerae ENMT: external ear and nose normal, oropharynx normal Neck: trachea midline, no thyromegaly Respiratory: normal respiratory effort, lungs clear to auscultation Cardiovascular: tachycardic, no murmur, no edema Gastrointestinal (Abdomen): Inspection/Auscultation: normal bowel sounds, + abdominal surgical incision; abdomen not distended Percussion/Palpation: abdomen soft; abdomen nontender, no guarding and abdomen not rigid Musculoskeletal: no cyanosis or clubbing, extremities motor strength 5/5 Skin: no rashes, warm and dry Neurologic: patellar DTR's 2+ bilat, sensation intact and PERRL, EOMI, accommodation nl, no face palsy, no dysarthria Psychiatric: A+Ox3, euthymic affect Orientation: alert, oriented to person, oriented to place and cooperative; + not oriented to time Lymphatic: no cervical or axillary lymphadenopathy Results & Data Results & Data ([facility]) Vital Signs (Past 12 Hours) Vital Signs Temp Pulse Pulse Resp BP BP BP 05/31/20 18:52 37.5 C 112 H 21 112/64 05/31/20 17:46 130 H 115/70 05/31/20 16:00 132 H 05/31/20 10:56 37.3 C 105 H 18 126/83 Pulse Ox 05/31/20 18:52 95 05/31/20 17:46 05/31/20 16:00 05/31/20 10:56 97 PG Care Time/CCT Total # of Minutes Spent Total Time Spent with Patient: Total time spent is greater than 50% in coordination of care (as documented) at patient's floor/unit and/or counseling patient: Coding Level of Care Code 20739 Subseq Hosp Care Lvl 3 Diagnoses Tachycardia R00.0 Pulmonary embolism and infarction I26.99 DVT (deep venous thrombosis) I82.409 Colovesical fistula N32.1 Dehiscence of fascia T81.30XD Encounter type: subsequent encounter Atrial fibrillation I48.0 Atrial fibrillation type: paroxysmal Metabolic encephalopathy G93.41 Arteriosclerotic cardiovascular disease I25.10 Hyperlipidemia E78.2 Hyperlipidemia type: mixed hyperlipidemia Gout M10.9 Hypertension I10 Candidiasis of mouth and esophagus B37.81; B37.0 DVT prophylaxis Z29.9 Time Spent (min) 35 (1) Atrial fibrillation Atrial fibrillation type: paroxysmal Qualified Code(s): I48.0 - Paroxysmal atrial fibrillation (2) Hyperlipidemia Hyperlipidemia type: mixed hyperlipidemia Qualified Code(s): E78.2 - Mixed hyperlipidemia (3) Dehiscence of fascia Encounter type: subsequent encounter Qualified Code(s): T81.30XD - Disruption of wound, unspecified, subsequent encounter
[2020-06-01] MEDS: MoRPHine SULFATE 2 MG/ML CARP IV PRN (00:39)
[2020-06-01] MEDS: LACTATED RINGER'S 1,000 ML IV SCH ×3 (01:54→16:12)
[2020-06-01] MEDS: PANTOprazole 40 MG in DEXTROSE 5% 100 ML IV SCH ×4 (04:00→19:26)
[2020-06-01] MEDS: PIPERACILLIN/TAZOBACTAM 3.375 GM in DEXTROSE 5% 100 ML IV SCH ×3 (05:09→20:53)
[2020-06-01 08:13] LABS: Basophils # (auto) 0.02 K/uL (0-0.2); Basophils % (auto) 0.1 %; Eosinophils # (auto) 0.34 K/uL (0-0.5); Eosinophils % (auto) 2.5 %; Hematocrit (blood only) 25.4 % (42-52); Hemoglobin 8.4 g/dL (14.0-18.0); Immature Granulocytes # (auto) 0.05 K/uL (0.00-0.02); Immature Granulocytes % (auto) 0.4 %; Lymphocytes # (auto) 0.89 K/uL (1.2-3.4); Lymphocytes % (auto) 6.5 %; Mean Corpuscular Hemoglobin 28.6 pg (25-34); Mean Corpuscular Hgb Conc 33.1 g/dL (32-36); Mean Corpuscular Volume 86.4 fL (80-100); Mean Platelet Volume 8.9 fL (7.4-10.4); Monocytes % (auto) 8.1 %; Neutrophils # (auto) 11.26 K/uL (1.4-6.5); Neutrophils % (auto) 82.4 %; Platelet Count 397 K/uL (130-400); RDW Coefficient of Variation 13.6 % (11.5-14.5); RDW Standard Deviation 43.3 fL (36.4-46.3); Red Blood Count 2.94 M/uL (4.7-6.1); White Blood Count 13.66 K/uL (4.8-10.8)
[2020-06-01 08:48] LABS: Albumin Level 1.7 gm/dl (3.4-5.0); BUN Creatinine Ratio 8.1 (10-20); Calcium 8.2 mg/dl (8.5-10.1); Creatinine Clr Calc Pharmacy 69.9 ml/min; Est GFR (African American) 77.1; Est GFR (Non-African American) 66.5; Magnesium 1.7 mg/dl (1.8-2.4); Potassium 3.8 mmol/L (3.5-5.1)
[2020-06-01 08:51] LABS: Albumin Globulin Ratio 0.4 (0.9-2); Bilirubin,Total 0.9 mg/dl (0.2-1); Globulin 3.8 gm/dl (2.5-4.0); Phosphorus 2.4 mg/dl (2.5-4.9); Total Protein 5.5 gm/dl (6.4-8.2)
[2020-06-01] MEDS: HYDROCORTISONE HC 2.5% CRM 30GM TUBE EXT SCH ×3 (09:15→20:51)
[2020-06-01] MEDS: TRIAMCINOLONE ACET NASAL SPRAY 10.8ML BTL NAE SCH (09:16)
[2020-06-01] MEDS: METOPROLOL TARTRATE 25 MG TAB PO SCH ×2 (09:18→20:50)
--- NOTE | 2020-06-01 11:32 | Surgery Progress Note ---
Date of Service June 01, 2020 Assessment & Plan (1) Ileostomy in place: At this point I think the patient is septic his tachycardia may be related to pain and actually it is subsided at this present time He is second day postoperatively and by tomorrow he is to start mobilizing fluids therefore I cut back his IV fluids to 75 cc an hour lactated Ringer's since his urine output has been quite prominent The albumin was noted and I would wait another day or so to see if his GI function returns that we can start an oral intake if not he will need hyperalimentation Continue with broad-spectrum antibiotics although I am not sure what we are actually treating at this time Present on Admission?: Yes Subjective No real complaints voiced Physical Exam Physical Exam: Patient remains pleasantly confused although he is oriented to place not so much the time he is aware that he is been a one-on-one care and also stated that the one-to-one care person will keep him out of trouble The oropharyngeal area is much better hydrated today the tongue is not scaling The NG drainage been slightly bilious minimal amount The abdomen remains fairly soft with the postoperative discomfort that he has on examination at the ileostomy closure site and superior laterally The lower midline incision is free of any drainage The urine is output nonbloody quite dilute Results & Data Vital Signs (Past 12 Hours) Vital Signs Temp Pulse Resp BP BP Pulse Ox 06/01/20 10:56 36.7 C 93 H 18 127/81 96 06/01/20 06:54 37.2 C 116 H 18 116/77 95 06/01/20 05:00 36.9 C 100 H 20 128/80 93 Results noted regarding his lab Very hard to really pinpoint accurately the intake and output PG Care Time/CCT Total # of Minutes Spent Total Time Spent with Patient: Total time spent is greater than 50% in coordination of care (as documented) at patient's floor/unit and/or counseling patient: Coding Level of Care Code None Diagnoses Ileostomy in place Z93.2
--- NOTE | 2020-06-01 14:18 | CT Scan Report ---
CT head/brain wo con CT DOSE: 537.48 mGy.cm HISTORY: Mental status change severe delirium; eval for subacute CVA TECHNIQUE: Multiaxial CT images of the head were performed without the use of intravenous contrast. A dose lowering technique was utilized adhering to the principles of ALARA. Comparison: None. Findings: The paranasal sinuses and mastoid air cells are clear. The calvarium and skull base are int act. The ventricles and sulci are within normal limits. There is no mass, hematoma, midline shift, or acute infarct. Old left cerebellar infarct. No acute intracranial hemorrhage. No evidence for midlin e shift. Impression: No acute intracranial abnormality. ACT 112: Negative or not required by law. The above report was generated using voice recognition software. It may contain grammatical, syntax or spelling errors. Electronically signed by: Carlos Enrique Zarate M.D. 06/01/2020 2:17 PM
[2020-06-01] MEDS: MAGNESIUM SULFATE / D5W 1 GM/100 ML BAG IV SCH ×2 (14:25→16:12)
[2020-06-01] MEDS: RISPERIDONE ODT 1MG PO SCH (20:49)
[2020-06-02] MEDS: PANTOprazole 40 MG in DEXTROSE 5% 100 ML IV SCH ×5 (00:31→21:06)
[2020-06-02] MEDS: LACTATED RINGER'S 1,000 ML IV SCH (04:36)
--- NOTE | 2020-06-02 05:58 | Hospitalist Progress Note ---
Date of Service June 01, 2020 Assessment & Plan (1) Tachycardia: mainly sinus tach some atrial tach at times cont beta stephan anemia, agitation, etc make the tachycardia worse cont telemetry (2) Pulmonary embolism and infarction: Earlier this stay. PROVOKED due to recent abdominal surgeries. With b/l peroneal vein DVTs. On 2 occasions with heparin he had significant hematuria necessitating the stoppage of heparin. Ultimately had IVC filter placed by Dr Latham on 05/26/20. Remains off anticoagulation at this time. (3) DVT (deep venous thrombosis): b/l peroneal vein DVTs. See above in "PE." (4) Colovesical fistula: POD #23 s/p takedown of fistula, bladder repair, sigmoidectomy and ileostomy creation. POD #17 s/p abdominal wound dehiscence exploratory surgery and closure. POD #2 s/p closure of ileostomy by Dr Marquez. Course complicated by dehiscence as well as VTE, metabolic encephalopathy/delirium, feeding intolerance/ileus, anemia. (5) Dehiscence of fascia: POD #17 s/p exploratory abdominal wound closure due to abdominal dehiscence. Intra-op culture with pseudomonas - pansensitive. Received a course of IV abx for the pseudomonas above. Placed back on zosyn for concern of repeat infectious process. None found. d/c abx; observe off of such. (6) Atrial fibrillation: Continue Lopressor BID. He is not on chronic anticoagulation at home. Not an anticoagulation candidate at this time due to recurrent hematuria. No PAF during this stay. Now with tachycardia -- see above. (7) Metabolic encephalopathy: ongoing. likely 2nd to hospital psychosis. but has been quite severe during the stay. will obtain head CT. cont risperdal - increase to 1.5mg HS. (8) Arteriosclerotic cardiovascular disease: cont asa cont statin (9) Hyperlipidemia: Cont lipitor (10) Gout: no flares at this time (11) Hypertension: BPs low or low-normal last several days. HOLD lisinopril. Hold amlodipine. lowered dose of metoprolol to 25mg from 50mg on 05/29. (12) Candidiasis of mouth and esophagus: resolved (13) DVT prophylaxis: IVC filter in place SCDs chemical means contraindicated due to recent hematuria spoke with Dr Marquez if bowel function does not return quickly will consider TPN called 's phone number - no answer, left message - 06/01/20 Admission and Anticipated Discharge Date Admission Date: May 09, 2020 Subjective patient did not sleep overnight agitated all night agitated during the day today pulling at tubes/lines - mitts applied during my visit he was groggy but easily awokened and answered questions he knew it was 2019 knew he was in hospital had hard time explaining why he was here c/o mild abd pain unable to tell me if he is having flatus Review of Systems Review of Systems: Unobtainable due to cognitive status Physical Exam Constitutional: no acute distress ENMT: external ear and nose normal, oropharynx normal NG tube in place Respiratory: normal respiratory effort, lungs clear to auscultation no respiratory distress Auscultation: + diminished lung sounds (bases) Cardiovascular: Rate/Rhythm: regular rhythm and + tachycardic Heart Sounds: normal S1 and normal S2; no murmur Vessels: posterior tibial pulses present and dorsalis pedis pulses present; no JVD Extremities: no edema Gastrointestinal (Abdomen): Inspection/Auscultation: + abdomen distended and normal bowel sounds Percussion/Palpation: abdomen nontender, no guarding and no hepatosplenomegaly Skin: dressings intact abdominal wall Psychiatric: Orientation: alert, oriented to person, oriented to place and oriented to time Results & Data Results & Data ([facility]) Vital Signs (Past 12 Hours) Vital Signs Temp Pulse Pulse Resp BP Pulse Ox 06/02/20 00:33 105 H 06/01/20 19:13 36.9 C 99 H 18 117/81 95 06/01/20 18:09 100 H Laboratory Results Laboratory Results - last 24 hr 06/01/20 06/01/20 06/01/20 07:14 07:14 07:14 WBC 13.66 H RBC 2.94 L Hgb 8.4 L Hct 25.4 L MCV 86.4 MCH 28.6 MCHC 33.1 RDW Std Deviation 43.3 RDW Coeff of Alda 13.6 Plt Count 397 MPV 8.9 Immature Gran % (Auto) 0.4 Neut % (Auto) 82.4 Lymph % (Auto) 6.5 [place] % (Auto) 8.1 Eos % (Auto) 2.5 Baso % (Auto) 0.1 Neut # (Auto) 11.26 H Lymph # (Auto) 0.89 L [place] # (Auto) 1.10 H Eos # (Auto) 0.34 Baso # (Auto) 0.02 Immature Gran # (Auto) 0.05 H Sodium 135 L Potassium 3.8 Chloride 102 Carbon Dioxide 25 Anion Gap 7.0 BUN 9 Creatinine 1.09 Est Cr Clr Drug Dosing 69.9 Est GFR ( Amer) 77.1 Est GFR (Non-Af Amer) 66.5 BUN/Creatinine Ratio 8.1 L Glucose 97 Calcium 8.2 L Phosphorus 2.4 L Magnesium 1.7 L Total Bilirubin 0.9 AST 15 ALT 11 L Alkaline Phosphatase 93 Total Protein 5.5 L Albumin 1.7 L Globulin 3.8 Albumin/Globulin Ratio 0.4 L Procalcitonin 0.29 PG Care Time/CCT Total # of Minutes Spent Total Time Spent with Patient: Total time spent is greater than 50% in coordination of care (as documented) at patient's floor/unit and/or counseling patient: Coding Level of Care Code 50515 Subseq Hosp Care Lvl 2 Diagnoses Tachycardia R00.0 Pulmonary embolism and infarction I26.99 DVT (deep venous thrombosis) I82.409 Colovesical fistula N32.1 Dehiscence of fascia T81.30XD Encounter type: subsequent encounter Atrial fibrillation I48.0 Atrial fibrillation type: paroxysmal Metabolic encephalopathy G93.41 Arteriosclerotic cardiovascular disease I25.10 Hyperlipidemia E78.2 Hyperlipidemia type: mixed hyperlipidemia Gout M10.9 Hypertension I10 Candidiasis of mouth and esophagus B37.81; B37.0 DVT prophylaxis Z29.9 (1) Atrial fibrillation Atrial fibrillation type: paroxysmal Qualified Code(s): I48.0 - Paroxysmal atrial fibrillation (2) Hyperlipidemia Hyperlipidemia type: mixed hyperlipidemia Qualified Code(s): E78.2 - Mixed hyperlipidemia (3) Dehiscence of fascia Encounter type: subsequent encounter Qualified Code(s): T81.30XD - Disruption of wound, unspecified, subsequent encounter
[2020-06-02 06:44] LABS: Basophils # (auto) 0.01 K/uL (0-0.2); Basophils % (auto) 0.1 %; Eosinophils # (auto) 0.35 K/uL (0-0.5); Hematocrit (blood only) 27.1 % (42-52); Hemoglobin 8.9 g/dL (14.0-18.0); Immature Granulocytes # (auto) 0.03 K/uL (0.00-0.02); Immature Granulocytes % (auto) 0.3 %; Lymphocytes # (auto) 0.79 K/uL (1.2-3.4); Lymphocytes % (auto) 6.8 %; Mean Corpuscular Hemoglobin 28.1 pg (25-34); Mean Corpuscular Hgb Conc 32.8 g/dL (32-36); Mean Corpuscular Volume 85.5 fL (80-100); Mean Platelet Volume 8.7 fL (7.4-10.4); Monocytes # (auto) 0.81 K/uL (0.11-0.59); Neutrophils # (auto) 9.59 K/uL (1.4-6.5); Neutrophils % (auto) 82.8 %; Platelet Count 420 K/uL (130-400); RDW Coefficient of Variation 13.4 % (11.5-14.5); Red Blood Count 3.17 M/uL (4.7-6.1); White Blood Count 11.58 K/uL (4.8-10.8)
[2020-06-02 07:26] LABS: BUN Creatinine Ratio 7.5 (10-20); Creatinine Clr Calc Pharmacy 77.8 ml/min; Est GFR (African American) 87.7; Est GFR (Non-African American) 75.6; Magnesium 2.1 mg/dl (1.8-2.4); Potassium 3.6 mmol/L (3.5-5.1)
[2020-06-02] MEDS: TRIAMCINOLONE ACET NASAL SPRAY 10.8ML BTL NAE SCH (08:26)
[2020-06-02] MEDS: METOPROLOL TARTRATE 25 MG TAB PO SCH ×2 (08:26→20:06)
[2020-06-02] MEDS: HYDROCORTISONE HC 2.5% CRM 30GM TUBE EXT SCH ×4 (08:27→20:06)
--- NOTE | 2020-06-02 09:39 | XRay Report ---
XR KUB/Abdomen 1 view CLINICAL HISTORY: ileus pain COMPARISON STUDY: 05/30/2020 FINDINGS: Nonobstructive bowel pattern. Surgical drain right lower quadrant. Minimal residual colonic contrast most prominent within the rectum. Inferior vena caval filter is unchanged in position. IMPRESSION: Nonobstructive bowel pattern. Postoperative changes right lower quadrant considered stab le. ACT 112: Negative or not required by law. The above report was generated using voice recognition software. It may contain grammatical, syntax or spelling errors. Electronically signed by: Carlos Enrique Zarate M.D. 06/02/2020 9:37 AM
--- NOTE | 2020-06-02 11:24 | Surgery Progress Note ---
Date of Service June 02, 2020 Assessment & Plan (1) Ileostomy in place: The KUB from this morning was reviewed the contrast that he had for check the low anterior anastomosis is pretty much gone from the colon to still be something in the rectum there is no evidence of any bowel distention or any ileus. The lab was noted At this point I place a PICC line and start some hyperalimentation normally it would be conceivable to take the NG tube out and start him on clear liquids but if there is any chance he needs to be reinserted the patient has a hard time getting that NG tube back in even though it is draining very little Try calling his to get permission from hyperalimentation and PICC line insertion unable to get her through the phone calls or leaves half an hour to the phone is always busy I did speak with his son Kris and brought him up-to-date and he gave permission to insert the PICC line Plans for hyperalimentation and PICC line I discussed with Dr. Hines yesterday as a possibility since his nutritional status even though he was eating a regular diet prior to ileostomy closure showed albumin to be 1.7 Once the patient has a recorded bowel movement and his belly is soft and will take the NG tube out and start him on clear liquids [facility] are covering this weekend Present on Admission?: Yes Subjective Patient is voicing no complaints Stating that he has moved his bowels although there is no records of his by the nurses He denies any nausea or any abdominal pain Physical Exam Physical Exam: His mental status is pretty much unchanged from yesterday as far as general orientation but he appears much more alert he was not sleepy as he was yesterday Respiratory: normal respiratory effort, lungs clear to auscultation Gastrointestinal (Abdomen): The abdomen is soft he still has a little induration lateral and superior to the ileostomy closing incision and I think this is related to the abdominal wall closure there is no drainage from the Promise drain the midline incision is free of any drainage His urine is dilute and clear not blood-tinged Results & Data Vital Signs (Past 12 Hours) Vital Signs Temp Pulse Pulse Resp BP Pulse Ox 06/02/20 08:00 104 H 06/02/20 06:29 37.0 C 104 H 18 154/92 H 95 06/02/20 00:33 105 H PG Care Time/CCT Total # of Minutes Spent Total Time Spent with Patient: Total time spent is greater than 50% in coordination of care (as documented) at patient's floor/unit and/or counseling patient: Coding Level of Care Code None Diagnoses Ileostomy in place Z93.2
[2020-06-02] MEDS ORDERED: TPN/PPN CONSULT PHARMACY PRN (12:26)
[2020-06-02] MEDS ORDERED: TPN/PPN CONSULT PHARMACY STA (12:30)
[2020-06-02 13:17] LABS: Phosphorus 2.8 mg/dl (2.5-4.9)
--- NOTE | 2020-06-02 13:45 | Pharmacy Report ---
Pharmacy PN Initial Consult - Date of Service June 02, 2020 - Scope Pharmacy has been consulted to manage parenteral nutrition orders and order appropriate labs. As part of the Nutrition Support Team guidelines, pharmacy will work in conjunction with dietary when determining the patients caloric needs. - Subjective The patient is a 75 year old M admitted on 05/09/20 14:38 for Colovesical Fistula. Patient is to receive parenteral nutrition for post-op ileus, prolong ed NPO status. - Objective Height: 5 ft 11 in Weight: 94.9 kg Intake & Output (Last 24Hrs): Intake & Output 05/31/20 06/01/20 06/02/20 06/03/20 06:59 06:59 06:59 06:59 Intake Total 6217.000 / 6217.000 3667.667 / 3667.667 3874.584 / 3874.584 100 / 100 Output Total 2650 / 2650 2050 / 0 4000 / 4000 Balance 3567.000 / 3567.000 1617.667 / 1617.667 -125.416 / -125.416 100 / 100 Weight 94.9 kg 94.9 kg 94.9 kg Laboratory Data (Last 24 Hrs):: 06/02/20 06/02/20 06:24 06:24 Sodium 136 Potassium 3.6 Chloride 104 Carbon Dioxide 24 BUN 7 Creatinine 0.98 Glucose 100 H Calcium 8.0 L Phosphorus 2.8 Magnesium 2.1 Triglycerides 111 Nutrition Assessment:: Please refer to the Notes section of the EMR for the most recent art preparator note. - Assessment 06/02: * Per Dr. Marquez, patient to receive parenteral nutrition to keep fluids at 100 mL/hr (2400 mL/day) * Patient to have PICC line placed today; however, due to time constraints, will dose day #1 PN as peripheral in the event that PICC line would not be placed and PN needs to be run peripherally. * Per SHAYLA Lucas, start low on dextrose and advance slowly - Plan For day 1 of PN administration, the following will be ordered: Macronutrients Amino acids 100 grams/day Dextrose 200 grams/day Lipids 50 grams/day Micronutrients Combined electrolytes 20 mL - contains 35 mEq Na, 20 meq K, 4.5 mEq Ca, 5 mEq Mg, 35 mEq Cl, 29.5 mEq acetate per 20 mL Potassium phosphate 15 mMol Magnesium sulfate 4.06 mEq Multivitamins 10 mL Trace Elements 10 mL Total volume 2400 mL to be infused over 24 hrs will provide 1580 kcal/day Final osmolarity 879.7 mOsm/L (maximum for PPN is 900 mOsm/L) Labs to be ordered per PN order protocol Pharmacy will follow and adjust parenteral nutrition orders on a daily basis. Thank you.
--- NOTE | 2020-06-02 14:45 | XRay Report ---
XR chest 1V portable CLINICAL HISTORY: Left PICC line placement COMPARISON STUDY: 05/31/2020 FINDINGS: The heart is mildly enlarged. There is mild aortic tortuosity/ectasia. There is no focal pu lmonary consolidation. There is minor left basilar atelectasis. There is a nasogastric tube which pas ses into the stomach. There is been interval placement of a left-sided PICC catheter. The tip project s over the superior vena cava. IMPRESSION: Left-sided PICC catheter is positioned with its tip projected over the superior vena cava ACT 112: Negative or not required by law. Electronically signed by: John Paul Ramos M.D. 06/02/2020 2:44 PM
[2020-06-02] MEDS ORDERED: DEXTROSE 10% 1,000 ML IV PRN (16:00)
[2020-06-02] MEDS: MoRPHine SULFATE 2 MG/ML CARP IV PRN (16:13)
[2020-06-02] MEDS: TPN IV SCH (17:01)
[2020-06-02] MEDS: PERIPHERAL PN IV SCH (17:01)
[2020-06-02] MEDS: RISPERIDONE ODT 1MG PO SCH (20:05)
--- NOTE | 2020-06-02 21:47 | Hospitalist Progress Note ---
Date of Service June 02, 2020 Assessment & Plan (1) Tachycardia: sinus tach with occasional atrial tach at times cont beta stephan anemia, agitation, etc make the tachycardia worse cont telemetry keep K at 4 and mag at 2 (2) Pulmonary embolism and infarction: Earlier this stay. PROVOKED due to recent abdominal surgeries. With b/l peroneal vein DVTs. On 2 occasions with heparin he had significant hematuria necessitating the stoppage of heparin. Ultimately had IVC filter placed by Dr Latham on 05/26/20. Remains off anticoagulation at this time. (3) DVT (deep venous thrombosis): b/l peroneal vein DVTs. See above in "PE." (4) Colovesical fistula: POD #24 s/p takedown of fistula, bladder repair, sigmoidectomy and ileostomy creation. POD #18 s/p abdominal wound dehiscence exploratory surgery and closure. POD #3 s/p closure of ileostomy by Dr Marquez. Course complicated by dehiscence as well as VTE, metabolic encephalopathy/delirium, feeding intolerance/ileus, anemia. Defer management to surgery. (5) Dehiscence of fascia: POD #18 s/p exploratory abdominal wound closure due to abdominal dehisc ence. Intra-op culture with pseudomonas - pansensitive. Received a course of IV abx for the pseudomonas above. Placed back on zosyn for concern of repeat infectious process. None found. Antibiotics d/c. (6) Atrial fibrillation: Continue Lopressor BID. He is not on chronic anticoagulation at home. Not an anticoagulation candidate at this time due to recurrent hematuria. No PAF during this stay. Occasional a-tach. Mainly sinus tach. (7) Metabolic encephalopathy: ongoing. hospital psychosis. head CT yesterday wnl. cont risperdal 1.5mg HS. (8) Arteriosclerotic cardiovascular disease: cont asa cont statin (9) Hyperlipidemia: Cont lipitor (10) Gout: no issues (11) Hypertension: BPs low or low-normal last several days. cont to HOLD lisinopril. Hold amlodipine. 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 denied 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, cp mild abdominal pain NG tube remains in place Review of Systems Respiratory: + cough; no dyspnea Cardiovascular: no chest pain and no orthopnea Gastrointestinal: + abdominal pain; no nausea and no vomiting Physical Exam Constitutional: no acute distress confused ENMT: external ear and nose normal, oropharynx normal Mouth: no oral mucosal abnormality (thrush plaques resolved ) NG tube in place Respiratory: normal respiratory effort, lungs clear to auscultation no respiratory distress Auscultation: + diminished lung sounds (bases) Cardiovascular: Rate/Rhythm: regular rhythm and + tachycardic Heart Sounds: normal S1 and normal S2; no murmur Vessels: posterior tibial pulses present and dorsalis pedis pulses present; no JVD Extremities: no edema Gastrointestinal (Abdomen): Inspection/Auscultation: normal bowel sounds; abdomen not distended Percussion/Palpation: abdomen nontender, no guarding and no hepatosplenomegaly Skin: abdominal sutures intact Psychiatric: Orientation: alert, oriented to person and oriented to place; + not oriented to time Results & Data Results & Data ([facility]) Vital Signs (Past 12 Hours) Vital Signs Temp Pulse Pulse Resp BP Pulse Ox 06/02/20 19:15 36.8 C 99 H 18 135/85 91 06/02/20 15:38 101 H 06/02/20 14:49 36.8 C 97 H 18 134/89 100 Laboratory Results Hb 8.9 Cr 0.9 electrolytes wnl WBC 11.5 PG Care Time/CCT Total # of Minutes Spent Total Time Spent with Patient: Total time spent is greater than 50% in coordination of care (as documented) at patient's floor/unit and/or counseling patient: Coding Level of Care Code 32870 Subseq Hosp Care Lvl 2 Diagnoses Tachycardia R00.0 Pulmonary embolism and infarction I26.99 DVT (deep venous thrombosis) I82.493 DVT location: lower extremity Affected thrombotic vein of extremity: other lower extremity vein Chronicity: unspecified Laterality: bilateral Colovesical fistula N32.1 Dehiscence of fascia T81.30XD Encounter type: subsequent encounter Atrial fibrillation I48.0 Atrial fibrillation type: paroxysmal Metabolic encephalopathy G93.41 Arteriosclerotic cardiovascular disease I25.10 Hyperlipidemia E78.2 Hyperlipidemia type: mixed hyperlipidemia Gout M10.9 Gout site: unspecified site Gout etiology: unspecified cause Chronicity: unspecified Hypertension I10 Hypertension type: essential hypertension Candidiasis of mouth and esophagus B37.81; B37.0 DVT prophylaxis Z29.9 (1) Gout Gout site: unspecified site Gout etiology: unspecified cause Chronicity: unspecified Qualified Code(s): M10.9 - Gout, unspecified (2) DVT (deep venous thrombosis) DVT location: lower extremity Affected thrombotic vein of extremity: other lower extremity vein Chronicity: unspecified Laterality: bilateral Qualified Code(s): I82.493 - Acute embolism and thrombosis of other specified deep vein of lower extremity, bilateral (3) Atrial fibrillation Atrial fibrillation type: paroxysmal Qualified Code(s): I48.0 - Paroxysmal atrial fibrillation (4) Hyperlipidemia Hyperlipidemia type: mixed hyperlipidemia Qualified Code(s): E78.2 - Mixed hyperlipidemia (5) Dehiscence of fascia Encounter type: subsequent encounter Qualified Code(s): T81.30XD - Disruption of wound, unspecified, subsequent encounter (6) Hypertension Hypertension type: essential hypertension Qualified Code(s): I10 - Essential (primary) hypertension
[2020-06-03] MEDS: PANTOprazole 40 MG in DEXTROSE 5% 100 ML IV SCH ×3 (00:54→11:06)
[2020-06-03] MEDS: PERIPHERAL PN IV SCH (06:00)
[2020-06-03] MEDS: TPN IV SCH (06:00)
[2020-06-03] MEDS: MoRPHine SULFATE 4 MG/ML 1 ML CARP\\VIAL IV PRN (06:49)
[2020-06-03] MEDS: METOPROLOL TARTRATE 25 MG TAB PO SCH (08:01)
[2020-06-03] MEDS: TRIAMCINOLONE ACET NASAL SPRAY 10.8ML BTL NAE SCH (08:01)
[2020-06-03] MEDS: HYDROCORTISONE HC 2.5% CRM 30GM TUBE EXT SCH ×3 (08:01→21:03)
[2020-06-03 08:03] LABS: BUN Creatinine Ratio 11.1 (10-20); Creatinine Clr Calc Pharmacy 78.6 ml/min; Est GFR (African American) 88.8; Est GFR (Non-African American) 76.6; Magnesium 2.2 mg/dl (1.8-2.4)
[2020-06-03] MEDS ORDERED: METOPROLOL TARTRATE 50 MG TAB PO SCH (09:00)
[2020-06-03] MEDS ORDERED: METOPROLOL TARTRATE 25 MG TAB PO ONE (09:30)
--- NOTE | 2020-06-03 10:55 | Surgery Progress Note ---
Date of Service June 03, 2020 Assessment & Plan (1) Colovesical fistula: s/p takedown of fistula, sigmoid resection, takeback for dehiscence, takedown of ileostomy and IVC filter placement. NG removed yesterday. Tolerating clears but some nausea and abdomen still distended/ hypoactive. Will continue on clear liquids for now. On TPN. Present on Admission?: Yes Subjective On 1:1 for confusion. Denies abdominal pain. NG removed. Has had some clear liquids. Some nausea. Review of Systems Review of Systems: Unobtainable due to cognitive status Physical Exam Gastrointestinal (Abdomen): Inspection/Auscultation: + abdomen distended; + abnormal bowel sounds (hypoactive) Percussion/Palpation: abdomen soft; abdomen nontender and no guarding incisions clean, yina in ileostomy site, retention sutures in midline Neurologic: moves all extremities Results & Data Vital Signs (Past 12 Hours) Vital Signs Temp Pulse Pulse Pulse Resp BP Pulse Ox 06/03/20 08:00 96 H 06/03/20 06:51 36.7 C 100 H 20 141/89 H 95 06/03/20 03:10 36.9 C 97 H 18 119/69 95 06/03/20 00:46 87 06/02/20 22:56 36.6 C 99 H 18 140/86 96
[2020-06-03] MEDS ORDERED: OXYCODONE HCL SOLN 5 MG/5 ML UDC PO PRN (11:28)
[2020-06-03] MEDS ORDERED: SODIUM PHOSPHATE 15 MMOL in SODIUM CHLORIDE 0.9% 250 ML IV ONE (14:00)
--- NOTE | 2020-06-03 14:46 | Hospitalist Progress Note ---
Date of Service June 03, 2020 Assessment & Plan (1) Volume overload: copious hydration since admission due to prolonged periods of NPO status, surgical procedures, etc at least 10+ liters positive since admission. lasix 20mg IV x 1. may need additional diuresis tomorrow. consider echo. (2) Tachycardia: sinus tach with occasional atrial tach at times cont beta stephan; increase back to 50mg BID today anemia, agitation, etc make the tachycardia worse cont telemetry keep K at 4 and mag at 2 (3) Pulmonary embolism and infarction: Early this hospitalization. PROVOKED due to recent abdominal surgeries. With b/l peroneal vein DVTs. On 2 occasions with heparin he had significant hematuria necessitating the stoppage of heparin. Ultimately had IVC filter placed by Dr Latham on 05/26/20. Remains off anticoagulation at this time. (4) DVT (deep venous thrombosis): b/l peroneal vein DVTs. See above in "PE." (5) Colovesical fistula: POD #25 s/p takedown of fistula, bladder repair, sigmoidectomy and ileostomy creation. POD #19 s/p abdominal wound dehiscence exploratory surgery and closure. POD #4 s/p closure of ileostomy by Dr Marquez. Course complicated by dehiscence as well as VTE, metabolic encephalopathy/delirium, feeding intolerance/ileus, anemia, volume overload. Defer management to surgery. TPN. Clears. (6) Dehiscence of fascia: POD #19 s/p exploratory abdominal wound closure due to abdominal dehiscence. Intra-op culture with pseudomonas - pansensitive. Received a course of IV abx for the pseudomonas above. Placed back on zosyn for concern of repeat infectious process later in admission. None found. No fevers. Antibiotics d/c. (7) Atrial fibrillation: Continue Lopressor BID. He is not on chronic anticoagulation as outpatient. Not an anticoagulation candidate at this time due to recurrent hematuria. No PAF during this stay. Occasional a-tach. Mainly sinus tach. (8) Metabolic encephalopathy: ongoing. hospital psychosis. head CT earlier this week wnl. cont risperdal; increase to 2mg HS. reinforce day/night cycles, avoid sedatives, etc. (9) Arteriosclerotic cardiovascular disease: asa on hold statin on hold (10) Hyperlipidemia: statin on hold (11) Gout: no issues/no flares (12) Hypertension: cont metoprolol 50 BID hold TAE hold CCB (13) Candidiasis of mouth and esophagus: resolved (14) DVT prophylaxis: IVC filter in place SCDs chemical means contraindicated due to hematuria earlier this admission discussed care w/ Dr Marquez today updated by phone evening of 06/03/20 Admission and Anticipated Discharge Date Admission Date: May 09, 2020 Subjective patient confused but not agitated or combative pleasant, cooperative, answered my questions c/o mild abd pain c/o cough could not tell me where he was or why he was here Review of Systems Respiratory: + cough and + dyspnea Cardiovascular: no chest pain Gastrointestinal: + abdominal pain; no nausea and no vomiting Physical Exam Constitutional: + altered mental status; no acute distress tachypneic, but no distress ENMT: external ear and nose normal, oropharynx normal Respiratory: + tachypneic Auscultation: + diminished lung sounds (bases) and + crackles (bases); no wheezes Cardiovascular: Rate/Rhythm: regular rhythm and + tachycardic Heart Sounds: normal S1 and normal S2; no murmur Vessels: + JVD (2/[address] up jaw ), po sterior tibial pulses present and dorsalis pedis pulses present Extremities: + edema (trace b/l ) Gastrointestinal (Abdomen): Inspection/Auscultation: normal bowel sounds; abdomen not distended Percussion/Palpation: abdomen nontender, no guarding and no hepatosplenomegaly Skin: abdominal retention sutures in place Psychiatric: Orientation: alert and oriented to person; + not oriented to place and + not oriented to time Results & Data Results & Data ([facility]) Vital Signs (Past 12 Hours) Vital Signs Temp Pulse Pulse Resp BP Pulse Ox 06/03/20 08:00 96 H 06/03/20 06:51 36.7 C 100 H 20 141/89 H 95 06/03/20 03:10 36.9 C 97 H 18 119/69 95 Laboratory Results Laboratory Results - last 24 hr 06/03/20 06/03/20 06/03/20 00:02 05:46 06:50 Sodium 138 Potassium 4.0 Chloride 105 Carbon Dioxide 28 Anion Gap 5.0 BUN 11 D Creatinine 0.97 Est Cr Clr Drug Dosing 78.6 Est GFR ( Amer) 88.8 Est GFR (Non-Af Amer) 76.6 BUN/Creatinine Ratio 11.1 Glucose 125 H POC Glucose 127 H 145 H Calcium 8.0 L Phosphorus 2.0 L Magnesium 2.2 06/03/20 11:53 Sodium Potassium Chloride Carbon Dioxide Anion Gap BUN Creatinine Est Cr Clr Drug Dosing Est GFR ( Amer) Est GFR (Non-Af Amer) BUN/Creatinine Ratio Glucose POC Glucose 126 H Calcium Phosphorus Magnesium PG Care Time/CCT Total # of Minutes Spent Total Time Spent with Patient: Total time spent is greater than 50% in coordination of care (as documented) at patient's floor/unit and/or counseling patient: Coding Level of Care Code 92229 Subseq Hosp Care Lvl 2 Diagnoses Volume overload E87.70 Hypervolemia type: unspecified Tachycardia R00.0 Pulmonary embolism and infarction I26.99 DVT (deep venous thrombosis) I82.493 Affected thrombotic vein of extremity: other lower extremity vein Chronicity: unspecified DVT location: lower extremity Laterality: bilateral Colovesical fistula N32.1 Dehiscence of fascia T81.30XD Encounter type: subsequent encounter Atrial fibrillation I48.0 Atrial fibrillation type: paroxysmal Metabolic encephalopathy G93.41 Arteriosclerotic cardiovascular disease I25.10 Hyperlipidemia E78.2 Hyperlipidemia type: mixed hyperlipidemia Gout M10.9 Chronicity: unspecified Gout etiology: unspecified cause Gout site: unspecified site Hypertension I10 Hypertension type: essential hypertension Candidiasis of mouth and esophagus B37.81; B37.0 DVT prophylaxis Z29.9 (1) Gout Chronicity: unspecified Gout etiology: unspecified cause Gout site: unspecified site Qualified Code(s): M10.9 - Gout, unspecified (2) DVT (deep venous thrombosis) Affected thrombotic vein of extremity: other lower extremity vein Chronicity: unspecified DVT location: lower extremity Laterality: bilateral Qualified Code(s): I82.493 - Acute embolism and thrombosis of other specified deep vein of lower extremity, bilateral (3) Atrial fibrillation Atrial fibrillation type: paroxysmal Qualified Code(s): I48.0 - Paroxysmal atrial fibrillation (4) Hyperlipidemia Hyperlipidemia type: mixed hyperlipidemia Qualified Code(s): E78.2 - Mixed hyperlipidemia (5) Dehiscence of fascia Encounter type: subsequent encounter Qualified Code(s): T81.30XD - Disruption of wound, unspecified, subsequent encounter (6) Hypertension Hypertension type: essential hypertension Qualified Code(s): I10 - Essential (primary) hypertension (7) Volume overload Hypervolemia type: unspecified Qualified Code(s): E87.70 - Fluid overload, unspecified
[2020-06-03] MEDS ORDERED: FUROSEMIDE 20 MG in SYRINGE 0 ML IV ONE (15:00)
[2020-06-03] MEDS: MoRPHine SULFATE 2 MG/ML CARP IV PRN (15:48)
[2020-06-03] MEDS ORDERED: CENTRAL PN IV SCH (16:00)
[2020-06-03] MEDS ORDERED: TPN IV SCH (16:00)
[2020-06-03] MEDS: ACETAMINOPHEN 325 MG TAB PO PRN (19:24)
[2020-06-03] MEDS ORDERED: RISPERIDONE ODT 1MG PO SCH (21:00)
[2020-06-03] MEDS: METOPROLOL TARTRATE 50 MG TAB PO SCH (21:03)
[2020-06-03] MEDS: PANTOprazole 40 MG TAB PO SCH (21:04)
[2020-06-04] MEDS: MoRPHine SULFATE 2 MG/ML CARP IV PRN (03:20)
[2020-06-04] MEDS: METOPROLOL TARTRATE 25 MG TAB PO ONE ×2 (04:46→05:06)
[2020-06-04 06:39] LABS: BUN Creatinine Ratio 18.7 (10-20); Calcium 8.1 mg/dl (8.5-10.1); Creatinine Clr Calc Pharmacy 87.5 ml/min; Est GFR (Non-African American) 85.4; Magnesium 2.2 mg/dl (1.8-2.4); Phosphorus 2.4 mg/dl (2.5-4.9); Potassium 3.5 mmol/L (3.5-5.1)
[2020-06-04] MEDS: TRIAMCINOLONE ACET NASAL SPRAY 10.8ML BTL NAE SCH (07:36)
[2020-06-04] MEDS: HYDROCORTISONE HC 2.5% CRM 30GM TUBE EXT SCH ×3 (07:36→20:34)
[2020-06-04] MEDS: METOPROLOL TARTRATE 50 MG TAB PO SCH ×2 (07:37→20:33)
[2020-06-04] MEDS: PANTOprazole 40 MG TAB PO SCH ×2 (07:37→20:34)
--- NOTE | 2020-06-04 08:25 | XRay Report ---
XR chest 1V portable CLINICAL HISTORY: fever COMPARISON STUDY: Chest CT May 20, 2020. Chest radiograph June 02, 2020. FINDINGS: Left PICC is in place. Cardiomediastinal silhouette is stable. Patient is mildly rotated. N o pneumothorax or pleural effusion is noted. There is no consolidation or evidence for pulmonary kai a. 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 Minimal left basilar opa city is unchanged. IMPRESSION: No acute cardiopulmonary findings. ACT 112: Negative or not required by law. Electronically signed by: Figueroa Wu M.D. 06/04/2020 8:24 AM
[2020-06-04 09:34] LABS: Appearance Urine Turbid (Clear); Bacteria Urine Automated Negative (Negative); Bilirubin Urine Negative (Negative); Blood Urine 2+ (Negative); Color Urine Yellow; Epithelial Cell Urine Auto 0-5 /lpf (0-5); Glucose Urine UA Negative (Negative); Ketones Urine Negative (Negative); Leukocyte Esterase Urine 2+ (Negative); Nitrite Urine Negative (Negative); Specific Gravity Urine 1.021 (1.000-1.030); Urobilinogen Urine Negative (Negative); pH Urine 8.5 (4.5-7.5)
[2020-06-04 09:42] LABS: Protein Urine 2+ (Negative)
[2020-06-04 09:43] LABS: Sulfosalicylic Acid Urine Positive (Negative)
[2020-06-04 09:51] LABS: Basophils # (auto) 0.01 K/uL (0-0.2); Basophils % (auto) 0.1 %; Eosinophils # (auto) 0.32 K/uL (0-0.5); Eosinophils % (auto) 3.3 %; Hematocrit (blood only) 26.5 % (42-52); Hemoglobin 8.6 g/dL (14.0-18.0); Immature Granulocytes # (auto) 0.07 K/uL (0.00-0.02); Immature Granulocytes % (auto) 0.7 %; Lymphocytes # (auto) 1.04 K/uL (1.2-3.4); Lymphocytes % (auto) 10.7 %; Mean Corpuscular Hemoglobin 28.3 pg (25-34); Mean Corpuscular Hgb Conc 32.5 g/dL (32-36); Mean Corpuscular Volume 87.2 fL (80-100); Mean Platelet Volume 8.9 fL (7.4-10.4); Monocytes # (auto) 1.15 K/uL (0.11-0.59); Monocytes % (auto) 11.9 %; Neutrophils % (auto) 73.3 %; Platelet Count 457 K/uL (130-400); RDW Coefficient of Variation 13.8 % (11.5-14.5); RDW Standard Deviation 44.6 fL (36.4-46.3); Red Blood Count 3.04 M/uL (4.7-6.1); White Blood Count 9.69 K/uL (4.8-10.8)
--- NOTE | 2020-06-04 10:53 | Surgery Progress Note ---
Date of Service June 04, 2020 Assessment & Plan (1) Ileostomy in place: The temperature elevation last evening likely due to the drainage at the ileostomy site no white count was appreciated no cellulitis on the incision and around the incision and on the right lower quadrant the midline incision without any drainage He is approximately 5 days postop closure of the ileostomy and appropriate time likely wound infection At this point he is tolerating a clear liquid diet has not had any more bowel function he is on hyperalimentation and his abdomen is benign KUB of the abdomen was ordered as stated not done yet recent being I wanted to follow up on an ileus that I cannot appreciate on a clinical finding Discussed the situation with Dr. Powers at this time I will hold off any antibiotic therapy unless the temperature would spike again keep him on a clear liquid diet and increase his activity kub seen likely ileus Present on Admission?: Yes Subjective He is sitting at the side of the bed in a chair according to the nurse has been there for about an hour he is voicing no complaints denies any abdominal pain denies any nausea has not had any more bowel movements Physical Exam Constitutional: WD/WN, vitals as above The patient mentally appears the same may be slightly more oriented to time and place He is well-hydrated his tongue is moist Place the patient back in bed reexamined his abdomen no pain no tenderness except the left lower quadrant where he may have had shots from heparin there is some ecchymosis The midline incision is free of any drainage the retention sutures are beginning to be loosened up we will leave it in for now The right lower quadrant ileostomy site that was drained were a Promise drain has some purulent drainage in the lateral drain exit therefore the drain was removed few roger were removed back to 1/2 inch plain gauze there is no cellulitis on the incision or around the area Extremities no peripheral edema Results & Data Vital Signs (Past 12 Hours) Vital Signs Temp Pulse Pulse Resp BP BP Pulse Ox 06/04/20 07:26 37.9 C H 95 H 18 128/82 96 06/04/20 07:12 108 H 06/04/20 04:05 37.6 C H 99 H 19 123/79 94 06/04/20 00:39 81 Patient had a temperature spike during the night with some tachycardia chest x- ray is negative for any infiltrate I did order an abdominal x-ray but has not been done yet no white count elevation and decreasing left shift PG Care Time/CCT Total # of Minutes Spent Total Time Spent with Patient: Total time spent is greater than 50% in coordination of care (as documented) at patient's floor/unit and/or counseling patient: Coding Level of Care Code None Diagnoses Ileostomy in place Z93.2
--- NOTE | 2020-06-04 11:29 | XRay Report ---
KUB HISTORY: follow up ileus COMPARISON: KUB 06/02/2020. FINDINGS: Mildly dilated gas-filled loops of large and small bowel are again noted. This is similar t o the prior study. An IVC filter is identified. Contrast and a Dsouza catheter within the bladder. Ski n roger within the right lower quadrant. No renal calculi. No ureteral calculi. No pneumoperitoneu m or pneumatosis. IMPRESSION: No changes in the mildly dilated gas-filled loops of large and small bowel. This favors an ileus give n the recent postoperative change. ACT 112: Negative or not required by law. Electronically signed by: Mickey Barney M.D. 06/04/2020 11:27 AM
[2020-06-04] MEDS: ACETAMINOPHEN 325 MG TAB PO PRN (11:47)
[2020-06-04] MEDS ORDERED: CENTRAL PN IV SCH (16:00)
[2020-06-04] MEDS ORDERED: TPN IV SCH (16:00)
--- NOTE | 2020-06-04 16:27 | Hospitalist Progress Note ---
Date of Service June 04, 2020 Assessment & Plan (1) SIRS (systemic inflammatory response syndrome): etiology?? blood cx's neg. urine cx pending. cxr negative. Spoke with Dr Marquez - may have been due to drain site. defer on abx for now. (2) Metabolic encephalopathy: ongoing. severe hospital psychosis. head CT earlier this week wnl. respite 2mg risperdal at HS did not sleep last night at all. d/c risperdal; change to seroquel at HS (25-50mg). B12 low-normal - replace IM for 5 days while here then PO supplementation thereafter. reinforce day/night cycles, avoid sedatives, etc. (3) Volume overload: improved s/p lasix yesterday with 2 L diuresis. volume status more appropriate today. hypoalbuminemia (alb 1.6) likely biggest contributor. (4) Tachycardia: sinus tach with occasional atrial tach at times cont metoprolol 50mg BID anemia, agitation, etc make the tachycardia worse cont telemetry keep K at 4 and mag at 2 (5) Pulmonary embolism and infarction: Early this hospitalization. PROVOKED due to recent abdominal surgeries. With b/l peroneal vein DVTs. On 2 occasions with heparin he had significant hematuria necessitating the stoppage of heparin. Ultimately had IVC filter placed by Dr Latham on 05/26/20. Remains off anticoagulation at this time. (6) DVT (deep venous thrombosis): b/l peroneal vein DVTs. 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 POD #20 s/p abdominal wound dehiscence exploratory surgery and closure. POD #5 s/p closure of ileostomy by Dr Marquez. Course complicated by dehiscence of wound as well as VTE, metabolic encephalopathy/delirium, feeding intolerance/ileus, anemia, volume overload. Defer management to surgery. TPN. Clears. (8) Dehiscence of fascia: POD #20 s/p exploratory abdominal wound closure due to abdominal dehiscence. Intra-op culture with pseudomonas - pansensitive. Received a course of IV abx for the pseudomonas above. (9) Atrial fibrillation: Continue Lopressor BID. He is not on chronic anticoagulation as outpatient. Not an anticoagulation candidate at this time due to recurrent hematuria. No PAF during this stay. Occasional a-tach. (10) Arteriosclerotic cardiovascular disease: asa on hold statin on hold (11) Hyperlipidemia: statin on hold (12) Gout: no issues/no flares (13) Hypertension: cont metoprolol 50 BID hold TAE hold CCB (14) Candidiasis of mouth and esophagus: resolved (15) B12 deficiency: level 282 technically this is normal but for elderly this is often a deficient level in light of severe delirium replace IM x 5 days straight, then po supplementation thereafter (16) DVT prophylaxis: IVC filter in place SCDs chemical means contraindicated due to hematuria earlier this admission discussed care w/ Dr Marquez again today updated by phone evening of 06/03/20 Admission and Anticipated Discharge Date Admission Date: May 09, 2020 Subjective despite 2mg risperdal last night he was up all night last night. apparently was combative with staff. this am he was calm and cooperative but very confused. most of the things he said were difficult to follow and unrelated. when asked where he was he reported somewhere other than the hospital. reported mild abd pain. tele overnight - NSR, sinus tach; 1 episode a-tach had fever overnight - blood cx's negative to date Review of Systems Review of Systems: Unobtainable due to cognitive status Physical Exam Constitutional: + altered mental status; no acute distress ENMT: external ear and nose normal, oropharynx normal Respiratory: normal respiratory effort, lungs clear to auscultation Cardiovascular: Rate/Rhythm: regular rhythm and + tachycardic Heart Sounds: normal S1 and normal S2; no murmur Vessels: posterior tibial pulses present and dorsalis pedis pulses present; no JVD Extremities: no edema Gastrointestinal (Abdomen): Inspection/Auscultation: normal bowel sounds; abdomen not distended Percussion/Palpation: abdomen nontender, no guarding and no hepatosplenomegaly Skin: abdominal sutures intact Psychiatric: Orientation: alert and oriented to person; + not oriented to place and + not oriented to time Results & Data Results & Data ([place]) Vital Signs (Past 12 Hours) Vital Signs Temp Pulse Pulse Resp BP BP Pulse Ox 06/04/20 15:15 36.8 C 91 H 18 119/82 98 06/04/20 07:26 37.9 C H 95 H 18 128/82 96 06/04/20 07:12 108 H Laboratory Results Laboratory Results - last 24 hr 06/03/20 06/04/20 06/04/20 18:05 00:03 05:25 WBC RBC Hgb Hct MCV MCH MCHC RDW Std Deviation RDW Coeff of Alda Plt Count MPV Immature Gran % (Auto) Neut % (Auto) Lymph % (Auto) [place] % (Auto) Eos % (Auto) Baso % (Auto) Neut # (Auto) Lymph # (Auto) [place] # (Auto) Eos # (Auto) Baso # (Auto) Immature Gran # (Auto) Sodium Potassium Chloride Carbon Dioxide Anion Gap BUN Creatinine Est Cr Clr Drug Dosing Est GFR ( Amer) Est GFR (Non-Af Amer) BUN/Creatinine Ratio Glucose POC Glucose 118 H 122 H Calcium Phosphorus Magnesium Vitamin B12 282 Urine Color Urine Appearance Urine pH Ur Specific [place] Urine Protein Urine Glucose (UA) Urine Ketones Urine Blood Urine Nitrite Urine Bilirubin Urine Urobilinogen Ur Leukocyte Esterase Urine WBC (Auto) Urine RBC (Auto) U Hyaline Cast (Auto) U Epithel Cells (Auto) Urine Bacteria (Auto) Urine Yeast 06/04/20 06/04/20 06/04/20 05:25 05:58 09:20 WBC 9.69 RBC 3.04 L Hgb 8.6 L Hct 26.5 L MCV 87.2 MCH 28.3 MCHC 32.5 RDW Std Deviation 44.6 RDW Coeff of Alda 13.8 Plt Count 457 H MPV 8.9 Immature Gran % (Auto) 0.7 Neut % (Auto) 73.3 Lymph % (Auto) 10.7 [place] % (Auto) 11.9 Eos % (Auto) 3.3 Baso % (Auto) 0.1 Neut # (Auto) 7.10 H Lymph # (Auto) 1.04 L [place] # (Auto) 1.15 H Eos # (Auto) 0.32 Baso # (Auto) 0.01 Immature Gran # (Auto) 0.07 H Sodium 136 Potassium 3.5 Chloride 103 Carbon Dioxide 28 Anion Gap 5.0 BUN 16 Creatinine 0.86 Est Cr Clr Drug Dosing 87.5 Est GFR ( Amer) 99.0 Est GFR (Non-Af Amer) 85.4 BUN/Creatinine Ratio 18.7 Glucose 115 H POC Glucose 145 H Calcium 8.1 L Phosphorus 2.4 L Magnesium 2.2 Vitamin B12 Urine Color Urine Appearance Urine pH Ur Specific [place] Urine Protein Urine Glucose (UA) Urine Ketones Urine Blood Urine Nitrite Urine Bilirubin Urine Urobilinogen Ur Leukocyte Esterase Urine WBC (Auto) Urine RBC (Auto) U Hyaline Cast (Auto) U Epithel Cells (Auto) Urine Bacteria (Auto) Urine Yeast 06/04/20 06/04/20 11:45 Unknown WBC RBC Hgb Hct MCV MCH MCHC RDW Std Deviation RDW Coeff of Alda Plt Count MPV Immature Gran % (Auto) Neut % (Auto) Lymph % (Auto) [place] % (Auto) Eos % (Auto) Baso % (Auto) Neut # (Auto) Lymph # (Auto) [place] # (Auto) Eos # (Auto) Baso # (Auto) Immature Gran # (Auto) Sodium Potassium Chloride Carbon Dioxide Anion Gap BUN Creatinine Est Cr Clr Drug Dosing Est GFR ( Amer) Est GFR (Non-Af Amer) BUN/Creatinine Ratio Glucose POC Glucose 112 H Calcium Phosphorus Magnesium Vitamin B12 Urine Color Yellow Urine Appearance Turbid A Urine pH 8.5 H Ur Specific [place] 1.021 Urine Protein 2+ H Urine Glucose (UA) Negative Urine Ketones Negative Urine Blood 2+ H Urine Nitrite Negative Urine Bilirubin Negative Urine Urobilinogen Negative Ur Leukocyte Esterase 2+ H Urine WBC (Auto) 10-30 H Urine RBC (Auto) 10-30 H U Hyaline Cast (Auto) 5-10 H U Epithel Cells (Auto) 0-5 Urine Bacteria (Auto) Negative Urine Yeast Present A blood cultures negative Diagnostic Findings cxr - no infiltrates PG Care Time/CCT Total # of Minutes Spent Total Time Spent with Patient: Total time spent is greater than 50% in coordination of care (as documented) at patient's floor/unit and/or counseling patient: Coding Level of Care Code 60108 Subseq Hosp Care Lvl 2 Diagnoses SIRS (systemic inflammatory response syndrome) R65.10 Metabolic encephalopathy G93.41 Volume overload E87.70 Hypervolemia type: unspecified Tachycardia R00.0 Pulmonary embolism and infarction I26.99 DVT (deep venous thrombosis) I82.493 DVT location: lower extremity Affected thrombotic vein of extremity: other lower extremity vein Chronicity: unspecified Laterality: bilateral Colovesical fistula N32.1 Dehiscence of fascia T81.30XD Encounter type: subsequent encounter Atrial fibrillation I48.0 Atrial fibrillation type: paroxysmal Arteriosclerotic cardiovascular disease I25.10 Hyperlipidemia E78.2 Hyperlipidemia type: mixed hyperlipidemia Gout M10.9 Gout site: unspecified site Gout etiology: unspecified cause Chronicity: unspecified Hypertension I10 Hypertension type: essential hypertension Candidiasis of mouth and esophagus B37.81; B37.0 B12 deficiency E53.8 DVT prophylaxis Z29.9 (1) Volume overload Hypervolemia type: unspecified Qualified Code(s): E87.70 - Fluid overload, unspecified (2) DVT (deep venous thrombosis) DVT location: lower extremity Affected thrombotic vein of extremity: other lower extremity vein Chronicity: unspecified Laterality: bilateral Qualified Code(s): I82.493 - Acute embolism and thrombosis of other specified deep vein of lower extremity, bilateral (3) Dehiscence of fascia Encounter type: subsequent encounter Qualified Code(s): T81.30XD - Disruption of wound, unspecified, subsequent encounter (4) Atrial fibrillation Atrial fibrillation type: paroxysmal Qualified Code(s): I48.0 - Paroxysmal atrial fibrillation (5) Hyperlipidemia Hyperlipidemia type: mixed hyperlipidemia Qualified Code(s): E78.2 - Mixed hyperlipidemia (6) Gout Gout site: unspecified site Gout etiology: unspecified cause Chronicity: unspecified Qualified Code(s): M10.9 - Gout, unspecified (7) Hypertension Hypertension type: essential hypertension Qualified Code(s): I10 - Essential (primary) hypertension
[2020-06-04] MEDS ORDERED: QUETIAPINE FUMARATE 25 MG TABLET PO PRN (16:43)
[2020-06-04] MEDS: POTASSIUM CHLORIDE 20 MEQ TABCR PO SCH ×2 (17:28→20:33)
[2020-06-04] MEDS: CYANOCOBALAMIN 1000 MCG/ML VIAL IM SCH (17:31)
[2020-06-04] MEDS: QUETIAPINE FUMARATE 25 MG TABLET PO SCH ×2 (20:35→22:01)
[2020-06-05 06:59] LABS: BUN Creatinine Ratio 25.7 (10-20); Calcium 8.1 mg/dl (8.5-10.1); Creatinine Clr Calc Pharmacy 86.5 ml/min; Est GFR (African American) 98.5; Magnesium 2.2 mg/dl (1.8-2.4); Potassium 3.7 mmol/L (3.5-5.1)
[2020-06-05 07:00] LABS: Phosphorus 2.4 mg/dl (2.5-4.9)
--- NOTE | 2020-06-05 07:53 | Surgery Progress Note ---
Date of Service June 05, 2020 Assessment & Plan (1) Ileostomy in place: Patient's main issue at this time remains his mental status with some days he feels responds more appropriately but this morning it was well asleep His abdomen is completely benign He has remained afebrile At this point we will advance the diet to a low residue diet keep him on hyperalimentation for today until we are sure that his oral intake is sufficient Present on Admission?: Yes Subjective Sleeping person one-on-one stated that he slept off and on during the night His roommate stated that he had a least 3 bowel movements during the night and needed to clean them up multiple times Physical Exam Physical Exam: Patient is sleeping very hard to arouse this morning he responds to verbal stimuli His tongue is moist His abdomen is completely benign much softer than yesterday lower midline incision continues to heal well there is no drainage Right lower quadrant incision at the ostomy site no cellulitis minimal draining around with the packing we will change it later today Results & Data Vital Signs (Past 12 Hours) Vital Signs Temp Pulse Pulse Resp BP Pulse Ox 06/05/20 07:08 100 H 06/05/20 06:59 36.7 C 92 H 20 123/70 97 06/05/20 01:26 98 H 06/04/20 22:45 37.2 C 92 H 20 129/80 97 There is been no recording of bowel movements since the patient had 1 approximately 48 hours ago but as stated roommate confirmed 3 bowel movements during the night PG Care Time/CCT Total # of Minutes Spent Total Time Spent with Patient: Total time spent is greater than 50% in coordination of care (as documented) at patient's floor/unit and/or counseling patient: Coding Level of Care Code None Diagnoses Ileostomy in place Z93.2
[2020-06-05] MEDS: METOPROLOL TARTRATE 50 MG TAB PO SCH ×2 (12:31→20:07)
[2020-06-05] MEDS: TRIAMCINOLONE ACET NASAL SPRAY 10.8ML BTL NAE SCH (12:31)
[2020-06-05] MEDS: POTASSIUM CHLORIDE 20 MEQ TABCR PO SCH ×2 (12:31→20:07)
[2020-06-05] MEDS: HYDROCORTISONE HC 2.5% CRM 30GM TUBE EXT SCH ×3 (12:32→20:08)
[2020-06-05] MEDS: PANTOprazole 40 MG TAB PO SCH ×2 (12:32→20:06)
[2020-06-05] MEDS: CYANOCOBALAMIN 1000 MCG/ML VIAL IM SCH (12:33)
--- NOTE | 2020-06-05 15:09 | Hospitalist Progress Note ---
Date of Service June 05, 2020 Assessment & Plan (1) Colovesical fistula: S/p takedown of fistula, bladder repair, sigmoidectomy and ileostomy creation on 05/09/2020. S/p abdominal wound dehiscence exploratory surgery and closure on 05/15/2020. - Intra-op culture from 05/15 grew Pseudomonas. S/p closure of ileostomy by Dr Marquez on 05/30/2020. - Course complicated by dehiscence of wound as well as VTE, metabolic encephalopathy/delirium, feeding intolerance/ileus, anemia, volume overload. - Defer management to surgery. - TPN & clear liquid diet per surgical team. (2) Metabolic encephalopathy: Ongoing. Likely delirium in the setting of prolonged hospitalization. Head CT on 06/01 was wnl. - Attempted risperidone without any benefit - Switched to quetiapine 25 mg PO HS - B12 low-normal - replace IM for 5 days while here then PO supplementation thereafter. (Until 06/09). - Reinforce day/night cycles, avoid sedatives, etc. (3) Volume overload: Improved s/p Lasix on 06/03 with 2 L diuresis. - Volume status more appropriate today. (4) Pulmonary embolism and infarction: Early this hospitalization. PROVOKED due to recent abdominal surgeries. With b/l peroneal vein DVTs. - On 2 occasions with heparin he had significant hematuria necessitating the stoppage of heparin. - Ultimately had IVC filter placed by Dr Latham on 05/26/20. - Remains off anticoagulation (5) Tachycardia: Sinus tach with occasional atrial tach at times. Likely due to PE/DVT, malnutrition. - Continue metoprolol 50mg BID (6) DVT (deep venous thrombosis): b/l peroneal vein DVTs. See above in "PE." (7) Atrial fibrillation: HR presently in the 80s. No paroxsymal afib this admission. - Continue Lopressor BID. - He is not on chronic anticoagulation for bleeding. Not an anticoagulation candidate at this time due to recurrent hematuria. (8) Arteriosclerotic cardiovascular disease: Holding ASA and statin for now. (9) Gout: No issues/no flares. - Monitor (10) Hypertension: BP is 125/75. - Cont metoprolol 50 BID - Hold TAE & calcium channel stephan (11) B12 deficiency: Level was 282 on 06/04/2020. Technically this is normal but for elderly this is often a deficient level. - In light of severe delirium replace IM x 5 days straight, then PO supplementation thereafter. (12) DVT prophylaxis: IVC filter in place. SCDs - Chemical means contraindicated due to hematuria earlier this admission Admission and Anticipated Discharge Date Admission Date: May 09, 2020 Subjective Pleasant for me today. Reports no fevers/chills, chest pain, shortness of breath, abdominal pain, nausea, or vomiting. Only AAOx1 (self). For place, he is not able to say hospital or [facility] or any other defining location. For time, he believes it is December 2000 and that Олег Moyer is president. Physical Exam Constitutional: WD/WN, vitals as above Eyes: EOM intact bilaterally; no conjunctival abnormality ENMT: external ear and nose normal, oropharynx normal Neck: trachea midline, no thyromegaly normal visual inspection Respiratory: normal respiratory effort, lungs clear to auscultation no respiratory distress Cardiovascular: RRR, no murmur, no edema Gastrointestinal (Abdomen): Inspection/Auscultation: abdomen normal to inspection; abdomen not distended Musculoskeletal: no cyanosis or clubbing, extremities motor strength 5/5 Skin: no rashes, warm and dry Neurologic: moves all extremities and awake Psychiatric: Orientation: alert, oriented to person and cooperative Results & Data Results & Data ([facility]) Vital Signs (Past 12 Hours) Vital Signs Temp Pulse Pulse Resp BP Pulse Ox 06/05/20 11:35 36.7 C 91 H 20 124/77 97 06/05/20 07:08 100 H 06/05/20 06:59 36.7 C 92 H 20 123/70 97 PG Care Time/CCT Total # of Minutes Spent Total Time Spent with Patient: Total time spent is greater than 50% in coordination of care (as documented) at patient's floor/unit and/or counseling patient: Coding Level of Care Code 42882 Subseq Hosp Care Lvl 3 Diagnoses Colovesical fistula N32.1 Metabolic encephalopathy G93.41 Volume overload E87.70 Hypervolemia type: unspecified Pulmonary embolism and infarction I26.99 Tachycardia R00.0 DVT (deep venous thrombosis) I82.493 DVT location: lower extremity Affected thrombotic vein of extremity: other lower extremity vein Chronicity: unspecified Laterality: bilateral Atrial fibrillation I48.0 Atrial fibrillation type: paroxysmal Arteriosclerotic cardiovascular disease I25.10 Gout M10.9 Gout site: unspecified site Gout etiology: unspecified cause Chronicity: unspecified Hypertension I10 Hypertension type: essential hypertension B12 deficiency E53.8 DVT prophylaxis Z29.9 (1) Volume overload Hypervolemia type: unspecified Qualified Code(s): E87.70 - Fluid overload, unspecified (2) DVT (deep venous thrombosis) DVT location: lower extremity Affected thrombotic vein of extremity: other lower extremity vein Chronicity: unspecified Laterality: bilateral Qualified Code(s): I82.493 - Acute embolism and thrombosis of other specified deep vein of lower extremity, bilateral (3) Atrial fibrillation Atrial fibrillation type: paroxysmal Qualified Code(s): I48.0 - Paroxysmal atrial fibrillation (4) Gout Gout site: unspecified site Gout etiology: unspecified cause Chronicity: unspecified Qualified Code(s): M10.9 - Gout, unspecified (5) Hypertension Hypertension type: essential hypertension Qualified Code(s): I10 - Essential (primary) hypertension
[2020-06-05] MEDS ORDERED: Custom Central Pn 2,000 ML in TPN BAG 0 ML IV SCH (16:00)
[2020-06-05] MEDS: COLCHICINE 0.6 MG TAB PO SCH (20:05)
[2020-06-05] MEDS: IBUPROFEN 200 MG TAB PO SCH (20:06)
[2020-06-05] MEDS: QUETIAPINE FUMARATE 25 MG TABLET PO SCH (20:08)
[2020-06-06 06:36] LABS: BUN Creatinine Ratio 30.2 (10-20); Calcium 8.4 mg/dl (8.5-10.1); Creatinine Clr Calc Pharmacy 93.7 ml/min; Magnesium 2.3 mg/dl (1.8-2.4); Potassium 4.2 mmol/L (3.5-5.1)
--- NOTE | 2020-06-06 07:41 | Surgery Progress Note ---
Date of Service June 06, 2020 Assessment & Plan (1) Ileostomy in place: The patient continues to do well his mental status appears to be improving although not completely normal he appears to be tolerating a regular diet his GI function has returned semi-formed stool normal color nonbloody At this point we will wean him off hyperalimentation after present bag infuses We will check the oral intake the BUN is slightly elevated 1 to make sure that the patient is well-hydrated and maintains his fluid intake Check with urology regarding the Dsouza catheter certainly can come on anytime but given his mental status they feel that it may be better just leave it in for now especially if he is going to rehab facility but they feel can remove anytime From a surgical point of view the patient should be ready to be transferred to a rehab facility this week we will check with the medical service make sure it is fine with them Present on Admission?: Yes Subjective Laying in bed comfortably denies any abdominal pain states she ate diet well yesterday Physical Exam Physical Exam: He is much more alert this morning still disoriented as far as time and place Oral mucosa is moist Lungs are clear The abdomen is completely benign retention sutures in the midline incision and are loosening up but not ready to be removed yet The right lower quadrant ileostomy site minimal drainage packing was removed there is no cellulitis the area was probed with a Q-tip and is very limited the fascia is intact packing was re-placed No pedal edema appreciated Dsouza in place and draining clear-colored urine Results & Data Vital Signs (Past 12 Hours) Vital Signs Temp Pulse Pulse Resp BP Pulse Ox 06/06/20 07:08 85 06/06/20 06:55 37.1 C 82 16 124/82 97 06/06/20 02:34 36.4 C L 74 18 122/81 98 06/06/20 00:35 77 06/05/20 22:54 36.3 C L 76 18 125/78 96 Patient is bowel function is returned had 2 bowel movements during the night and has been recorded PG Care Time/CCT Total # of Minutes Spent Total Time Spent with Patient: Total time spent is greater than 50% in coordination of care (as documented) at patient's floor/unit and/or counseling patient: Coding Level of Care Code None Diagnoses Ileostomy in place Z93.2
[2020-06-06] MEDS: CYANOCOBALAMIN 1000 MCG/ML VIAL IM SCH (08:29)
[2020-06-06] MEDS: POTASSIUM CHLORIDE 20 MEQ TABCR PO SCH ×2 (08:30→20:37)
[2020-06-06] MEDS: METOPROLOL TARTRATE 50 MG TAB PO SCH ×2 (08:30→20:39)
[2020-06-06] MEDS: IBUPROFEN 200 MG TAB PO SCH ×3 (08:31→20:37)
[2020-06-06] MEDS: PANTOprazole 40 MG TAB PO SCH ×2 (08:31→20:36)
[2020-06-06] MEDS: HYDROCORTISONE HC 2.5% CRM 30GM TUBE EXT SCH ×3 (08:32→20:38)
[2020-06-06] MEDS: COLCHICINE 0.6 MG TAB PO SCH ×2 (08:32→20:37)
[2020-06-06] MEDS: TRIAMCINOLONE ACET NASAL SPRAY 10.8ML BTL NAE SCH (08:32)
--- NOTE | 2020-06-06 11:46 | Hospitalist Progress Note ---
Date of Service June 06, 2020 Assessment & Plan (1) Colovesical fistula: S/p takedown of fistula, bladder repair, sigmoidectomy and ileostomy creation on 05/09/2020. S/p abdominal wound dehiscence exploratory surgery and closure on 05/15/2020. - Intra-op culture from 05/15 grew Pseudomonas. S/p closure of ileostomy by Dr Marquez on 05/30/2020. - Course complicated by dehiscence of wound as well as VTE, metabolic encephalopathy/delirium, feeding intolerance/ileus, anemia, volume overload. - Defer management to surgery. - TPN & clear liquid diet per surgical team. -> Discussed with Dr. Marquez today. Likely stop TPN today as he is tolerating diet. Possible discharge later this week. (2) Gout: Right ankle now with erythema, tenderness, and warmth. - Started ibuprofen and colchicine on 06/05. Improving today. (3) Metabolic encephalopathy: Ongoing, but improving. Likely delirium in the setting of prolonged hospitalization. Head CT on 06/01 was wnl. - Attempted risperidone without any benefit - Switched to quetiapine 25 mg PO HS - B12 low-normal - replace IM for 5 days while here then PO supplementation thereafter. (Until 06/09). - Reinforce day/night cycles, avoid sedatives, etc. (4) Volume overload: Improved s/p Lasix on 06/03 with 2 L diuresis. - Volume status more appropriate today. No further Lasix today. (5) Pulmonary embolism and infarction: Early this hospitalization. PROVOKED due to recent abdominal surgeries. With b/l peroneal vein DVTs. - On 2 occasions with heparin he had significant hematuria necessitating the stoppage of heparin. - Ultimately had IVC filter placed by Dr Latham on 05/26/20. - Remains off anticoagulation (6) Tachycardia: Sinus tach with occasional atrial tach at times. Likely due to PE/DVT, malnutrition. - Continue metoprolol 50mg BID - Improving. (7) DVT (deep venous thrombosis): b/l peroneal vein DVTs. See above in "PE." (8) Atrial fibrillation: HR presently in the 80s. No paroxsymal afib this admission. - Continue Lopressor BID. - He is not on chronic anticoagulation for bleeding. Not an anticoagulation candidate at this time due to recurrent hematuria. (9) Arteriosclerotic cardiovascular disease: Holding ASA and statin for now. (10) Hypertension: BP is 125/75. - Cont metoprolol 50 BID - Hold TAE & calcium channel stephan (11) B12 deficiency: Level was 282 on 06/04/2020. Technically this is normal but for elderly this is often a deficient level. - In light of severe delirium replace IM x 5 days straight, then PO supplementation thereafter. (12) DVT prophylaxis: IVC filter in place. SCDs - Chemical means contraindicated due to hematuria earlier this admission Admission and Anticipated Discharge Date Admission Date: May 09, 2020 Subjective Less confused today. Reports no fevers/chills, chest pain, shortness of breath, abdominal pain, nausea, or vomiting. Ankle is feeling some better. Physical Exam Constitutional: WD/WN, vitals as above Eyes: EOM intact bilaterally; no conjunctival abnormality ENMT: external ear and nose normal, oropharynx normal Neck: trachea midline, no thyromegaly normal visual inspection Respiratory: normal respiratory effort, lungs clear to auscultation no respiratory distress Cardiovascular: RRR, no murmur, no edema Gastrointestinal (Abdomen): Inspection/Auscultation: abdomen normal to inspection; abdomen not distended Musculoskeletal: no cyanosis or clubbing, extremities motor strength 5/5 Extremities: + joint enlargement (Right ankle with swelling and mild erythema.) Skin: no rashes, warm and dry Neurologic: moves all extremities and awake Psychiatric: Orientation: alert, oriented to person and cooperative Results & Data Results & Data ([facility]) Vital Signs (Past 12 Hours) Vital Signs Temp Pulse Pulse Resp BP Pulse Ox 06/06/20 07:08 85 06/06/20 06:55 37.1 C 82 16 124/82 97 06/06/20 02:34 36.4 C L 74 18 122/81 98 06/06/20 00:35 77 PG Care Time/CCT Total # of Minutes Spent Total Time Spent with Patient: Total time spent is greater than 50% in coordination of care (as documented) at patient's floor/unit and/or counseling patient: Coding Level of Care Code 99760 Subseq Hosp Care Lvl 2 Diagnoses Colovesical fistula N32.1 Gout M10.9 Gout site: unspecified site Gout etiology: unspecified cause Chronicity: unspecified Metabolic encephalopathy G93.41 Volume overload E87.70 Hypervolemia type: unspecified Pulmonary embolism and infarction I26.99 Tachycardia R00.0 DVT (deep venous thrombosis) I82.493 DVT location: lower extremity Affected thrombotic vein of extremity: other lower extremity vein Chronicity: unspecified Laterality: bilateral Atrial fibrillation I48.0 Atrial fibrillation type: paroxysmal Arteriosclerotic cardiovascular disease I25.10 Hypertension I10 Hypertension type: essential hypertension B12 deficiency E53.8 DVT prophylaxis Z29.9 (1) Volume overload Hypervolemia type: unspecified Qualified Code(s): E87.70 - Fluid overload, unspecified (2) DVT (deep venous thrombosis) DVT location: lower extremity Affected thrombotic vein of extremity: other lower extremity vein Chronicity: unspecified Laterality: bilateral Qualified Code(s): I82.493 - Acute embolism and thrombosis of other specified deep vein of lower extremity, bilateral (3) Atrial fibrillation Atrial fibrillation type: paroxysmal Qualified Code(s): I48.0 - Paroxysmal atrial fibrillation (4) Gout Gout site: unspecified site Gout etiology: unspecified cause Chronicity: unspecified Qualified Code(s): M10.9 - Gout, unspecified (5) Hypertension Hypertension type: essential hypertension Qualified Code(s): I10 - Essential (primary) hypertension
[2020-06-06] MEDS: QUETIAPINE FUMARATE 25 MG TABLET PO SCH (20:38)
--- NOTE | 2020-06-07 07:29 | Surgery Progress Note ---
Date of Service June 07, 2020 Assessment & Plan (1) Ileostomy in place: Patient is made good progress regarding GI function and urine function but his mental status is pretty much at a standstill I suspect this will improve once he comes out of the hospital and goes to rehab From the surgical point of view the patient can be discharged at any time medical service gives the okay from their point of view Patient will just needs wound care in the right lower quadrant will just go with packing changes and that should heal without any problem Would likely see in 1 week after discharge in the office and at that time consider taken out his retention sutures if he continues to make improvement on his mental status Present on Admission?: Yes Subjective Voicing no complaints stating had a good day yesterday tolerated a diet Physical Exam Physical Exam: Mental status is about the same and not oriented to time or place no neuro deficit responds appropriately to some questions like diet but I am not sure I accurate it is as far as his response He is resting comfortably in bed the sclerae nonicteric mouth oral mucosa moist The abdomen is soft midline incision retention sutures are continue to loosen up but would leave them in for now there is no drainage in the incision The right lower quadrant ileostomy site change the packing yesterday there is minimal drainage on the gauze there is no cellulitis no tenderness Extremities show swelling of the right ankle likely related to the gout the left ankle is free of any pedal edema The catheter came out was taken out yesterday the 101 stated that the patient void to the ones in the urinal another time was incontinence Seems like the bowel function has returned noted was a loose stool at midnight incontinent Results & Data Vital Signs (Past 12 Hours) Vital Signs Temp Pulse Pulse Resp BP Pulse Ox 06/07/20 06:55 36.6 C 75 16 125/79 99 06/07/20 03:47 37.0 C 73 20 118/80 97 06/06/20 23:45 75 06/06/20 22:43 37.0 C 57 L 20 117/76 99 06/06/20 20:40 82 135/80 Vitals noted PG Care Time/CCT Total # of Minutes Spent Total Time Spent with Patient: Total time spent is greater than 50% in coordination of care (as documented) at patient's floor/unit and/or counseling patient: Coding Level of Care Code None Diagnoses Ileostomy in place Z93.2
[2020-06-07] MEDS: IBUPROFEN 200 MG TAB PO SCH ×3 (07:50→21:31)
[2020-06-07] MEDS: POTASSIUM CHLORIDE 20 MEQ TABCR PO SCH ×2 (07:51→21:32)
[2020-06-07] MEDS: COLCHICINE 0.6 MG TAB PO SCH ×2 (07:51→21:32)
[2020-06-07] MEDS: PANTOprazole 40 MG TAB PO SCH ×2 (07:51→21:35)
[2020-06-07] MEDS: HYDROCORTISONE HC 2.5% CRM 30GM TUBE EXT SCH ×3 (07:52→21:35)
[2020-06-07] MEDS: CYANOCOBALAMIN 1000 MCG/ML VIAL IM SCH (07:52)
[2020-06-07] MEDS: METOPROLOL TARTRATE 50 MG TAB PO SCH ×2 (07:52→21:34)
[2020-06-07] MEDS: TRIAMCINOLONE ACET NASAL SPRAY 10.8ML BTL NAE SCH (07:53)
--- NOTE | 2020-06-07 15:33 | Hospitalist Progress Note ---
Date of Service June 07, 2020 Assessment & Plan (1) Colovesical fistula: S/p takedown of fistula, bladder repair, sigmoidectomy and ileostomy creation on 05/09/2020. S/p abdominal wound dehiscence exploratory surgery and closure on 05/15/2020. - Intra-op culture from 05/15 grew Pseudomonas. S/p closure of ileostomy by Dr Marquez on 05/30/2020. - Course complicated by dehiscence of wound as well as VTE, metabolic encephalopathy/delirium, feeding intolerance/ileus, anemia, volume overload. - Defer management to surgery. - Doing well at this point. Will foll (2) Gout: Right ankle now with erythema, tenderness, and warmth. - Started ibuprofen and colchicine on 06/05. Improving today. (3) Metabolic encephalopathy: Ongoing, but improving. Likely delirium in the setting of prolonged hospitalization. Head CT on 06/01 was wnl. - Attempted risperidone without any benefit - Switched to quetiapine 25 mg PO HS - B12 low-normal - replace IM for 5 days while here then PO supplementation thereafter. (Until 06/09). - Reinforce day/night cycles, avoid sedatives, etc. (4) Volume overload: Improved s/p Lasix on 06/03 with 2 L diuresis. - Volume status more appropriate today. No further Lasix today. (5) Pulmonary embolism and infarction: Early this hospitalization. PROVOKED due to recent abdominal surgeries. With b/l peroneal vein DVTs. - On 2 occasions with heparin he had significant hematuria necessitating the stoppage of heparin. - Ultimately had IVC filter placed by Dr Latham on 05/26/20. - Remains off anticoagulation (6) Tachycardia: Sinus tach with occasional atrial tach at times. Likely due to PE/DVT, malnutrition. - Continue metoprolol 50mg BID - Resolved. (7) DVT (deep venous thrombosis): B/l peroneal vein DVTs diagnosed on 05/20/2020. - See above in "PE." (8) Atrial fibrillation: HR presently in the 80s. No paroxsymal afib this admission. - Continue Lopressor BID. - He is not on chronic anticoagulation for bleeding. Not an anticoagulation candidate at this time due to recurrent hematuria. (9) Arteriosclerotic cardiovascular disease: - Holding ASA and statin for now. (10) Hypertension: BP is 105/75. - Cont metoprolol 50 BID - Hold TAE & calcium channel stephan (11) B12 deficiency: Level was 282 on 06/04/2020. Technically this is normal but for elderly this is often a deficient level. - In light of severe delirium replace IM x 5 days straight, then PO supplementation thereafter. (12) DVT prophylaxis: IVC filter in place. SCDs - Chemical means contraindicated due to hematuria earlier this admission Admission and Anticipated Discharge Date Admission Date: May 09, 2020 Subjective Doing some better. AAOx2 (self and date actually). Still not clear where he is. Reports no fevers/chills, chest pain, shortness of breath, abdominal pain, nausea, or vomiting. Physical Exam Constitutional: WD/WN, vitals as above Eyes: EOM intact bilaterally; no conjunctival abnormality ENMT: external ear and nose normal, oropharynx normal Neck: trachea midline, no thyromegaly normal visual inspection Respiratory: normal respiratory effort, lungs clear to auscultation no respiratory distress Cardiovascular: RRR, no murmur, no edema Gastrointestinal (Abdomen): Inspection/Auscultation: abdomen normal to inspection; abdomen not distended Musculoskeletal: no cyanosis or clubbing, extremities motor strength 5/5 Extremities: + joint enlargement (Right ankle with swelling and mild erythema.) Skin: no rashes, warm and dry Neurologic: moves all extremities and awake Psychiatric: Orientation: alert, oriented to person and cooperative Results & Data Results & Data ([facility]) Vital Signs (Past 12 Hours) Vital Signs Temp Pulse Pulse Resp BP Pulse Ox 06/07/20 15:02 77 06/07/20 11:33 36.7 C 83 19 104/74 97 06/07/20 08:00 78 06/07/20 06:55 36.6 C 75 16 125/79 99 06/07/20 03:47 37.0 C 73 20 118/80 97 PG Care Time/CCT Total # of Minutes Spent Total Time Spent with Patient: Total time spent is greater than 50% in coordination of care (as documented) at patient's floor/unit and/or counseling patient: Coding Level of Care Code 60458 Subseq Hosp Care Lvl 2 Diagnoses Colovesical fistula N32.1 Gout M10.9 Gout site: unspecified site Gout etiology: unspecified cause Chronicity: unspecified Metabolic encephalopathy G93.41 Volume overload E87.70 Hypervolemia type: unspecified Pulmonary embolism and infarction I26.99 Tachycardia R00.0 DVT (deep venous thrombosis) I82.493 DVT location: lower extremity Affected thrombotic vein of extremity: other lower extremity vein Chronicity: unspecified Laterality: bilateral Atrial fibrillation I48.0 Atrial fibrillation type: paroxysmal Arteriosclerotic cardiovascular disease I25.10 Hypertension I10 Hypertension type: essential hypertension B12 deficiency E53.8 DVT prophylaxis Z29.9 (1) Gout Gout site: unspecified site Gout etiology: unspecified cause Chronicity: unspecified Qualified Code(s): M10.9 - Gout, unspecified (2) Volume overload Hypervolemia type: unspecified Qualified Code(s): E87.70 - Fluid overload, unspecified (3) DVT (deep venous thrombosis) DVT location: lower extremity Affected thrombotic vein of extremity: other lower extremity vein Chronicity: unspecified Laterality: bilateral Qualified Code(s): I82.493 - Acute embolism and thrombosis of other specified deep vein of lower extremity, bilateral (4) Atrial fibrillation Atrial fibrillation type: paroxysmal Qualified Code(s): I48.0 - Paroxysmal atrial fibrillation (5) Hypertension Hypertension type: essential hypertension Qualified Code(s): I10 - Essential (primary) hypertension
[2020-06-07] MEDS: QUETIAPINE FUMARATE 25 MG TABLET PO SCH (21:36)
--- NOTE | 2020-06-08 07:40 | Surgery Progress Note ---
Date of Service June 08, 2020 Assessment & Plan (1) Ileostomy in place: From the surgical point of view the patient can be transferred to a rehab the issue is his mental status that I am sure will improve with time He is tolerating a regular diet his bowels are moving occasionally incontinence of urine Present on Admission?: Yes Subjective Patient is voicing no complaints stating that he ate well yesterday and bowels are moving no abdominal pain Physical Exam Physical Exam: Patient still confused [facility] but cannot identify his paulina Floyd Is comfortable laying in bed without any complaints or pain The abdomen is completely benign midline incision is healing well we will leave the retention sutures in for now although they are beginning to loosen up The right lower quadrant incision from closure ileostomy I removed the packing minimal drainage no cellulitis quarter-inch packing was reapplied Results & Data Vital Signs (Past 12 Hours) Vital Signs Temp Pulse Pulse Resp BP Pulse Ox 06/08/20 07:24 78 06/08/20 06:59 36.7 C 72 18 106/71 98 06/08/20 04:40 36.6 C 73 17 130/88 99 06/07/20 23:20 79 06/07/20 20:55 36.5 C 86 18 107/76 99 PG Care Time/CCT Total # of Minutes Spent Total Time Spent with Patient: Total time spent is greater than 50% in coordination of care (as documented) at patient's floor/unit and/or counseling patient: Coding Level of Care Code None Diagnoses Ileostomy in place Z93.2
[2020-06-08] MEDS: CYANOCOBALAMIN 1000 MCG/ML VIAL IM SCH (08:41)
[2020-06-08] MEDS: PANTOprazole 40 MG TAB PO SCH ×2 (08:41→20:48)
[2020-06-08] MEDS: METOPROLOL TARTRATE 50 MG TAB PO SCH ×2 (08:42→20:47)
[2020-06-08] MEDS: IBUPROFEN 200 MG TAB PO SCH ×2 (08:42→14:32)
[2020-06-08] MEDS: POTASSIUM CHLORIDE 20 MEQ TABCR PO SCH ×2 (08:42→20:47)
[2020-06-08] MEDS: COLCHICINE 0.6 MG TAB PO SCH ×2 (08:42→20:47)
[2020-06-08] MEDS: HYDROCORTISONE HC 2.5% CRM 30GM TUBE EXT SCH ×3 (08:43→20:48)
[2020-06-08] MEDS: TRIAMCINOLONE ACET NASAL SPRAY 10.8ML BTL NAE SCH (08:43)
--- NOTE | 2020-06-08 15:39 | Hospitalist Progress Note ---
Date of Service June 08, 2020 Assessment & Plan (1) Colovesical fistula: S/p takedown of fistula, bladder repair, sigmoidectomy and ileostomy creation on 05/09/2020. S/p abdominal wound dehiscence exploratory surgery and closure on 05/15/2020. - Intra-op culture from 05/15 grew Pseudomonas. S/p closure of ileostomy by Dr Marquez on 05/30/2020. - Course complicated by dehiscence of wound as well as VTE, metabolic encephalopathy/delirium, feeding intolerance/ileus, anemia, volume overload. - Defer management to surgery. - Doing well at this point. Will follow up as outpatient. (2) Gout: Right ankle now with erythema, tenderness, and warmth. - Started ibuprofen and colchicine on 06/05. Resolved today. - Would continue colchicine 0.6 mg PO daily x 2 more days (2 days past flare resolution). (3) Metabolic encephalopathy: Ongoing, but improving. Likely delirium in the setting of prolonged hospitalization. Head CT on 06/01 was wnl. - Attempted risperidone without any benefit - Switched to quetiapine 25 mg PO HS - B12 low-normal - replace IM for 5 days while here then PO supplementation thereafter. (Until 06/09). - Reinforce day/night cycles, avoid sedatives, etc. (4) Volume overload: Improved s/p Lasix on 06/03 with 2 L diuresis. - Volume status more appropriate today. No further Lasix today. (5) Pulmonary embolism and infarction: Early this hospitalization. PROVOKED due to recent abdominal surgeries. With b/l peroneal vein DVTs. - On 2 occasions with heparin he had significant hematuria necessitating the stoppage of heparin. - Ultimately had IVC filter placed by Dr Latham on 05/26/20. - Remains off anticoagulation (6) Tachycardia: Sinus tach with occasional atrial tach at times. Likely due to PE/DVT, malnutrition. - Continue metoprolol 50mg BID - Resolved. (7) DVT (deep venous thrombosis): B/l peroneal vein DVTs diagnosed on 05/20/2020. - See above in "PE." (8) Atrial fibrillation: HR presently in the 80s. No paroxsymal afib this admission. - Continue Lopressor BID. - He is not on chronic anticoagulation for bleeding. Not an anticoagulation candidate at this time due to recurrent hematuria. (9) Arteriosclerotic cardiovascular disease: - Holding ASA and statin for now. (10) Hypertension: BP is 105/75. - Cont metoprolol 50 BID - Hold TAE & calcium channel stephan (11) B12 deficiency: Level was 282 on 06/04/2020. Technically this is normal but for elderly this is often a deficient level. - In light of severe delirium replace IM x 5 days straight, then PO supplementation thereafter. (12) DVT prophylaxis: IVC filter in place. SCDs - Chemical means contraindicated due to hematuria earlier this admission Admission and Anticipated Discharge Date Admission Date: May 09, 2020 Subjective Doing well today. No major concerns. Ankle feels well. Reports no fevers/chills, chest pain, shortness of breath, abdominal pain, nausea, or vomiting. Physical Exam Constitutional: WD/WN, vitals as above Eyes: EOM intact bilaterally; no conjunctival abnormality ENMT: external ear and nose normal, oropharynx normal Neck: trachea midline, no thyromegaly normal visual inspection Respiratory: normal respiratory effort, lungs clear to auscultation no respiratory distress Cardiovascular: RRR, no murmur, no edema Gastrointestinal (Abdomen): Inspection/Auscultation: abdomen normal to inspection; abdomen not distended Musculoskeletal: no cyanosis or clubbing, extremities motor strength 5/5 Extremities: + joint enlargement (Right ankle with swelling and mild erythema.) Skin: no rashes, warm and dry Neurologic: moves all extremities and awake Psychiatric: Orientation: alert, oriented to person and cooperative Results & Data Results & Data ([facility]) Vital Signs (Past 12 Hours) Vital Signs Temp Pulse Pulse Resp BP Pulse Ox 06/08/20 15:30 36.4 C L 95 H 20 143/91 H 98 06/08/20 11:45 36.3 C L 77 18 108/73 97 06/08/20 08:02 77 06/08/20 07:24 78 06/08/20 06:59 36.7 C 72 18 106/71 98 06/08/20 04:40 36.6 C 73 17 130/88 99 PG Care Time/CCT Total # of Minutes Spent Total Time Spent with Patient: Total time spent is greater than 50% in coordination of care (as documented) at patient's floor/unit and/or counseling patient: Coding Level of Care Code 36961 Subseq Hosp Care Lvl 2 Diagnoses Colovesical fistula N32.1 Gout M10.9 Gout site: unspecified site Gout etiology: unspecified cause Chronicity: unspecified Metabolic encephalopathy G93.41 Volume overload E87.70 Hypervolemia type: unspecified Pulmonary embolism and infarction I26.99 Tachycardia R00.0 DVT (deep venous thrombosis) I82.493 DVT location: lower extremity Affected thrombotic vein of extremity: other lower extremity vein Chronicity: unspecified Laterality: bilateral Atrial fibrillation I48.0 Atrial fibrillation type: paroxysmal Arteriosclerotic cardiovascular disease I25.10 Hypertension I10 Hypertension type: essential hypertension B12 deficiency E53.8 DVT prophylaxis Z29.9 (1) Gout Gout site: unspecified site Gout etiology: unspecified cause Chronicity: unspecified Qualified Code(s): M10.9 - Gout, unspecified (2) Volume overload Hypervolemia type: unspecified Qualified Code(s): E87.70 - Fluid overload, unspecified (3) DVT (deep venous thrombosis) DVT location: lower extremity Affected thrombotic vein of extremity: other lower extremity vein Chronicity: unspecified Laterality: bilateral Qualified Code(s): I82.493 - Acute embolism and thrombosis of other specified deep vein of lower extremity, bilateral (4) Atrial fibrillation Atrial fibrillation type: paroxysmal Qualified Code(s): I48.0 - Paroxysmal atrial fibrillation (5) Hypertension Hypertension type: essential hypertension Qualified Code(s): I10 - Essential (primary) hypertension
[2020-06-08] MEDS: QUETIAPINE FUMARATE 25 MG TABLET PO SCH (20:49)
[2020-06-09] MEDS: METOPROLOL TARTRATE 50 MG TAB PO SCH (07:52)
[2020-06-09] MEDS: POTASSIUM CHLORIDE 20 MEQ TABCR PO SCH (07:52)
[2020-06-09] MEDS: TRIAMCINOLONE ACET NASAL SPRAY 10.8ML BTL NAE SCH (07:52)
[2020-06-09] MEDS: PANTOprazole 40 MG TAB PO SCH (07:53)
[2020-06-09] MEDS: CYANOCOBALAMIN 1000 MCG/ML VIAL IM SCH (07:53)
[2020-06-09] MEDS: COLCHICINE 0.6 MG TAB PO SCH (07:53)
[2020-06-09] MEDS: HYDROCORTISONE HC 2.5% CRM 30GM TUBE EXT SCH ×2 (07:53→12:26)
--- NOTE | 2020-06-09 08:06 | Surgery Progress Note ---
Date of Service June 09, 2020 Assessment & Plan (1) Ileostomy in place: Patient can be discharged to rehab facility today or when authorization is approved by insurance company We will see the patient in the office in approximately 1 week no restriction on his activity he can shower the packing in the right lower quadrant incision should be repacked every 48 hours Spoke with his Meena this morning and brought her up-to-date on possible discharge today activities for patient and follow-up with us in the office next week Present on Admission?: Yes Subjective Awake without any complaints states he ate well yesterday he is passing his urine off and on incontinent and his bowels are moved Denies any abdominal pain Physical Exam Physical Exam: Awake still disoriented to time and place but appears to be much more alert Oropharyngeal mucosa is moist The abdomen is completely benign the retention sutures becoming looser in the incision without any drainage The right lower quadrant ileostomy site the packing is minimal drainage there is no cellulitis except some reaction around a few roger that are remaining Results & Data Vital Signs (Past 12 Hours) Vital Signs Temp Pulse Pulse Resp BP BP Pulse Ox 06/09/20 07:34 36.5 C 83 18 114/74 96 06/09/20 07:22 74 06/09/20 03:07 36.7 C 83 19 131/87 96 06/09/20 00:25 82 06/08/20 22:56 36.9 C 80 19 150/79 H 97 Packing was removed and the ostomy site repacked with quarter inch plain gauze Retention sutures were removed PG Care Time/CCT Total # of Minutes Spent Total Time Spent with Patient: Total time spent is greater than 50% in coordination of care (as documented) at patient's floor/unit and/or counseling patient: Coding Level of Care Code None Diagnoses Ileostomy in place Z93.2
[2020-06-09] MEDS: ACETAMINOPHEN 325 MG TAB PO PRN (12:25)
--- NOTE | 2020-06-09 16:49 | Hospitalist Progress Note ---
Date of Service June 09, 2020 Assessment & Plan (1) Colovesical fistula: S/p takedown of fistula, bladder repair, sigmoidectomy and ileostomy creation on 05/09/2020. S/p abdominal wound dehiscence exploratory surgery and closure on 05/15/2020. - Intra-op culture from 05/15 grew Pseudomonas. S/p closure of ileostomy by Dr Marquez on 05/30/2020. - Course complicated by dehiscence of wound as well as VTE, metabolic encephalopathy/delirium, feeding intolerance/ileus, anemia, volume overload. - Defer management to surgery. - Doing well at this point. Will follow up as outpatient. (2) Gout: Right ankle now with erythema, tenderness, and warmth. - Started ibuprofen and colchicine on 06/05. Resolved today. - Would continue colchicine 0.6 mg PO daily x 2 more days (2 days past flare resolution). Resolved. (3) Metabolic encephalopathy: Ongoing, but improving. Likely delirium in the setting of prolonged hospitalization. Head CT on 06/01 was wnl. - Attempted risperidone without any benefit - Switched to quetiapine 25 mg PO HS - B12 low-normal - replace IM for 5 days while here then PO supplementation thereafter. (Until 06/09). - Reinforce day/night cycles, avoid sedatives, etc. (4) Volume overload: Improved s/p Lasix on 06/03 with 2 L diuresis. - Volume status more appropriate today. No further Lasix today. (5) Pulmonary embolism and infarction: Early this hospitalization. PROVOKED due to recent abdominal surgeries. With b/l peroneal vein DVTs. - On 2 occasions with heparin he had significant hematuria necessitating the stoppage of heparin. - Ultimately had IVC filter placed by Dr Latham on 05/26/20. - Remains off anticoagulation (6) Tachycardia: Sinus tach with occasional atrial tach at times. Likely due to PE/DVT, malnutrition. - Continue metoprolol 50mg BID - Resolved. (7) DVT (deep venous thrombosis): B/l peroneal vein DVTs diagnosed on 05/20/2020. - See above in "PE." (8) Atrial fibrillation: HR presently in the 80s. No paroxsymal afib this admission. - Continue Lopressor BID. - He is not on chronic anticoagulation for bleeding. Not an anticoagulation candidate at this time due to recurrent hematuria. (9) Arteriosclerotic cardiovascular disease: - Holding ASA and statin for now. (10) Hypertension: BP is 105/75. - Cont metoprolol 50 BID - Hold TAE & calcium channel stephan (11) B12 deficiency: Level was 282 on 06/04/2020. Technically this is normal but for elderly this is often a deficient level. - In light of severe delirium replace IM x 5 days straight, then PO supplementation thereafter. (12) DVT prophylaxis: IVC filter in place. SCDs - Chemical means contraindicated due to hematuria earlier this admission Admission and Anticipated Discharge Date Admission Date: May 09, 2020 Subjective Doing well today. No ankle pain. Reports no fevers/chills, chest pain, shortness of breath, abdominal pain, nausea, or vomiting. Physical Exam Constitutional: WD/WN, vitals as above Eyes: EOM intact bilaterally; no conjunctival abnormality ENMT: external ear and nose normal, oropharynx normal Neck: trachea midline, no thyromegaly normal visual inspection Respiratory: normal respiratory effort, lungs clear to auscultation no respiratory distress Cardiovascular: RRR, no murmur, no edema Gastrointestinal (Abdomen): Inspection/Auscultation: abdomen normal to inspection; abdomen not distended Musculoskeletal: no cyanosis or clubbing, extremities motor strength 5/5 Extremities: + joint enlargement (Right ankle with swelling and mild erythema.) Skin: no rashes, warm and dry Neurologic: moves all extremities and awake Psychiatric: Orientation: alert, oriented to person and cooperative Results & Data Results & Data ([facility]) Vital Signs (Past 12 Hours) Vital Signs Temp Pulse Pulse Resp BP BP Pulse Ox 06/09/20 14:21 36.3 C L 84 18 150/79 H 97/67 L 99 06/09/20 11:14 36.3 C L 84 18 97/67 L 99 06/09/20 07:34 36.5 C 83 18 114/74 96 06/09/20 07:22 74 PG Care Time/CCT Total # of Minutes Spent Total Time Spent with Patient: Total time spent is greater than 50% in coordination of care (as documented) at patient's floor/unit and/or counseling patient: Coding Level of Care Code 64831 Subseq Hosp Care Lvl 2 Diagnoses Colovesical fistula N32.1 Gout M10.9 Gout site: unspecified site Gout etiology: unspecified cause Chronicity: unspecified Metabolic encephalopathy G93.41 Volume overload E87.70 Hypervolemia type: unspecified Pulmonary embolism and infarction I26.99 Tachycardia R00.0 DVT (deep venous thrombosis) I82.493 DVT location: lower extremity Affected thrombotic vein of extremity: other lower extremity vein Chronicity: unspecified Laterality: bilateral Atrial fibrillation I48.0 Atrial fibrillation type: paroxysmal Arteriosclerotic cardiovascular disease I25.10 Hypertension I10 Hypertension type: essential hypertension B12 deficiency E53.8 DVT prophylaxis Z29.9 (1) Gout Gout site: unspecified site Gout etiology: unspecified cause Chronicity: unspecified Qualified Code(s): M10.9 - Gout, unspecified (2) Volume overload Hypervolemia type: unspecified Qualified Code(s): E87.70 - Fluid overload, unspecified (3) DVT (deep venous thrombosis) DVT location: lower extremity Affected thrombotic vein of extremity: other lower extremity vein Chronicity: unspecified Laterality: bilateral Qualified Code(s): I82.493 - Acute embolism and thrombosis of other specified deep vein of lower extremity, bilateral (4) Atrial fibrillation Atrial fibrillation type: paroxysmal Qualified Code(s): I48.0 - Paroxysmal atrial fibrillation (5) Hypertension Hypertension type: essential hypertension Qualified Code(s): I10 - Essential (primary) hypertension
--- NOTE | 2020-06-12 15:23 | Discharge Summary ---
Date of Service June 12, 2020 Principal Diagnosis Colovesical Fistula Fascial Dehiscence Pulmonary emboli DVT Metabolic encephalopathy Gout Discharge Exam awake Gastrointestinal (Abdomen) Inspection/Auscultation: + abdominal surgical incision (packing to RLQ w some roger in place. midline retention sutures removed) Percussion/Palpation: abdomen soft; abdomen nontender Discharge Data Allergies Allergy/AdvReac Type Severity Reaction Status Date / Time ezetimibe [From Zetia] AdvReac Intermediate sore joints Verified 05/09/20 09:07 lovastatin AdvReac Intermediate sore joints Verified 05/09/20 09:07 Consultations 05/12/20 08:31 Consult Hospitalist Routine 05/19/20 12:11 Consult Urology Routine 05/22/20 02:39 Consult Gastroenterology Routine 05/22/20 02:44 Consult Vascular Surgery Routine Procedures Performed Operation Date: 05/09/20 10:20 Actual Procedures p Laparoscopic Assisted Takedown of Colovesicular Fistula, Sigmoid Colon Resection, Protective Ileostomy(Not Applicable) - Lex Marquez MD Operation Date: 05/15/20 11:50 Actual Procedures p Exploratory Abdominal Wound Closure abdominal dehisence - Lex Marquez MD Operation Date: 05/26/20 08:50 Actual Procedures p Inferior Vena Cava Filter Placement with Conscious Sedation(Right) - Christoph Latham MD Operation Date: 05/30/20 10:00 Actual Procedures p Small Bowel Resection with Closure of Ileostomy - Lex Marquez MD Ordered Studies 05/12/20 07:29 CT abd pelvis IV con only Routine 05/19/20 07:07 FL cystogram Routine 05/20/20 15:19 CT angio chest PE protocol Urgent 05/20/20 18:32 US venous doppler LE BI Stat 05/24/20 07:19 FL barium enema Routine 05/26/20 15:09 EV IVC filter placement Routine 06/01/20 13:17 CT head/brain wo con Routine Hospital Course (1) Colovesical fistula: This is a 75y M who was admitted to the [facility] on 05/09/20 after going to the OR with Dr. Marquez for a laparoscopic assisted takedown of colovesical fistula, sigmoid colon resection, and creation of protective ileostomy. The patient tolerated the procedure well, see op note for full details. The patient was transferred to the nursing floor in stable condition with a matthews catheter, NGT, ileostomy, and FREDIS drain. Patient self d/c'd NGT overnight and it was left out and clear liquids started. On POD#3 patient's NGT was replaced due to concern for post op ileus. Medicine was consulted to follow along patient's hospitalization at this point for assistance with medical management. As patient started having more meaningful output from his ostomy the NGT was removed again and diet advanced slowly. Pain controlled initially with a HAMMERER TAB and IV pain meds then he transitioned to an oral regimen. Patient's post op course was complicated by a fascial dehiscence of which he returned to the OR on 05/15/20 for an ex-lap with closure of abdominal wound dehiscence. Retention sutures left in place. Cultures grew pseudomonas and he completed a course of antibiotic for this. Thereafter, his diet was again advanced slowly as tolerated. Around this time patient started having ongoing confusion requiring a 1:1 at times to limit pulling at lines/IV's, likely related to prolonged hospitalization. He did have a head CT that was unremarkable, he was started on B12 supplementation, and prn seroquel was utilized. On 7/ patient underwent a cystogram that revealed no evidence of leak. Urology was consulted thereafter as he developed hematuria, likely from trying to pull out catheter during a time of confusion. Hematuria was monitored and sometimes required irrigation of the matthews. On 05/20 patient had some chest discomfort and underwent a chest CT that revealed numerous bilateral pulmonary emboli and lower extremity duplexes showing bilateral DVTs in the peroneal vein. Patient was subsequently started on heparin gtt, however it had to be held multiple times due to ongoing hematuria. His matthews was ultimately removed, but due to low urinary output and ongoing intermittent hematuria with clots it was replaced. Vascular was consulted and asked to consider placing an IVC filter of which they agreed and performed on 05/26. He was not resumed on anticoagulation s/p filter placement. Due to high output from ileostomy and concerns related to patient's mental status that he could keep himself well hydrated, decision was made to close patient's ileostomy. He did undergo a contrast study via his rectum that revealed no leak at the anastomosis. Ileostomy closure was performed by Dr. Marquez on 05/30. Patient had an NGT thereafter. He was started on TPN as a bridge to support his nutrition until he could resume a diet again. NGT was removed when patient started having me aningful bowel function. His diet was advanced from clears to a low fiber diet of which he tolerated well. Patient did have some tachycardia and elevated temps s/p ileostomy closure. His old ileostomy site was opened due to some purulent drainage and was packed with nu-gauze, changed every other day, no abx needed. His matthews catheter was ultimately removed on 06/06 and patient was able to void thereafter, no further hematuria noted. He did develop gout of his ankle of which he was started on a course of colchicine and ibuprofen for. Patient worked with PT/OT during his stay and case management helped with finding a [facility]p facility for patient to be transferred to upon discharge. Once patient was stable off of his 1:1, case management found placement for him on 06/09. Patient still with intermittent confusion, but overall improving. Patient's retention sutures were removed prior to discharge and he was instructed to follow up in surgery clinic with Dr. Marquez within 1 week. Total Time Total Time Spent Total Time Spent (In Minutes): 20 Discharge Plan Discharge Items Patient Disposition: Transfer Group Home Fac Reason For Visit: Colovesical Fistula Discharge Diagnosis: laparoscopic take down of colovesicular fistula Condition on Discharge: Good Health Concerns: confusion post op slowly improving Activity: Per Instructions section Activity Comment: increase activity as tolerated Lifting: No more than 10 pounds Bathing Comment: may shower. no soaking in tubs Sexual Activity: Wait until after follow-up appointment Exercise/Sports: Wait until after follow-up appointment Driving/Machine Use: no driving Weightbearing: Full weightbearing Non-emergency contact: Surgeon Call non-emergency contact if: you have any medication questions, your symptoms worsen, your pain is not controlled, your pain is worsening, your pain is concerning for you, you have a fever, your temperature is above 101.5, your wound has increased redness, your wound has increased drainage and your wound pain has increased Follow-up/Referrals: Lex Marquez MD [Surgeon] - (Please call to schedule follow up in clinic within 1 week) Larry Rodriguez [Primary Care Provider] - Diet: Low Fiber Fluids: 1800ml (7 cups) Diet Texture: Easy to Chew Addtl Attending Provider Instructions: Your right lower abdominal incision packing should be changed every other day. Pack wound with 1/2" nu-gauze, and cover wound with 4x4 gauze and medipore tape. You have surgical roger that will be removed when you follow up in clinic next week. You may take Tylenol and/or Ibuprofen if needed for pain. -Tylenol 650mg orally every 4-6 hours, as needed for pain. -Ibuprofen 200mg-400mg orally every 6-8 hours, as needed for pain. Addtl [employer] Provider Instructions: Please use colchicine 0.6 mg PO daily until 06/11/2020 for gout flare in the right ankle. Your home Lisinopril has been held. As your blood pressure normalizes you may restart this medication. Please note that your Metoprolol dose has been increased to 50mg orally twice daily. Pending Studies at Discharge: Yes Studies:: surgical pathology Stand-Alone Forms: My [facility] Skilled Items Patient informed of condition?: Yes DNR: No Discharge Level of Care: Skilled Communicable Disease: No Discharge Prognosis: Improving Lines: None Urinary Catheter: No Medications and DC Order Prescriptions: New colchicine [Colcrys] 0.6 mg Tablet 0.6 mg PO DAILY Qty: 1 RF: 0 acetaminophen 325 mg Tablet 650 mg PO Q4H PRN (Reason: pain) Qty: 60 RF: 0 metoprolol tartrate 50 mg Tablet 50 mg PO BID Qty: 60 RF: 0 Continued atorvastatin 10 mg tablet 10 mg PO QPM Qty: 90 RF: 3 aspirin [Adult Aspirin Regimen] 81 mg tablet,delayed release (DR/EC) 81 mg PO DAILY RF: 0 sucralfate [Carafate] 1 gram Tablet 1 g PO BID RF: 0 omeprazole 40 mg Capsule,Delayed Release(Dr/Ec) 40 mg PO QPM RF: 0 Discontinued metoprolol tartrate 25 mg tablet 25 mg PO BID Qty: 180 RF: 3 lisinopril 5 mg tablet 5 mg PO DAILY RF: 0 acetaminophen [Tylenol Extra Strength] 500 mg Tablet 500 mg PO DAILY PRN (Reason: Pain) RF: 0 Discharge Orders: Discharge Order (Routine); Ordered 06/09/20 Ordered By: Vijaya Abbasi/Other Patient Handouts: Ileostomy: Nutritional Management Admission Data Admit Date/Time: 05/09/20 14:38 Attending Provider: Lex Marquez Admit Provider: Lex Marquez Primary Care Provider: Larry Rodriguez Other Providers: [facility]Home [facility] ; [facility] ; Eliseo Herrera ; Armen Hatch ; Christoph Latham ; Dennys Mckeon Other Interventions: Discharge Summary Assessment (RN) Last Done: 06/09/20 14:21 DC Date/Time DO NOT enter until pt leaves facility: 06/09/20 15:33 Coding Level of Care Code D/C Day Management <30 mins Diagnoses Colovesical fistula N32.1
== END 2020-06-09 15:33 | DRG 653 ==
LOC: ASU 08:36 → 3N 14:38 → 2N 05-20 18:33

== ENCOUNTER 2022-02-21 11:13 | Inpatient (IN) ==
--- NOTE | 2022-02-19 12:44 | Anesthesiology Consultation ---
Date of Service February 19, 2022 Assessment & Plan (1) Encounter for pre-operative examination: - general surgery office visit 12/25/2021 [place]: "...approximately 8 months postop repair of a supraumbilical incisional hernia laparoscopically unfortunately he developed a draining sinus above the umbilical area consistent with initially as a seroma and eventually developed into an infected mesh..." - cardiology office visit 11/20/2021 [place]: "...remote history of atrial fibrillation who returns to the clinic for an annual evaluation...has been feeling well...maintained a good level of activity...ambulates in the [place] and hikes for extended distances...able to chop wood and carry wood without significant limitation. He denies symptoms of limiting dyspnea. Does have an element of mild dyspnea at times that does not appear to have changed recently. Is chest pain at rest or with exertion. Very rare and fleeting palpitations often times after taking a shower or bath. No extended episodes. No dizziness or lightheadedness. Some fatigue involving the quadriceps when walking downhill...very remote history of atrial fibrillation. No recent documentation. No current symptoms suggestive of atrial fibrillation...Coronary artery disease : Nonobstructive. He continues on risk factor modification to include daily aspirin and statin therapy. He would benefit from being on more intense statin therapy despite a relatively good cholesterol profile. However, he had some intolerance to higher doses in the past and will remain on 10 milligrams of atorvastatin daily...PVCs: Patient has history of PVCs and bigeminy. some very fleeting palpitations that are rare. None recently. His rhythm was regular today without ectopy. He is on beta-stephan...Hypertension: Blood pressure mildly elevated today. At home he reports generally good readings occasionally higher...continue monitoring his blood pressure and record the results. This can be reviewed by his primary care physician...in the absence of new symptoms he does not likely benefit from routine follow-up in the cardiology clinic..." [facility] admission (): "...extensive admission r/t post-op complications after 05/09/20 laparoscopic assisted takedown of colovesical fistula, sigmoid colon resection, and creation of protective ileostomy...On POD#3 patient's NGT was replaced due to concern for post op ileus...post op course was complicated by a fascial dehiscence of which he returned to the OR on 05/15/20 for an ex-lap with closure of abdominal wound dehiscence...Cultures grew pseudomonas and he completed a course of antibiotic for this...started having ongoing confusion requiring a 1:1 at times to limit pulling at lines/IV's, likely related to prolonged hospitalization...head CT that was unremarkable, he was started on B12 supplementation, and prn seroquel was utilized. On 05/19 patient underwent a cystogram that revealed no evidence of leak. Urology was consulted thereafter as he developed hematuria, likely from trying to pull out catheter during a time of confusion. Hematuria was monitored and sometimes required irrigation of the matthews. On 05/20 patient had some chest discomfort and underwent a chest CT that revealed numerous bilateral pulmonary emboli and lower extremity duplexes showing bilateral DVTs in the peroneal vein. Patient was subsequently started on heparin gtt, however it had to be held multiple times due to ongoing hematuria. His matthews was ultimately removed, but due to low urinary output and ongoing intermittent hematuria with clots it was replaced. Vascular was consulted and asked to consider placing an IVC filter of which they agreed and performed on 05/26. He was not resumed on anticoagulation s/p filter placement. Due to high output from ileostomy and concerns related to patient's mental status that he could keep himself well hydrated, decision was made to close patient's ileostomy. He did undergo a contrast study via his rectum that revealed no leak at the anastomosis. Ileostomy closure was performed by Dr. Marquez on 05/30...had an NGT thereafter...started on TPN as a bridge to support his nutrition until he could resume a diet again. NGT was removed when patient started having meaningful bowel function. His diet was advanced from clears to a low fiber diet of which he tolerated well. Patient did have some tachycardia and elevated temps s/p ileostomy closure. His old ileostomy site was opened due to some purulent drainage and was packed with nu-gauze, changed every other day, no abx needed. His matthews catheter was ultimately removed on 06/06 and patient was able to void thereafter, no further hematuria noted...patient was stable off of his 1:1, case management found placement for him on 06/09. Patient still with intermittent confusion, but overall improving..." - COVID screening: Per curriculum and assessment coordinator on 02/18/2022: Travel screen negative, no known COVID-19 positive contacts or current COVID-19 related symptoms in past 2 weeks. Patient vaccinated. Surgeon arranging preop COVID testing, scheduled 02/19. Awaiting results. Chart Review Chart Review: Acceptable Risk for Surgery and Patient NOT seen in Pre Admission Testing History Surgery Operation Date: 02/21/22 11:45 Proposed Procedures p Laparoscopic Assisted Removal of Infected Abdominal Wall Mesh - Lex Marquez MD, FACS Height/Weight Height: 5 ft 11 in Weight: 102.058 kg Allergies Allergy/AdvReac Type Severity Reaction Status Date / Time ezetimibe [From Zetia] AdvReac Intermediate sore joints Verified 02/18/22 11:48 lovastatin AdvReac Intermediate sore joints Verified 02/18/22 11:48 Medications Home Medications Medication Instructions Recorded Confirmed Last Taken atorvastatin 10 mg tablet 10 mg PO QPM #90 tab 09/06/19 02/18/22 04/18/21 20:00 metoprolol tartrate 50 mg tablet 50 mg PO BID #60 tab 06/09/20 02/18/22 04/19/21 04:30 allopurinol 100 mg tablet 100 mg PO HS 07/21/20 02/18/22 04/18/21 20:00 Past Medical History Medical History (Updated 02/19/22 @ 12:32 by Brie Veronica PA-C) Atrial fibrillation CAD (coronary artery disease) Non-obstructive CAD Colovesical fistula DVT (deep venous thrombosis) 05/2020 (post-op) > IVC filter placed (subsequent IVC filter removed) GERD (gastroesophageal reflux disease) "silent" Gout Hyperlipidemia Hypertension Osteoarthritis Pulmonary embolism and infarction 05/2020 (post-op) > IVC filter placed d/t hematuria (subsequent IVC filter removed) PVC (premature ventricular contraction) Hx PVCs in pattern of bigeminy per cardiology records Past Family History Family History Brother Prostate cancer Heart disease Father Heart disease Other No family history of adverse response to anesthesia Past Surgical History Surgical History H/O exploratory laparotomy Exploratory abdominal wound (05/15/2020): Grade view 1, Mckeon #2, ET tube 7.5 at [facility] H/O resection of small bowel Ileostomy removal (05/30/20): DL x2, Grade view 1, MAC#4, ETT 7.5 at [facility] History of adenoidectomy History of cardiac cath ~2004 & ~2011 > no stents History of colonoscopy History of ear surgery right History of esophagogastroduodenoscopy (EGD) x1 with FB removal and x1 for recheck History of hernia repair Lap Incisional Hernia Repair with mesh History of surgery (~09/25/20) removal of inferior vena cava filter by Dr. Latham History of tonsillectomy S/P inguinal hernia repair right inguinal with hernia mesh S/P insertion of IVC (inferior vena caval) filter S/P IVC filter removal Social History Smoking Status: Never smoker tobacco type: smokeless tobacco Do You Dip or Chew Tobacco: Yes (1 can/2 days (advised)) Hx Alcohol Use: No Hx Substance Use: No substance use type: does not use Lab Results Anesthesia Preop Results Results Anesthesia Widget: WBC 8.48 K/uL (4.8-10.8) 02/19/22 Hgb 16.5 g/dL (14.0-18.0) 02/19/22 Hct 49.6 % (42-52) 02/19/22 Plt 251 K/uL (130-400) 02/19/22 Na 138 mmol/L (136-145) 02/19/22 K 4.4 mmol/L (3.5-5.1) 02/19/22 Cl 104 mmol/L (98-107) 02/19/22 CO2 28 mmol/L (21-32) 02/19/22 BUN 15 mg/dl (6-23) 02/19/22 Creat 1.12 mg/dl (0.6-1.4) 02/19/22 Glucose Level 95 mg/dl (70-99(Fasting)) 02/19/22 Testing Electrocardiogram Date: 04/19/21 Sinus bradycardia, rate 50 bpm Left axis deviation
--- NOTE | 2022-02-21 13:12 | History & Physical Bridge Note ---
Date of Service February 21, 2022 History & Physical Bridge Note I have examined the patient, reviewed the History & Physical and in the interval since the performance of the History & Physical I have noted the following changes of clinical significance: no changes noted daughter at bedside all question answered pt marked
[2022-02-21] MEDS ORDERED: PROPOFOL IV EMULSION 10 MG/ML 20 ML VIAL IV ONE (13:16)
[2022-02-21] MEDS ORDERED: LIDOCAINE 2% 2 ML VIAL/AMP(20MG/ML) INFIL ONE (13:16)
[2022-02-21] MEDS ORDERED: ONDANSETRON INJ 2 MG/ML 2 ML VIAL ONE (13:16)
[2022-02-21] MEDS ORDERED: DEXAMETHASONE SOD INJ 4 MG/ML VIAL ONE (13:16)
[2022-02-21] MEDS ORDERED: ROCURONIUM BROMIDE 10 MG/ML 5 ML VIAL IV ONE (13:16)
[2022-02-21] MEDS ORDERED: fentaNYL citrate 100 MCG/2 ML VIAL ONE (13:17)
[2022-02-21] MEDS ORDERED: fentaNYL citrate 100 MCG/2 ML VIAL IV PRN (13:19)
[2022-02-21] MEDS ORDERED: ONDANSETRON INJ 2 MG/ML 2 ML VIAL IV PRN ×2 (13:19→16:22)
[2022-02-21] MEDS ORDERED: ePHEDrine sulfate 50 MG/ML AMP IV PRN (13:19)
[2022-02-21] MEDS ORDERED: ATROPINE SULFATE 0.1 MG/ML 10ML SYR IV PRN (13:19)
[2022-02-21] MEDS ORDERED: BUPIVACAINE 0.5 % 5 MG/1 ML MPF 30ML VIAL ONE (13:23)
[2022-02-21] MEDS ORDERED: GLYCOPYRROLATE 0.2 MG/ML VIAL ONE ×2 (14:30→14:52)
[2022-02-21] MEDS ORDERED: ePHEDrine sulfate 50 MG/ML AMP ONE (14:32)
[2022-02-21] MEDS ORDERED: NEOSTIGMINE METHYLSULFATE 1 MG/ML 10ML VIAL ONE (14:52)
--- NOTE | 2022-02-21 14:56 | Post Operative Brief Note ---
PG Immediate Post Op with CF Date of Surgery February 21, 2022 Pre & Post Diagnosis Operation Date: 02/21/22 13:05 Pre-Op Diagnosis: Infected Prosthetic Mesh of Abdominal Wall Post-Op Diagnosis: Infected Prosthetic Mesh of Abdominal Wall I identified the patient and participated in the time-out.: Yes Procedure Operation Date: 02/21/22 13:05 Actual Procedures p Laparoscopic Assisted Turned Open Removal of Infected Abdominal Wall Mesh(Not Applicable) - Lex Marquez MD, FACS Surgeon Lex Marquez MD, FACS Bank President price berkowitz Estimated Blood Loss 50 Findings Consistent with Post-Op Diagnosis Specimens Specimen Description: Culture #1--Infected Abdominal Wall Mesh--for routine culture and sensitivity, gram stain, aerobes and anaerobes
--- NOTE | 2022-02-21 15:06 | Operative Report ---
Post Operative Report Pre & Post Diagnosis Operation Date: 02/21/22 13:05 Pre-Op Diagnosis: Infected Prosthetic Mesh of Abdominal Wall Post-Op Diagnosis: Infected Prosthetic Mesh of Abdominal Wall I identified the patient and participated in the time-out.: Yes Procedure Operation Date: 02/21/22 13:05 Actual Procedures p Laparoscopy with Lysis of Adhesions, Laparotomy with Removal Infected Surgimesh(Not Applicable) - Lex Marquez MD, FACS The patient was brought into the operating theater after having voided in the preoperative area in the supine position general endotracheal anesthesia the abdomen was prepped Betadine solution properly draped timeout was had patient identified this point in the left upper quadrant a 5 mm skin incision was made trying to enter the abdomen with Optiview which initially appeared to be going through into the abdomen without difficulty but we were next to significant moderate adhesions. We were able to create see a window in the right upper quadrant at this point under direct visualization we placed a 5 mm right upper quadrant port and preemptive analgesic placed the camera in that area then visu alized our original entry into the left upper quadrant could see significant abdominal wall adhesions throughout the upper abdomen we could see the trocar had missed the adhesions was near where initially went in therefore to visualize the area better we placed a right lower quadrant 5 mm trocar with preemptive local analgesia and direct visualization using the camera in the right upper quadrant and a grabber in the right lower quadrant we freed up the spine adhesions from anterior abdominal wall we were all supraumbilically in fact the hernia that was repaired was a supraumbilical incisional hernia when we freed up these adhesion mostly were done by sharp or blunt dissection 30 degree scope was placed to visualize further down where we initially had went through the left upper quadrant 5 mm trocar and we saw some omentum but there was no evidence of any bowel near to where we were in of interest once we freed up the abdominal wall adhesions we could see that the patient has some other defects in the abdominal wall well aware away from where we have fixed the hernia we cannot see the mesh at this point is seem to be well incorporated least abdominally indurated tissue in one area we slightly elevated the intra-abdominal peritoneum around the mesh and then we could see some purulent material extravasating from it at this point we converted to an open procedure we made an incision above the point of chronic inflammation in the umbilical area the incision was approximately 2-1/2 inches long deepened through subcutaneous tissue we entered the midline and then we were able to see the mesh which was not incorporated we opened the midline fascia superior and inferiorly were restriction we had repaired the hernia and we were able to extrapolate completely the 10 cm surgery mesh we did take cultures of this purulent material in the area we then freed up the subcutaneous tissue from the surrounding linea alba or scar tissue from the previous repair of the midline and after achieving good hemostasis we then placed and removed the trocar and direct realization we then closed the midline in a tension-free manner while releasing the subcutaneous tissue from the abdominal wall with interrupted #1 PDS suture the subcutaneous tissue then was packed with half-inch plain gauze held in place with some 3-0 nylon suture a dressing was applied the procedure was tolerated well by the patient estimated blood loss approximately 50 cc Addendumb denton berkowitz was present throughout the procedure and helped with retraction exposure and wound closure Addendum talked to his daughter Yesy at [phone] Surgeon Lex Marquez MD, FACS Electronic Scale Assembler And Tester price berkowitz Estimated Blood Loss 50 Findings Consistent with Post-Op Diagnosis Infected surgemesh dense abdominal adhesions Specimens Explanted surgery mesh Cultures for aerobes and anaerobes Drains Half-inch plain gauze packing in the wound Indications Infected surgery mesh Description of Procedure merda I attest to the content of the Intraoperative Record and any orders documented therein. Any exceptions are noted below.
--- NOTE | 2022-02-21 15:43 | Anesthesiology Progress Note ---
Date of Service February 21, 2022 Anesthesia Post Procedure Vital Signs Vital Signs: Temp Pulse Pulse Resp BP Pulse Ox 02/21/22 15:30 52 L 18 134/87 100 02/21/22 15:20 56 L 21 126/80 99 02/21/22 15:14 97.2 F L 58 L 10 L 135/82 98 02/21/22 11:44 97.7 F 53 L 20 159/95 H 97 Transfer of Care Handoff Completed per policy Notes Mental Status: alert / awake / arousable and participated in evaluation Patient Amnestic to Procedure: Yes Nausea / Vomiting: adequately controlled Pain: adequately controlled Airway Patency, RR, SpO2: stable & adequate BP & HR: stable & adequate Hydration State: stable & adequate Anesthetic Complications: no major complications apparent and Pt Satisfied with anesthetic care
[2022-02-21] MEDS ORDERED: ACETAMINOPHEN 500 MG TAB PO PRN (16:22)
[2022-02-21] MEDS ORDERED: oxyCODONE/ACETAMINOPHEN 5mg/325mg TAB PO PRN ×2 (16:22)
[2022-02-21] MEDS ORDERED: MoRPHine SULFATE 4 MG/ML 1 ML CARP\\VIAL IV PRN (16:22)
[2022-02-21] MEDS ORDERED: MoRPHine SULFATE 2 MG/ML CARP IV PRN (16:22)
[2022-02-21] MEDS ORDERED: PIPERACILL/TAZOBAC CONSULT ACTIVE PRN (16:22)
[2022-02-21] MEDS ORDERED: PIPERACILLIN/TAZOBACTAM 3.375 GM in DEXTROSE 5% 100 ML IV ONE (16:45)
[2022-02-21] MEDS: LACTATED RINGER'S 1,000 ML IV SCH (16:45)
[2022-02-21] MEDS ORDERED: ATORVASTATIN 10 MG TAB PO SCH (21:00)
[2022-02-21] MEDS ORDERED: allopurinoL 100 MG TAB PO SCH (21:00)
[2022-02-21] MEDS: METOPROLOL TARTRATE 50 MG TAB PO SCH (21:26)
[2022-02-21] MEDS: PIPERACILLIN/TAZOBACTAM 3.375 GM in DEXTROSE 5% 100 ML IV SCH (22:37)
[2022-02-22] MEDS: LACTATED RINGER'S 1,000 ML IV SCH (03:37)
[2022-02-22] MEDS: PIPERACILLIN/TAZOBACTAM 3.375 GM in DEXTROSE 5% 100 ML IV SCH ×2 (06:15→14:59)
--- NOTE | 2022-02-22 07:21 | Surgery Progress Note ---
Date of Service February 22, 2022 Assessment & Plan (1) Infected prosthetic mesh of abdominal wall: Plan: The operative finding was discussed with the patient including lysis of dense adhesions removal of the mesh packing of the wound At this time we will DC the Dsouza catheter he had a urinary retention when we did his other surgeries in the past and subsided after 24 hours We will have the wound nurse see patient evaluated for VAC system If comfortable later on today and all issues are managed he can be discharged we will follow-up in the office next week All question answered Admission and Anticipated Discharge Date Admission Date: February 21, 2022 Subjective Patient is resting comfortably in bed with no abdominal discomfort tolerated a diet yesterday the only thing happened overnight he needed a Dsouza catheter inserted Physical Exam Physical Exam: Alert coherent resting comfortable in bed without any issues The abdomen is soft no tenderness the dressing was taken off the incision the packing is intact minimal drainage the trocar sites are healing well sutures still present Results & Data ([facility]) Vital Signs (Past 12 Hours) Vital Signs Temp Pulse Resp BP Pulse Ox 02/22/22 02:41 36.8 C 62 16 123/83 93 02/21/22 21:00 36.3 C L 48 L 18 158/94 H 96 02/21/22 19:23 36.4 C L 63 18 125/84 96 PG Care Time/CCT Total # of Minutes Spent Total Time Spent with Patient: Total time spent is greater than 50% in coordination of care (as documented) at patient's floor/unit and/or counseling patient: Coding Level of Care Code None Diagnoses Infected prosthetic mesh of abdominal wall T85.79XA
[2022-02-22 07:29] LABS: Basophils # (auto) 0.01 K/uL (0-0.2); Basophils % (auto) 0.1 %; Hematocrit (blood only) 46.3 % (42-52); Hemoglobin 15.6 g/dL (14.0-18.0); Immature Granulocytes # (auto) 0.05 K/uL (0.00-0.02); Immature Granulocytes % (auto) 0.3 %; Lymphocytes # (auto) 1.25 K/uL (1.2-3.4); Lymphocytes % (auto) 7.3 %; Mean Corpuscular Hemoglobin 30.2 pg (25-34); Mean Corpuscular Hgb Conc 33.7 g/dL (32-36); Mean Corpuscular Volume 89.6 fL (80-100); Mean Platelet Volume 10.4 fL (7.4-10.4); Monocytes # (auto) 1.12 K/uL (0.11-0.59); Monocytes % (auto) 6.5 %; Neutrophils # (auto) 14.72 K/uL (1.4-6.5); Neutrophils % (auto) 85.8 %; Platelet Count 224 K/uL (130-400); RDW Coefficient of Variation 13.3 % (11.5-14.5); RDW Standard Deviation 43.4 fL (36.4-46.3); Red Blood Count 5.17 M/uL (4.7-6.1); White Blood Count 17.15 K/uL (4.8-10.8)
[2022-02-22 07:46] LABS: BUN Creatinine Ratio 16.5 (10-20); Calcium 9.1 mg/dl (8.5-10.1); Creatinine Clr Calc Pharmacy 71.6 ml/min; Est GFR (African American) 76.5 ml/min
[2022-02-22] MEDS: METOPROLOL TARTRATE 50 MG TAB PO SCH (08:50)
--- NOTE | 2022-02-22 15:55 | Communication Note ---
Date of Service: February 22, 2022 Had some bleeding from wound edge treated with silver nitrate, therefore not able to place wound vac today. Otherwise is tolerating diet, voiding and not nee ding analgesics. Will discharge with Aquacel Ag packing and f/u early next week for wound vac.
[2022-02-22] MEDS ORDERED: Nursing to Pharmacy Communication SCH (16:15)
--- NOTE | 2022-03-04 15:03 | Discharge Summary ---
Date of Service March 04, 2022 Principal Diagnosis Infected abdominal mesh Discharge Exam Constitutional WD/WN, vitals as above Gastrointestinal (Abdomen) Inspection/Auscultation: + abdominal surgical incision (open, packed); abdomen not distended Percussion/Palpation: abdomen soft Discharge Data Allergies Allergy/AdvReac Type Severity Reaction Status Date / Time ezetimibe [From Zetia] AdvReac Intermediate sore joints Verified 02/27/22 13:54 lovastatin AdvReac Intermediate sore joints Verified 02/27/22 13:54 Procedures Performed Operation Date: 02/21/22 13:05 Actual Procedures p Laparoscopy with Lysis of Adhesions, Laparotomy with Removal Infected Surgimesh(Not Applicable) - Lex Marquez MD, FACS Hospital Course (1) Infected prosthetic mesh of abdominal wall: 76 y/o male was taken to the operating room for removal of infected mesh and transferred to the surgical floor for overnight observation. He required placement of matthews for urinary retention which was removed in the morning and he was able to void. He had some oozing from the wound which was repacked and arrangements were made for outpatient wound vac evaluation. He was stable for discharge home later in the day. Total Time Total Time Spent Total Time Spent (In Minutes): 15 Discharge Plan Discharge Items Patient Disposition: Home - Home Health Services Reason For Visit: INFECTED MESH Discharge Diagnosis: removal of abdominal wall mesh Activity: Per Instructions section Lifting: No more than 10 pounds Bathing Comment: keep bandage dry Exercise/Sports: Wait until after follow-up appointment Non-emergency contact: Surgeon Call non-emergency contact if: you have any medication questions, your symptoms worsen, your pain is not controlled, your pain is concerning for you, you have a fever, your temperature is above 101.5, your wound has increased redness, your wound has increased drainage and your wound pain has increased Follow-up/Referrals: Lex Marquez MD, FACS [Surgeon] - 03/05/22 2:30 pm (Please call to schedule follow up in clinic within 1 week) Larry Rodriguez [Primary Care Provider] - Diet: Regular Addtl Attending Provider Instructions: You can take Tylenol or ibuprofen as needed for pain Change outer bandage as needed, leave packing in place. The packing should be changed Friday or Friday by the Wound clinic or Dr. Thornton office Pending Studies at Discharge: No Stand-Alone Forms: My [facility] Medications and DC Order Prescriptions: Continued atorvastatin 10 mg tablet 10 mg PO QPM Qty: 90 RF: 3 allopurinol 100 mg tablet 100 mg PO HS RF: 0 metoprolol tartrate 50 mg Tablet 50 mg PO BID Qty: 60 RF: 0 No Action ciprofloxacin HCl 250 mg tablet 250 mg PO bid Qty: 20 RF: 0 Discharge Orders: Discharge Order (Routine); Ordered 02/22/22 Ordered By: Adonay Abbasi/Other Patient Handouts: Controlling High Blood Pressure, Eating Heart- Healthy Foods Admission Data Admit Date/Time: 02/21/22 15:18 Attending Provider: Lex Marquez Admit Provider: Lex Marquez Primary Care Provider: Larry Rodriguez Other Providers: [facility],Home Healthcare Other Interventions: Discharge Summary Assessment (RN) Last Done: 02/22/22 16:28 Coding Level of Care Code D/C DAY MANAGEMENT <30 MINS Diagnoses Infected prosthetic mesh of abdominal wall T85.79XA
== END 2022-02-22 17:56 | disposition home health service (06) | DRG 909 ==
LOC: ASU 11:13 → 3E 15:18

== ENCOUNTER 2022-10-30 11:04 | Inpatient (IN) ==
[2022-10-30] MEDS ORDERED: SODIUM CHLORIDE 0.9% 1000ML 1,000 ML IV ONE (11:32)
--- NOTE | 2022-10-30 11:37 | Emergency Department Note ---
History of Present Illness General Chief complaint: Illness Stated complaint: DIZZY, WEAKNESS Time Seen by Provider: 10/30/22 11:22 Source: patient Mode of arrival: EMS Limitations: no limitations History of Present Illness This patient is a 77-year-old male who comes in after feeling ill since last night. He said he had a fever and chills although it was tactile and did not measure. He said he had a cough and runny nose a couple days ago but that is gotten better. He is just feels diffusely weak its nonfocal. He feels dizzy as well. He says he feels fine right now just sitting there but when he tried to get the ambulance he was incredibly weak. He has had some nausea no emesis he had 2 or 3 episodes of diarrhea yesterday without blood or melena. His had a cold. He said the COVID-vaccine but no booster he had the flu vaccine. Denies chest pain or shortness of breath. He has had multiple abdominal surgeries and feels he does have some mild abdominal soreness but some that seems to be chronic. Has not been worse lately and and not been red or warm Home Medications Medication Instructions Recorded Confirmed Type atorvastatin 10 mg tablet 10 mg PO QPM #90 tabs 09/06/19 10/30/22 Rx metoprolol tartrate 50 mg tablet 50 mg PO BID #60 tabs 06/09/20 10/30/22 Rx allopurinol 100 mg tablet 100 mg PO HS 07/21/20 10/30/22 History Allergies Allergy/AdvReac Type Severity Reaction Status Date / Time ezetimibe [From Zetia] AdvReac Intermediate sore joints Verified 05/29/22 09:00 lovastatin AdvReac Intermediate sore joints Verified 05/29/22 09:00 Past Med/Surg History Medical History Atrial fibrillation CAD (coronary artery disease) Non-obstructive CAD Colovesical fistula DVT (deep venous thrombosis) 05/2020 (post-op) > IVC filter placed (subsequent IVC filter removed) GERD (gastroesophageal reflux disease) "silent" Gout Hyperlipidemia Hypertension Osteoarthritis Pulmonary embolism and infarction 05/2020 (post-op) > IVC filter placed d/t hematuria (subsequent IVC filter removed) PVC (premature ventricular contraction) Hx PVCs in pattern of bigeminy per cardiology records Surgical History H/O exploratory laparotomy Exploratory abdominal wound (05/15/2020): Grade view 1, Mckeon #2, ET tube 7.5 at [facility] H/O resection of small bowel Ileostomy removal (05/30/20): DL x2, Grade view 1, MAC#4, ETT 7.5 at [facility] History of adenoidectomy History of cardiac cath ~2004 & ~2011 > no stents History of colonoscopy History of ear surgery right History of esophagogastroduodenoscopy (EGD) x1 with FB removal and x1 for recheck History of hernia repair Lap Incisional Hernia Repair with mesh History of surgery (~09/25/20) removal of inferior vena cava filter by Dr. Latham History of surgery (02/21/22) Laparoscopy with Lysis of Adhesions, Laparotomy with Removal Infected Surgimesh(Not Applicable) - Lex Marquez MD, FACS 02/21/2022 History of tonsillectomy S/P inguinal hernia repair right inguinal with hernia mesh S/P insertion of IVC (inferior vena caval) filter S/P IVC filter removal Family History Brother Prostate cancer Heart disease Father Heart disease Other No family history of adverse response to anesthesia Social History Smoking Status: Never smoker Second Hand Exposure: No; Hx Alcohol Use: No Hx Substance Use: No Preferred Language: Danish Communication Ability: Effective Visual Impairment: Limited Hearing Ability: Normal Fertilizer Loader Required: No Beliefs That Will Affect Care: None marital status: Current Living Situation: Spouse current occupational status: retired current occupation: [employer] Feels Safe at Home: Yes Safety Concerns: Feels Safe At This Time caffeine: Yes Assistive Devices: None Review of Systems A total of 10 systems reviewed and were otherwise negative Physical Exam Vital Signs Vital Signs - 24 hr 10/30/22 11:22 10/30/22 12:01 10/30/22 13:14 Temperature 37.1 C Temperature Source Oral Pulse Rate 98 H Pulse Rate [Right Finger] 96 H 87 Pulse Rhythm [Right Finger] Regular Regular Respiratory Rate 22 18 18 Respiratory Effort / Characteristics Non-Labored Spontaneous Non-Labored Spontaneous Respiratory Depth Normal Normal Respiratory Pattern Regular Regular Blood Pressure 132/87 Blood Pressure [Left Arm] 133/77 147/98 H Blood Pressure Mean 102 Blood Pressure Mean [Left Arm] 95 114 Blood Pressure Position [Left Arm] Lying Lying Pulse Oximetry 94 94 96 Oxygen Delivery Method Room Air Room Air Room Air Sepsis Recent Fever Within 48 Hours No Sepsis New/Unexplained Change in Mental Status No Sepsis Action Taken by Nursing No Action Required 10/30/22 14:00 Temperature Temperature Source Pulse Rate Pulse Rate [Right Finger] 89 Pulse Rhythm [Right Finger] Respiratory Rate 20 Respiratory Effort / Characteristics Non-Labored Spontaneous Respiratory Depth Normal Respiratory Pattern Regular Blood Pressure Blood Pressure [Left Arm] 143/90 H Blood Pressure Mean Blood Pressure Mean [Left Arm] 107 Blood Pressure Position [Left Arm] Semi-fowlers Pulse Oximetry 96 Oxygen Delivery Method Room Air Sepsis Recent Fever Within 48 Hours Sepsis New/Unexplained Change in Mental Status Sepsis Action Taken by Nursing General: Well developed well nourished not ill-appearing older male who in no acute distress, breathing comfortably on room air. Normal speech HEENT: Normal cephalic atraumatic. Pupils are equal round and reactive to light. Extraocular movements are intact. Oropharynx is pink with moist mucous membranes. No swelling of the mouth lips or tongue. Neck: Supple with a midline trachea. No meningeal signs or stiffness, no JVD or bruits. No Stridor. Chest: Clear to auscultation bilaterally. No wheezes or rhonchi. No increased work of breathing. Heart: Regular rate and rhythm without murmurs or gallops. Abdomen: Soft nontender, nondistended without rebound guarding or rigidity. Multiple surgical incisions there is a ventral hernia is not red or warm or significantly tender Extremities: No cyanosis clubbing or edema. No calf tenderness or assymetry Spine/Back. Non tender to palpation. No CVA tenderness Skin: Good turgor without rashes. Neurologic exam: Cranial nerves two through 12 are intact. Motor and sensation are intact and symmetrical throughout. No tremor. Finger-nose intact. Course Administered Medications Discontinued Medications Sodium Chloride (Nss 1000ml) 1,000 mls @ 999 mls/hr IV .Q1H1M ONE Stop: 10/30/22 12:32 Last Infusion: 10/30/22 13:17 Dose: 0 mls/hr Documented By: Admin: 10/30/22 12:13 Dose: 999 mls/hr Documented By: EDUARDO Piperacillin Sod/Tazobactam Sod (Zosyn) 4.5 gm in 120 mls @ 240 mls/hr IV NOW ONE Stop: 10/30/22 13:59 Last Infusion: 10/30/22 14:43 Dose: 0 mls/hr Documented By: Admin: 10/30/22 13:40 Dose: 240 mls/hr Documented By: EDUARDO Lactated Ringer's (Lr) 1,000 mls @ 999 mls/hr IV .Q1H1M POLI Stop: 10/30/22 17:00 Last Admin: 10/30/22 17:42 Dose: 999 mls/hr Documented By: DENISE Indomethacin (Indomethacin 50 Mg Supp) 100 mg TN NOW STA Stop: 10/30/22 14:57 Last Admin: 10/30/22 16:06 Dose: 100 mg Documented By: KATHERIN Indomethacin (Indomethacin 50 Mg Supp) Confirm Administered Dose 100 mg TN .STK- MED ONE Stop: 10/30/22 15:00 Last Admin: 10/30/22 17:55 Dose: Not Given Documented By: DENISE Medical Decision Making Differential Diagnosis Sepsis, influenza, COVID, infection, electrolyte or metabolic abnormality, anemia, intra-abdominal process, neurologic disease, cardiac disease, arrhythmia Medical Records Attestation: I reviewed the patient's medical records. Home Medications Current Medication List: was personally reviewed by me Laboratory Data Attestation: I reviewed the patient's lab results. Result diagrams: 10/30/22 11:55 10/30/22 11:55 Lab Results 10/30/22 10/30/22 10/30/22 Range/Units 11:55 11:55 11:55 WBC 11.42 H (4.8-10.8) K/ul RBC 5.69 (4.63-6.08) M/uL Hgb 16.9 (14.0-18.0) g/dl Hct 50.5 (40.1-51.0) % MCV 88.8 (80.0-100.0) fL MCH 29.7 (25.0-34.0) pg MCHC 33.5 (32.0-36.0) g/dL RDW Std Deviation 41.1 (36.4-46.3) fL RDW Coeff of Alda 12.6 (11.5-14.5) % Plt Count 196 (130-400) K/uL MPV 9.9 (9.4-12.4) fL Immature Gran % (Auto) 0.4 % Neut % (Auto) 87.6 % Lymph % (Auto) 4.4 % [place] % (Auto) 7.4 % Eos % (Auto) 0.1 % Baso % (Auto) 0.1 % Neut # (Auto) 10.01 H (1.4-6.5) K/uL Lymph # (Auto) 0.50 L (1.2-3.4) K/uL [place] # (Auto) 0.85 H (0.24-0.82) K/uL Eos # (Auto) 0.01 (0-0.50) K/uL Baso # (Auto) 0.01 (0-0.2) K/uL Immature Gran # (Auto) 0.04 H (0.00-0.02) K/uL Sodium 133 L (136-145) mmol/L Potassium 3.7 (3.5-5.1) mmol/L Chloride 99 (98-107) mmol/L Carbon Dioxide 24 (21-32) mmol/L Anion Gap 10 (3-11) BUN 18 (6-23) mg/dl Creatinine 1.12 (0.6-1.4) mg/dl Est Cr Clr Drug Dosing 69.6 ml/min Est GFR ( Amer) 73.6 ml/min Est GFR (Non-Af Amer) 63.5 ml/min BUN/Creatinine Ratio 16.1 (10-20) Glucose 142 H (70-99(Fasting)) mg/dl Lactate 1.0 (0.4-2.0) mmol/L Calcium 9.9 (8.5-10.1) mg/dl Magnesium 1.6 L (1.7-2.4) mg/dl Total Bilirubin 6.9 H (0.2-1.0) mg/dl Direct Bilirubin 4.0 H (0-0.2) mg/dl AST 347 H (13-39) U/L ALT 447 H (7-52) U/L Alkaline Phosphatase 349 H (34-104) U/L Troponin I High Sens 18.4 (0-20) pg/ml Total Protein 7.4 (6.0-8.3) gm/dl Albumin 4.1 (3.4-5.0) gm/dl Lipase (11-82) U/L Procalcitonin (0-0.5) ng/ml Urine Color Urine Appearance (Clear) Urine pH (4.5-7.5) Ur Specific [place] (1.000-1.030) Urine Protein (Negative) Urine Glucose (UA) (Negative) Urine Ketones (Negative) Urine Blood (Negative) Urine Nitrite (Negative) Urine Bilirubin (Negative) Urine Urobilinogen (Negative) Ur Leukocyte Esterase (Negative) Urine WBC (Auto) (0-5) /hpf Urine RBC (Auto) (0-4) /hpf U Hyaline Cast (Auto) (0-5) /lpf U Epithel Cells (Auto) (0-5) /lpf Urine Bacteria (Auto) (Negative) SARS-CoV-2 (PCR) (Negative) 10/30/22 10/30/22 10/30/22 Range/Units 11:55 11:55 11:55 WBC (4.8-10.8) K/ul RBC (4.63-6.08) M/uL Hgb (14.0-18.0) g/dl Hct (40.1-51.0) % MCV (80.0-100.0) fL MCH (25.0-34.0) pg MCHC (32.0-36.0) g/dL RDW Std Deviation (36.4-46.3) fL RDW Coeff of Alda (11.5-14.5) % Plt Count (130-400) K/uL MPV (9.4-12.4) fL Immature Gran % (Auto) % Neut % (Auto) % Lymph % (Auto) % [place] % (Auto) % Eos % (Auto) % Baso % (Auto) % Neut # (Auto) (1.4-6.5) K/uL Lymph # (Auto) (1.2-3.4) K/uL [place] # (Auto) (0.24-0.82) K/uL Eos # (Auto) (0-0.50) K/uL Baso # (Auto) (0-0.2) K/uL Immature Gran # (Auto) (0.00-0.02) K/uL Sodium (136-145) mmol/L Potassium (3.5-5.1) mmol/L Chloride (98-107) mmol/L Carbon Dioxide (21-32) mmol/L Anion Gap (3-11) BUN (6-23) mg/dl Creatinine (0.6-1.4) mg/dl Est Cr Clr Drug Dosing ml/min Est GFR ( Amer) ml/min Est GFR (Non-Af Amer) ml/min BUN/Creatinine Ratio (10-20) Glucose (70-99(Fasting)) mg/dl Lactate (0.4-2.0) mmol/L Calcium (8.5-10.1) mg/dl Magnesium (1.7-2.4) mg/dl Total Bilirubin (0.2-1.0) mg/dl Direct Bilirubin (0-0.2) mg/dl AST (13-39) U/L ALT (7-52) U/L Alkaline Phosphatase (34-104) U/L Troponin I High Sens (0-20) pg/ml Total Protein (6.0-8.3) gm/dl Albumin (3.4-5.0) gm/dl Lipase 55 (11-82) U/L Procalcitonin 0.81 H (0-0.5) ng/ml Urine Color Urine Appearance (Clear) Urine pH (4.5-7.5) Ur Specific [place] (1.000-1.030) Urine Protein (Negative) Urine Glucose (UA) (Negative) Urine Ketones (Negative) Urine Blood (Negative) Urine Nitrite (Negative) Urine Bilirubin (Negative) Urine Urobilinogen (Negative) Ur Leukocyte Esterase (Negative) Urine WBC (Auto) (0-5) /hpf Urine RBC (Auto) (0-4) /hpf U Hyaline Cast (Auto) (0-5) /lpf U Epithel Cells (Auto) (0-5) /lpf Urine Bacteria (Auto) (Negative) SARS-CoV-2 (PCR) NEGATIVE (Negative) 10/30/22 Range/Units 13:10 WBC (4.8-10.8) K/ul RBC (4.63-6.08) M/uL Hgb (14.0-18.0) g/dl Hct (40.1-51.0) % MCV (80.0-100.0) fL MCH (25.0-34.0) pg MCHC (32.0-36.0) g/dL RDW Std Deviation (36.4-46.3) fL RDW Coeff of Alda (11.5-14.5) % Plt Count (130-400) K/uL MPV (9.4-12.4) fL Immature Gran % (Auto) % Neut % (Auto) % Lymph % (Auto) % [place] % (Auto) % Eos % (Auto) % Baso % (Auto) % Neut # (Auto) (1.4-6.5) K/uL Lymph # (Auto) (1.2-3.4) K/uL [place] # (Auto) (0.24-0.82) K/uL Eos # (Auto) (0-0.50) K/uL Baso # (Auto) (0-0.2) K/uL Immature Gran # (Auto) (0.00-0.02) K/uL Sodium (136-145) mmol/L Potassium (3.5-5.1) mmol/L Chloride (98-107) mmol/L Carbon Dioxide (21-32) mmol/L Anion Gap (3-11) BUN (6-23) mg/dl Creatinine (0.6-1.4) mg/dl Est Cr Clr Drug Dosing ml/min Est GFR ( Amer) ml/min Est GFR (Non-Af Amer) ml/min BUN/Creatinine Ratio (10-20) Glucose (70-99(Fasting)) mg/dl Lactate (0.4-2.0) mmol/L Calcium (8.5-10.1) mg/dl Magnesium (1.7-2.4) mg/dl Total Bilirubin (0.2-1.0) mg/dl Direct Bilirubin (0-0.2) mg/dl AST (13-39) U/L ALT (7-52) U/L Alkaline Phosphatase (34-104) U/L Troponin I High Sens (0-20) pg/ml Total Protein (6.0-8.3) gm/dl Albumin (3.4-5.0) gm/dl Lipase (11-82) U/L Procalcitonin (0-0.5) ng/ml Urine Color Dark Yellow Urine Appearance Clear (Clear) Urine pH 6.0 (4.5-7.5) Ur Specific [place] 1.013 (1.000-1.030) Urine Protein 2+ H (Negative) Urine Glucose (UA) Negative (Negative) Urine Ketones Negative (Negative) Urine Blood Negative (Negative) Urine Nitrite Positive A (Negative) Urine Bilirubin 1+ H (Negative) Urine Urobilinogen Negative (Negative) Ur Leukocyte Esterase Negative (Negative) Urine WBC (Auto) 1-5 (0-5) /hpf Urine RBC (Auto) 0-4 (0-4) /hpf U Hyaline Cast (Auto) 1-5 (0-5) /lpf U Epithel Cells (Auto) 0-5 (0-5) /lpf Urine Bacteria (Auto) Negative (Negative) SARS-CoV-2 (PCR) (Negative) Imaging Data Attestation: I personally reviewed and interpreted this imaging study as follows: My Impression: Chest x-rayno acute infiltrate, failure, pneumothorax, no free air Head CTno hemorrhage or mass-effect seen Radiologist's Impression: Chest X-Ray 10/30/22 11:31 XR chest 1V portable HISTORY: 77 years-old Male Sepsis acute sepsis COMPARISON: Chest radiograph 06/03/2020 TECHNIQUE: AP view of the chest FINDINGS: Cardiomediastinal and hilar silhouettes are within normal limits. No pneumothorax, pleural effusion, airspace consolidation or overt pulmonary edema. Degenerative changes of the shoulders and spine. IMPRESSION: No acute process. ACT 112: Negative or not required by law. The above report was generated using voice recognition software. It may contain grammatical, syntax or spelling errors. Electronically signed by: Sabas Vang M.D. 10/30/2022 11:54 AM Abdomen/Pelvis CT 10/30/22 11:32 CT SCAN OF THE ABDOMEN AND PELVIS WITHOUT IV CONTRAST CLINICAL HISTORY: Generalized abdominal pain. Fever. COMPARISON STUDY: Abdominal CT dated 05/12/2020. TECHNIQUE: CT scan of the abdomen and pelvis is performed from the lung bases to the proximal femora. Images are reviewed in the axial, sagittal, and coronal planes. IV contrast was not administered for this examination. Note that the examination is suboptimal without oral and IV contrast. A dose lowering technique was utilized adhering to the principles of ALARA. CT DOSE: 1090.92 mGycm FINDINGS: Lung bases: The heart is top normal in size and without pericardial effusion. The lung bases are clear noting bibasilar scarring/atelectasis. A small hiatal hernia is noted. Liver: The unenhanced liver is normal in size, contour, and attenuation. There is mild intrahepatic biliary ductal dilatation. Gallbladder: The gallbladder is distended and contains numerous calcified gallstones. There is no CT evidence of acute cholecystitis. There is choledocholithiasis, with a calcified gallstone at the ampulla seen on axial image #174. The common bile duct is dilated measuring up to 10 mm in diameter. Spleen: Normal in size and attenuation. Pancreas: The unenhanced pancreas is mildly atrophic and grossly unremarkable. Adrenal glands: Unremarkable. Kidneys: The unenhanced kidneys demonstrate mild cortical atrophy and are without hydronephrosis. There are no renal calculi identified. A 1.7 cm exophytic cyst arises from the right lower pole. Abdominal vasculature: The abdominal aorta is normal in course and caliber noting mild atherosclerotic calcification. Bowel: There is moderate colonic fecal retention. There is a complex supra umbilical hernia which contains nonobstructed bowel. No bowel obstruction is seen. There is ictl-bh-ddipddpt colonic diverticulosis without CT evidence of acute diverticulitis. The appendix is well-visualized and normal. Peritoneum: There is no intraperitoneal free air or abdominal ascites. A midline surgical scar is noted. There is irregular linear soft tissue between the dome of the bladder and the sigmoid colon seen on image #384. An irregular focus of peritoneal thickening in the upper pelvis is seen on image #3 and 35 and measures 2.1 cm. An additional nodule anterior to the bladder on the left as seen on image #394 and measures up to 8 mm. Lymphadenopathy: None. Pelvic viscera: The prostate gland is enlarged and heterogeneous noting median lobe hypertrophy. The bladder wall is thickened and trabeculated indicating chronic outlet obstruction. Skeletal structures: The skeletal structures are osteopenic. There is mild to moderate lumbosacral spondylosis. No lytic or blastic lesions are seen. IMPRESSION: 1. The gallbladder is distended and contains numerous gallstones. There is no clear CT evidence of acute cholecystitis. 2. There is choledocholithiasis, with a calcified gallstone at the ampulla. T here is associated intra and extrahepatic biliary ductal dilatation. GI follow- up is recommended. 3. There is a complex supraumbilical hernia which contains nonobstructed small bowel. 4. There is irregular linear soft tissue between the dome of the bladder and the sigmoid colon, with additional foci of irregular nodularity in the lower mesentery. This likely represents postsurgical change/scarring. A colovesicular fistula is considered less likely. Correlate with urinalysis. A precautionary 3- 4 month follow-up contrast enhanced abdominal CT is recommended to reevaluate the mesenteric nodules. 5. Colonic diverticulosis without CT evidence of acute diverticulitis. 6. Additional findings as above. ACT 112: Negative or not required by law. Electronically signed by: Fernando Esteban M.D. 10/30/2022 1:[address] 10/30/22 11:32 CT head/brain wo con CLINICAL HISTORY: 77 years-old Male with dizziness. Acute dizziness TECHNIQUE: Multiple axial CT images of the head were obtained without contrast. A dose lowering technique was utilized adhering to the principles of ALARA. CT DOSE: 1730.28 mGycm COMPARISON: 06/01/2020 FINDINGS: No acute intracranial hemorrhage, midline shift, intracranial mass, hydrocephalus, territorial ischemia or abnormal extra-axial collection. Mild involutional changes. Motion degraded exam. The calvarium is intact. Right partial mastoidectomy changes. Trace left mastoid effusion. Paranasal sinuses are clear. IMPRESSION: No acute intracranial abnormality. ACT 112: Negative or not required by law. The above report was generated using voice recognition software. It may contain grammatical, syntax or spelling errors. Electronically signed by: Sabas Vang M.D. 10/30/2022 12:50 PM ECG Data Attestation: I personally reviewed and interpreted this ECG as follows: Indication: + weakness Rate (beats per minute): 102 Rhythm: + sinus tachycardia ECG Intervals/blocks: + Left anterior fascicular block, + Normal QRS, + Normal QT and + Normal TN ECG [place]: + Left axis deviation ECG ST segments: + Normal ST segments ECG Findings: no PACs or no PVCs Comparison ECG Date: from (04/19/21) Change: no significant change MDM Narrative This patient comes in as described above he is complaining of diffuse weakness and fever and chills. He looks well on exam and is afebrile here. he has a nonfocal neurologic exam. IV access established a significant sepsis type work- up was done given his history of fever. He appears in no distress he does have multiple abdominal surgeries but his abdomen has no redness or warmth or significant tenderness. I did also do a CAT scan of his head and abdomen given his history. He was also COVID tested. He was hydrated with a normal saline bolus IV. In the meantime his white count comes back mildly elevated. His liver functions are also elevated with a total bilirubin specifically being elevated. CAT scan of his head is unremarkable. His CAT scan of his abdomen without contrast does show dilated gallbladder with stones and dilated bile du cts. He was given Zosyn 4.5 g IV. COVID testing was negative. I did consult surgery Dr. Menchaca saw the patient in the ED. I also consulted GI Dr. Garcia who recommended I consult Dr. Cm as the patient would need an ERCP. I did consult Dr. Cm and the patient was seen in the ED and is can be taken to the OR for an ERCP/stent. I have consulted the [facility] hospitalist for admission and they have also seen the patient. The patient is remained stable and I discussed the plan with both the patient and his daughter who is at the bedside. Continuous cardiac monitoring: Orders placed in EMR for continuous cardiac monitoring. Upon my interpretation the patient was noted to be in normal sinus with a rate of 65 Impression & Plan Acute cholangitis, Weakness, Choledocholithiasis, Abdominal pain, Lab test negative for COVID-19 virus Discharge Plan Visit Data Chief Complaint: Illness Stated Complaint: DIZZY, WEAKNESS ED Provider: Yariel Whitehead Discharge Problem: Acute cholangitis, Weakness, Choledocholithiasis, Abdominal pain, Lab test negative for COVID-19 virus Discharge Instructions Interventions: ED Discharge Assessment Last Done: 10/30/22 14:50
--- NOTE | 2022-10-30 11:55 | XRay Report ---
XR chest 1V portable HISTORY: 77 years-old Male Sepsis acute sepsis COMPARISON: Chest radiograph 06/03/2020 TECHNIQUE: AP view of the chest FINDINGS: Cardiomediastinal and hilar silhouettes are within normal limits. No pneumothorax, pleural effusion, airspace consolidation or overt pulmonary edema. Degenerative changes of the shoulders and spine. IMPRESSION: No acute process. ACT 112: Negative or not required by law. The above report was generated using voice recognition software. It may contain grammatical, syntax o r spelling errors. Electronically signed by: Sabas Vang M.D. 10/30/2022 11:54 AM
[2022-10-30 12:13] LABS: Basophils # (auto) 0.01 K/uL (0-0.2); Basophils % (auto) 0.1 %; Eosinophils # (auto) 0.01 K/uL (0-0.50); Eosinophils % (auto) 0.1 %; Hematocrit (blood only) 50.5 % (40.1-51.0); Hemoglobin 16.9 g/dl (14.0-18.0); Immature Granulocytes # (auto) 0.04 K/uL (0.00-0.02); Immature Granulocytes % (auto) 0.4 %; Lymphocytes % (auto) 4.4 %; Mean Corpuscular Hemoglobin 29.7 pg (25.0-34.0); Mean Corpuscular Hgb Conc 33.5 g/dL (32.0-36.0); Mean Corpuscular Volume 88.8 fL (80.0-100.0); Mean Platelet Volume 9.9 fL (9.4-12.4); Monocytes # (auto) 0.85 K/uL (0.24-0.82); Monocytes % (auto) 7.4 %; Neutrophils # (auto) 10.01 K/uL (1.4-6.5); Neutrophils % (auto) 87.6 %; Platelet Count 196 K/uL (130-400); RDW Coefficient of Variation 12.6 % (11.5-14.5); RDW Standard Deviation 41.1 fL (36.4-46.3); Red Blood Count 5.69 M/uL (4.63-6.08); White Blood Count 11.42 K/ul (4.8-10.8)
[2022-10-30 12:43] LABS: Albumin Level 4.1 gm/dl (3.4-5.0); BUN Creatinine Ratio 16.1 (10-20); Bilirubin,Total 6.9 mg/dl (0.2-1.0); Calcium 9.9 mg/dl (8.5-10.1); Creatinine Clr Calc Pharmacy 69.6 ml/min; Est GFR (African American) 73.6 ml/min; Est GFR (Non-African American) 63.5 ml/min; Magnesium 1.6 mg/dl (1.7-2.4); Potassium 3.7 mmol/L (3.5-5.1); Total Protein 7.4 gm/dl (6.0-8.3)
[2022-10-30 12:50] LABS: Troponin I High Sensitivity 18.4 pg/ml (0-20)
--- NOTE | 2022-10-30 12:52 | CT Scan Report ---
CT head/brain wo con CLINICAL HISTORY: 77 years-old Male with dizziness. Acute dizziness TECHNIQUE: Multiple axial CT images of the head were obtained without contrast. A dose lowering tech nique was utilized adhering to the principles of ALARA. CT DOSE: 1730.28 mGycm COMPARISON: 06/01/2020 FINDINGS: No acute intracranial hemorrhage, midline shift, intracranial mass, hydrocephalus, territorial ischem ia or abnormal extra-axial collection. Mild involutional changes. Motion degraded exam. The calvarium is intact. Right partial mastoidectomy changes. Trace left mastoid effusion. Paranasal sinuses are clear. IMPRESSION: No acute intracranial abnormality. ACT 112: Negative or not required by law. The above report was generated using voice recognition software. It may contain grammatical, syntax o r spelling errors. Electronically signed by: Sabas Vang M.D. 10/30/2022 12:50 PM
--- NOTE | 2022-10-30 13:16 | CT Scan Report ---
CT SCAN OF THE ABDOMEN AND PELVIS WITHOUT IV CONTRAST CLINICAL HISTORY: Generalized abdominal pain. Fever. COMPARISON STUDY: Abdominal CT dated 05/12/2020. TECHNIQUE: CT scan of the abdomen and pelvis is performed from the lung bases to the proximal femora. Images are reviewed in the axial, sagittal, and coronal planes. IV contrast was not administered for this examination. Note that the examination is suboptimal without oral and IV contrast. A dose lower ing technique was utilized adhering to the principles of ALARA. CT DOSE: 1090.92 mGycm FINDINGS: Lung bases: The heart is top normal in size and without pericardial effusion. The lung bases are ammy r noting bibasilar scarring/atelectasis. A small hiatal hernia is noted. Liver: The unenhanced liver is normal in size, contour, and attenuation. There is mild intrahepatic b iliary ductal dilatation. Gallbladder: The gallbladder is distended and contains numerous calcified gallstones. There is no CT evidence of acute cholecystitis. There is choledocholithiasis, with a calcified gallstone at the ampu lla seen on axial image #174. The common bile duct is dilated measuring up to 10 mm in diameter. Spleen: Normal in size and attenuation. Pancreas: The unenhanced pancreas is mildly atrophic and grossly unremarkable. Adrenal glands: Unremarkable. Kidneys: The unenhanced kidneys demonstrate mild cortical atrophy and are without hydronephrosis. The re are no renal calculi identified. A 1.7 cm exophytic cyst arises from the right lower pole. Abdominal vasculature: The abdominal aorta is normal in course and caliber noting mild atheroscleroti c calcification. Bowel: There is moderate colonic fecal retention. There is a complex supra umbilical hernia which con tains nonobstructed bowel. No bowel obstruction is seen. There is [id number] colonic diverticul osis without CT evidence of acute diverticulitis. The appendix is well-visualized and normal. Peritoneum: There is no intraperitoneal free air or abdominal ascites. A midline surgical scar is not ed. There is irregular linear soft tissue between the dome of the bladder and the sigmoid colon seen on image #384. An irregular focus of peritoneal thickening in the upper pelvis is seen on image #3 an d 35 and measures 2.1 cm. An additional nodule anterior to the bladder on the left as seen on image # 394 and measures up to 8 mm. Lymphadenopathy: None. Pelvic viscera: The prostate gland is enlarged and heterogeneous noting median lobe hypertrophy. The bladder wall is thickened and trabeculated indicating chronic outlet obstruction. Skeletal structures: The skeletal structures are osteopenic. There is mild to moderate lumbosacral sp ondylosis. No lytic or blastic lesions are seen. IMPRESSION: 1. The gallbladder is distended and contains numerous gallstones. There is no clear CT evidence of ac jorge cholecystitis. 2. There is choledocholithiasis, with a calcified gallstone at the ampulla. There is associated intra and extrahepatic biliary ductal dilatation. GI follow-up is recommended. 3. There is a complex supraumbilical hernia which contains nonobstructed small bowel. 4. There is irregular linear soft tissue between the dome of the bladder and the sigmoid colon, with additional foci of irregular nodularity in the lower mesentery. This likely represents postsurgical c hange/scarring. A colovesicular fistula is considered less likely. Correlate with urinalysis. A preca utionary 3-4 month follow-up contrast enhanced abdominal CT is recommended to reevaluate the mesenter ic nodules. 5. Colonic diverticulosis without CT evidence of acute diverticulitis. 6. Additional findings as above. ACT 112: Negative or not required by law. Electronically signed by: Fernando Esteban M.D. 10/30/2022 1:14 PM
[2022-10-30] MEDS ORDERED: PIPERACILLIN/TAZOBACTAM 4.5 GM/120 ML BAG IV ONE (13:30)
[2022-10-30 13:40] LABS: Appearance Urine Clear (Clear); Bacteria Urine Automated Negative (Negative); Blood Urine Negative (Negative); Color Urine Dark Yellow; Epithelial Cell Urine Auto 0-5 /lpf (0-5); Glucose Urine UA Negative (Negative); Ketones Urine Negative (Negative); Leukocyte Esterase Urine Negative (Negative); Nitrite Urine Positive (Negative); Protein Urine 2+ (Negative); RBC Urine Automated 0-4 /hpf (0-4); Specific Gravity Urine 1.013 (1.000-1.030); Urobilinogen Urine Negative (Negative)
[2022-10-30 13:56] LABS: Bilirubin Urine 1+ (Negative)
--- NOTE | 2022-10-30 14:09 | Surgery Consultation ---
Date of Consultation October 30, 2022 Assessment & Plan (1) Choledocholithiasis: No acute abdominal findings. Evaluation by GI for ERCP. Eventual lap bina with high possibility of converting to open given his complex surgical history. Continue IV abx. Supervising Physician Co-Signing Physician Notes Dr. Menchacapatient with choledocholithiasis and cholelithiasis Patient will require laparoscopic cholecystectomy possible open cholecystectomy at some point during this hospitalization He has had previous midline incision above and below the umbilicus which will make his laparoscopic approach somewhat more difficult We may consider proceeding with laparoscopic cholecystectomy possible open tomorrowThursday History of Present Illness History of Present Illness 77 y/o male c/o fevers and chills that began last night. Last had a sandwich yesterday, no nausea, bloating or fatty food intolerance. Had been following with wound clinic after removal of infected abdominal mesh in February. Appetite has been good. Urine is orange. Allergies Allergy/AdvReac Type Severity Reaction Status Date / Time ezetimibe [From Zetia] AdvReac Intermediate sore joints Verified 05/29/22 09:00 lovastatin AdvReac Intermediate sore joints Verified 05/29/22 09:00 Home Medications Medication Instructions Recorded Confirmed Type atorvastatin 10 mg tablet 10 mg PO QPM #90 tabs 09/06/19 02/21/22 Rx metoprolol tartrate 50 mg tablet 50 mg PO BID #60 tabs 06/09/20 02/21/22 Rx allopurinol 100 mg tablet 100 mg PO HS 07/21/20 02/21/22 History Patient History Medical History Atrial fibrillation CAD (coronary artery disease) Non-obstructive CAD Colovesical fistula DVT (deep venous thrombosis) 05/2020 (post-op) > IVC filter placed (subsequent IVC filter removed) GERD (gastroesophageal reflux disease) "silent" Gout Hyperlipidemia Hypertension Osteoarthritis Pulmonary embolism and infarction 05/2020 (post-op) > IVC filter placed d/t hematuria (subsequent IVC filter removed) PVC (premature ventricular contraction) Hx PVCs in pattern of bigeminy per cardiology records Surgical History H/O exploratory laparotomy Exploratory abdominal wound (05/15/2020): Grade view 1, Mckeon #2, ET tube 7.5 at [facility] H/O resection of small bowel Ileostomy removal (05/30/20): DL x2, Grade view 1, MAC#4, ETT 7.5 at [facility] History of adenoidectomy History of cardiac cath ~2004 & ~2011 > no stents History of colonoscopy History of ear surgery right History of esophagogastroduodenoscopy (EGD) x1 with FB removal and x1 for recheck History of hernia repair Lap Incisional Hernia Repair with mesh History of surgery (~09/25/20) removal of inferior vena cava filter by Dr. Latham History of surgery (02/21/22) Laparoscopy with Lysis of Adhesions, Laparotomy with Removal Infected Surgimesh(Not Applicable) - Lex Marquez MD, FACS 02/21/2022 History of tonsillectomy S/P inguinal hernia repair right inguinal with hernia mesh S/P insertion of IVC (inferior vena caval) filter S/P IVC filter removal Family History Brother Prostate cancer Heart disease Father Heart disease Other No family history of adverse response to anesthesia Social History Smoking Status: Never smoker Second Hand Exposure: No; Hx Alcohol Use: No Hx Substance Use: No Preferred Language: Slovak Communication Ability: Effective Visual Impairment: Limited Hearing Ability: Normal Segmental Paving Supervisor Required: No Beliefs That Will Affect Care: None marital status: Current Living Situation: Spouse current occupational status: retired current occupation: [employer] Feels Safe at Home: Yes caffeine: Yes Assistive Devices: None Review of Systems Constitutional: + fever, + chills and + malaise Gastrointestinal: no abdominal pain, no nausea, no vomiting and no change in bowel habits Genitourinary: + as per Subjective / HPI Physical Exam Constitutional: WD/WN, vitals as above Respiratory: normal respiratory effort, lungs clear to auscultation Cardiovascular: Rate/Rhythm: regular rate Gastrointestinal (Abdomen): Inspection/Auscultation: + abdominal surgical scar (midline, retention sutures); abdomen not distended Percussion/Palpation: abdomen soft; abdomen nontender and no guarding Skin: no rashes, warm and dry Results & Data ([facility]) Vital Signs (Past 12 Hours) Vital Signs Temp Pulse Pulse Resp BP BP Pulse Ox 12/14/22 13:14 87 18 147/98 H 96 10/30/22 12:01 96 H 18 133/77 94 10/30/22 11:22 37.1 C 98 H 22 132/87 94 O2 Del Method 10/30/22 13:14 Room Air 10/30/22 12:01 Room Air 10/30/22 11:22 Room Air PG Care Time/CCT Total # of Minutes Spent Total Time Spent with Patient: Total time spent is greater than 50% in coordination of care (as documented) at patient's floor/unit and/or counseling patient: Coding Level of Care Code 19415 Initial Inpt Care Lvl 1 Diagnoses Choledocholithiasis K80.50
--- NOTE | 2022-10-30 14:38 | Electrocardiogram Report ---
Test Reason : Blood Pressure : / mmHG Vent. Rate : 102 BPM Atrial Rate : 102 BPM P-R Int : 158 ms QRS Dur : 098 ms QT Int : 350 ms P-R-T Axes : 018 -52 -04 degrees QTc Int : 456 ms Sinus tachycardia Left anterior fascicular block Abnormal ECG When compared with ECG of 19-APR-2021 07:00, Vent. rate has increased BY 52 BPM Confirmed by Rudolph Enciso ([id number]) on 10/30/2022 2:37:37 PM Referred By: REFERRED SELF Confirmed By:Rudolph Enciso
[2022-10-30] MEDS ORDERED: fentaNYL citrate 100 MCG/2 ML VIAL ONE (14:39)
--- NOTE | 2022-10-30 14:45 | History & Physical Report ---
Date of Service October 30, 2022 Assessment & Plan (1) Sepsis: Plan: -Admit to the PCU on tele -Patient was found to have Cholelithiasis without acute cholecystitis, choledocholithiasis. He was noted to have a leukocytosis with left shift, elevated procal, but remained hemodynamically stable prior to going to the OR. -Patient is now S/P ERCP with [facility], no complications were reported. -Post-op report is consistent with Cholangitis -Patient is currently afebrile, hemodynamically stable, and stable on RA -Was given 1L NSS bolus and 1 dose of zosyn prior to going for ERCP, will continue with LR x 2L to complete sepsis bolus and will continue with zosyn for now -Per GI post-procedure recommendations, will start clear liquids this evening, will make him NPO after midnight in preparation for his cholecystectomy tomorrow. -No NSAIDs for 5 days -AM CBC and CMP (2) Hyperlipidemia: Plan: -Would wait to restart his statin until his liver function tests improve (3) Atrial fibrillation: Plan: -Not on anticoagulation -continue metoprolol as he is hemodynamically stable (4) Gout: Plan: -Hold allopurinol until after his surgery tomorrow (5) HTN (hypertension): Plan: -Will restart metorpolol tomorrow to prevent hypotension unless he has rebound tachycardia or significant hypertension (6) CAD (coronary artery disease): Plan: -Would continue statin once his transaminitis resolves Plan The patient was discussed with Dr. Evans at the time of the admission History of Present Illness Chief Complaint: Fevers Primary Care Provider: NO PCP Олег is a 77 year old male with a PMH significant for afib, CAD, hyperlipidemia, colovesical fistula, DVT and PE in 2019 S/P IVC filter placement and removal (was taken off of anticoagulation due to hematuria), GERD, Gout, Hyperlipidemia, HTN, removal of infected intraabdominal mesh (follows with wound care) in February 2022 who presented to the [facility] ED on 10/30/22 with a chief complaint of fever and chills since yesterday. In the ED the patient was noted to be afebrile, hemodynamically stable, and stable on RA. Labs were remarkable for a leukocytosis of 11.4 with left shift 10, stable platelets and Hgb, stable renal function, sodium of 133, mag of 1.6, significantly elevated LFTs including total bili of 6.9, direct bili of 4.0, AST of 347, ALT of 447, alk phos of 349, procal of 0.81, and covid negative. CT of the abdomen and pelvis without IV contrast showed "1. The gallbladder is distended and contains numerous gallstones. There is no clear CT evidence of acute cholecystitis. 2. There is choledocholithiasis, with a calcified gallstone at the ampulla. There is associated intra and extrahepatic biliary ductal dilatation. GI follow-up is recommended. 3. There is a complex supraumbilical hernia which contains nonobstructed small bowel. 4. There is irregular linear soft tissue between the dome of the bladder and the sigmoid colon, with ad ditional foci of irregular nodularity in the lower mesentery. This likely represents postsurgical change/scarring. A colovesicular fistula is considered less likely. Correlate with urinalysis. A precautionary 3-4 month follow-up contrast enhanced abdominal CT is recommended to reevaluate the mesenteric nodules. 5. Colonic diverticulosis without CT evidence of acute diverticulitis. 6. Additional findings as above.". Ct of the head was negative for acute findings. Surgery was consulted and recommended GI evaluation for ERCP, they did mention in their consult note to continue IV antibiotics and an eventual lap bina with high possibility of conversion to an open procedure will likely be needed after. The ED staff spoke with the clinical applications manager GI provider who confirmed that they will take the patient to the OR today for ERCP. Prior to admission the patient was given 1L NSS and one dose of zosyn. The patient was taken to the OR by GI for his ERCP prior to being examined for admission. The patient was seen after his ERCP. Per the post-op report, the patient underwent successful ERCP where multiple stones were removed from the CBD, pus was also noted upon stone removal. EBL was listed as 0 mL and there were no reported intraoperative complications. At the time of the exam the patient was resting comfortably in bed in no acute distress. He states that he is feeling well after the procedure, he has no complaints at the time of my exam. He states that he was experiencing fever, chills, fatigue, and abdominal discomfort prior to coming to the ED today. He confirmed that he is currently on metoprolol, allopurinol and atorvastatin. I explained what happened during his ERCP and explained that he will likely have a cholecystectomy tomorrow with General Surgery. We discussed code status, he wishes to be a full code. His son and daughter would make decisions for him if he could not make them himself. Please refer to Dr. Evans's attestation for any changes to the treatment plan. Allergies Allergy/AdvReac Type Severity Reaction Status Date / Time ezetimibe [From Zetia] AdvReac Intermediate sore joints Verified 05/29/22 09:00 lovastatin AdvReac Intermediate sore joints Verified 05/29/22 09:00 Home Medications Medication Instructions Recorded Confirmed Type atorvastatin 10 mg tablet 10 mg PO QPM #90 tabs 09/06/19 10/30/22 Rx metoprolol tartrate 50 mg tablet 50 mg PO BID #60 tabs 06/09/20 10/30/22 Rx allopurinol 100 mg tablet 100 mg PO HS 07/21/20 10/30/22 History ciprofloxacin HCl 500 mg tablet 500 mg PO BID #14 tabs 11/01/22 Rx hydrocodone 5 mg-acetaminophen 325 1 - 2 tab PO .Q4-6h PRN pain, 11/01/22 Rx mg tablet initial therapy #15 tabs sennosides 8.6 mg-docusate sodium 1 tab PO BID #30 tabs 11/01/22 Rx 50 mg tablet (Senokot-S) Past Med/Surg History Medical History (Updated 10/31/22 @ 17:12 by Rudolph Enciso MD) Atrial fibrillation CAD (coronary artery disease) Non-obstructive CAD Colovesical fistula DVT (deep venous thrombosis) 05/2020 (post-op) > IVC filter placed (subsequent IVC filter removed) GERD (gastroesophageal reflux disease) "silent" Gout Hyperlipidemia Hypertension Osteoarthritis Pulmonary embolism and infarction 05/2020 (post-op) > IVC filter placed d/t hematuria (subsequent IVC filter removed) PVC (premature ventricular contraction) Hx PVCs in pattern of bigeminy per cardiology records Surgical History (Updated 11/01/22 @ 11:24 by Janel Kee RN) H/O exploratory laparotomy Exploratory abdominal wound (05/15/2020): Grade view 1, Mckeon #2, ET tube 7.5 at [facility] H/O resection of small bowel Ileostomy removal (05/30/20): DL x2, Grade view 1, MAC#4, ETT 7.5 at [facility] History of adenoidectomy History of cardiac cath ~2004 & ~2011 > no stents History of colonoscopy History of ear surgery right History of esophagogastroduodenoscopy (EGD) x1 with FB removal and x1 for recheck History of hernia repair Lap Incisional Hernia Repair with mesh History of surgery (~09/25/20) removal of inferior vena cava filter by Dr. Latham History of surgery (02/21/22) Laparoscopy with Lysis of Adhesions, Laparotomy with Removal Infected Surgimesh(Not Applicable) - Lex Marquez MD, FACS 02/21/2022 History of tonsillectomy Hx laparoscopic cholecystectomy (10/31/22) Laparoscopic cholecystectomy with extensive lysis of adhesions add modifier. S/P inguinal hernia repair right inguinal with hernia mesh S/P insertion of IVC (inferior vena caval) filter S/P IVC filter removal Family History Brother Prostate cancer Heart disease Father Heart disease Other No family history of adverse response to anesthesia Social History Smoking Status: Never smoker Second Hand Exposure: No; Hx Alcohol Use: No Hx Substance Use: No Preferred Language: Welsh Communication Ability: Effective Visual Impairment: Limited Hearing Ability: Normal Clinical Resource Manager Required: No Beliefs That Will Affect Care: None marital status: Current Living Situation: Spouse current occupational status: retired current occupation: [employer] Feels Safe at Home: Yes caffeine: Yes Assistive Devices: None Review of Systems Review of Systems: Denies current fever, chills, headache, changes in vision, hearing, taste, and smell, chest pain, SOB, cough, abdominal pain, nausea, vomiting, diarrhea, hematemesis, melena, dysuria, hematuria, and recent falls. All systems have been reviewed and are otherwise negative. Physical Exam Physical Exam: Physical Exam: General: In no acute distress, stated age, well-nourished, non-toxic appearing HEENT: Normocephalic, atraumatic, trace scleral icterus, pupils around round, symmetrical, and reactive to light, moist mucus membranes, trachea midline, no thyromegaly Chest/Pulm: No respiratory distress, symmetrical chest expansion, clear breath sounds throughout Cardiac: RRR, no murmurs noted Abdomen: Negative for ascites and bruising, normoactive bowel sounds, soft, non-tender to palpation throughout Musculoskeletal: Symmetrical and without signs of acute trauma, upper and lower extremities with full ROM, no atrophy, spasticity, or flaccidity Extremities: Radial, dorsalis pedis, and posterior tibial pulses are intact and symmetrical, no edema noted in the BL LE's Skin: Warm, dry, no rashes , lesions, or scars noted Neuro: Alert and oriented to person, place, month, year, and president, no focal defects, CN II-XII tested and intact, finger to nose test negative, no tremors noted Psych: No acute distress, calm and cooperative during the exam Results & Data Results & Data ([facility]) Vital Signs (Past 12 Hours) Vital Signs Temp Pulse Pulse Resp BP BP Pulse Ox 10/30/22 13:14 87 18 147/98 H 96 10/30/22 12:01 96 H 18 133/77 94 10/30/22 11:22 37.1 C 98 H 22 132/87 94 O2 Del Method 10/30/22 13:14 Room Air 10/30/22 12:01 Room Air 10/30/22 11:22 Room Air Laboratory Results Abnormal lab results 10/30/22 10/30/22 10/30/22 Range/Units 11:55 11:55 11:55 WBC 11.42 H (4.8-10.8) K/ul Neut # (Auto) 10.01 H (1.4-6.5) K/uL Lymph # (Auto) 0.50 L (1.2-3.4) K/uL Canyon # (Auto) 0.85 H (0.24-0.82) K/uL Immature Gran # (Auto) 0.04 H (0.00-0.02) K/uL Sodium 133 L (136-145) mmol/L Glucose 142 H (70-99(Fasting)) mg/dl Magnesium 1.6 L (1.7-2.4) mg/dl Total Bilirubin 6.9 H (0.2-1.0) mg/dl Direct Bilirubin 4.0 H (0-0.2) mg/dl AST 347 H (13-39) U/L ALT 447 H (7-52) U/L Alkaline Phosphatase 349 H (34-104) U/L Procalcitonin 0.81 H (0-0.5) ng/ml Urine Protein (Negative) Urine Nitrite (Negative) Urine Bilirubin (Negative) 10/30/22 Range/Units 13:10 WBC (4.8-10.8) K/ul Neut # (Auto) (1.4-6.5) K/uL Lymph # (Auto) (1.2-3.4) K/uL Canyon # (Auto) (0.24-0.82) K/uL Immature Gran # (Auto) (0.00-0.02) K/uL Sodium (136-145) mmol/L Glucose (70-99(Fasting)) mg/dl Magnesium (1.7-2.4) mg/dl Total Bilirubin (0.2-1.0) mg/dl Direct Bilirubin (0-0.2) mg/dl AST (13-39) U/L ALT (7-52) U/L Alkaline Phosphatase (34-104) U/L Procalcitonin (0-0.5) ng/ml Urine Protein 2+ H (Negative) Urine Nitrite Positive A (Negative) Urine Bilirubin 1+ H (Negative) Diagnostic Findings Chest X-Ray 10/30/22 11:31 XR chest 1V portable HISTORY: 77 years-old Male Sepsis acute sepsis COMPARISON: Chest radiograph 06/03/2020 TECHNIQUE: AP view of the chest FINDINGS: Cardiomediastinal and hilar silhouettes are within normal limits. No pneumothorax, pleural effusion, airspace consolidation or overt pulmonary edema. Degenerative changes of the shoulders and spine. IMPRESSION: No acute process. ACT 112: Negative or not required by law. The above report was generated using voice recognition software. It may contain grammatical, syntax or spelling errors. Electronically signed by: Sabas Vang M.D. 10/30/2022 11:54 AM Abdomen/Pelvis CT 10/30/22 11:32 CT SCAN OF THE ABDOMEN AND PELVIS WITHOUT IV CONTRAST CLINICAL HISTORY: Generalized abdominal pain. Fever. COMPARISON STUDY: Abdominal CT dated 05/12/2020. TECHNIQUE: CT scan of the abdomen and pelvis is performed from the lung bases to the proximal femora. Images are reviewed in the axial, sagittal, and coronal planes. IV contrast was not administered for this examination. Note that the examination is suboptimal without oral and IV contrast. A dose lowering technique was utilized adhering to the principles of ALARA. CT DOSE: 1090.92 mGycm FINDINGS: Lung bases: The heart is top normal in size and without pericardial effusion. The lung bases are clear noting bibasilar scarring/atelectasis. A small hiatal hernia is noted. Liver: The unenhanced liver is normal in size, contour, and attenuation. There is mild intrahepatic biliary ductal dilatation. Gallbladder: The gallbladder is distended and contains numerous calcified gallstones. There is no CT evidence of acute cholecystitis. There is choledocholithiasis, with a calcified gallstone at the ampulla seen on axial image #174. The common bile duct is dilated measuring up to 10 mm in diameter. Spleen: Normal in size and attenuation. Pancreas: The unenhanced pancreas is mildly atrophic and grossly unremarkable. Adrenal glands: Unremarkable. Kidneys: The unenhanced kidneys demonstrate mild cortical atrophy and are without hydronephrosis. There are no renal calculi identified. A 1.7 cm exophytic cyst arises from the right lower pole. Abdominal vasculature: The abdominal aorta is normal in course and caliber noting mild atherosclerotic calcification. Bowel: There is moderate colonic fecal retention. There is a complex supra umbilical hernia which contains nonobstructed bowel. No bowel obstruction is seen. There is osnj-oh-wdwnwery colonic diverticulosis without CT evidence of acute diverticulitis. The appendix is well-visualized and normal. Peritoneum: There is no intraperitoneal free air or abdominal ascites. A midline surgical scar is noted. There is irregular linear soft tissue between the dome of the bladder and the sigmoid colon seen on image #384. An irregular focus of peritoneal thickening in the upper pelvis is seen on image #3 and 35 and measures 2.1 cm. An additional nodule anterior to the bladder on the left as seen on image #394 and measures up to 8 mm. Lymphadenopathy: None. Pelvic viscera: The prostate gland is enlarged and heterogeneous noting median lobe hypertrophy. The bladder wall is thickened and trabeculated indicating chronic outlet obstruction. Skeletal structures: The skeletal structures are osteopenic. There is mild to moderate lumbosacral spondylosis. No lytic or blastic lesions are seen. IMPRESSION: 1. The gallbladder is distended and contains numerous gallstones. There is no clear CT evidence of acute cholecystitis. 2. There is choledocholithiasis, with a calcified gallstone at the ampulla. There is associated intra and extrahepatic biliary ductal dilatation. GI follow- up is recommended. 3. There is a complex supraumbilical hernia which contains nonobstructed small bowel. 4. There is irregular linear soft tissue between the dome of the bladder and the sigmoid colon, with additional foci of irregular nodularity in the lower mesentery. This likely represents postsurgical change/scarring. A colovesicular fistula is considered less likely. Correlate with urinalysis. A precautionary 3- 4 month follow-up contrast enhanced abdominal CT is recommended to reevaluate the mesenteric nodules. 5. Colonic diverticulosis without CT evidence of acute diverticulitis. 6. Additional findings as above. ACT 112: Negative or not required by law. Electronically signed by: Fernando Esteban M.D. 10/30/2022 1:[address] 10/30/22 11:32 CT head/brain wo con CLINICAL HISTORY: 77 years-old Male with dizziness. Acute dizziness TECHNIQUE: Multiple axial CT images of the head were obtained without contrast. A dose lowering technique was utilized adhering to the principles of ALARA. CT DOSE: 1730.28 mGycm COMPARISON: 06/01/2020 FINDINGS: No acute intracranial hemorrhage, midline shift, intracranial mass, hydrocephalus, territorial ischemia or abnormal extra-axial collection. Mild involutional changes. Motion degraded exam. The calvarium is intact. Right partial mastoidectomy changes. Trace left mastoid effusion. Paranasal sinuses are clear. IMPRESSION: No acute intracranial abnormality. ACT 112: Negative or not required by law. The above report was generated using voice recognition software. It may contain grammatical, syntax or spelling errors. Electronically signed by: Sabas Vang M.D. 10/30/2022 12:50 PM ECG Additional Comments: Sinus tachycardia Left anterior fascicular block Abnormal ECG When compared with ECG of 19-APR-2021 07:00, Vent. rate has increased BY 52 BPM Confirmed by Rudolph Enciso ([id number]) on 10/30/2022 2:37:37 PM Code Status & VTE Plan Code Status Full code VTE Prophylaxis Plan VTE Prophylaxis will be ordered: Yes Supervising Physician Co-Signing Physician Notes Patient seen and examined by bedside. I obtained a history and physical examination during face to face encounter. I discussed plan of care with patient and APC Peno. I reviewed above note and agree with it. Patient admitted with cholecystitis, Patient will have cholecystectomy tomorrow, NPO after midnight. PG Care Time/CCT Total # of Minutes Spent Total Time Spent with Patient: Total time spent is greater than 50% in coordination of care (as documented) at patient's floor/unit and/or counseling patient: [place] [address] Initial Inpt Care Lvl 3 Patient Type Established Medical Decision Making High Complexity Diagnoses Sepsis A41.9 Hyperlipidemia E78.2 Hyperlipidemia type: mixed hyperlipidemia Atrial fibrillation I48.0 Atrial fibrillation type: paroxysmal Gout M10.9 Chronicity: unspecified Gout etiology: unspecified cause Gout site: unspecified site HTN (hypertension) I10 CAD (coronary artery disease) I25.10 (1) Gout Chronicity: unspecified Gout etiology: unspecified cause Gout site: unspecified site Qualified Code(s): M10.9 - Gout, unspecified (2) Atrial fibrillation Atrial fibrillation type: paroxysmal Qualified Code(s): I48.0 - Paroxysmal atrial fibrillation (3) Hyperlipidemia Hyperlipidemia type: mixed hyperlipidemia Qualified Code(s): E78.2 - Mixed hyperlipidemia
--- NOTE | 2022-10-30 14:55 | Gastrointestinal Consultation ---
Date of Consultation October 30, 2022 Assessment & Plan (1) Choledocholithiasis: 77 year old male presenting with fevers, abd pain, labs showing leukocytosis, elevated Tbili 6 w/ elevated transaminases. Imaging showing gallstones, choledocholithiasis at the level of the ampulla, biliary dilation. NPO Agree w/ IV ABX for cholangitis coverage ERCP today Appreciate general surgery evaluation regarding CCY given his cimplex prior surgical history Antiemetics PRN Analgesia PRN Thank you for allowing us to participate in the care of this patient. Please call with any acute changes, questions or concerns. Please see addendum below with additional recommendation from my supervising physician. Supervising Physician Co-Signing Physician Notes I saw and evaluated the patient. We were consulted for new onset jaundice and history of abdominal pain. The patient does have an imaging study which shows evidence of choledocholithiasis. The patient notes that the pain has been ongoing for approximately 24 hours and associated with nausea but no emesis. The patient has had a number of intra- abdominal surgeries for hernia repairs. Physical examination Scleral icterus noted Mild right-sided abdominal tenderness noted Incisional hernia noted in the mid abdomen Impression: Patient presenting with symptomatic choledocholithiasis and a mild elevation of his white blood cell count. Given the findings we will proceed with ERCP for biliary decompression and gallstone extraction. The patient would ultimately benefit from having a surgical consultation to determine timing of cholecystectomy. I discussed risks and benefits of ERCP to include bleeding, infection, perforation, pain, pancreatitis, failed biliary cannulation and the need for follow-up studies. History of Present Illness Reason for Consultation: need for ERCP Requesting Physician: Ventura Attending Physician: Ventura History of Present Illness 77 year old male who presents with fevers (yesterday) and generalized abd pain x 1 day. Pain is upper abd, started after dinner. Mild nausea. No vomiting. Suggests that he had fevers after onset of pain which resolved. No change in bowels.' WBC 12 Started on Zosyn Tbili 6 No NSAIDs No AC CTAP 2021: The gallbladder is distended and contains numerous gallstones. There is no clear CT evidence of acute cholecystitis. There is choledocholithiasis, with a calcified gallstone at the ampulla. There is associated intra and extrahepatic biliary ductal dilatation. GI follow-up is recommended. Allergies Allergy/AdvReac Type Severity Reaction Status Date / Time ezetimibe [From Zetia] AdvReac Intermediate sore joints Verified 05/29/22 09:00 lovastatin AdvReac Intermediate sore joints Verified 05/29/22 09:00 Home Medications Medication Instructions Recorded Confirmed Type atorvastatin 10 mg tablet 10 mg PO QPM #90 tabs 09/06/19 02/21/22 Rx metoprolol tartrate 50 mg tablet 50 mg PO BID #60 tabs 06/09/20 02/21/22 Rx allopurinol 100 mg tablet 100 mg PO HS 07/21/20 02/21/22 History Patient History Medical History Atrial fibrillation CAD (coronary artery disease) Non-obstructive CAD Colovesical fistula DVT (deep venous thrombosis) 05/2020 (post-op) > IVC filter placed (subsequent IVC filter removed) GERD (gastroesophageal reflux disease) "silent" Gout Hyperlipidemia Hypertension Osteoarthritis Pulmonary embolism and infarction 05/2020 (post-op) > IVC filter placed d/t hematuria (subsequent IVC filter removed) PVC (premature ventricular contraction) Hx PVCs in pattern of bigeminy per cardiology records Surgical History H/O exploratory laparotomy Exploratory abdominal wound (05/15/2020): Grade view 1, Mckeon #2, ET tube 7.5 at [facility] H/O resection of small bowel Ileostomy removal (05/30/20): DL x2, Grade view 1, MAC#4, ETT 7.5 at [facility] History of adenoidectomy History of cardiac cath ~2004 & ~2011 > no stents History of colonoscopy History of ear surgery right History of esophagogastroduodenoscopy (EGD) x1 with FB removal and x1 for recheck History of hernia repair Lap Incisional Hernia Repair with mesh History of surgery (~09/25/20) removal of inferior vena cava filter by Dr. Latham History of surgery (02/21/22) Laparoscopy with Lysis of Adhesions, Laparotomy with Removal Infected Surgimesh(Not Applicable) - Lex Marquez MD, FACS 02/21/2022 History of tonsillectomy S/P inguinal hernia repair right inguinal with hernia mesh S/P insertion of IVC (inferior vena caval) filter S/P IVC filter removal Family History Brother Prostate cancer Heart disease Father Heart disease Other No family history of adverse response to anesthesia Social History Smoking Status: Never smoker Second Hand Exposure: No; Hx Alcohol Use: No Hx Substance Use: No Preferred Language: Thai Communication Ability: Effective Visual Impairment: Limited Hearing Ability: Normal Pallet Rectifier Required: No Beliefs That Will Affect Care: None marital status: Current Living Situation: Spouse current occupational status: retired current occupation: [employer] Feels Safe at Home: Yes caffeine: Yes Assistive Devices: None Review of Systems Review of Systems: All systems reviewed & are unremarkable except as noted in HPI & below Physical Exam Constitutional: well developed and well nourished; no acute distress and not ill appearing Neck: trachea midline; no tracheal deviation Respiratory: normal respiratory effort; no respiratory distress and no labored breathing Cardiovascular: Rate/Rhythm: regular rate Gastrointestinal (Abdomen): Percussion/Palpation: + abdomen tender and abdomen soft; no guarding, abdomen not rigid and no ascites Skin: +jaundice Results & Data ([facility]) Vital Signs (Past 12 Hours) Vital Signs Temp Pulse Pulse Resp BP BP Pulse Ox 10/30/22 14:00 89 20 143/90 H 96 10/30/22 13:14 87 18 147/98 H 96 10/30/22 12:01 96 H 18 133/77 94 10/30/22 11:22 37.1 C 98 H 22 132/87 94 O2 Del Method 10/30/22 14:00 Room Air 10/30/22 13:14 Room Air 10/30/22 12:01 Room Air 10/30/22 11:22 Room Air Laboratory Results 10/30/22 10/30/22 10/30/22 Range/Units 13:10 11:55 11:55 WBC (4.8-10.8) K/ul RBC (4.63-6.08) M/uL Hgb (14.0-18.0) g/dl Hct (40.1-51.0) % MCV (80.0-100.0) fL MCH (25.0-34.0) pg MCHC (32.0-36.0) g/dL RDW Std Deviation (36.4-46.3) fL RDW Coeff of Alda (11.5-14.5) % Plt Count (130-400) K/uL MPV (9.4-12.4) fL Immature Gran % (Auto) % Neut % (Auto) % Lymph % (Auto) % Dyer % (Auto) % Eos % (Auto) % Baso % (Auto) % Neut # (Auto) (1.4-6.5) K/uL Lymph # (Auto) (1.2-3.4) K/uL Dyer # (Auto) (0.24-0.82) K/uL Eos # (Auto) (0-0.50) K/uL Baso # (Auto) (0-0.2) K/uL Immature Gran # (Auto) (0.00-0.02) K/uL Sodium (136-145) mmol/L Potassium (3.5-5.1) mmol/L Chloride (98-107) mmol/L Carbon Dioxide (21-32) mmol/L Anion Gap (3-11) BUN (6-23) mg/dl Creatinine (0.6-1.4) mg/dl Est Cr Clr Drug Dosing ml/min Est GFR ( Amer) ml/min Est GFR (Non-Af Amer) ml/min BUN/Creatinine Ratio (10-20) Glucose (70-99(Fasting)) mg/dl Lactate (0.4-2.0) mmol/L Calcium (8.5-10.1) mg/dl Magnesium (1.7-2.4) mg/dl Total Bilirubin (0.2-1.0) mg/dl Direct Bilirubin (0-0.2) mg/dl AST (13-39) U/L ALT (7-52) U/L Alkaline Phosphatase (34-104) U/L Troponin I High Sens (0-20) pg/ml Total Protein (6.0-8.3) gm/dl Albumin (3.4-5.0) gm/dl Lipase 55 (11-82) U/L Procalcitonin (0-0.5) ng/ml Urine Color Dark Yellow Urine Appearance Clear (Clear) Urine pH 6.0 (4.5-7.5) Ur Specific Borger 1.013 (1.000-1.030) Urine Protein 2+ H (Negative) Urine Glucose (UA) Negative (Negative) Urine Ketones Negative (Negative) Urine Blood Negative (Negative) Urine Nitrite Positive A (Negative) Urine Bilirubin 1+ H (Negative) Urine Urobilinogen Negative (Negative) Ur Leukocyte Esterase Negative (Negative) Urine WBC (Auto) 1-5 (0-5) /hpf Urine RBC (Auto) 0-4 (0-4) /hpf U Hyaline Cast (Auto) 1-5 (0-5) /lpf U Epithel Cells (Auto) 0-5 (0-5) /lpf Urine Bacteria (Auto) Negative (Negative) SARS-CoV-2 (PCR) NEGATIVE (Negative) 10/30/22 10/30/22 10/30/22 Range/Units 11:55 11:55 11:55 WBC (4.8-10.8) K/ul RBC (4.63-6.08) M/uL Hgb (14.0-18.0) g/dl Hct (40.1-51.0) % MCV (80.0-100.0) fL MCH (25.0-34.0) pg MCHC (32.0-36.0) g/dL RDW Std Deviation (36.4-46.3) fL RDW Coeff of Alda (11.5-14.5) % Plt Count (130-400) K/uL MPV (9.4-12.4) fL Immature Gran % (Auto) % Neut % (Auto) % Lymph % (Auto) % Dyer % (Auto) % Eos % (Auto) % Baso % (Auto) % Neut # (Auto) (1.4-6.5) K/uL Lymph # (Auto) (1.2-3.4) K/uL Dyer # (Auto) (0.24-0.82) K/uL Eos # (Auto) (0-0.50) K/uL Baso # (Auto) (0-0.2) K/uL Immature Gran # (Auto) (0.00-0.02) K/uL Sodium 133 L (136-145) mmol/L Potassium 3.7 (3.5-5.1) mmol/L Chloride 99 (98-107) mmol/L Carbon Dioxide 24 (21-32) mmol/L Anion Gap 10 (3-11) BUN 18 (6-23) mg/dl Creatinine 1.12 (0.6-1.4) mg/dl Est Cr Clr Drug Dosing 69.6 ml/min Est GFR ( Amer) 73.6 ml/min Est GFR (Non-Af Amer) 63.5 ml/min BUN/Creatinine Ratio 16.1 (10-20) Glucose 142 H (70-99(Fasting)) mg/dl Lactate 1.0 (0.4-2.0) mmol/L Calcium 9.9 (8.5-10.1) mg/dl Magnesium 1.6 L (1.7-2.4) mg/dl Total Bilirubin 6.9 H (0.2-1.0) mg/dl Direct Bilirubin 4.0 H (0-0.2) mg/dl AST 347 H (13-39) U/L ALT 447 H (7-52) U/L Alkaline Phosphatase 349 H (34-104) U/L Troponin I High Sens 18.4 (0-20) pg/ml Total Protein 7.4 (6.0-8.3) gm/dl Albumin 4.1 (3.4-5.0) gm/dl Lipase (11-82) U/L Procalcitonin 0.81 H (0-0.5) ng/ml Urine Color Urine Appearance (Clear) Urine pH (4.5-7.5) Ur Specific Borger (1.000-1.030) Urine Protein (Negative) Urine Glucose (UA) (Negative) Urine Ketones (Negative) Urine Blood (Negative) Urine Nitrite (Negative) Urine Bilirubin (Negative) Urine Urobilinogen (Negative) Ur Leukocyte Esterase (Negative) Urine WBC (Auto) (0-5) /hpf Urine RBC (Auto) (0-4) /hpf U Hyaline Cast (Auto) (0-5) /lpf U Epithel Cells (Auto) (0-5) /lpf Urine Bacteria (Auto) (Negative) SARS-CoV-2 (PCR) (Negative) 10/30/22 Range/Units 11:55 WBC 11.42 H (4.8-10.8) K/ul RBC 5.69 (4.63-6.08) M/uL Hgb 16.9 (14.0-18.0) g/dl Hct 50.5 (40.1-51.0) % MCV 88.8 (80.0-100.0) fL MCH 29.7 (25.0-34.0) pg MCHC 33.5 (32.0-36.0) g/dL RDW Std Deviation 41.1 (36.4-46.3) fL RDW Coeff of Alda 12.6 (11.5-14.5) % Plt Count 196 (130-400) K/uL MPV 9.9 (9.4-12.4) fL Immature Gran % (Auto) 0.4 % Neut % (Auto) 87.6 % Lymph % (Auto) 4.4 % Dyer % (Auto) 7.4 % Eos % (Auto) 0.1 % Baso % (Auto) 0.1 % Neut # (Auto) 10.01 H (1.4-6.5) K/uL Lymph # (Auto) 0.50 L (1.2-3.4) K/uL Dyer # (Auto) 0.85 H (0.24-0.82) K/uL Eos # (Auto) 0.01 (0-0.50) K/uL Baso # (Auto) 0.01 (0-0.2) K/uL Immature Gran # (Auto) 0.04 H (0.00-0.02) K/uL Sodium (136-145) mmol/L Potassium (3.5-5.1) mmol/L Chloride (98-107) mmol/L Carbon Dioxide (21-32) mmol/L Anion Gap (3-11) BUN (6-23) mg/dl Creatinine (0.6-1.4) mg/dl Est Cr Clr Drug Dosing ml/min Est GFR ( Amer) ml/min Est GFR (Non-Af Amer) ml/min BUN/Creatinine Ratio (10-20) Glucose (70-99(Fasting)) mg/dl Lactate (0.4-2.0) mmol/L Calcium (8.5-10.1) mg/dl Magnesium (1.7-2.4) mg/dl Total Bilirubin (0.2-1.0) mg/dl Direct Bilirubin (0-0.2) mg/dl AST (13-39) U/L ALT (7-52) U/L Alkaline Phosphatase (34-104) U/L Troponin I High Sens (0-20) pg/ml Total Protein (6.0-8.3) gm/dl Albumin (3.4-5.0) gm/dl Lipase (11-82) U/L Procalcitonin (0-0.5) ng/ml Urine Color Urine Appearance (Clear) Urine pH (4.5-7.5) Ur Specific Borger (1.000-1.030) Urine Protein (Negative) Urine Glucose (UA) (Negative) Urine Ketones (Negative) Urine Blood (Negative) Urine Nitrite (Negative) Urine Bilirubin (Negative) Urine Urobilinogen (Negative) Ur Leukocyte Esterase (Negative) Urine WBC (Auto) (0-5) /hpf Urine RBC (Auto) (0-4) /hpf U Hyaline Cast (Auto) (0-5) /lpf U Epithel Cells (Auto) (0-5) /lpf Urine Bacteria (Auto) (Negative) SARS-CoV-2 (PCR) (Negative) Diagnostic Findings CT SCAN OF THE ABDOMEN AND PELVIS WITHOUT IV CONTRAST CLINICAL HISTORY: Generalized abdominal pain. Fever. COMPARISON STUDY: Abdominal CT dated 05/12/2020. TECHNIQUE: CT scan of the abdomen and pelvis is performed from the lung bases to the proximal femora. Images are reviewed in the axial, sagittal, and coronal planes. IV contrast was not administered for this examination. Note that the examination is suboptimal without oral and IV contrast. A dose lowering technique was utilized adhering to the principles of ALARA. CT DOSE: 1090.92 mGycm FINDINGS: Lung bases: The heart is top normal in size and without pericardial effusion. The lung bases are clear noting bibasilar scarring/atelectasis. A small hiatal hernia is noted. Liver: The unenhanced liver is normal in size, contour, and attenuation. There is mild intrahepatic biliary ductal dilatation. Gallbladder: The gallbladder is distended and contains numerous calcified gallstones. There is no CT evidence of acute cholecystitis. There is choledocholithiasis, with a calcified gallstone at the ampulla seen on axial image #174. The common bile duct is dilated measuring up to 10 mm in diameter. Spleen: Normal in size and attenuation. Pancreas: The unenhanced pancreas is mildly atrophic and grossly unremarkable. Adrenal glands: Unremarkable. Kidneys: The unenhanced kidneys demonstrate mild cortical atrophy and are without hydronephrosis. There are no renal calculi identified. A 1.7 cm exophytic cyst arises from the right lower pole. Abdominal vasculature: The abdominal aorta is normal in course and caliber noting mild atherosclerotic calcification. Bowel: There is moderate colonic fecal retention. There is a complex supra umbi lical hernia which contains nonobstructed bowel. No bowel obstruction is seen. There is [id number] colonic diverticulosis without CT evidence of acute diverticulitis. The appendix is well-visualized and normal. Peritoneum: There is no intraperitoneal free air or abdominal ascites. A midline surgical scar is noted. There is irregular linear soft tissue between the dome of the bladder and the sigmoid colon seen on image #384. An irregular focus of peritoneal thickening in the upper pelvis is seen on image #3 and 35 and measures 2.1 cm. An additional nodule anterior to the bladder on the left as seen on image #394 and measures up to 8 mm. Lymphadenopathy: None. Pelvic viscera: The prostate gland is enlarged and heterogeneous noting median lobe hypertrophy. The bladder wall is thickened and trabeculated indicating chronic outlet obstruction. Skeletal structures: The skeletal structures are osteopenic. There is mild to moderate lumbosacral spondylosis. No lytic or blastic lesions are seen. IMPRESSION: 1. The gallbladder is distended and contains numerous gallstones. There is no clear CT evidence of acute cholecystitis. 2. There is choledocholithiasis, with a calcified gallstone at the ampulla. There is associated intra and extrahepatic biliary ductal dilatation. GI follow- up is recommended. 3. There is a complex supraumbilical hernia which contains nonobstructed small bowel. 4. There is irregular linear soft tissue between the dome of the bladder and the sigmoid colon, with additional foci of irregular nodularity in the lower mesentery. This likely represents postsurgical change/scarring. A colovesicular fistula is considered less likely. Correlate with urinalysis. A precautionary 3- 4 month follow-up contrast enhanced abdominal CT is recommended to reevaluate the mesenteric nodules. 5. Colonic diverticulosis without CT evidence of acute diverticulitis. 6. Additional findings as above.
[2022-10-30] MEDS ORDERED: INDOMETHACIN 50 MG SUPP PR STA (14:56)
[2022-10-30] MEDS ORDERED: INDOMETHACIN 50 MG SUPP PR ONE (14:59)
--- NOTE | 2022-10-30 15:00 | Anesthesiology Consultation ---
Date of Service October 30, 2022 Assessment & Plan (1) Encounter for pre-operative examination: Chart Review Chart Review: Acceptable Risk for Surgery (urgent) History Surgery Operation Date: 10/30/22 13:50 Proposed Procedures p Endoscopic Retrograde Cholangiopancreatogram - Memo Cm DO Height/Weight Height: 5 ft 11 in Weight: 106.2 kg Allergies Allergy/AdvReac Type Severity Reaction Status Date / Time ezetimibe [From Zetia] AdvReac Intermediate sore joints Verified 05/29/22 09:00 lovastatin AdvReac Intermediate sore joints Verified 05/29/22 09:00 Medications Home Medications Medication Instructions Recorded Confirmed Last Taken atorvastatin 10 mg tablet 10 mg PO QPM #90 tabs 09/06/19 02/21/22 02/20/22 18:00 metoprolol tartrate 50 mg tablet 50 mg PO BID #60 tabs 06/09/20 02/21/22 02/21/22 05:30 allopurinol 100 mg tablet 100 mg PO HS 07/21/20 02/21/22 02/20/22 18:00 Past Medical History Medical History Atrial fibrillation CAD (coronary artery disease) Non-obstructive CAD Colovesical fistula DVT (deep venous thrombosis) 05/2020 (post-op) > IVC filter placed (subsequent IVC filter removed) GERD (gastroesophageal reflux disease) "silent" Gout Hyperlipidemia Hypertension Osteoarthritis Pulmonary embolism and infarction 05/2020 (post-op) > IVC filter placed d/t hematuria (subsequent IVC filter removed) PVC (premature ventricular contraction) Hx PVCs in pattern of bigeminy per cardiology records Past Family History Family History Brother Prostate cancer Heart disease Father Heart disease Other No family history of adverse response to anesthesia Past Surgical History Surgical History H/O exploratory laparotomy Exploratory abdominal wound (05/15/2020): Grade view 1, Mckeon #2, ET tube 7.5 at [facility] H/O resection of small bowel Ileostomy removal (05/30/20): DL x2, Grade view 1, MAC#4, ETT 7.5 at [facility] History of adenoidectomy History of cardiac cath ~2004 & ~2011 > no stents History of colonoscopy History of ear surgery right History of esophagogastroduodenoscopy (EGD) x1 with FB removal and x1 for recheck History of hernia repair Lap Incisional Hernia Repair with mesh History of surgery (~09/25/20) removal of inferior vena cava filter by Dr. Latham History of surgery (02/21/22) Laparoscopy with Lysis of Adhesions, Laparotomy with Removal Infected Surgimesh(Not Applicable) - Lex Marquez MD, FACS 02/21/2022 History of tonsillectomy S/P inguinal hernia repair right inguinal with hernia mesh S/P insertion of IVC (inferior vena caval) filter S/P IVC filter removal Social History Smoking Status: Never smoker tobacco type: smokeless tobacco Hx Alcohol Use: No Hx Substance Use: No substance use type: does not use Physical Exam Vital Signs Last Vital Signs Temp 37.1 C 10/30/22 11:22 Pulse 89 10/30/22 14:00 Resp 20 10/30/22 14:00 BP 143/90 H 10/30/22 14:00 Pulse Ox 96 10/30/22 14:00 O2 Del Method 10/30/22 14:50 Testing Laboratory Results 10/30/22 11:55 10/30/22 11:55 Urine Color Dark Yellow 10/30/22 13:10 Urine Appearance Clear (Clear) 10/30/22 13:10 Urine pH 6.0 (4.5-7.5) 10/30/22 13:10 Ur Specific Marcus 1.013 (1.000-1.030) 10/30/22 13:10 Urine Protein 2+ (Negative) H 10/30/22 13:10 Urine Glucose (UA) Negative (Negative) 10/30/22 13:10 Urine Ketones Negative (Negative) 10/30/22 13:10 Urine Nitrite Positive (Negative) A 10/30/22 13:10 Ur Leukocyte Esterase Negative (Negative) 10/30/22 13:10 Urine WBC (Auto) 1-5 /hpf (0-5) 10/30/22 13:10 Urine RBC (Auto) 0-4 /hpf (0-4) 10/30/22 13:10 U Hyaline Cast (Auto) 1-5 /lpf (0-5) 10/30/22 13:10 U Epithel Cells (Auto) 0-5 /lpf (0-5) 10/30/22 13:10 Urine Bacteria (Auto) Negative (Negative) 10/30/22 13:10 Electrocardiogram Date: 10/30/22 Findings: + ST @ (102) Chest X-Ray Date: 10/30/22 Findings: + NAD
[2022-10-30] MEDS ORDERED: ONDANSETRON INJ 2 MG/ML 2 ML VIAL ONE ×2 (15:04→16:00)
[2022-10-30] MEDS ORDERED: ROCURONIUM BROMIDE 10 MG/ML 5 ML VIAL IV ONE (15:04)
[2022-10-30] MEDS ORDERED: SUCCINYLCHOLINE CHLORIDE 20 MG/ML 10 ML VIAL IV ONE (15:04)
[2022-10-30] MEDS ORDERED: LIDOCAINE 2% MPF LOCAL 5 ML VIAL INFIL ONE (15:04)
[2022-10-30] MEDS ORDERED: PROPOFOL IV EMULSION 10 MG/ML 20 ML VIAL IV ONE (15:04)
[2022-10-30] MEDS ORDERED: ATROPINE SULFATE 0.1 MG/ML 10ML SYR IV PRN (15:13)
[2022-10-30] MEDS ORDERED: fentaNYL citrate 100 MCG/2 ML VIAL IV PRN (15:13)
[2022-10-30] MEDS ORDERED: LABETALOL HCL IV 5 MG/ML 20ML IV PRN (15:13)
[2022-10-30] MEDS ORDERED: ONDANSETRON INJ 2 MG/ML 2 ML VIAL IV PRN (15:13)
--- NOTE | 2022-10-30 16:15 | GI REPORT ---
Patient Name: Олег Holloway Procedure Date: 10/30/2022 3:00 PM Date of : 1945 Admit Type: Emergency Department Age: 77 Gender: Male Attending MD: Memo Cm DO, Procedure: ERCP Providers: Memo Cm DO Referring MD: Ana M Hernández, Yariel Whitehead, Larry Recinos Indications: For therapy of bile duct stone(s), Jaundice, Elevated liver enzymes Medicines: General Anesthesia Complications: No immediate complications. Estimated blood loss: Minimal. Estimated Blood Loss: Estimated blood loss was minimal. Procedure: Pre-Anesthesia Assessment: - Prior to the procedure, a History and Physical was performed, and patient medications, allergies and sensitivities were reviewed. The patient's tolerance of previous anesthesia was reviewed. - The risks and benefits of the procedure and the sedation options and risks were discussed with the patient. All questions were answered and informed consent was obtained. - Patient identification and proposed procedure were verified prior to the procedure by the physician, the nurse and the pipe coverer and insulator. The procedure was verified in the procedure room. - Pre-procedure physical examination revealed no contraindications to sedation. - ASA Grade Assessment: III - A patient with severe systemic disease. - After reviewing the risks and benefits, the patient was deemed in satisfactory condition to undergo the procedure. - The anesthesia plan was to use general anesthesia. - Immediately prior to administration of medications, the patient was re-assessed for adequacy to receive sedatives. - The heart rate, respiratory rate, oxygen saturations, blood pressure, adequacy of pulmonary ventilation, and response to care were monitored throughout the procedure. - The physical status of the patient was re-assessed after the procedure. After obtaining informed consent, the scope was passed under direct vision. Throughout the procedure, the patient's blood pressure, pulse, and oxygen saturations were monitored continuously. The Duodenoscope was introduced through the mouth, and advanced to the duodenum and used to cannulate the bile duct. The ERCP was accomplished without difficulty. The patient tolerated the procedure well. Findings: The cut to length operator film was normal. The esophagus was successfully intubated under direct vision without detailed examination of the pharynx, larynx, and associated structures, and upper GI tract. The upper GI tract was grossly normal. The major papilla was congested. The major papilla was erythematous. The major papilla contained an impacted stone. The bile duct was deeply cannulated with the short-nosed traction sphincterotome and guidewire. Contrast was injected. I personally interpreted the bile duct images. Contrast extended to the bifurcation. The main bile duct was moderately dilated, with a stone causing an obstruction. The largest diameter was 10 mm. Biliary sphincterotomy was made with a Fusion OMNI sphincterotome using ERBE electrocautery. There was no post-sphincterotomy bleeding. To discover objects, the biliary tree was swept with a 15 mm balloon starting at the bifurcation. Three stones were removed. No stones remained. Pus was swept from the duct. Sludge was swept from the duct. Two 7 Fr by 7 cm biliary stents with a full external pigtail and a full internal pigtail were placed 7 cm into the common bile duct. Bile flowed through the stents. The stents were in good position. The endoscope was withdrawn from the patient. The total fluoroscopy exposure time was 11 seconds. Indomethacin 100 mg was given via suppository to decrease the risk of post-ERCP pancreatitis (PEP). Impression: - An impacted stone was seen in the major papilla. - Choledocholithiasis and cholangitis was found. Complete removal was accomplished by biliary sphincterotomy and balloon extraction. - Two double pigtail biliary stents were placed into the common bile duct. - Indomethacin given to decrease risk of post-ERCP pancreatitis. Recommendation: - Avoid aspirin and nonsteroidal anti-inflammatory medicines for 5 days. - Use broad spectrum antibiotics for 2 weeks. - Repeat ERCP in 6 weeks to remove stent. - Refer to a surgeon to discuss cholecystectomy. Memo Cm D.O. Memo Cm, 10/30/2022 4:14:54 PM This report has been signed electronically. Note Initiated On: 10/30/2022 3:00 PM Number of Addenda: 0 I attest to the content of the Intraoperative Record and orders documented therein, exceptions below {[id number]}
--- NOTE | 2022-10-30 16:15 | Post Operative Brief Note ---
Immediate Post Op Note v1 Date of Surgery October 30, 2022 Pre & Post Diagnosis Operation Date: 10/30/22 13:50 Pre-Op Diagnosis: choledocholithiasis Post-Op Diagnosis: Choledocholithiasis / cholangitist I identified the patient and participated in the time-out.: Yes Procedure Operation Date: 10/30/22 13:50 Actual Procedures p Endoscopic Retrograde Cholangiopancreato - Memo Cm DO Operation Date: 10/31/22 07:50 <No data on this case meets the specified criteria> Surgeon Memo Cm DO Customer Contact Specialist none Estimated Blood Loss 0 Findings Consistent with Post-Op Diagnosis
--- NOTE | 2022-10-30 16:16 | Communication Note ---
Date of Service: October 30, 2022 The patient underwent ERCP this afternoon. He was found to have numerous stones within the common bile duct and addition to pus consistent with cholangitis. Recommendations Patient may have clear liquids this evening Avoid nonsteroidals for 5 days Continue antibiotics for total of 2 weeks Cholecystectomy per general surgery Repeat ERCP in 6 to 8 weeks for biliary stent removal Daily hepatic function panel Please call with any questions or concerns
--- NOTE | 2022-10-30 16:59 | Fluoroscopy Report ---
[place] ERCP biliary ductal CLINICAL HISTORY: ERCP. Choledocholithiasis. COMPARISON STUDY: Abdomen and pelvis CT 10/30/2022. FLUOROSCOPY TIME: 11 seconds. FINDINGS: 5 fluoroscopic spot images of the right upper quadrant. The ampulla was cannulated and cont rast was injected into the common bile duct. There is a filling defect within the distal common bile duct corresponding to the known stone. This is followed by placement of a common bile duct stent whic h appears in good position. IMPRESSION: Fluoroscopic assistance provided for ERCP as above. ACT 112: Negative or not required by law. Electronically signed by: Mickey Barney M.D. 10/30/2022 4:58 PM
--- NOTE | 2022-10-30 17:10 | Anesthesiology Progress Note ---
Date of Service October 30, 2022 Anesthesia Post Procedure Vital Signs Vital Signs: Temp Pulse Pulse Pulse Resp BP BP 10/30/22 17:00 63 20 124/90 10/30/22 16:50 73 22 126/94 10/30/22 16:40 37.0 C 75 24 123/84 10/30/22 16:30 87 27 H 128/85 10/30/22 16:20 101 H 24 129/81 10/30/22 16:13 37.7 C H 102 H 18 118/76 10/30/22 14:54 36.6 C 88 18 143/96 H 10/30/22 14:50 10/30/22 14:00 89 20 143/90 H 10/30/22 13:14 87 18 147/98 H 10/30/22 12:01 96 H 18 133/77 10/30/22 11:22 37.1 C 98 H 22 132/87 Pulse Ox O2 Del Method O2 Flow Rate 10/30/22 17:00 96 Nasal Cannula 2 10/30/22 16:50 96 Nasal Cannula 2 10/30/22 16:40 97 Room Air 10/30/22 16:30 98 Oxymask 4 10/30/22 16:20 95 Oxymask 6 10/30/22 16:13 95 Oxymask 6 10/30/22 14:54 96 Room Air 10/30/22 14:50 Room Air 10/30/22 14:00 96 Room Air 10/30/22 13:14 96 Room Air 10/30/22 12:01 94 Room Air 10/30/22 11:22 94 Room Air Transfer of Care Handoff Completed per policy Notes Mental Status: alert / awake / arousable Patient Amnestic to Procedure: Yes Nausea / Vomiting: adequately controlled Pain: adequately controlled Airway Patency, RR, SpO2: stable & adequate BP & HR: stable & adequate Hydration State: stable & adequate Anesthetic Complications: no major complications apparent
[2022-10-30] MEDS ORDERED: ACETAMINOPHEN 325 MG TAB PO PRN ×2 (17:20→18:36)
[2022-10-30] MEDS: LACTATED RINGER'S 1,000 ML IV SCH ×2 (17:42→18:48)
[2022-10-30] MEDS: PIPERACILLIN/TAZOBACTAM 4.5 GM in DEXTROSE 5% 100 ML IV SCH (20:41)
[2022-10-31] MEDS: PIPERACILLIN/TAZOBACTAM 4.5 GM in DEXTROSE 5% 100 ML IV SCH ×3 (04:00→20:03)
--- NOTE | 2022-10-31 06:24 | History & Physical Bridge Note ---
Date of Service October 31, 2022 History & Physical Bridge Note I have examined the patient, reviewed the History & Physical and in the interval since the performance of the History & Physical I have noted the following changes of clinical significance: no changes noted
--- NOTE | 2022-10-31 07:32 | Anesthesiology Consultation ---
Date of Service October 31, 2022 Assessment & Plan Chart Review Chart Review: Acceptable Risk for Surgery and Patient NOT seen in Pre Admission Testing Consults Requested none ASA ASA4 Proposed Anesthesia Anesthesia Type: General History Surgery Operation Date: 10/30/22 13:50 Proposed Procedures p Endoscopic Retrograde Cholangiopancreatogram - Memo Cm DO Operation Date: 10/31/22 07:50 Proposed Procedures p Laparoscopic Cholecystectomy Possible Open - Riley Menchaca MD, FACS Height/Weight Height: 5 ft 11 in Weight: 102.9 kg Allergies Allergy/AdvReac Type Severity Reaction Status Date / Time ezetimibe [From Zetia] AdvReac Intermediate sore joints Verified 05/29/22 09:00 lovastatin AdvReac Intermediate sore joints Verified 05/29/22 09:00 Medications Home Medications Medication Instructions Recorded Confirmed Last Taken atorvastatin 10 mg tablet 10 mg PO QPM #90 tabs 09/06/19 10/30/22 02/20/22 18:00 metoprolol tartrate 50 mg tablet 50 mg PO BID #60 tabs 06/09/20 10/30/22 02/21/22 05:30 allopurinol 100 mg tablet 100 mg PO HS 07/21/20 10/30/22 02/20/22 18:00 Active Medications Generic Name Dose Route Start Last Admin Trade Name Freq PRN Reason Stop Dose Admin Piperacillin Sod/Tazobactam 120 mls @ 30 mls/hr 10/30/22 20:00 10/31/22 04:00 Sod 4.5 gm/ Dextrose IV 11/09/22 19:59 30 mls/hr Q8H POLI Administration Protocol NPO Last Intake of Fluids Comment: 5:30 Last Intake of Solids Comment: 5:30 Past Medical History Medical History Atrial fibrillation CAD (coronary artery disease) Non-obstructive CAD Colovesical fistula DVT (deep venous thrombosis) 05/2020 (post-op) > IVC filter placed (subsequent IVC filter removed) GERD (gastroesophageal reflux disease) "silent" Gout Hyperlipidemia Hypertension Osteoarthritis Pulmonary embolism and infarction 05/2020 (post-op) > IVC filter placed d/t hematuria (subsequent IVC filter removed) PVC (premature ventricular contraction) Hx PVCs in pattern of bigeminy per cardiology records Exercise / Class Metabolic Activity III < 4 Walking/Shop/Light housework Past Family History Family History Brother Prostate cancer Heart disease Father Heart disease Other No family history of adverse response to anesthesia Past Surgical History Surgical History H/O exploratory laparotomy Exploratory abdominal wound (05/15/2020): Grade view 1, Mckeon #2, ET tube 7.5 at [facility] H/O resection of small bowel Ileostomy removal (05/30/20): DL x2, Grade view 1, MAC#4, ETT 7.5 at [facility] History of adenoidectomy History of cardiac cath ~2004 & ~2011 > no stents History of colonoscopy History of ear surgery right History of esophagogastroduodenoscopy (EGD) x1 with FB removal and x1 for recheck History of hernia repair Lap Incisional Hernia Repair with mesh History of surgery (~09/25/20) removal of inferior vena cava filter by Dr. Latham History of surgery (02/21/22) Laparoscopy with Lysis of Adhesions, Laparotomy with Removal Infected Surgimesh(Not Applicable) - Lex Marquez MD, FACS 02/21/2022 History of tonsillectomy S/P inguinal hernia repair right inguinal with hernia mesh S/P insertion of IVC (inferior vena caval) filter S/P IVC filter removal Past Anesthesia History No Hx of Anesthesia Complications and No Family Hx of Anesthesia Complications History of PONV No Hx of PONV and No Hx of Motion Sickness Social History Smoking Status: Never smoker tobacco type: smokeless tobacco Hx Alcohol Use: No Hx Substance Use: No substance use type: does not use Physical Exam Vital Signs Last Vital Signs Temp 36.7 C 10/31/22 07:02 Pulse 64 10/31/22 07:02 Resp 18 10/31/22 07:02 BP 168/92 H 10/31/22 07:02 Pulse Ox 97 10/31/22 07:02 O2 Del Method 10/31/22 07:02 O2 Flow Rate 2 10/30/22 17:10 Testing Laboratory Results 10/30/22 11:55 10/30/22 11:55 Urine Color Dark Yellow 10/30/22 13:10 Urine Appearance Clear (Clear) 10/30/22 13:10 Urine pH 6.0 (4.5-7.5) 10/30/22 13:10 Ur Specific [place] 1.013 (1.000-1.030) 10/30/22 13:10 Urine Protein 2+ (Negative) H 10/30/22 13:10 Urine Glucose (UA) Negative (Negative) 10/30/22 13:10 Urine Ketones Negative (Negative) 10/30/22 13:10 Urine Nitrite Positive (Negative) A 10/30/22 13:10 Ur Leukocyte Esterase Negative (Negative) 10/30/22 13:10 Urine WBC (Auto) 1-5 /hpf (0-5) 10/30/22 13:10 Urine RBC (Auto) 0-4 /hpf (0-4) 10/30/22 13:10 U Hyaline Cast (Auto) 1-5 /lpf (0-5) 10/30/22 13:10 U Epithel Cells (Auto) 0-5 /lpf (0-5) 10/30/22 13:10 Urine Bacteria (Auto) Negative (Negative) 10/30/22 13:10 Electrocardiogram Date: 10/30/22 Findings: + ST @ (@ 102;LAFB) Chest X-Ray Date: 10/30/22 Findings: + NAD
[2022-10-31 07:53] LABS: Hemoglobin 15.7 g/dl (14.0-18.0); Mean Corpuscular Hemoglobin 30.7 pg (25.0-34.0); Mean Corpuscular Hgb Conc 34.1 g/dL (32.0-36.0); Mean Platelet Volume 9.9 fL (9.4-12.4); Platelet Count 168 K/uL (130-400); RDW Coefficient of Variation 12.8 % (11.5-14.5); RDW Standard Deviation 42.1 fL (36.4-46.3); Red Blood Count 5.11 M/uL (4.63-6.08); White Blood Count 10.35 K/ul (4.8-10.8)
[2022-10-31 08:17] LABS: Albumin Level 3.3 gm/dl (3.4-5.0); BUN Creatinine Ratio 12.9 (10-20); Bilirubin,Total 8.6 mg/dl (0.2-1.0); Creatinine Clr Calc Pharmacy 54.8 ml/min; Est GFR (African American) 56.2 ml/min; Est GFR (Non-African American) 48.5 ml/min; Globulin 3.3 gm/dl (2.5-4.0); Potassium 4.2 mmol/L (3.5-5.1); Total Protein 6.6 gm/dl (6.0-8.3)
[2022-10-31 08:21] LABS: A calco-baum cmplx NotReported Not Detected (NotDetected); Bact fragilis Not Reported Not Detected (NotDetected); C auris Not Reported Not Detected (NotDetected); Calbicans Not Reported Not Detected (NotDetected); Candida glabrata Not Reported Not Detected (NotDetected); Candida krusei Not Reported Not Detected (NotDetected); Cneoformans/gatti Not Reported Not Detected (NotDetected); Cparapsilosis Not Reported Not Detected (NotDetected); Ctropicalis Not Reported Not Detected (NotDetected); E cloacae compx Not Reported Not Detected (NotDetected); Efaecalis Not Reported Not Detected (NotDetected); Efaecium Not Reported Not Detected (NotDetected); Enterobacterales Not Reported Not Detected (NotDetected); Escherichia coli Not Reported Not Detected (NotDetected); H influenzae Not Reported Not Detected (NotDetected); K aerogenes Not Reported Not Detected (NotDetected); Koxytoca Not Reported Not Detected (NotDetected); Kpneumoniae grp Not Reported Not Detected (NotDetected); Lmonocyt Not Reported Not Detected (NotDetected); N meningitidis Not Reported Not Detected (NotDetected); P aeruginosa Not Reported Not Detected (NotDetected); Proteus spp Not Reported Not Detected (NotDetected); Salmonella spp Not Reported Not Detected (NotDetected); Smarcescens Not Reported Not Detected (NotDetected); Staph lugdunensis Not Reported Not Detected (NotDetected); Staphaureus Not Reported Not Detected (NotDetected); Staphepi Not Reported Not Detected (NotDetected); Staphylococcus spp. DETECTED (NotDetected); Stenmaltophilia Not Reported Not Detected (NotDetected); Strep agal(GrpB) Not Reported Not Detected (NotDetected); Strep pneum Not Reported Not Detected (NotDetected); Strep pyog (GrpA) Not Reported Not Detected (NotDetected); Strep spp Not Reported Not Detected (NotDetected)
[2022-10-31] MEDS ORDERED: PROPOFOL IV EMULSION 10 MG/ML 20 ML VIAL IV ONE (08:23)
[2022-10-31] MEDS ORDERED: fentaNYL citrate 100 MCG/2 ML VIAL ONE ×2 (08:23→09:17)
[2022-10-31] MEDS ORDERED: BUPIVACAINE 0.5 % 5 MG/1 ML MPF 30ML VIAL ONE (08:27)
[2022-10-31] MEDS ORDERED: MIDAZOLAM HCL 1 MG/ML 2ML VIAL ONE (08:38)
--- NOTE | 2022-10-31 08:47 | Communication Note ---
Date of Service: October 31, 2022 Attempted to round on patient, he was out of room. He is s/p ERCP with evidence of cholangitis, retained biliation stones. CBC stable this AM. LFTs remain elevated, unchanged. Would repeat LFTs again tomorrow. From GI standpoint, can advance to clear liquids and low fat as tolerated. Avoid nonsteroidal for 5 days Continue antibiotics for total of 2 weeks/ Cholecystectomy per general surgery. Repeat ERCP in 6 to 8 weeks for biliary stent removal. Will sign off, please call with any questions or concerns. I saw and evaluated the patient, his bilirubin is slightly elevated as compared to yesterday but his transaminases are significantly improved. This likely represents his presentation with cholangitis and should hopefully start to improve over the next 24 to hours. Recommendations 1) Continue antibiotic coverage for total of 2 weeks repeat ERCP in 6 to 8 weeks 2) Daily liver enzyme panel
[2022-10-31 08:48] LABS: Staph spp. Not Reported DETECTED (NotDetected)
[2022-10-31] MEDS ORDERED: SUCCINYLCHOLINE CHLORIDE 20 MG/ML 10 ML VIAL IV ONE (09:03)
[2022-10-31] MEDS ORDERED: DEXAMETHASONE SOD INJ 4 MG/ML VIAL ONE (09:03)
[2022-10-31] MEDS ORDERED: CISATRACURIUM BESYLATE IV SOLN 2 MG/ML 10 ML VIAL IV ONE (09:03)
[2022-10-31] MEDS ORDERED: ONDANSETRON INJ 2 MG/ML 2 ML VIAL ONE (09:04)
[2022-10-31] MEDS ORDERED: LABETALOL HCL IV 5 MG/ML 20ML IV ONE (09:23)
[2022-10-31] MEDS ORDERED: NEOSTIGMINE METHYLSULFATE 1 MG/ML 10ML VIAL ONE (09:38)
[2022-10-31] MEDS ORDERED: GLYCOPYRROLATE 0.2 MG/ML VIAL ONE (09:38)
[2022-10-31] MEDS ORDERED: ACETAMINOPHEN 1,000 MG/100 ML VIAL IV ONE (09:50)
--- NOTE | 2022-10-31 09:50 | Post Operative Brief Note ---
PG Immediate Post Op with CF Date of Surgery October 31, 2022 Pre & Post Diagnosis Operation Date: 10/30/22 13:50 Pre-Op Diagnosis: choledocholithiasis Post-Op Diagnosis: ercp with sphincterotomy stone extract and stent placement Operation Date: 10/31/22 07:50 Pre-Op Diagnosis: Cholelithiasis Post-Op Diagnosis: Cholelithiasis, acute cholecystitis I identified the patient and participated in the time-out.: Yes Procedure Operation Date: 10/30/22 13:50 Actual Procedures p Endoscopic Retrograde Cholangiopancreatogram - Memo Cm DO Operation Date: 10/31/22 07:50 Actual Procedures p Laparoscopic Cholecystectomy(Not Applicable) - Riley Menchaca MD, FACS Surgeon Riley Menchaca MD, FACS Supervisor Compressed Yeast fabián zabala for lap bina Estimated Blood Loss 20 Findings Consistent with Post-Op Diagnosis Patient with distended edematous gallbladder and chronic adhesions to the gallbladder Specimens Specimen Description: A.) gallbladder and contents Drains Perry-Valencia Drain
[2022-10-31] MEDS ORDERED: LABETALOL HCL IV 5 MG/ML 20ML IV PRN (10:04)
[2022-10-31] MEDS ORDERED: ATROPINE SULFATE 0.1 MG/ML 10ML SYR IV PRN (10:04)
[2022-10-31] MEDS ORDERED: ONDANSETRON INJ 2 MG/ML 2 ML VIAL IV PRN ×2 (10:04→11:12)
[2022-10-31] MEDS ORDERED: PROMETHAZINE HCL 12.5 MG in SODIUM CHLORIDE 0.9% 50 ML IV PRN (10:04)
[2022-10-31] MEDS ORDERED: FLUMAZENIL 0.1 MG/1 ML 10 ML VIAL IV PRN (10:04)
[2022-10-31] MEDS ORDERED: fentaNYL citrate 100 MCG/2 ML VIAL IV PRN (10:04)
[2022-10-31] MEDS ORDERED: HYDROmorphone INJ 1 MG/ML SYRINGE IV PRN (10:04)
[2022-10-31] MEDS ORDERED: NALOXONE HCL 0.4 MG/1 ML VIAL/CARP IV PRN (10:04)
[2022-10-31] MEDS ORDERED: ePHEDrine sulfate 50 MG/ML AMP IV PRN (10:04)
--- NOTE | 2022-10-31 10:29 | Operative Report (OR) ---
DATE OF OPERATION: 10/31/2022. NAME OF OPERATION: Laparoscopic cholecystectomy with extensive lysis of adhesions add modifier. PREOPERATIVE DIAGNOSIS: Cholelithiasis. POSTOPERATIVE DIAGNOSES: Cholelithiasis with acute and chronic cholecystitis and adhesions. STAFF SURGEON: Riley Menchaca MD. ASSET ADMINISTRATOR: Vijaya Leo. ANESTHESIA: General. DESCRIPTION OF PROCEDURE: The patient was brought in the operating room and placed on the operating table in supine position. His abdomen was prepped and draped in the usual fashion. Pneumatic stockings and orogastric tube were placed. The patient had previous abdominal surgery. We started on the right side of the abdomen making an incision, carrying dissection down, placing a Veress needle producing pneumoperitoneum. Passing a 5 mm scope, the patient did have extensive adhesions in the midline, which were partially taken down after placing additional ports. Four ports were placed. An 11 mm mid abdomen, 5 mm upper and right abdomen. At this point, the gallbladder was grasped and retracted. There were adhesions to the gallbladder consistent with chronic inflammation. These were taken down. The gallbladder was very distended and inflamed. Dissection was carried out to the silvia hepatis, identifying the cystic duct and cystic artery. These were clipped and transected and the gallbladder dissected away from the liver bed in the usual fashion. Gallbladder was placed in an Endobag. A 19 round Perry-Valencia drain was placed through one of the lateral 5 mm port site into the subhepatic space, secured using 3-0 nylon sutures, placed to suction bulb. All ports were removed. The gallbladder was placed in an Endobag and removed through the site near the mid abdomen. I had to enlarge the fascial defect because of the size of the gallbladder. Fascial defect closed in the mid abdomen using 0 Vicryl suture. The skin was reapproximated using subcuticular 4-0 Monocryl with Dermabond. The patient was transferred to recovery room in stable condition. My casino assistant manager helped with prepping, draping, removal of the gallbladder and closure of the wounds. Job ID: [id number] [facility]
--- NOTE | 2022-10-31 10:47 | Anesthesiology Progress Note ---
Date of Service October 31, 2022 Anesthesia Post Procedure Vital Signs Vital Signs: Temp Pulse Pulse Pulse Resp BP BP 10/31/22 10:35 77 20 136/86 10/31/22 10:25 75 12 134/85 10/31/22 10:15 78 22 135/85 10/31/22 10:05 81 23 128/95 10/31/22 09:59 36.2 C L 84 21 129/94 10/31/22 07:02 36.7 C 64 18 168/92 H 10/31/22 02:42 36.5 C 59 L 18 151/94 H 10/30/22 23:01 36.5 C 58 L 18 132/85 10/30/22 19:11 36.4 C L 56 L 18 143/88 H 10/30/22 17:56 60 10/30/22 17:41 36.7 C 63 20 131/86 10/30/22 17:33 10/30/22 17:10 37.1 C 59 L 17 121/92 10/30/22 17:00 63 20 124/90 10/30/22 16:50 73 22 126/94 10/30/22 16:40 37.0 C 75 24 123/84 10/30/22 16:30 87 27 H 128/85 10/30/22 16:20 101 H 24 129/81 10/30/22 16:13 37.7 C H 102 H 18 118/76 10/30/22 14:54 36.6 C 88 18 143/96 H 10/30/22 14:50 10/30/22 14:00 89 20 143/90 H 10/30/22 13:14 87 18 147/98 H 10/30/22 12:01 96 H 18 133/77 10/30/22 11:22 37.1 C 98 H 22 132/87 Pulse Ox Pulse Ox O2 Del Method O2 Del Method O2 Flow Rate 10/31/22 10:35 93 Room Air 10/31/22 10:25 93 Room Air 10/31/22 10:15 94 Oxymask 2 10/31/22 10:05 97 Oxymask 6 10/31/22 09:59 99 Oxymask 6 10/31/22 07:02 97 Room Air 10/31/22 02:42 96 Room Air 10/30/22 23:01 98 Room Air 10/30/22 19:11 95 Room Air 10/30/22 17:56 10/30/22 17:41 96 Room Air 10/30/22 17:33 97 Room Air 10/30/22 17:10 97 Nasal Cannula 2 10/30/22 17:00 96 Nasal Cannula 2 10/30/22 16:50 96 Nasal Cannula 2 10/30/22 16:40 97 Room Air 10/30/22 16:30 98 Oxymask 4 10/30/22 16:20 95 Oxymask 6 10/30/22 16:13 95 Oxymask 6 10/30/22 14:54 96 Room Air 10/30/22 14:50 Room Air 10/30/22 14:00 96 Room Air 10/30/22 13:14 96 Room Air 10/30/22 12:01 94 Room Air 10/30/22 11:22 94 Room Air Pain Intensity Abdomen: Pain Intensity: 5 Transfer of Care Handoff Completed per policy Notes Mental Status: alert / awake / arousable Patient Amnestic to Procedure: Yes Nausea / Vomiting: adequately controlled Pain: adequately controlled Airway Patency, RR, SpO2: stable & adequate BP & HR: stable & adequate Hydration State: stable & adequate Anesthetic Complications: no major complications apparent
[2022-10-31] MEDS ORDERED: HYDROmorphone INJ 0.5 MG/0.5 ML SYR IV PRN (11:12)
[2022-10-31] MEDS ORDERED: HYDROCODONE/ACETAMOPHEN 5/325MG TAB PO PRN (11:12)
[2022-10-31] MEDS: LACTATED RINGER'S 1,000 ML IV SCH (11:24)
[2022-10-31] MEDS: METOPROLOL TARTRATE 50 MG TAB PO SCH ×2 (11:24→20:03)
--- NOTE | 2022-10-31 17:01 | Cardiology Consultation ---
Date of Consultation October 31, 2022 Assessment & Plan (1) PSVT (paroxysmal supraventricular tachycardia): (2) Sinus bradycardia: (3) Nonobstructive atherosclerosis of coronary artery: (4) S/P laparoscopic cholecystectomy: Plan 77-year-old man with nonobstructive CAD on remote catheterizations and distant history of atrial fibrillation who had asymptomatic bradycardia shortly before cholecystectomy this morning and a brief (20 seconds) paroxysmal atrial tachycardia this afternoon which was also asymptomatic. His heart rate during the remainder of his stay has been unremarkable. He does note relative bradycardia at home, with heart rates as low as 40 bpm associated with some feelings of fatigue but no lightheadedness or presyncope/syncope. Given likely increased adrenergic milieu postoperatively would continue his usual dose of metoprolol tartrate (50 mg twice daily) augmented with metoprolol tartrate 5 mg IV as needed for any recurrent PSVT. Unless he were to have more sustained tachydysrhythmia, would NOT titrate his beta-stephan dose upward due to a tendency to bradycardia (may have been vagal this morning but he does run slow at home). If he does develop further tachycardia which is sustained and requires additional medication, it may be necessary to change from beta-stephan to amiodarone. Since he has not demonstrated atrial fibrillation and has a history of hematuria, no need for anticoagulation. Cardiology follow-up with Dr. Abrahma as an outpatient. History of Present Illness Reason for Consultation: nader quijano Requesting Physician: Radu Evans Attending Physician: Radu Evans History of Present Illness 76-year-old man with history of remote atrial fibrillation (2011, no recurrence since), nonobstructive CAD at remote catheterizations (2003 and 2011), who had relative bradycardia prior to his laparoscopic cholecystectomy performed earlier today with subsequent transient supraventricular tachycardia postoperatively. Aside from his remote atrial fibrillation, he does not have any documented history of dysrhythmias. However, after repair of a colovesical fistula in 2019 he did transiently develop a sustained tachycardia at 140 bpm which may have been an SVT and which was treated successfully with IV metoprolol. He was admitted yesterday with septic symptoms and underwent an ERCP, followed by laparoscopic cholecystectomy today. Of note, his metoprolol was held yesterday due to concerns about potential perioperative hypotension. He did receive a dose of metoprolol this morning. Noted to have transient bradycardia as low as 40-50 bpm this morning with an episode of tachycardia at 140 bpm lasting 20 seconds this afternoon. He has had no cardiac symptoms, denying chest pain, dyspnea, lightheadedness, or subjective palpitations. Review of the rhythm strip at the time of his tachycardia shows a triggering PAC followed by a regular narrow complex tachycardia consistent with atrial tachycardia. At the time of my evaluation this afternoon, he was comfortable and was eating dinner and had no somatic complaints. Allergies Allergy/AdvReac Type Severity Reaction Status Date / Time ezetimibe [From Zetia] AdvReac Intermediate sore joints Verified 05/29/22 09:00 lovastatin AdvReac Intermediate sore joints Verified 05/29/22 09:00 Home Medications Medication Instructions Recorded Confirmed Type atorvastatin 10 mg tablet 10 mg PO QPM #90 tabs 09/06/19 10/30/22 Rx metoprolol tartrate 50 mg tablet 50 mg PO BID #60 tabs 06/09/20 10/30/22 Rx allopurinol 100 mg tablet 100 mg PO HS 07/21/20 10/30/22 History Patient History Medical History Atrial fibrillation CAD (coronary artery disease) Non-obstructive CAD Colovesical fistula DVT (deep venous thrombosis) 05/2020 (post-op) > IVC filter placed (subsequent IVC filter removed) GERD (gastroesophageal reflux disease) "silent" Gout Hyperlipidemia Hypertension Osteoarthritis Pulmonary embolism and infarction 05/2020 (post-op) > IVC filter placed d/t hematuria (subsequent IVC filter removed) PVC (premature ventricular contraction) Hx PVCs in pattern of bigeminy per cardiology records Surgical History H/O exploratory laparotomy Exploratory abdominal wound (05/15/2020): Grade view 1, Mckeon #2, ET tube [address] [facility] H/O resection of small bowel Ileostomy removal (05/30/20): DL x2, Grade view 1, MAC#4, ETT 7.[address] [facility] History of adenoidectomy History of cardiac cath ~2004 & ~2011 > no stents History of colonoscopy History of ear surgery right History of esophagogastroduodenoscopy (EGD) x1 with FB removal and x1 for recheck History of hernia repair Lap Incisional Hernia Repair with mesh History of surgery (~09/25/20) removal of inferior vena cava filter by Dr. Latham History of surgery (02/21/22) Laparoscopy with Lysis of Adhesions, Laparotomy with Removal Infected Surgimesh(Not Applicable) - Lex Marquez MD, FACS 02/21/2022 History of tonsillectomy S/P inguinal hernia repair right inguinal with hernia mesh S/P insertion of IVC (inferior vena caval) filter S/P IVC filter removal Family History Brother Prostate cancer Heart disease Father Heart disease Other No family history of adverse response to anesthesia Social History Smoking Status: Never smoker Second Hand Exposure: No; Hx Alcohol Use: No Hx Substance Use: No Preferred Language: Armenian Communication Ability: Effective Visual Impairment: Limited Hearing Ability: Normal Fast Food Shift Lead Required: No Beliefs That Will Affect Care: None marital status: Current Living Situation: Spouse current occupational status: retired current occupation: [employer] Feels Safe at Home: Yes Safety Concerns: Feels Safe At This Time caffeine: Yes Assistive Devices: None Physical Exam Physical Exam: No distress. Afebrile. Normotensive. Pulse 92 bpm and regular with occasional ectopy. Skin: no ecchymoses or generalized lesions. HEENT: unremarkable. Neck: no JVD or carotid bruits. Lungs: clear. Cardiac: regular rhythm, normal S1 and S2, no murmur or gallop. Abdomen: Nondistended. Extremities: no edema, pulses intact. Neurologic: normal affect and conversation, nonfocal. Results & Data ([facility]) Laboratory Results Normal electrolytes with potassium 4.2, BUN 18, creatinine 1.4. High-sensitivity troponin 18.4 yesterday. Diagnostic Findings ECG on admission showed sinus tachycardia 102 bpm, left anterior fascicular block, compared with 04/19/2021 ECG the ventricular rate had increased by 52 bpm, otherwise no significant change. Chest x-ray on admission was unremarkable. PG Care Time/CCT Total # of Minutes Spent Total Time Spent with Patient: Total time spent is greater than 50% in coordination of care (as documented) at patient's floor/unit and/or counseling patient: Coding Level of Care Code 54123 Inpt Consult Level 4 Diagnoses PSVT (paroxysmal supraventricular tachycardia) I47.1 Sinus bradycardia R00.1 Nonobstructive atherosclerosis of coronary artery I25.10 S/P laparoscopic cholecystectomy Z90.49
[2022-10-31] MEDS ORDERED: COUGH DROP (SUGAR FREE) LOZ 24 LOZ/1 BOX BUCCAL ONE (18:34)
[2022-10-31] MEDS: DOCUSATE SODIUM/SENNA 50/8.6MG TAB PO SCH (20:03)
[2022-10-31] MEDS: MAGNESIUM HYDROXIDE SUSP 30 ML UDC PO SCH (20:04)
[2022-10-31] MEDS ORDERED: ATORVASTATIN 10 MG TAB PO SCH (21:00)
--- NOTE | 2022-10-31 22:31 | Hospitalist Progress Note ---
Date of Service October 31, 2022 Assessment & Plan (1) Sepsis: Plan: -Admit to the PCU on tele -Patient was found to have Cholelithiasis without acute cholecystitis, choledocholithiasis. He was noted to have a leukocytosis with left shift, elevated procal, but remained hemodynamically stable prior to going to the OR. -Patient is now S/P ERCP with [facility], no complications were reported. -Post-op report is consistent with Cholangitis and s/p cholecystectomy on 10/31 -Patient is currently afebrile, hemodynamically stable, and stable on RA -will recheck LFT in AM -No NSAIDs for 5 days (2) Hyperlipidemia: Plan: -Would wait to restart his statin until his liver function tests improve (3) Atrial fibrillation: Plan: -Not on anticoagulation -continue metoprolol as he is hemodynamically stable (4) Gout: Plan: -Hold allopurinol until after his surgery tomorrow (5) HTN (hypertension): Plan: -Will restart metorpolol tomorrow to prevent hypotension unless he has rebound tachycardia or significant hypertension (6) CAD (coronary artery disease): Plan: -Would continue statin once his transaminitis resolves Plan The patient was discussed with Dr. Evans at the time of the admission Admission and Anticipated Discharge Date Admission Date: October 30, 2022 Subjective 77 yo male reports feeling well. He has no new complaints. Review of Systems Review of Systems: All systems reviewed & are unremarkable except as noted in HPI & below Physical Exam Physical Exam: General:In no acute distress, stated age, well- nourished, non-toxic appearing HEENT:Normocephalic, atraumatic, trace scleral icterus, pupils around round, symmetrical, and reactive to light, moist mucus membranes, trachea midline, no thyromegaly Chest/Pulm:No respiratory distress, symmetrical chest expansion, clear breath sounds throughout Cardiac:RRR, no murmurs noted Abdomen:Negative for ascites and bruising, normoactive bowel sounds, soft, non-tender to palpation throughout Musculoskeletal:Symmetrical and without signs of acute trauma, upper and lower extremities with full ROM, no atrophy, spasticity, or flaccidity Extremities:Radial, dorsalis pedis, and posterior tibial pulses are intact and symmetrical, no edema noted in the BL LE's Skin:Warm, dry, no rashes , lesions, or scars noted Neuro:Alert and oriented to person, place, month, year, and president, no focal defects, CN II-XII tested and intact, finger to nose test negative, no tremors noted Psych:No acute distress, calm and cooperative during the exam Results & Data Results & Data ([facility]) Vital Signs (Past 12 Hours) Vital Signs Temp Pulse Pulse Resp BP Pulse Ox O2 Del Method 10/31/22 20:00 Room Air 10/31/22 18:29 36.8 C 87 18 107/71 94 Room Air 10/31/22 16:29 36.8 C 92 H 18 134/87 95 Room Air 10/31/22 13:15 36.9 C 98 H 26 H 126/82 95 Room Air 10/31/22 12:18 36.8 C 90 18 126/86 93 Room Air 10/31/22 11:45 36.6 C 90 18 129/91 93 Room Air 10/31/22 11:15 36.6 C 98 H 18 144/85 H 93 Room Air 10/31/22 10:55 78 16 135/81 93 Room Air 10/31/22 10:35 77 20 136/86 93 Room Air 10/31/22 10:45 36.8 C 73 18 127/83 93 Room Air PG Care Time/CCT Total # of Minutes Spent Total Time Spent with Patient: Total time spent is greater than 50% in coordination of care (as documented) at patient's floor/unit and/or counseling patient: Coding Level of Care Code 41261 Subseq Hosp Care Lvl 2 Diagnoses Sepsis A41.9 Hyperlipidemia E78.2 Hyperlipidemia type: mixed hyperlipidemia Atrial fibrillation I48.0 Atrial fibrillation type: paroxysmal Gout M10.9 Chronicity: unspecified Gout etiology: unspecified cause Gout site: unspecified site HTN (hypertension) I10 CAD (coronary artery disease) I25.10 Time Spent (min) 25 (1) Gout Chronicity: unspecified Gout etiology: unspecified cause Gout site: unspecified site Qualified Code(s): M10.9 - Gout, unspecified (2) Atrial fibrillation Atrial fibrillation type: paroxysmal Qualified Code(s): I48.0 - Paroxysmal atrial fibrillation (3) Hyperlipidemia Hyperlipidemia type: mixed hyperlipidemia Qualified Code(s): E78.2 - Mixed hyperlipidemia
[2022-11-01] MEDS: PIPERACILLIN/TAZOBACTAM 4.5 GM in DEXTROSE 5% 100 ML IV SCH ×2 (03:41→12:24)
[2022-11-01] MEDS: LACTATED RINGER'S 1,000 ML IV SCH (05:41)
--- NOTE | 2022-11-01 07:36 | Surgery Progress Note ---
Date of Service November 01, 2022 Assessment & Plan (1) S/P laparoscopic cholecystectomy: Plan: Status post laparoscopic cholecystectomy-showed acute and chronic cholecystitis with adhesions Drain in place and will be discharged home with drain Okay for discharge from surgical standpoint-continue analgesics and antibiotics Will see in the office next week for drain removal Admission and Anticipated Discharge Date Admission Date: October 30, 2022 Results & Data ([facility]) Vital Signs (Past 12 Hours) Vital Signs Temp Pulse Pulse Resp BP Pulse Ox O2 Del Method 11/01/22 03:58 36.6 C 52 L 18 143/83 H 95 Room Air 11/01/22 00:00 73 10/31/22 22:53 36.3 C L 55 L 16 117/72 94 Room Air 10/31/22 20:00 Room Air PG Care Time/CCT Total # of Minutes Spent Total Time Spent with Patient: Total time spent is greater than 50% in coordination of care (as documented) at patient's floor/unit and/or counseling patient: Coding Level of Care Code None Diagnoses S/P laparoscopic cholecystectomy Z90.49
[2022-11-01] MEDS: DOCUSATE SODIUM/SENNA 50/8.6MG TAB PO SCH (08:04)
[2022-11-01] MEDS: METOPROLOL TARTRATE 50 MG TAB PO SCH (08:04)
[2022-11-01] MEDS: MAGNESIUM HYDROXIDE SUSP 30 ML UDC PO SCH (08:04)
[2022-11-01 08:25] LABS: Basophils # (auto) 0.02 K/uL (0-0.2); Basophils % (auto) 0.1 %; Hemoglobin 15.3 g/dl (14.0-18.0); Immature Granulocytes # (auto) 0.05 K/uL (0.00-0.02); Immature Granulocytes % (auto) 0.4 %; Lymphocytes # (auto) 0.84 K/uL (1.2-3.4); Lymphocytes % (auto) 6.2 %; Mean Corpuscular Hemoglobin 30.1 pg (25.0-34.0); Mean Corpuscular Volume 88.6 fL (80.0-100.0); Mean Platelet Volume 10.4 fL (9.4-12.4); Monocytes # (auto) 0.97 K/uL (0.24-0.82); Monocytes % (auto) 7.2 %; Neutrophils # (auto) 11.66 K/uL (1.4-6.5); Neutrophils % (auto) 86.1 %; Platelet Count 215 K/uL (130-400); RDW Coefficient of Variation 12.9 % (11.5-14.5); RDW Standard Deviation 42.1 fL (36.4-46.3); Red Blood Count 5.08 M/uL (4.63-6.08); White Blood Count 13.54 K/ul (4.8-10.8)
[2022-11-01 08:49] LABS: Albumin Level 3.6 gm/dl (3.4-5.0); BUN Creatinine Ratio 16.8 (10-20); Bilirubin Direct 1.8 mg/dl (0-0.2); Bilirubin,Total 3.1 mg/dl (0.2-1.0); Calcium 9.2 mg/dl (8.5-10.1); Creatinine Clr Calc Pharmacy 67.9 ml/min; Est GFR (African American) 72.8 ml/min; Est GFR (Non-African American) 62.8 ml/min; Globulin 3.6 gm/dl (2.5-4.0); Phosphorus 1.7 mg/dl (2.5-4.9); Potassium 4.5 mmol/L (3.5-5.1); Total Protein 7.2 gm/dl (6.0-8.3)
[2022-11-01] MEDS ORDERED: HEPARIN SOD 5,000 UNIT/0.5 ML VIAL SQ SCH (09:00)
--- NOTE | 2022-11-01 09:09 | Gastroenterology Progress Note ---
Date of Service November 01, 2022 Assessment & Plan (1) Choledocholithiasis: Plan: 77 year old male presenting with fevers, abd pain, labs showing leukocytosis, elevated Tbili 6 w/ elevated transaminases. Imaging showing gallstones, choledocholithiasis at the level of the ampulla, biliary dilation. s/p ERCP with evidence of cholangitis, retained biliation stones and POD #1 CCY Clinically feeling well with improving transaminases Would repeat LFTs 1 week as OP Diet as tolerated. Avoid nonsteroidal for 5 days Continue antibiotics for total of 2 weeks Repeat ERCP in 6 to 8 weeks for biliary stent removal. Will sign off, please call with any questions or concerns.Thank you for allowing us to participate in the care of this patient. Please call with any acute changes, questions or concerns. Please see addendum below with additional recommendation from my supervising physician. Admission and Anticipated Discharge Date Admission Date: October 30, 2022 Supervising Physician Co-Signing Physician Notes I saw and evaluated the patient. His liver enzymes are much improved today. We will plan to repeat ERCP in approximately 6 weeks. Would recommend a course of antibiotics as noted during prior notes. Please call with any questions or concerns GI to sign off. Subjective Pt was seen and evaluated, chart reviewed. Feeling well! Is oob in chair. Wants to go home. Review of Systems Review of Systems: All systems reviewed & are unremarkable except as noted in HPI & below Physical Exam Constitutional: WD/WN, vitals as above Respiratory: normal respiratory effort, lungs clear to auscultation Cardiovascular: Rate/Rhythm: regular rate Gastrointestinal (Abdomen): normal bowel sounds, soft, nontender, no hepatosplenomegaly Skin: no rashes, warm and dry Results & Data ([facility]) Vital Signs (Past 12 Hours) Vital Signs Temp Pulse Pulse Resp BP Pulse Ox O2 Del Method 11/01/22 07:44 36.6 C 64 18 189/117 H 95 Room Air 11/01/22 03:58 36.6 C 52 L 18 143/83 H 95 Room Air 11/01/22 00:00 73 10/31/22 22:53 36.3 C L 55 L 16 117/72 94 Room Air Laboratory Results 11/01/22 11/01/22 11/01/22 Range/Units 07:20 07:20 07:20 WBC 13.54 H (4.8-10.8) K/ul RBC 5.08 (4.63-6.08) M/uL Hgb 15.3 (14.0-18.0) g/dl Hct 45.0 (40.1-51.0) % MCV 88.6 (80.0-100.0) fL MCH 30.1 (25.0-34.0) pg MCHC 34.0 (32.0-36.0) g/dL RDW Std Deviation 42.1 (36.4-46.3) fL RDW Coeff of Alda 12.9 (11.5-14.5) % Plt Count 215 (130-400) K/uL MPV 10.4 (9.4-12.4) fL Immature Gran % (Auto) 0.4 % Neut % (Auto) 86.1 % Lymph % (Auto) 6.2 % [place] % (Auto) 7.2 % Eos % (Auto) 0.0 % Baso % (Auto) 0.1 % Neut # (Auto) 11.66 H (1.4-6.5) K/uL Lymph # (Auto) 0.84 L (1.2-3.4) K/uL [place] # (Auto) 0.97 H (0.24-0.82) K/uL Eos # (Auto) 0.00 (0-0.50) K/uL Baso # (Auto) 0.02 (0-0.2) K/uL Immature Gran # (Auto) 0.05 H (0.00-0.02) K/uL Sodium 137 Cancelled Potassium 4.5 Cancelled Chloride 103 Cancelled Carbon Dioxide 27 Cancelled Anion Gap 7 Cancelled BUN 19 Cancelled Creatinine 1.13 Cancelled Est Cr Clr Drug Dosing 67.9 Cancelled Est GFR ( Amer) 72.8 Cancelled Est GFR (Non-Af Amer) 62.8 Cancelled BUN/Creatinine Ratio 16.8 Cancelled Glucose 119 H Cancelled Calcium 9.2 Cancelled Phosphorus 1.7 L (2.5-4.9) mg/dl Total Bilirubin 3.1 H D Cancelled Direct Bilirubin 1.8 H Cancelled AST 83 H Cancelled ALT 216 H Cancelled Alkaline Phosphatase 266 H Cancelled Total Protein 7.2 Cancelled Albumin 3.6 Cancelled Globulin 3.6 Cancelled Albumin/Globulin Ratio 1.0 Cancelled Lipase 25 (11-82) U/L
--- NOTE | 2022-11-01 11:50 | Cardiology Progress Note ---
Date of Service November 01, 2022 Assessment & Plan (1) PSVT (paroxysmal supraventricular tachycardia): (2) Sinus bradycardia: (3) Nonobstructive atherosclerosis of coronary artery: (4) S/P laparoscopic cholecystectomy: (5) HTN (hypertension): Plan Patient is doing well clinically with no recurrence of PSVT. Continue current beta-stephan dose, would not titrate upward with history/evidence of tendency to bradycardia. BP labile, would use as needed medication rather than adding to his vasoactive regimen. Could use IV hydralazine or oral clonidine. Since he has not demonstrated atrial fibrillation and has a history of hematuria, no need for anticoagulation. Cardiac status favorable, will sign off. Dr. Reagan will be covering the weekend, please contact him if any further dysrhythmias or additional cardiac concerns. Admission and Anticipated Discharge Date Admission Date: October 30, 2022 Subjective Uneventful night, no further dysrhythmia. Patient feels well. No chest pain, dyspnea, or subjective palpitations. Telemetry showed sinus rhythm with occasional mild sinus bradycardia (minimum 54 bpm), no evidence of recurrent PSVT. Physical Exam Physical Exam: No distress. BP hypertensive this morning. Pulse 70 bpm and regular. Skin: no ecchymoses or generalized lesions. HEENT: unremarkable. Neck: no JVD or carotid bruits. Lungs: clear. Cardiac: regular rhythm, normal S1 and S2, no murmur or gallop. Abdomen: Nondistended. Biliary drain in place. Extremities: no edema, pulses intact. Neurologic: normal affect and conversation, nonfocal. Results & Data ([facility]) Laboratory Results Normal electrolytes, BUN 19, creatinine 1.13. PG Care Time/CCT Total # of Minutes Spent Total Time Spent with Patient: Total time spent is greater than 50% in coordination of care (as documented) at patient's floor/unit and/or counseling patient: Coding Level of Care Code 42412 Subseq Hosp Care Lvl 3 Diagnoses PSVT (paroxysmal supraventricular tachycardia) I47.1 Sinus bradycardia R00.1 Nonobstructive atherosclerosis of coronary artery I25.10 S/P laparoscopic cholecystectomy Z90.49 HTN (hypertension) I10
--- NOTE | 2022-11-09 12:03 | Discharge Summary ---
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 In the ED the patient was noted to be afebrile, hemodynamically stable, and stable on RA. Labs were remarkable for a leukocytosis of 11.4 with left shift 10, stable platelets and Hgb, stable renal function, sodium of 133, mag of 1.6, significantly elevated LFTs including total bili of 6.9, direct bili of 4.0, AST of 347, ALT of 447, alk phos of 349, procal of 0.81, and covid negative. CT of the abdomen and pelvis without IV contrast showed "1. The gallbladder is distended and contains numerous gallstones. There is no clear CT evidence of acute cholecystitis. 2. There is choledocholithiasis, with a calcified gallstone at the ampulla. There is associated intra and extrahepatic biliary ductal dilatation. GI follow-up is recommended. 3. There is a complex supraumbilical hernia which contains nonobstructed small bowel. 4. There is irregular linear soft tissue between the dome of the bladder and the sigmoid colon, with additional foci of irregular nodularity in the lower mesentery. This likely represents postsurgical change/scarring. A colovesicular fistula is considered less likely. Correlate with urinalysis. A precautionary 3-4 month follow-up contrast enhanced abdominal CT is recommended to reevaluate the mesenteric nodules. 5. Colonic diverticulosis without CT evidence of acute diverticulitis. 6. Additional findings as above.". Ct of the head was negative for acute findings. Surgery was consulted and recommended GI evaluation for ERCP, they did mention in their consult note to continue IV antibiotics and an eventual lap bina with high possibility of conversion to an open procedure will likely be needed after. The ED staff spoke with the regional business development manager GI provider who confirmed that they will take the patient to the OR today for ERCP. Prior to admission the patient was given 1L NSS and one dose of zosyn. The patient was taken to the OR by GI for his ERCP prior to being examined for admission. The patient was seen after his ERCP. Per the post-op report, the patient underwent successful ERCP where multiple stones were removed from the CBD, pus was also noted upon stone removal. EBL was listed as 0 mL and there were no reported intraoperative complications. At the time of the exam the patient was resting comfortably in bed in no acute distress. He states that he is feeling well after the procedure, he has no complaints at the time of my exam. He states that he was experiencing fever, chills, fatigue, and abdominal discomfort prior to coming to the ED today. He confirmed that he is currently on metoprolol, allopurinol and atorvastatin. I explained what happened during his ERCP and explained that he will likely have a cholecystectomy tomorrow with General Surgery. We discussed code status, he wishes to be a full code. His son and daughter would make decisions for him if he could not make them himself. Please refer to Dr. Evans's attestation for any changes to the treatment plan. Principal Diagnosis sepsis Discharge Exam General:In no acute distress, stated age, well-nourished, non-toxic appearing HEENT:Normocephalic, atraumatic, trace scleral icterus, pupils around round, symmetrical, and reactive to light, moist mucus membranes, trachea midline, no thyromegaly Chest/Pulm:No respiratory distress, symmetrical chest expansion, clear breath sounds throughout Cardiac:RRR, no murmurs noted Abdomen:Negative for ascites and bruising, normoactive bowel sounds, soft, non-tender to palpation throughout Musculoskeletal:Symmetrical and without signs of acute trauma, upper and lower extremities with full ROM, no atrophy, spasticity, or flaccidity Extremities:Radial, dorsalis pedis, and posterior tibial pulses are intact and symmetrical, no edema noted in the BL LE's Skin:Warm, dry, no rashes , lesions, or scars noted Neuro:Alert and oriented to person, place, month, year, and president, no focal defects, CN II-XII tested and intact, finger to nose test negative, no tremors noted Psych:No acute distress, calm and cooperative during the exam Discharge Data Allergies Allergy/AdvReac Type Severity Reaction Status Date / Time ezetimibe [From Zetia] AdvReac Intermediate sore joints Verified 05/29/22 09:00 lovastatin AdvReac Intermediate sore joints Verified 05/29/22 09:00 Consultations 10/30/22 14:25 ED Decision to Admit Stat 10/31/22 15:19 Consult Cardiology Routine Procedures Performed Operation Date: 10/30/22 13:50 Actual Procedures p Endoscopic Retrograde Cholangiopancreatogram - Memo Cm, DO Operation Date: 10/31/22 07:50 Actual Procedures p Laparoscopic Cholecystectomy(Not Applicable) - Riley Menchaca MD, FACS Ordered Studies 10/30/22 11:32 CT abd pelvis wo con Stat CT head/brain wo con Stat 10/30/22 14:49 FL ERCP biliary ductal Routine Hospital Course (1) Sepsis: -Admit to the PCU on tele -Patient was found to have Cholelithiasis without acute cholecystitis, choledocholithiasis. He was noted to have a leukocytosis with left shift, elevated procal, but remained hemodynamically stable prior to going to the OR. -Patient is now S/P ERCP with [facility], no complications were reported. -Post-op report is consistent with Cholangitis and s/p cholecystectomy on 10/31 -Patient is currently afebrile, hemodynamically stable, and stable on RA -LFTs are stable. _appreciate input from General surgery: continue antibiotics and analgelsics -No NSAIDs for 5 days (2) Hyperlipidemia: -resume statin (3) Atrial fibrillation: -Not on anticoagulation -continue metoprolol as he is hemodynamically stable (4) Gout: -resume allopurinol (5) HTN (hypertension): -restart home meds (6) CAD (coronary artery disease): -Would continue statin once his transaminitis resolves Plan The patient was discussed with Dr. Evans at the time of the admission Total Time Total Time Spent Total Time Spent (In Minutes): 35 Discharge Plan Discharge Items Patient Disposition: Home - Self-Care Reason For Visit: FEVERS Discharge Diagnosis: laparoscopic cholecystectomy Activity: Per Instructions section Activity Comment: light activity for 4 weeks Lifting: No more than 10 pounds Bathing Comment: may shower; no soaking in tubs/pools Sexual Activity: When tolerated Exercise/Sports: Wait until after follow-up appointment Exercise Comment: light activity for 4 weeks Driving/Machine Use: no driving while taking narcotics for pain Non-emergency contact: Primary Care Provider and Surgeon Call non-emergency contact if: you have any medication questions, your symptoms worsen, your pain is not controlled, your pain is concerning for you, you have a fever, your temperature is above 101.5, your wound has increased redness, your wound has increased drainage and your wound pain has increased Follow-up/Referrals: Riley Menchaca MD, FACS [Physician] - 11/08/22 10:30 am PCP,NO [Primary Care Provider] - Diet: Regular Addtl Attending Provider Instructions: SPECIAL CARE INSTRUCTIONS: * Cover incisions and change daily for comfort/drainage. * Empty drain 2-3 times per day and record. * May use ibuprofen for pain as tolerated. * Expect some swelling and bruising. Call your doctor if: * Temperature above 101 degrees * Pain not relieved by pain medicine ordered * There is increased drainage or redness from any incision * You have any unanswered questions or concerns [phone]. FOLLOW UP VISIT: If not already scheduled, please call the office for a follow-up visit. OFFICE PHONE NUMBER: Dr. Menchaca Office Also folllowup with Danny CHOUDHURY in 1 week to obtain repeat Liver function tests Pending Studies at Discharge: Yes Studies:: surgical pathology Stand-Alone Forms: [facility], Smoking Cessation Medications and DC Order Prescriptions: New sennosides-docusate sodium [Senokot-S] 8.6-50 mg Tablet 1 tab PO BID Qty: 30 0RF hydrocodone-acetaminophen 5-325 mg tablet 1 - 2 tab PO .Q4-6h MDD 6 tabs PRN (Reason: pain, initial therapy) Qty: 15 0RF ciprofloxacin HCl 500 mg tablet 500 mg PO BID Qty: 14 0RF Continued atorvastatin 10 mg tablet 10 mg PO QPM Qty: 90 3RF allopurinol 100 mg tablet 100 mg PO HS metoprolol tartrate 50 mg Tablet 50 mg PO BID Qty: 60 0RF Discharge Orders: Discharge Order (Routine); Ordered 11/01/22 Ordered By: Radu Evans Admission Data Admit Date/Time: 10/30/22 14:45 Attending Provider: Saborio,Radu A Admit Provider: Radu Evans Primary Care Provider: PCP,NO Other Providers: Radu Evans ; Jovi Mares ; Rudolph Enciso ; Robb Donahue ; Krystian Cross ; Celestino Lowe ; Alex Doty Jr ; Bryce Frankel ; Brandee Cunningham ; Nelsy Fontanez ; Eliseo Keenan ; Pito Abraham ; Riley Deal ; Donita Cunningham ; Nakita Rivera ; Kenny Sen ; Matt Valencia ; Carroll Miranda ; Krystian Murphy V. Other Interventions: Discharge Summary Assessment (RN) Last Done: 11/01/22 13:00 Coding Level of Care Code D/C DAY MANAGEMENT >30 MINS Diagnoses Sepsis A41.9 Hyperlipidemia E78.2 Hyperlipidemia type: mixed hyperlipidemia Atrial fibrillation I48.0 Atrial fibrillation type: paroxysmal Gout M10.9 Gout site: unspecified site Gout etiology: unspecified cause Chronicity: unspecified HTN (hypertension) I10 CAD (coronary artery disease) I25.10
== END 2022-11-01 14:48 | disposition home or self-care (01) | DRG 854 ==
LOC: ED 11:04 → 2S 14:45

== ENCOUNTER 2024-06-30 13:31 | Inpatient (IN) ==
--- NOTE | 2024-06-30 13:42 | Emergency Department Note ---
Impression & Plan Bradycardia, Fall, Multiple facial bone fractures, Facial laceration, Forearm laceration, Cervical spine fracture ED Provider Note NAME: XIAO BAER AGE: 79 SEX: M : 1945 ARRIVES VIA: Ambulance INFORMANT: Patient, triage note, daughter ED PROVIDER(S): Stanley Medina MD CHIEF COMPLAINT: Fall, head injury MEDICAL DECISION MAKING: Patient presents due to concern for fall and associated head injury. The patient did have a laceration to the left face as well as the right forearm. CT head cervical spine obtained along with CT of the face. The patient was ordered IV atropine as the patient was bradycardic into the 20s per nursing. Patient was evaluated emergently by myself and sent to CT given the patient's associated facial swelling and trauma. Patient declined any pain medication. No obvious evidence of entrapment on exam. White count of 18 which may be reactive from the trauma as the patient declines any infectious symptoms at this time. Normal H&H and platelet count. The patient's kidney function was unremarkable. The patient did receive another dose of IV atropine given the patient's bradycardia into the 40s. The patient did have CT of the head cervical spine and face completed. The patient does have superior endplate compression fracture at C7 small lucency through the anterior osteophyte at C7. No retropulsion. Patient was placed in a [place] J collar. I did speak with the on-call customer management specialist who recommended the Solano J collar does not require any emergent surgical treatment at this time. Patient does have extensive facial fractures. I did speak with Dr. Araujo did evaluate the patient at bedside. Not requiring operative intervention at this time. Patient was ordered IV Unasyn given the concern for fracture and associated open laceration. I did repair the patient's forearm fracture. Krystian Tse PA-C repaired the patient's facial laceration. Given the patient's bradycardia, we did speak with the on-call hospital service Dr. Coley and the patient was admitted to the medicine service. Critical Care: I have personally spent 42 minutes of critical care time in direct management of this patient. This includes bedside care, interpretation of diagnostic studies, and testing, discussion with consultants, patient, and family members, and other require inpatient management activities. This 42 minutes is in excess of all separately billable procedures. Procedures: Laceration repair performed by Dr. Medina Location: Right forearm Total length: 6 cm Complexity: Simple Verbal consent was obtained after the risks and benefits were explained, including but not limited to bleeding, scarring, infection, pain, and bone/joint/nerve damage. At this time, the risks of the procedure are less than the risks of NOT performing the procedure. A time out was taken and the correct patient and site identified. The skin was prepped with betadine. Copious irrigation was performed using saline small and a Betadine. The skin was re- prepped with betadine and a sterile field set. The wound was explored for foreign bodies and none found. Examination revealed no injury to deep structures such as tendons, bone, or significant blood vessels. Debridement was not performed. The wound edges were approximated using Steri-Strips as well as Dermabond. Hemostasis and excellent approximation was achieved. Antibacterial ointment and a sterile dressing applied. Detailed wound care instructions and signs and symptoms of infection reviewed with the. No complications and the patient tolerated the procedure well. Discussion w/ other healthcare providers: Dr. Matthews ortho spine Dr. Reese with oral maxillofacial surgery Dr. Coley inpatient medicine service Prior /Outside records reviewed: I reviewed a PCP visit note from 01/10/2022 for from [facility]. Known history of CAD A-fib hyperlipidemia sinus bradycardia and hypertension. Patient was to start telmisartan due to concern for or microalbuminuria And elevated blood pressure. Patient with a prior history of DVT or PE IVC filter placed no anticoagulation secondary to hematuria. Heart rate at the time of the visit was 56. Differential diagnosis: Fracture, dislocation, contusion, strain, sprain, ICH, hemothorax, intra- abdominal injury, anemia among other causes were considered. Diagnostics, as interpreted by me: ECG: Sinus bradycardia rate of 46 PVCs noted, normal QRS duration, left axis deviation. No ST elevations. Cardiac monitoring: An order was placed for continuous cardiac monitoring. The monitor shows a rate of 65 with sinus rhythm. Patient was placed on pulse oximetry Medical decision rules: Faroese head CT rule, Nexus rule Imaging studies: I informally interpreted the patient's Chest x-ray does not show obvious pneumonia or pneumothorax with formal report to follow. HPI: Patient presents due to concern for a fall. The patient reports that he had a fall around 930 this morning. The patient states that he got his leg caught up on something and struck the left side of his face against some scrap iron. He has this in the garage. Patient does not believe that his tetanus is up-to-date. Patient did present nursing notified me that the patient's heart rate has been in the 20s and 40s. Patient does take metoprolol and has a known history of A-fib not taking any blood thinner medications but does take occasional aspirin for sore shoulders which she has had of late. Patient does complain of head and neck pain. No chest pain no abdominal pain patient does have some chronic right shoulder issues but this is unchanged in the fall. The patient states that this was a fall from standing. Patient does have pain to the face and jaw. Patient without back pain or lower extremity pain. PAST MEDICAL HISTORY: See Below PAST SURGICAL HISTORY: See Below SOCIAL HISTORY: See Below HOME MEDICATIONS: See Below ALLERGIES: See Below VITALS: See Below PHYSICAL EXAMINATION: GENERAL: NAD, non-toxic. Head: Pain to the occiput. Pain to the left midface and bilateral mandibles no obvious malocclusion, wound noted to the left midface. No obvious bleeding from the naris. Periorbital ecchymosis noted. EYE EXAM: Normal conjunctiva. PERRL, no anisocoria and EOM's grossly intact w/o pain. Periorbital ecchymosis noted no proptosis no obvious hyphema or hypopyon. No evidence of entrapment. OROPHARYNX: Moist mucus membranes, grossly normal dentition. NECK: Trachea midline, no stridor. LUNGS: Clear to auscultation. Normal chest wall mechanics. Chest: No reproducible chest wall pain. HEART: NSR, no MRG. ABDOMEN: Abdomen soft, non-tender, no masses, no rebound or guarding. BACK: No CVA TTP. SKIN: No rashes and no bruising. UPPER EXTREMITIES: 6 centimeter laceration to the dorsal aspect of the left forearm, hemostatic. LOWER EXTREMITIES: Grossly normal, no edema. No TTP or deformity. NEURO EXAM: A&O x3, cranial nerves II-XII grossly intact, normal speech, moves all 4 extremities. Past Med/Surg History Problem List (Updated 07/05/24 @ 17:33 by Stanley Medina MD) Cervical spine fracture (Acute) Forearm laceration (Acute) Facial laceration (Acute) Multiple facial bone fractures (Acute) Fall (Acute) Bradycardia (Acute) Hyperlipidemia Traumatic ecchymosis of face Facial trauma Maxillary sinus fracture Laceration of right forearm Bradycardia Facial fracture due to fall Cervical spine fracture Stage 3a chronic kidney disease (CKD) Glenohumeral arthritis Impaired fasting glucose S/P laparoscopic cholecystectomy (10/31/22) Nonobstructive atherosclerosis of coronary artery Sinus bradycardia PSVT (paroxysmal supraventricular tachycardia) Acute cholangitis (Acute) Choledocholithiasis (Acute) Abdominal pain (Acute) Lab test negative for COVID-19 virus (Acute) CAD (coronary artery disease) Non-obstructive CAD HTN (hypertension) Sepsis Choledocholithiasis Weakness (Acute) Surgical wound, non healing (Acute) Infected prosthetic mesh of abdominal wall Hematuria Prostatitis (Acute) Premature ventricular contractions (Acute) Hyperlipidemia (Acute) Hemorrhoids (Acute) Diverticulosis (Acute) Arteriosclerotic cardiovascular disease Encounter for pre-operative examination Leukocytosis Dehiscence of fascia DVT prophylaxis Metabolic encephalopathy Heme positive stool Urinary retention Ileostomy in place Tachycardia Volume overload B12 deficiency S/P IVC filter Irreducible hernia of anterior abdominal wall Seroma after procedure Infected prosthetic mesh of abdominal wall Hypertension Gout Colovesical fistula Atrial fibrillation Medical History PVC (premature ventricular contraction) Hx PVCs in pattern of bigeminy per cardiology records DVT (deep venous thrombosis) 05/2020 (post-op) > IVC filter placed (subsequent IVC filter removed) Pulmonary embolism and infarction 05/2020 (post-op) > IVC filter placed d/t hematuria (subsequent IVC filter removed) Osteoarthritis GERD (gastroesophageal reflux disease) "silent" Surgical History Hx laparoscopic cholecystectomy (10/31/22) Laparoscopic cholecystectomy with extensive lysis of adhesions add modifier. History of surgery (02/21/22) Laparoscopy with Lysis of Adhesions, Laparotomy with Removal Infected Surgimesh(Not Applicable) - Lex Marquez MD, FACS 02/21/2022 S/P IVC filter removal S/P insertion of IVC (inferior vena caval) filter History of hernia repair Lap Incisional Hernia Repair with mesh History of surgery (~09/25/20) removal of inferior vena cava filter by Dr. Latham H/O resection of small bowel Ileostomy removal (05/30/20): DL x2, Grade view 1, MAC#4, ETT 7.5 at [facility] H/O exploratory laparotomy Exploratory abdominal wound (05/15/2020): Grade view 1, Mckeon #2, ET tube 7.5 at [facility] S/P inguinal hernia repair right inguinal with hernia mesh History of cardiac cath ~2004 & ~2011 > no stents History of adenoidectomy History of tonsillectomy History of esophagogastroduodenoscopy (EGD) x1 with FB removal and x1 for recheck History of colonoscopy History of ear surgery right Family History Brother Prostate cancer Heart disease Myocardial infarction Father Heart disease Myocardial infarction Mother Kidney disease Grandfather (Paternal) Myocardial infarction Uncle Myocardial infarction Cancer Other No family history of adverse response to anesthesia Denies family history of Ovarian cancer Diabetes Breast cancer Lung cancer Colorectal cancer Lung disease Hypertension Stroke Social History Smoking Status: Never smoker Tobacco Type: Smokeless Tobacco (Dip or Chew) Second Hand Exposure: No; Do You Dip or Chew Tobacco: No; Hx Alcohol Use: No Hx Substance Use: No Preferred Language: Slovak Communication Ability: Effective Visual Impairment: Limited Hearing Ability: Normal Road Grader Required: No Beliefs That Will Affect Care: None marital status: Current Living Situation: Spouse Current Living Situation Comment: Lives at home with . current occupational status: retired current occupation: [employer] How many Children do You have: 5 other: decreased vision in left since no change. Feels Safe at Home: Yes Childhood Exposure to Second-Hand Smoke: Yes Diet: regular caffeine: Yes (tea) during the past year weight has: remained stable Dental Care, Regularly: No Physical Activity Frequency: Daily Seatbelt Use: always Sunscreen Use: No Assistive Devices: None Allergies Allergies Allergy/AdvReac Type Severity Reaction Status Date / Time ezetimibe [From Zetia] AdvReac Intermediate sore joints Verified 07/05/24 13:55 lovastatin AdvReac Intermediate sore joints Verified 07/05/24 13:55 Home Meds Home Medications Medication Instructions Recorded Confirmed allopurinol 100 mg tablet 100 mg PO HS 06/30/24 07/05/24 latanoprost 0.005 % eye drops 1 drp OPB HS 06/30/24 07/05/24 Previous Rx's Medication Instructions Recorded telmisartan 20 mg tablet 20 mg PO DAILY #90 tabs 11/04/23 atorvastatin 10 mg tablet 10 mg PO QPM #90 tabs 03/24/24 colchicine 0.6 mg capsule See Rx Instructions PO BID #14 caps 05/04/24 acetaminophen 325 mg tablet 650 mg (2 x 325 mg) PO Q4H PRN 07/02/24 pain #30 tabs amoxicillin 875 mg-potassium 1 tab PO BID #16 tabs 07/02/24 clavulanate 125 mg tablet oxycodone 5 mg tablet 5 mg PO Q6H PRN moderate-severe 07/02/24 pain #7 tabs metoprolol tartrate 25 mg tablet 25 mg PO BID #60 tabs 07/05/24 Results & Data (ED) Vital Signs Vital Signs - 24 hr 06/30/24 13:49 06/30/24 14:04 Temperature 36.5 C Temperature Source Oral Pulse Rate 46 L 41 L Respiratory Rate 18 Blood Pressure 162/93 H Blood Pressure Mean 116 Pulse Oximetry 95 Oxygen Delivery Method Room Air Sepsis Recent Fever Within 48 Hours No Sepsis New/Unexplained Change in Mental Status No Sepsis Action Taken by Nursing No Action Required Home Medications Current Medication List: was personally reviewed by me Laboratory Data Attestation: I reviewed the patient's lab results. 07/02/24 05:23 07/02/24 05:23 Lab Results 06/30/24 06/30/24 Range/Units 13:50 15:52 WBC 18.80 H (4.8-10.8) K/ul RBC 5.57 (4.70-6.10) M/uL Hgb 16.4 (14.0-18.0) g/dl POC Hgb 16.7 (14.0-18.0) g/dl Hct 48.6 (42.0-52.0) % POC Hct 49 (42-52) % MCV 87.3 (80.0-100.0) fL MCH 29.4 (25.0-34.0) pg MCHC 33.7 (32.0-36.0) g/dL RDW Std Deviation 41.0 (36.4-46.3) fL RDW Coeff of Alda 12.9 (11.5-14.5) % Plt Count 243 (130-400) K/uL MPV 10.1 (9.4-12.4) fL Immature Gran % (Auto) 0.5 % Neut % (Auto) 85.5 % Lymph % (Auto) 7.9 % [place] % (Auto) 5.4 % Eos % (Auto) 0.5 % Baso % (Auto) 0.2 % Neut # (Auto) 16.08 H (1.40-6.50) K/uL Lymph # (Auto) 1.49 (1.20-3.40) K/uL [place] # (Auto) 1.01 H (0.11-0.59) K/uL Eos # (Auto) 0.09 (0.00-0.50) K/uL Baso # (Auto) 0.04 (0.00-0.20) K/uL Immature Gran # (Auto) 0.09 (0.01-0.20) K/uL POC Sodium 138 (135-144) mmol/L Sodium 137 (136-145) mmol/L POC Potassium 4.4 (3.3-5.0) mmol/L Potassium 4.5 (3.5-5.1) mmol/L POC Chloride 104 (101-112) mmol/L Chloride 104 (98-107) mmol/L Carbon Dioxide 27 (21-32) mmol/L POC Total CO2 25 (24-31) mmol/L Anion Gap 6 (3-11) POC Anion Gap 14.0 L (16-25) mmol/L POC BUN 22 H (7-18) mg/dl BUN 21 (6-23) mg/dl Creatinine 1.05 (0.6-1.4) mg/dl POC Creatinine 1.2 (0.6-1.3) mg/dl Est Cr Clr Drug Dosing 72.4 ml/min Est GFR ( Amer) 78.4 ml/min Est GFR (Non-Af Amer) 67.7 ml/min BUN/Creatinine Ratio 20.0 (10-20) Glucose 167 H (70-99(Fasting)) mg/dl POC Glucose (other) 169 H (70-99) mg/dl Calcium 9.5 (8.6-10.3) mg/dl POC Ioniz Calcium Mariela 1.23 (1.12-1.32) mmol/l Magnesium 1.8 (1.7-2.4) mg/dl Total Bilirubin 0.9 (0.2-1.0) mg/dl AST 26 (13-39) U/L ALT 23 (7-52) U/L Alkaline Phosphatase 147 H (34-104) U/L Troponin I High Sens 7.4 (0-20) pg/ml Total Protein 7.1 (6.0-8.3) gm/dl Albumin 4.2 (3.4-5.0) gm/dl Globulin 2.9 (2.5-4.0) gm/dl Albumin/Globulin Ratio 1.4 (0.9-2) TSH 2.462 (0.300-4.500) uIu/ml Urine Color Yellow Urine Appearance Clear (Clear) Urine pH 6.5 (4.5-7.5) Ur Specific [place] 1.017 (1.000-1.030) Urine Protein 2+ H (Negative) Urine Glucose (UA) Negative (Negative) Urine Ketones 1+ H (Negative) Urine Blood Negative (Negative) Urine Nitrite Negative (Negative) Urine Bilirubin Negative (Negative) Urine Urobilinogen Negative (Negative) Ur Leukocyte Esterase Negative (Negative) Urine WBC (Auto) 0-5 (0-5) /hpf Urine RBC (Auto) 0-2 (0-2) /hpf U Hyaline Cast (Auto) 0-2 (0-2) /lpf U Epithel Cells (Auto) 0-2 (0-2) /hpf Urine Bacteria (Auto) None Seen (None Seen) Urine Sperm Present A (None Prsent) Administered Medications Discontinued Medications Acetaminophen (Acetaminophen 325 Mg Tab) 650 mg PO Q4H PRN PRN Reason: Fever/Pain (Pain 1-5) Stop: 07/30/24 20:12 Last Admin: 07/01/24 20:49 Dose: 650 mg Documented By: KINDRA Allopurinol (Allopurinol 100 Mg Tab) 100 mg PO HS [facility] Stop: 07/30/24 20:59 Last Admin: 07/01/24 20:39 Dose: 100 mg Documented By: Admin: 06/30/24 20:39 Dose: 100 mg Documented By: ROXIE Atorvastatin Calcium (Atorvastatin 10 Mg Tab) 10 mg PO QPM [facility] Stop: 07/30/24 20:59 Last Admin: 07/01/24 20:40 Dose: 10 mg Documented By: Admin: 06/30/24 20:40 Dose: 10 mg Documented By: ROXIE Atropine Sulfate (Atropine So4 1 Mg/Ml 1ml Vial) Confirm Administered Dose 1 mg .ROUTE .STK-MED ONE Stop: 06/30/24 13:43 Last Admin: 06/30/24 13:44 Dose: Not Given Documented By: RENEA Atropine Sulfate (Atropine Sulfate 0.1 Mg/Ml 5ml Syr) 1 mg IV NOW STA Stop: 06/30/24 13:43 Last Admin: 06/30/24 13:48 Dose: Not Given Documented By: RENEA Atropine Sulfate (Atropine So4 1 Mg/Ml 1ml Vial) 1 mg IV NOW STA Stop: 06/30/24 13:47 Last Admin: 06/30/24 13:48 Dose: 1 mg Documented By: RENEA Atropine Sulfate (Atropine So4 1 Mg/Ml 1ml Vial) Confirm Administered Dose 1 mg .ROUTE .STK-MED ONE Stop: 06/30/24 16:30 Last Admin: 06/30/24 16:34 Dose: 1 mg Documented By: GARDENIA Diphtheria/Pertussis/Tetanus Vacc (Diphther/Tetan/Pertus Vaccine (Tdap, Adol/Adult) 0.5ml) 0.5 ml IM .ONCE ONE Stop: 06/30/24 14:56 Last Admin: 06/30/24 15:42 Dose: 0.5 ml Documented By: GARDENIA Hydralazine HCl (Hydralazine Hcl 20 Mg/Ml Vial) 10 mg IV Q8H PRN PRN Reason: SBP>180 or DBP>100 Stop: 07/31/24 22:40 Last Admin: 07/02/24 06:18 Dose: 10 mg Documented By: KINDRA Sodium Chloride (Nss) 500 mls @ 999 mls/hr IV .Q31M POLI Stop: 06/30/24 14:15 Last Infusion: 06/30/24 16:05 Dose: Infused Documented By: Admin: 06/30/24 13:49 Dose: 999 mls/hr Documented By: RENEA Acetaminophen (Ofirmev) 1,000 mg in 100 mls @ 400 mls/hr IV NOW STA Stop: 06/30/24 15:09 Last Infusion: 06/30/24 16:05 Dose: Infused Documented By: Admin: 06/30/24 15:07 Dose: 400 mls/hr Documented By: GARDENIA Ampicillin Sodium/Sulbactam Sodium (Unasyn) 3,000 mg in 100 mls @ 200 mls/hr IV NOW STA Stop: 06/30/24 16:06 Last Infusion: 06/30/24 17:39 Dose: Infused Documented By: Admin: 06/30/24 16:15 Dose: 200 mls/hr Documented By: GARDENIA Sodium Chloride (Nss) 1,000 mls @ 999 mls/hr IV .Q1H1M ONE Stop: 06/30/24 18:09 Last Infusion: 06/30/24 17:39 Dose: Infused Documented By: Admin: 06/30/24 17:39 Dose: 999 mls/hr Documented By: GARDENIA Ampicillin Sodium/Sulbactam Sodium (Unasyn) 3,000 mg in 100 mls @ 200 mls/hr IV Q6H POLI Stop: 07/07/24 20:29 Last Infusion: 07/02/24 11:36 Dose: Infused Documented By: Admin: 07/02/24 10:54 Dose: 200 mls/hr Documented By: Infusion: 07/02/24 04:29 Dose: Infused Documented By: Admin: 07/02/24 03:56 Dose: 200 mls/hr Documented By: Infusion: 07/01/24 22:32 Dose: Infused Documented By: Admin: 07/01/24 21:59 Dose: 200 mls/hr Documented By: Infusion: 07/01/24 16:55 Dose: Infused Documented By: Admin: 07/01/24 16:17 Dose: 200 mls/hr Documented By: Infusion: 07/01/24 12:14 Dose: Infused Documented By: Admin: 07/01/24 11:07 Dose: 200 mls/hr Documented By: Infusion: 07/01/24 05:15 Dose: Infused Documented By: Admin: 07/01/24 04:43 Dose: 200 mls/hr Documented By: Infusion: 06/30/24 22:40 Dose: Infused Documented By: Admin: 06/30/24 22:07 Dose: 200 mls/hr Documented By: ROXIE Latanoprost (Latanoprost 0.005% Op Soln 2.5 Ml Btl) 1 drops OPB HS POLI Stop: 07/31/24 20:59 Last Admin: 07/01/24 20:40 Dose: 1 drops Documented By: KINDRA Lidocaine/Epinephrine (Lidocaine 1%/Epinephrine 1:100,000 50 Ml Vial) 20 ml INFIL NOW ONE Stop: 06/30/24 17:16 Last Admin: 06/30/24 17:39 Dose: 20 ml Documented By: GARDENIA Losartan Potassium (Losartan Potassium 25 Mg Tab) 25 mg PO DAILY POLI Stop: 07/31/24 10:59 Last Admin: 07/02/24 08:10 Dose: 25 mg Documented By: Admin: 07/01/24 12:35 Dose: 25 mg Documented By: AML Metoprolol Tartrate (Metoprolol Tartrate 25 Mg Tab) 25 mg PO BID POLI Stop: 08/01/24 11:44 Last Admin: 07/02/24 11:56 Dose: 25 mg Documented By: AML Ondansetron HCl (Ondansetron Inj 2 Mg/Ml 2 Ml Vial) 4 mg IV Q6H PRN PRN Reason: Nausea Stop: 07/30/24 20:12 Last Admin: 07/01/24 07:57 Dose: 4 mg Documented By: AML Oxycodone HCl (Oxycodone Hcl Ir 5 Mg Tab (Immediate Release)) 5 mg PO Q6H PRN PRN Reason: Breakthrough pain (6-10) Stop: 07/14/24 20:12 Last Admin: 07/02/24 08:13 Dose: 5 mg Documented By: AML Telmisartan (Telmisartan 20 Mg Tab) 20 mg PO DAILY POLI Stop: 07/31/24 08:59 Last Admin: 07/01/24 11:32 Dose: Not Given Documented By: AML Imaging Data Radiologist's Impression: Cervical Spine CT 06/30/24 13:[address] DOSE: HISTORY: Trauma TECHNIQUE: Multiaxial CT images of the cervical spine were performed and reformatted in the sagittal and coronal plane without the use of contrast. A dose lowering technique was utilized adhering to the principles of ALARA. COMPARISON: None. FINDINGS: No pneumothorax. No subluxation. The C1-C2 interval is intact. Lucency through the anterior osteophyte at the superior endplate of C7. There appears be mild prevertebral edema at this level. Therefore, this favors an acute fracture. There is mild loss of height at the anterior superior endplate of C7 suggestive of an acute compression fracture.. No associated retropulsion. The C4-C5 vertebral bodies and right facets are fused. Prior canal wall down right-sided mastectomy. IMPRESSION: 1. A mild superior endplate compression fracture at C7 with a small lucency through the anterior osteophyte at C7. This favors an acute fracture given the prevertebral edema at this location. No associated retropulsion. 2. No subluxation. ACT 112: Negative or not required by law. Electronically signed by: Mickey Barney M.D. 06/30/2024 2:16 PM Chest X-Ray 06/30/24 13:42 XR chest 1V portable CLINICAL HISTORY: weakness COMPARISON STUDY: Chest CT May 20, 2020. Chest radiograph November 12, 2020. FINDINGS: The patient is rotated. There is mild prominence of the contour for the ascending aorta. No pneumothorax or pleural effusion is present. There is no consolidation or evidence for pulmonary edema. There is mild cardiomegaly. A small hiatal hernia is present. IMPRESSION: No acute cardiopulmonary findings. ACT 112: Negative or not required by law. Electronically signed by: Figueroa Wu M.D. 06/30/2024 2:[address] 06/30/24 13:[address] DOSE: HISTORY: Trauma TECHNIQUE: Multiaxial CT images of the cervical spine were performed and reformatted in the sagittal and coronal plane without the use of contrast. A dose lowering technique was utilized adhering to the principles of ALARA. COMPARISON: None. FINDINGS: No pneumothorax. No subluxation. The C1-C2 interval is intact. Lucency through the anterior osteophyte at the superior endplate of C7. There appears be mild prevertebral edema at this level. Therefore, this favors an acute fracture. There is mild loss of height at the anterior superior endplate of C7 suggestive of an acute compression fracture.. No associated retropulsion. The C4-C5 vertebral bodies and right facets are fused. Prior canal wall down right-sided mastectomy. IMPRESSION: 1. A mild superior endplate compression fracture at C7 with a small lucency through the anterior osteophyte at C7. This favors an acute fracture given the prevertebral edema at this location. No associated retropulsion. 2. No subluxation. ACT 112: Negative or not required by law. Electronically signed by: Mickey Barney M.D. 06/30/2024 2:[address] 06/30/24 13:43 CT facial bones wo con CLINICAL HISTORY: 79 years-old Male presenting with Trauma. Acute facial trauma status post fall COMPARISON STUDY: CT head and cervical spine studies of same day TECHNIQUE: High-resolution CT scan of the facial bones is performed. Images are reviewed in the axial, sagittal, and coronal planes. IV contrast was not administered for this examination. A dose lowering technique was utilized adhering to the principles of ALARA. CT DOSE: 1482.48 mGy.cm FINDINGS: The imaged intracranial structures demonstrate no acute abnormality. Multiple acute facial bone fractures are noted along with subcutaneous edema and numerous facial contusions.r subcutaneous hematoma of the left cheek measures up to 3.8 x 3.1 x 6 cm, image 27 series 6. No opaque foreign bodies are identified. No lymphadenopathy. Degenerative changes of the midcervical spine without acute fracture identified. The left mastoid air cells and middle ear cavities are clear. There are chronic appearing erosive changes of the right mastoid air cells with possible prior partial mastoidectomy changes. The right middle ear ossicles appear to be absent/eroded. There is fluid/soft tissue density noted within the right epi tympanicum. The mandible, pterygoid plates and zygomatic arches are intact. There are acute, comminuted, mildly angulated and displaced fractures noted within the bilateral anterior maxillary pennington with additional fractures also present within the medial and posterior maxillary pennington on the right. Additional acute fractures of the right orbit involving the right orbital floor and lateral wall. Rightward bowing and spurring of the nasal septum. There may be a subtle acute nondisplaced midline nasal bone fracture. The anterior nasal spine is intact. Large amount of layering hemorrhage within the maxillary and to lesser extent ethmoid sinuses. No extraocular muscle entrapment. There is moderate inflammatory stranding with foci of air present within the right orbital extraconal space adjacent to the orbital floor fracture. The globes appear intact. Subcutaneous emphysema of the right cheek. IMPRESSION: 1. Numerous acute facial bone fractures as above, predominantly involving the maxillary pennington and right orbit. 2. Numerous facial contusions/subcutaneous hematomas. 3. No evidence of extraocular muscular entrapment. 4. Large amount of posttraumatic hemorrhage within the maxillary sinuses. ACT 112: Negative or not required by law. The above report was generated using voice recognition software. It may contain grammatical, syntax or spelling errors. Electronically signed by: Sabas Vang M.D. 06/30/2024 2:[address] 06/30/24 13:43 CT OF THE HEAD WITHOUT CONTRAST CLINICAL HISTORY: Trauma COMPARISON STUDY: Head CT October 30, 2022. TECHNIQUE: Helical axial images of the head were obtained without IV contrast. Automated exposure control was utilized for the study. A dose lowering technique was utilized adhering to the principles of ALARA. FINDINGS: No acute intracranial hemorrhage, midline shift or mass effect is present. The ventricular system is unremarkable. The basal cisterns are patent. No extra-axial collections are present. There are no findings to suggest acute dural sinus thrombosis or acute territorial infarct. White matter hypodensities are unchanged and suggests small vessel disease. Multiple facial contusions are present. There is hemorrhage within the maxillary sinuses with multiple acute fractures of the pennington of the maxillary sinuses as well as the right orbital floor and the lateral pennington of both orbits. These findings are better depicted on the facial bone CT which will be reported separately. There are no calvarial fractures. Stable postoperative findings following right mastoidectomy. IMPRESSION: 1. No acute intracranial findings. 2. Extensive facial trauma with multiple acute facial fractures better depicted on the facial bone CT which will be reported separately. ACT 112: Negative or not required by law. Electronically signed by: Figueroa Wu M.D. 06/30/2024 2:22 PM Discharge Plan Visit Data Chief Complaint: Fall Stated Complaint: FALL ED Provider: Stanley Medina Discharge Problem: Bradycardia, Fall, Multiple facial bone fractures, Facial laceration, Forearm laceration, Cervical spine fracture Patient Disposition: Admitted As Inpatient Condition: Fair Discharge Instructions Interventions: ED Discharge Assessment Last Done: 06/30/24 18:37 Discharge Problem: Fall Qualifiers: Encounter type: initial encounter Qualified Code(s): W19.XXXA - Unspecified fall, initial encounter Multiple facial bone fractures Qualifiers: Encounter type: initial encounter Facial laceration Qualifiers: Encounter type: initial encounter Qualified Code(s): S01.81XA - Laceration without foreign body of other part of head, initial encounter Forearm laceration Qualifiers: Encounter type: initial encounter Laterality: right Qualified Code(s): S51.811A - Laceration without foreign body of right forearm, initial encounter Cervical spine fracture Qualifiers: Encounter type: initial encounter Cervical vertebra fracture level: C7 Fracture type: closed Fracture alignment: nondisplaced
[2024-06-30] MEDS: ATROPINE SO4 1 MG/ML 1ML VIAL ONE ×2 (13:43→16:34)
[2024-06-30] MEDS: ATROPINE SO4 1 MG/ML 1ML VIAL IV STA (13:48)
[2024-06-30] MEDS: ATROPINE SULFATE 0.1 MG/ML 5ML SYR IV STA (13:48)
[2024-06-30] MEDS: SODIUM CHLORIDE 0.9% 500 ML IV SCH (13:49)
[2024-06-30 14:04] LABS: iSTAT Creatinine 1.2 mg/dl (0.6-1.3); iSTAT Hemoglobin 16.7 g/dl (14.0-18.0); iSTAT Ionized Calcium 1.23 mmol/l (1.12-1.32); iSTAT Potassium 4.4 mmol/L (3.3-5.0)
[2024-06-30 14:11] LABS: Basophils # (auto) 0.04 K/uL (0.00-0.20); Basophils % (auto) 0.2 %; Eosinophils # (auto) 0.09 K/uL (0.00-0.50); Eosinophils % (auto) 0.5 %; Hematocrit (blood only) 48.6 % (42.0-52.0); Hemoglobin 16.4 g/dl (14.0-18.0); Immature Granulocytes # (auto) 0.09 K/uL (0.01-0.20); Immature Granulocytes % (auto) 0.5 %; Lymphocytes # (auto) 1.49 K/uL (1.20-3.40); Lymphocytes % (auto) 7.9 %; Mean Corpuscular Hemoglobin 29.4 pg (25.0-34.0); Mean Corpuscular Hgb Conc 33.7 g/dL (32.0-36.0); Mean Corpuscular Volume 87.3 fL (80.0-100.0); Mean Platelet Volume 10.1 fL (9.4-12.4); Monocytes # (auto) 1.01 K/uL (0.11-0.59); Monocytes % (auto) 5.4 %; Neutrophils # (auto) 16.08 K/uL (1.40-6.50); Neutrophils % (auto) 85.5 %; Platelet Count 243 K/uL (130-400); RDW Coefficient of Variation 12.9 % (11.5-14.5); Red Blood Count 5.57 M/uL (4.70-6.10)
--- NOTE | 2024-06-30 14:18 | CT Scan Report ---
CERVICAL SPINE CT CT DOSE: HISTORY: Trauma TECHNIQUE: Multiaxial CT images of the cervical spine were performed and reformatted in the sagittal and coronal plane without the use of contrast. A dose lowering technique was utilized adhering to th e principles of ALARA. COMPARISON: None. FINDINGS: No pneumothorax. No subluxation. The C1-C2 interval is intact. Lucency through the anterior osteophyte at the superior endplate of C7. There appears be mild prevertebral edema at this level. T herefore, this favors an acute fracture. There is mild loss of height at the anterior superior endpla te of C7 suggestive of an acute compression fracture.. No associated retropulsion. The C4-C5 vertebra l bodies and right facets are fused. Prior canal wall down right-sided mastectomy. IMPRESSION: 1. A mild superior endplate compression fracture at C7 with a small lucency through the anterior oste ophyte at C7. This favors an acute fracture given the prevertebral edema at this location. No associa bc retropulsion. 2. No subluxation. ACT 112: Negative or not required by law. Electronically signed by: Mickey Barney M.D. 06/30/2024 2:16 PM
--- NOTE | 2024-06-30 14:22 | Electrocardiogram Report ---
Test Reason : Blood Pressure : */* mmHG Vent. Rate : 46 BPM Atrial Rate : 46 BPM P-R Int : 176 ms QRS Dur : 100 ms QT Int : 486 ms P-R-T Axes : 18 -32 -25 degrees QTcB Int : 425 ms Sinus bradycardia with occasional Premature ventricular complexes Left axis deviation Abnormal ECG When compared with ECG of 30-Oct-2022 11:52, Premature ventricular complexes are now Present Vent. rate has decreased by 56 bpm Criteria for Inferior infarct are no longer Present Confirmed by Robb Donahue ([id number]) on 06/30/2024 2:20:13 PM Referred By: Confirmed By: Robb Donahue
--- NOTE | 2024-06-30 14:23 | CT Scan Report ---
CT OF THE HEAD WITHOUT CONTRAST CLINICAL HISTORY: Trauma COMPARISON STUDY: Head CT October 30, 2022. TECHNIQUE: Helical axial images of the head were obtained without IV contrast. Automated exposure con trol was utilized for the study. A dose lowering technique was utilized adhering to the principles o f ALARA. FINDINGS: No acute intracranial hemorrhage, midline shift or mass effect is present. The ventricular system is unremarkable. The basal cisterns are patent. No extra-axial collections are present. There are no findings to suggest acute dural sinus thrombosis or acute territorial infarct. White matter hy podensities are unchanged and suggests small vessel disease. Multiple facial contusions are present. There is hemorrhage within the maxillary sinuses with multiple acute fractures of the pennington of the ma xillary sinuses as well as the right orbital floor and the lateral pennington of both orbits. These findin gs are better depicted on the facial bone CT which will be reported separately. There are no calvaria l fractures. Stable postoperative findings following right mastoidectomy. IMPRESSION: 1. No acute intracranial findings. 2. Extensive facial trauma with multiple acute facial fractures better depicted on the facial bone CT which will be reported separately. ACT 112: Negative or not required by law. Electronically signed by: Figueroa uW M.D. 06/30/2024 2:22 PM
[2024-06-30 14:31] LABS: Albumin Globulin Ratio 1.4 (0.9-2); Albumin Level 4.2 gm/dl (3.4-5.0); Bilirubin,Total 0.9 mg/dl (0.2-1.0); Calcium 9.5 mg/dl (8.6-10.3); Creatinine Clr Calc Pharmacy 72.4 ml/min; Est GFR (African American) 78.4 ml/min; Est GFR (Non-African American) 67.7 ml/min; Globulin 2.9 gm/dl (2.5-4.0); Magnesium 1.8 mg/dl (1.7-2.4); Potassium 4.5 mmol/L (3.5-5.1); Total Protein 7.1 gm/dl (6.0-8.3)
[2024-06-30 14:37] LABS: Troponin I High Sensitivity 7.4 pg/ml (0-20)
--- NOTE | 2024-06-30 14:38 | CT Scan Report ---
CT facial bones wo con CLINICAL HISTORY: 79 years-old Male presenting with Trauma. Acute facial trauma status post fall COMPARISON STUDY: CT head and cervical spine studies of same day TECHNIQUE: High-resolution CT scan of the facial bones is performed. Images are reviewed in the axia l, sagittal, and coronal planes. IV contrast was not administered for this examination. A dose lower ing technique was utilized adhering to the principles of ALARA. CT DOSE: 1482.48 mGy.cm FINDINGS: The imaged intracranial structures demonstrate no acute abnormality. Multiple acute facial bone fract ures are noted along with subcutaneous edema and numerous facial contusions.r subcutaneous hematoma o f the left cheek measures up to 3.8 x 3.1 x 6 cm, image 27 series 6. No opaque foreign bodies are shena ntified. No lymphadenopathy. Degenerative changes of the midcervical spine without acute fracture shena ntified. The left mastoid air cells and middle ear cavities are clear. There are chronic appearing erosive wanda nges of the right mastoid air cells with possible prior partial mastoidectomy changes. The right midd le ear ossicles appear to be absent/eroded. There is fluid/soft tissue density noted within the right epi tympanicum. The mandible, pterygoid plates and zygomatic arches are intact. There are acute, comminuted, mildly a ngulated and displaced fractures noted within the bilateral anterior maxillary pennington with additional fractures also present within the medial and posterior maxillary pennington on the right. Additional acute fractures of the right orbit involving the right orbital floor and lateral wall. Rightward bowing an d spurring of the nasal septum. There may be a subtle acute nondisplaced midline nasal bone fracture. The anterior nasal spine is intact. Large amount of layering hemorrhage within the maxillary and to lesser extent ethmoid sinuses. No ext raocular muscle entrapment. There is moderate inflammatory stranding with foci of air present within the right orbital extraconal space adjacent to the orbital floor fracture. The globes appear intact. Subcutaneous emphysema of the right cheek. IMPRESSION: 1. Numerous acute facial bone fractures as above, predominantly involving the maxillary pennington and rig ht orbit. 2. Numerous facial contusions/subcutaneous hematomas. 3. No evidence of extraocular muscular entrapment. 4. Large amount of posttraumatic hemorrhage within the maxillary sinuses. ACT 112: Negative or not required by law. The above report was generated using voice recognition software. It may contain grammatical, syntax o r spelling errors. Electronically signed by: Sabas Vang M.D. 06/30/2024 2:37 PM
--- NOTE | 2024-06-30 14:45 | XRay Report ---
XR chest 1V portable CLINICAL HISTORY: weakness COMPARISON STUDY: Chest CT May 20, 2020. Chest radiograph November 12, 2020. FINDINGS: The patient is rotated. There is mild prominence of the contour for the ascending aorta. No pneumothorax or pleural effusion is present. There is no consolidation or evidence for pulmonary ryan ma. There is mild cardiomegaly. A small hiatal hernia is present. IMPRESSION: No acute cardiopulmonary findings. ACT 112: Negative or not required by law. Electronically signed by: Figueroa Wu M.D. 06/30/2024 2:44 PM
[2024-06-30 14:47] LABS: Thyroid Stimulating Hormone 2.462 uIu/ml (0.300-4.500)
[2024-06-30] MEDS: ACETAMINOPHEN 1,000 MG/100 ML VIAL IV STA (15:07)
[2024-06-30] MEDS: DIPHTHER/TETAN/PERTUS Vaccine (Tdap, Adol/Adult) 0.5mL IM ONE (15:42)
[2024-06-30] MEDS: AMPICILLIN/SULBACTAM SOD 3,000 MG/100 ML BAG IV STA (16:15)
[2024-06-30 16:21] LABS: Appearance Urine Clear (Clear); Bacteria Urine Automated None Seen (None Seen); Bilirubin Urine Negative (Negative); Blood Urine Negative (Negative); Cast Urine Automated 0-2 /lpf (0-2); Color Urine Yellow; Epithelial Cell Urine Auto 0-2 /hpf (0-2); Glucose Urine UA Negative (Negative); Ketones Urine 1+ (Negative); Leukocyte Esterase Urine Negative (Negative); Nitrite Urine Negative (Negative); Protein Urine 2+ (Negative); RBC Urine Automated 0-2 /hpf (0-2); Specific Gravity Urine 1.017 (1.000-1.030); Sperm Urine Present (None Prsent); Urobilinogen Urine Negative (Negative); WBC Urine Automated 0-5 /hpf (0-5); pH Urine 6.5 (4.5-7.5)
--- NOTE | 2024-06-30 17:17 | History & Physical Report ---
Date of Service June 30, 2024 Assessment & Plan (1) Facial fracture due to fall: Plan: Patient tripped and fell into a pile of scrap metal on 06/30 striking his face Not currently on blood thinners Patient received tetanus vaccine in the ED Oral maxillofacial surgery consulted No surgical intervention at this time Unasyn 3000 mg IV q6h Acetaminophen and oxycodone as needed for pain A.m. CBC, BMP (2) Cervical spine fracture: Plan: Cervical spine CT reveals acute C7 compression fracture ED spoke to spinal surgery; nonoperative Maintain [place] J collar Aspiration precautions (3) Bradycardia: Plan: Patient's heart rate dropped to 28 bpm in the ED Atropine x 2 administered Unclear etiology; ?vasovagal secondary to trauma and nasal packing; ?tachy- bradycardia syndrome Atropine 1 mg IV q5m x 3 max doses as needed for symptomatic bradycardia PCU status for now, and may require ICU status if transcutaneous pacing is indicated HOB > 30 degrees Echocardiogram ordered, pending Hold metoprolol, telmisartan Continuous telemetry monitoring (4) Leukocytosis: Plan: Leukocytosis 18.80 with a neutrophil predominance Suspect stress demargination as patient denies infectious symptoms Will cover with antibiotics (as above) in the setting of multiple acute facial fractures (5) Laceration of right forearm: Plan: Dressed in the ED Daily wound care Plan Disposition: Admit to PCU telemetry Full code Regular diet, easy to chew VTE PPx: Hold chemical DVT PPx for 24 hours in the setting of acute head trauma; teds History of Present Illness Chief Complaint: Fall, face injury Primary Care Provider: ARA Posadas Олег is a pleasant 79-year-old male with PMH of atrial fibrillation, IVC filter, HTN, colovesical fistula, ileostomy, HLD, CAD, PSVT, and CKD. He presented on 06/30 after tripping while working outside and falling face first into a pile of scrap metal. Patient reports that he tripped over a piece of wood around 9:30 AM. He denies any dizziness or fainting prior to falling. He struck his face. No LOC. Pain is specifically located at his nose and left cheek. He rated the pain 10/10 initially, but 7/10 at present. The pain is constant, and he reports significant swelling. He also endorsed neck pain initially after the fall, but denies any neck pain at present with the [place] J collar on. Patient reports he took all of his regular morning medicine today including metoprolol. He was previously on Cardizem, digoxin, and warfarin for his atrial fibrillation, but was taken off of them for an unknown reason. He does not take blood thinners at this time; reportedly takes aspirin for his bilateral shoulder pain. Patient's heart rate dropped to 28 bpm on arrival and atropine was administered x 2 in the ED. Patient reports he does have a history of bradycardia and has had it for years. Patient denies smoking, tobacco use, or recent alcohol use. At time of admission, patient is hypertensive at 148/95 and bradycardic at 54 bpm. ED course: Atropine 1 mg IV Tdap vaccine Unasyn 3000 mg IV Acetaminophen 1000 mg IV NSS 500 mL IV ROS: Patient endorses nose/cheek/facial pain, and neck pain (resolved after being placed in [place] J collar). Patient denies fever, chills, night sweats, dizziness/lightheadedness, headache, changes in vision, airway closure, difficulty swallowing, chest pain, chest palpitations, pleuritic CP, SOB, cough, abdominal pain, N/V/D, changes in urinary or bowel habits, or numbness or tingling in the arms or legs. Allergies Allergy/AdvReac Type Severity Reaction Status Date / Time ezetimibe [From Zetia] AdvReac Intermediate sore joints Verified 06/30/24 16:45 lovastatin AdvReac Intermediate sore joints Verified 06/30/24 16:45 Home Medications Medication Instructions Recorded Confirmed Type telmisartan 20 mg tablet 20 mg PO DAILY #90 tabs 11/04/23 06/30/24 Rx metoprolol tartrate 50 mg tablet 50 mg PO BID #180 tabs 01/29/24 06/30/24 Rx atorvastatin 10 mg tablet 10 mg PO QPM #90 tabs 03/24/24 06/30/24 Rx colchicine 0.6 mg capsule See Rx Instructions PO BID #14 caps 05/04/24 06/30/24 Rx allopurinol 100 mg tablet 100 mg PO HS 06/30/24 06/30/24 History latanoprost 0.005 % eye drops 1 drp OPB HS 06/30/24 06/30/24 History Past Med/Surg History Problem List (Updated 06/30/24 @ 18:15 by Mickey Neves PA-C) Laceration of right forearm Bradycardia Facial fracture due to fall Cervical spine fracture Stage 3a chronic kidney disease (CKD) Glenohumeral arthritis Impaired fasting glucose S/P laparoscopic cholecystectomy (10/31/22) Nonobstructive atherosclerosis of coronary artery Sinus bradycardia PSVT (paroxysmal supraventricular tachycardia) Acute cholangitis (Acute) Choledocholithiasis (Acute) Abdominal pain (Acute) Lab test negative for COVID-19 virus (Acute) CAD (coronary artery disease) Non-obstructive CAD HTN (hypertension) Sepsis Choledocholithiasis Weakness (Acute) Surgical wound, non healing (Acute) Infected prosthetic mesh of abdominal wall Hematuria Prostatitis (Acute) Premature ventricular contractions (Acute) Hyperlipidemia (Acute) Hemorrhoids (Acute) Diverticulosis (Acute) Arteriosclerotic cardiovascular disease Encounter for pre-operative examination Leukocytosis Dehiscence of fascia DVT prophylaxis Metabolic encephalopathy Heme positive stool Urinary retention Ileostomy in place Tachycardia Volume overload B12 deficiency S/P IVC filter Irreducible hernia of anterior abdominal wall Seroma after procedure Infected prosthetic mesh of abdominal wall Hypertension Gout Colovesical fistula Atrial fibrillation Medical History PVC (premature ventricular contraction) DVT (deep venous thrombosis) Pulmonary embolism and infarction Osteoarthritis Hyperlipidemia GERD (gastroesophageal reflux disease) Surgical History Hx laparoscopic cholecystectomy (10/31/22) History of surgery (02/21/22) S/P IVC filter S/P insertion of IVC (inferior vena caval) filter History of hernia repair History of surgery (~09/25/20) H/O resection of small bowel H/O exploratory laparotomy S/P inguinal hernia repair History of cardiac cath History of adenoidectomy History of tonsillectomy History of esophagogastroduodenoscopy (EGD) History of colonoscopy History of ear surgery Family History Brother Prostate cancer Heart disease Myocardial infarction Father Heart disease Myocardial infarction Mother Kidney disease Grandfather (Paternal) Myocardial infarction Uncle Myocardial infarction Cancer Other No family history of adverse response to anesthesia Denies family history of Ovarian cancer Diabetes Breast cancer Lung cancer Colorectal cancer Lung disease Hypertension Stroke Social History Smoking Status: Never smoker Tobacco Type: Smokeless Tobacco (Dip or Chew) Second Hand Exposure: No; Do You Dip or Chew Tobacco: Yes (can a week); Hx Alcohol Use: No Hx Substance Use: No Preferred Language: Uzbek Communication Ability: Effective Visual Impairment: Limited Hearing Ability: Normal Hospital Coordinator Required: No Beliefs That Will Affect Care: None marital status: Current Living Situation: Spouse current occupational status: retired current occupation: [employer] How many Children do You have: 5 other: decreased vision in left since no change. Feels Safe at Home: Yes Childhood Exposure to Second-Hand Smoke: Yes Diet: regular caffeine: Yes (tea) during the past year weight has: remained stable Dental Care, Regularly: No Physical Activity Frequency: Daily Seatbelt Use: always Sunscreen Use: No Assistive Devices: Glasses Review of Systems Review of Systems: See HPI above Physical Exam Physical Exam: General: no acute distress; pleasant affect; non-toxic appearing; well- nourished; cooperative; SpO2 96% on RA HEENT: Significant facial edema; periorbital ecchymosis bilaterally; 1 cm laceration on the left cheek as well as a potential puncture wound on the left cheek next to the nose; nasal passage is not patent (filled with dried blood); no scleral icterus; PERRLA; vision and hearing intact Neck: supple; [place] J collar in place; trachea midline Skin: warm, dry without signs of tenting; no cyanosis; right forearm laceration extending towards the elbow CV: chest wall NTP; irregularly irregular rhythm; S1/S2 normal; no murmurs/rubs/gallops; pulses intact and symmetric at radial, DP, and PT Lungs: no acute respiratory distress; symmetrical chest wall expansion; clear breath sounds across all lung watters w/o adventitious sounds; no wheezing ABD: Soft, NTP; BS present; no rebound/guarding; moderate distention secondary to body habitus, hernia MSK: no tics or fasciculations; no edema noted in the LEs b/l, nonerythematous; patient demonstrates ability to wiggle toes bilaterally Neuro: A&Ox3; normal mood and affect; fluent speech; no focal deficits; sensation grossly intact and symmetric in the LEs b/l Results & Data Results & Data Vital Signs (Past 12 Hours) Vital Signs Temp Pulse Pulse Resp BP Pulse Ox O2 Del Method 06/30/24 16:48 87 15 96 Room Air 06/30/24 16:30 152/93 H 06/30/24 16:30 152/93 H 06/30/24 16:30 55 L 24 97 06/30/24 16:12 170/97 H 06/30/24 16:12 170/97 H 06/30/24 16:12 170/97 H 06/30/24 16:09 52 L 13 97 06/30/24 16:03 58 L 17 99 06/30/24 15:45 54 L 24 98 Room Air 06/30/24 15:30 148/95 H 06/30/24 15:21 73 16 96 06/30/24 15:03 58 L 17 97 06/30/24 15:00 167/104 H 06/30/24 15:00 167/104 H 06/30/24 15:00 167/104 H 06/30/24 14:54 45 L 18 97 06/30/24 14:51 168/108 H 06/30/24 14:51 168/108 H 06/30/24 14:45 167/101 H 06/30/24 14:45 167/101 H 06/30/24 14:45 56 L 14 169/89 H 96 06/30/24 14:14 67 22 165/105 H 06/30/24 14:04 36.5 C 41 L 18 162/93 H 95 Room Air 06/30/24 13:49 46 L 06/30/24 13:10 28 L Laboratory Results Abnormal lab results 06/30/24 06/30/24 Range/Units 13:50 15:52 WBC 18.80 H (4.8-10.8) K/ul Neut # (Auto) 16.08 H (1.40-6.50) K/uL Harney # (Auto) 1.01 H (0.11-0.59) K/uL POC Anion Gap 14.0 L (16-25) mmol/L POC BUN 22 H (7-18) mg/dl Glucose 167 H (70-99(Fasting)) mg/dl POC Glucose (other) 169 H (70-99) mg/dl Alkaline Phosphatase 147 H (34-104) U/L Urine Protein 2+ H (Negative) Urine Ketones 1+ H (Negative) Urine Sperm Present A (None Prsent) Diagnostic Findings Chest X-Ray 06/30/24 13:42 XR chest 1V portable CLINICAL HISTORY: weakness COMPARISON STUDY: Chest CT May 20, 2020. Chest radiograph November 12, 2020. FINDINGS: The patient is rotated. There is mild prominence of the contour for the ascending aorta. No pneumothorax or pleural effusion is present. There is no consolidation or evidence for pulmonary edema. There is mild cardiomegaly. A small hiatal hernia is present. IMPRESSION: No acute cardiopulmonary findings. ACT 112: Negative or not required by law. Electronically signed by: Figueroa Wu M.D. 06/30/2024 2:[address] 06/30/24 13:[address] DOSE: HISTORY: Trauma TECHNIQUE: Multiaxial CT images of the cervical spine were performed and reformatted in the sagittal and coronal plane without the use of contrast. A dose lowering technique was utilized adhering to the principles of ALARA. COMPARISON: None. FINDINGS: No pneumothorax. No subluxation. The C1-C2 interval is intact. Lucency through the anterior osteophyte at the superior endplate of C7. There appears be mild prevertebral edema at this level. Therefore, this favors an acute fracture. There is mild loss of height at the anterior superior endplate of C7 suggestive of an acute compression fracture.. No associated retropulsion. The C4-C5 vertebral bodies and right facets are fused. Prior canal wall down right-sided mastectomy. IMPRESSION: 1. A mild superior endplate compression fracture at C7 with a small lucency through the anterior osteophyte at C7. This favors an acute fracture given the prevertebral edema at this location. No associated retropulsion. 2. No subluxation. ACT 112: Negative or not required by law. Electronically signed by: Mickey Barney M.D. 06/30/2024 2:[address] 06/30/24 13:43 CT facial bones wo con CLINICAL HISTORY: 79 years-old Male presenting with Trauma. Acute facial trauma status post fall COMPARISON STUDY: CT head and cervical spine studies of same day TECHNIQUE: High-resolution CT scan of the facial bones is performed. Images are reviewed in the axial, sagittal, and coronal planes. IV contrast was not administered for this examination. A dose lowering technique was utilized adhering to the principles of ALARA. CT DOSE: 1482.48 mGy.cm FINDINGS: The imaged intracranial structures demonstrate no acute abnormality. Multiple acute facial bone fractures are noted along with subcutaneous edema and numerous facial contusions.r subcutaneous hematoma of the left cheek measures up to 3.8 x 3.1 x 6 cm, image 27 series 6. No opaque foreign bodies are identified. No lymphadenopathy. Degenerative changes of the midcervical spine without acute fr acture identified. The left mastoid air cells and middle ear cavities are clear. There are chronic appearing erosive changes of the right mastoid air cells with possible prior partial mastoidectomy changes. The right middle ear ossicles appear to be absent/eroded. There is fluid/soft tissue density noted within the right epi tympanicum. The mandible, pterygoid plates and zygomatic arches are intact. There are acute, comminuted, mildly angulated and displaced fractures noted within the bilateral anterior maxillary [place] with additional fractures also present within the medial and posterior maxillary pen[place] on the right. Additional acute fractures of the right orbit involving the right orbital floor and lateral wall. Rightward bowing and spurring of the nasal septum. There may be a subtle acute nondisplaced midline nasal bone fracture. The anterior nasal spine is intact. Large amount of layering hemorrhage within the maxillary and to lesser extent ethmoid sinuses. No extraocular muscle entrapment. There is moderate inflammatory stranding with foci of air present within the right orbital extraconal space adjacent to the orbital floor fracture. The globes appear intact. Subcutaneous emphysema of the right cheek. IMPRESSION: 1. Numerous acute facial bone fractures as above, predominantly involving the maxillary penning[place] and right orbit. 2. Numerous facial contusions/subcutaneous hematomas. 3. No evidence of extraocular muscular entrapment. 4. Large amount of posttraumatic hemorrhage within the maxillary sinuses. ACT 112: Negative or not required by law. The above report was generated using voice recognition software. It may contain grammatical, syntax or spelling errors. Electronically signed by: Sabas Vang M.D. 06/30/2024 2:[address] 06/30/24 13:43 CT OF THE HEAD WITHOUT CONTRAST CLINICAL HISTORY: Trauma COMPARISON STUDY: Head CT October 30, 2022. TECHNIQUE: Helical axial images of the head were obtained without IV contrast. Automated exposure control was utilized for the study. A dose lowering technique was utilized adhering to the principles of ALARA. FINDINGS: No acute intracranial hemorrhage, midline shift or mass effect is present. The ventricular system is unremarkable. The basal cisterns are patent. No extra-axial collections are present. There are no findings to suggest acute dural sinus thrombosis or acute territorial infarct. White matter hypodensities are unchanged and suggests small vessel disease. Multiple facial contusions are present. There is hemorrhage within the maxillary sinuses with multiple acute fractures of the pennington of the maxillary sinuses as well as the right orbital floor and the lateral pennington of both orbits. These findings are better depicted on the facial bone CT which will be reported separately. There are no calvarial fractures. Stable postoperative findings following right mastoidectomy. IMPRESSION: 1. No acute intracranial findings. 2. Extensive facial trauma with multiple acute facial fractures better depicted on the facial bone CT which will be reported separately. ACT 112: Negative or not required by law. Electronically signed by: Figueroa Wu M.D. 06/30/2024 2:22 PM ECG Additional Comments: ECG revealed sinus bradycardia with occasional PVCs at 46 bpm; QTc 425 Code Status & VTE Plan Code Status Full code VTE Prophylaxis Plan VTE Prophylaxis will be ordered: Yes Supervising Physician Co-Signing Physician Notes Patient seen and examined, chart reviewed, case discussed with Mickey Neves PA-C and I agree with the assessment and plan as above except as otherwise noted Labs and images reviewed 79-year-old male who reports he tripped over scrap metal which caused him to fall into a pile of scrap metal in his garage. He did not have any lightheadedness, dizziness, chest pain, CP, syncope that led to his fall. Did fall and hit his face and sustained multiple facial fractures. These were evaluated by OMFS and no surgical intervention is recommended or required, recommended for nonop management and antibiotics at this time. Tetanus was updated in the ER. Patient has a cervical compression fracture which was evaluated by orthopedic spine, was recommended for a Mamie J collar and is nonoperative management. Patient feels well at bedside. Did have transient bradycardia in the ER of which she has not had before.? Vagal response with facial fracture and bleeding. He has not been hypotensive. Was not symptomatic with this. Admitted to telemetry. At bedside assessment heart rate is regular in the 80s, BP normal, facial with infraorbital contusions however EOM intact without pain and no signs of entrapment. Pupils equal and responsive to light and accommodation. No headache. Mentating normally. Agree with assessment and management above. PG Care Time/CCT Total # of Minutes Spent Total Time Spent with Patient: Total time spent is greater than 50% in coordination of care (as documented) at patient's floor/unit and/or counseling patient: Coding [place] [address] INT INP/OBS CARE 3/75MIN Patient Type Established History Comprehensive Exam Comprehensive Medical Decision Making High Complexity Diagnoses Facial fracture due to fall S02.92XA; W19.XXXA Cervical spine fracture S12.9XXA Bradycardia R00.1 Leukocytosis D72.829 Laceration of right forearm S51.811A
[2024-06-30] MEDS: LIDOCAINE 1%/EPINEPHRINE 1:100,000 50 ML VIAL INFIL ONE (17:39)
[2024-06-30] MEDS: SODIUM CHLORIDE 0.9% 1,000 ML IV ONE (17:39)
--- NOTE | 2024-06-30 18:16 | Emergency Department Note ---
ED Visit Note Patient was seen and evaluated at the request of my attending physician, Dr. Medina, for left-sided facial lacerations. Please see Dr. Medina' dictation for full history of present illness and emergency department course outside of this dictation. In short the patient had a fall with subsequent facial fractures and cervical fracture. The patient has 2 lacerations that require repair on the face. He has a roughly 2 cm curvilinear laceration over the left maxillary sinus region. He has an additional 2.0 cm laceration that abuts the fold at the nose on the left side. Each of these require repair. Laceration repair. Patient elects to have their laceration repaired. Verbal consent was obtained to perform the procedure. There is an abundance of materials available for the procedure. Patient is not allergic to latex. Using sterile technique the wound was cleaned with Betadine. The area was sterilely draped. 4 ml of 1% buffered lidocaine with epi was used to anesthetize the facial lacerations. Once the patient was anesthetized, the wound was copiously irrigated under pressure with sterile saline. The wounds were explored and there were no deep structures injured such as tendons, bone, or significant blood vessels. The cheek laceration was repaired using 2 simple interrupted 6-0 nylon sutures with the wound edges being well approximated. Hemostasis was achieved. The nasal laceration was repaired using 2 simple interrupted 6-0 nylon sutures with the wound edges being well approximated. Hemostasis was achieved. The area was cleaned with sterile saline and dressed with bacitracin ointment and bandage. The patient was given a tetanus booster. Patient tolerated the procedure well without complications. Blood loss was negligible. .
[2024-06-30] MEDS ORDERED: ATROPINE SO4 1 MG/ML 1ML VIAL IV PRN (20:13)
[2024-06-30] MEDS: allopurinoL 100 MG TAB PO SCH (20:39)
[2024-06-30] MEDS: ATORVASTATIN 10 MG TAB PO SCH (20:40)
--- NOTE | 2024-06-30 20:47 | Oral/Maxillofacial Consult ---
Date of Consultation June 30, 2024 Assessment & Plan (1) Maxillary sinus fracture: (2) Facial trauma: (3) Traumatic ecchymosis of face: History of Present Illness Reason for Consultation: Mid face trauma and fractures Attending Physician: Jayesh Coley MD History of Present Illness I was asked to see Олег in the ER room C-9 Patient tripped and fell into a pile of scrap metal on 06/30 striking his face Not currently on blood thinners Aidan has periorbital ecchymosis and significant left cheek swelling. History of Present Illness Олег is a pleasant 79-year-old male with PMH of atrial fibrillation. He presented on 06/30 after tripping while working outside and falling face first into a pile of scrap metal. He denies any dizziness or fainting prior to falling. He struck his face. No LOC. Pain is specifically located at his nose and left cheek. He rated the pain 10/10 initially, but 7/10 at present. The pain is constant, and he reports significant swelling. He also endorsed neck pain initially after the fall, but denies any neck pain at present with the [place] J collar on. MAXILLOFACIAL ER EXAM FINDINGS EYES---He has good ROM of his eyes, no double vision, no pain on eye moments, vision no changes, left eye swollen shut. NOSE--He has dry blood bilateral nares, no active bleeding, noted deflected nasal septum -looks old, no evidence of nasal fractures. DENTAL---His occlusion is stable with no changes in his bite to suggest upper or lower jaw fractures. TMJ = WNL. FACE---Swelling around the left eye and inferior rim, some what the same right side. NECK--Noted compression fracture in [place] J collar -will defer to Spine consult CT scan--I reviewed the CT personally and had a 3-D rendering made There are multiply anterior,lateral sinus fractures and blood products w/in the bilateral sinus The right inferior orbital rim is fractured with minimally displacement, no evidence of eye muscle entrapment. CT facial bones wo con CLINICAL HISTORY: 79 years-old Male presenting with Trauma. Acute facial trauma status post fall COMPARISON STUDY: CT head and cervical spine studies of same day FINDINGS: The imaged intracranial structures demonstrate no acute abnormality. Multiple acute facial bone fractures are noted along with subcutaneous edema and numerous facial contusions.r subcutaneous hematoma of the left cheek measures up to 3.8 x 3.1 x 6 cm, image 27 series 6. No opaque foreign bodies are identified. No lymphadenopathy. Degenerative changes of the midcervical spine without acute fracture identified. The left mastoid air cells and middle ear cavities are clear. There are chronic appearing erosive changes of the right mastoid air cells with possible prior partial mastoidectomy changes. The right middle ear ossicles appear to be absent/eroded. There is fluid/soft tissue density noted within the right epi tympanicum. The mandible, pterygoid plates and zygomatic arches are intact. There are acute, comminuted, mildly angulated and displaced fractures noted within the bilateral anterior maxillary [place] with additional fractures also present within the medial and posterior maxillary [place] on the right. Additional acute fractures of the right orbit involving the right orbital floor and lateral wall. Rightward bowing and spurring of the nasal septum. There may be a subtle acute nondisplaced midline nasal bone fracture. The anterior nasal spine is intact. Large amount of layering hemorrhage within the maxillary and to lesser extent ethmoid sinuses. No extraocular muscle entrapment. There is moderate inflammatory stranding with foci of air present within the right orbital extraconal space adjacent to the orbital floor fracture. The globes appear intact. Subcutaneous emphysema of the right cheek. IMPRESSION: 1. Numerous acute facial bone fractures as above, predominantly involving the maxillary [place] and right orbit. 2. Numerous facial contusions/subcutaneous hematomas. 3. No evidence of extraocular muscular entrapment. 4. Large amount of posttraumatic hemorrhage within the maxillary sinuses. ORAL MAXILLOFACIAL PLAN Based upon my review: No surgical intervention at this time Unasyn 3000 mg IV q6h Acetaminophen and oxycodone as needed for pain May be discharged as per medicine I will see Олег on July 08 at 10:30--his daughter has my contact info and follow up card with the information. Upon D/C I would suggest oral antibiotics, Ice, No Nose blowing. OTHER ISSUES THAT NEED TO BE ADDRESSED Cervical spine fracture: Plan: Cervical spine CT reveals acute C7 compression fracture ED spoke to spinal surgery; nonoperative Maintain [place] J collar Aspiration precautions Bradycardia: Plan: Patient's heart rate dropped to 28 bpm in the ED Atropine x 2 administered Unclear etiology; ?vasovagal secondary to trauma and nasal packing; ?tachy- bradycardia syndrome Atropine 1 mg IV q5m x 3 max doses as needed for symptomatic bradycardia PCU status for now, and may require ICU status if transcutaneous pacing is indicated HOB > 30 degrees Echocardiogram ordered, pending Hold metoprolol, telmisartan Continuous telemetry monitoring Plan Disposition: Admit to PCU telemetry Allergies Allergy/AdvReac Type Severity Reaction Status Date / Time ezetimibe [From Zetia] AdvReac Intermediate sore joints Verified 06/30/24 16:45 lovastatin AdvReac Intermediate sore joints Verified 06/30/24 16:45 Home Medications Medication Instructions Recorded Confirmed Type telmisartan 20 mg tablet 20 mg PO DAILY #90 tabs 11/04/23 06/30/24 Rx metoprolol tartrate 50 mg tablet 50 mg PO BID #180 tabs 01/29/24 06/30/24 Rx atorvastatin 10 mg tablet 10 mg PO QPM #90 tabs 03/24/24 06/30/24 Rx colchicine 0.6 mg capsule See Rx Instructions PO BID #14 caps 05/04/24 06/30/24 Rx allopurinol 100 mg tablet 100 mg PO HS 06/30/24 06/30/24 History latanoprost 0.005 % eye drops 1 drp OPB HS 06/30/24 06/30/24 History Patient History Medical History PVC (premature ventricular contraction) DVT (deep venous thrombosis) Pulmonary embolism and infarction Osteoarthritis Hyperlipidemia GERD (gastroesophageal reflux disease) Surgical History Hx laparoscopic cholecystectomy (10/31/22) History of surgery (02/21/22) S/P IVC filter S/P insertion of IVC (inferior vena caval) filter History of hernia repair History of surgery (~09/25/20) H/O resection of small bowel H/O exploratory laparotomy S/P inguinal hernia repair History of cardiac cath History of adenoidectomy History of tonsillectomy History of esophagogastroduodenoscopy (EGD) History of colonoscopy History of ear surgery Family History Brother Prostate cancer Heart disease Myocardial infarction Father Heart disease Myocardial infarction Mother Kidney disease Grandfather (Paternal) Myocardial infarction Uncle Myocardial infarction Cancer Other No family history of adverse response to anesthesia Denies family history of Ovarian cancer Diabetes Breast cancer Lung cancer Colorectal cancer Lung disease Hypertension Stroke Social History Smoking Status: Never smoker Tobacco Type: Smokeless Tobacco (Dip or Chew) Second Hand Exposure: No; Do You Dip or Chew Tobacco: No; Tobacco Cessation Education Requested by Patient: No Hx Alcohol Use: No Hx Substance Use: No Preferred Language: Romanian Communication Ability: Effective Visual Impairment: Limited Hearing Ability: Normal Compensation/Benefits Specialist Required: No Beliefs That Will Affect Care: None marital status: Current Living Situation: Spouse Current Living Situation Comment: Lives at home with . current occupational status: retired current occupation: [employer] How many Children do You have: 5 Other Information That Helps Us Care for You: No other: decreased vision in left since no change. Feels Safe at Home: Yes Safety Concerns: Feels Safe At This Time Childhood Exposure to Second-Hand Smoke: Yes Diet: regular caffeine: Yes (tea) during the past year weight has: remained stable Dental Care, Regularly: No Physical Activity Frequency: Daily Seatbelt Use: always Sunscreen Use: No Assistive Devices: Glasses Results & Data Vital Signs (Past 12 Hours) Vital Signs Temp Pulse Pulse Resp BP BP Pulse Ox 06/30/24 20:13 36.8 C 57 L 20 177/95 H 96 06/30/24 20:13 06/30/24 20:10 36.3 C L 56 L 22 177/95 H 95 06/30/24 19:30 163/103 H 06/30/24 19:24 110 H 30 H 06/30/24 19:03 68 16 06/30/24 19:00 153/104 H 06/30/24 19:00 153/104 H 06/30/24 19:00 153/104 H 06/30/24 19:00 153/104 H 06/30/24 18:39 68 12 06/30/24 18:37 67 18 155/78 H 97 06/30/24 18:30 66 14 06/30/24 18:30 133/93 06/30/24 18:21 79 15 06/30/24 18:12 110 H 21 06/30/24 18:00 168/124 H 06/30/24 17:51 90 21 06/30/24 17:45 89 22 97 06/30/24 17:40 84 06/30/24 17:36 88 22 95 06/30/24 17:30 172/110 H 06/30/24 17:21 90 19 06/30/24 17:18 89 19 96 06/30/24 17:00 160/118 H 06/30/24 16:57 91 H 13 96 06/30/24 16:48 87 15 96 06/30/24 16:30 152/93 H 06/30/24 16:30 152/93 H 06/30/24 16:30 55 L 24 97 06/30/24 16:12 170/97 H 06/30/24 16:12 170/97 H 06/30/24 16:12 170/97 H 06/30/24 16:09 52 L 13 97 06/30/24 16:03 58 L 17 99 06/30/24 15:45 54 L 24 98 06/30/24 15:30 148/95 H 06/30/24 15:21 73 16 96 06/30/24 15:03 58 L 17 97 06/30/24 15:00 167/104 H 06/30/24 15:00 167/104 H 06/30/24 15:00 167/104 H 06/30/24 14:54 45 L 18 97 06/30/24 14:51 168/108 H 06/30/24 14:51 168/108 H 06/30/24 14:45 167/101 H 06/30/24 14:45 167/101 H 06/30/24 14:45 56 L 14 169/89 H 96 06/30/24 14:14 67 22 165/105 H 06/30/24 14:04 36.5 C 41 L 18 162/93 H 95 06/30/24 13:49 46 L 06/30/24 13:10 28 L Pulse Ox O2 Del Method O2 Del Method 06/30/24 20:13 Room Air 06/30/24 20:13 96 Room Air 06/30/24 20:10 Room Air 06/30/24 19:30 06/30/24 19:24 06/30/24 19:03 06/30/24 19:00 06/30/24 19:00 06/30/24 19:00 06/30/24 19:00 06/30/24 18:39 06/30/24 18:37 Room Air 06/30/24 18:30 06/30/24 18:30 06/30/24 18:21 06/30/24 18:12 06/30/24 18:00 06/30/24 17:51 06/30/24 17:45 Room Air 06/30/24 17:40 06/30/24 17:36 06/30/24 17:30 06/30/24 17:21 06/30/24 17:18 06/30/24 17:00 06/30/24 16:57 06/30/24 16:48 Room Air 06/30/24 16:30 06/30/24 16:30 06/30/24 16:30 06/30/24 16:12 06/30/24 16:12 06/30/24 16:12 06/30/24 16:09 06/30/24 16:03 06/30/24 15:45 Room Air 06/30/24 15:30 06/30/24 15:21 06/30/24 15:03 06/30/24 15:00 06/30/24 15:00 06/30/24 15:00 06/30/24 14:54 06/30/24 14:51 06/30/24 14:51 06/30/24 14:45 06/30/24 14:45 06/30/24 14:45 06/30/24 14:14 06/30/24 14:04 Room Air 06/30/24 13:49 06/30/24 13:10 PG Care Time/CCT Total # of Minutes Spent Total Time Spent with Patient: Total time spent is greater than 50% in coordination of care (as documented) at patient's floor/unit and/or counseling patient: Coding Level of Care Code INT OBSERVATION CARE 50M LVL 2 Diagnoses Closed fracture of maxillary sinus, initial encounter S02.401A Encounter type: initial encounter Fracture type: closed Facial injury, initial encounter S09.93XA Encounter type: initial encounter Traumatic ecchymosis of face, initial encounter S00.83XA Encounter type: initial encounter (1) Maxillary sinus fracture Encounter type: initial encounter Fracture type: closed Qualified Code(s): S02.401A - Maxillary fracture, unspecified side, initial encounter for closed fracture (2) Facial trauma Encounter type: initial encounter Qualified Code(s): S09.93XA - Unspecified injury of face, initial encounter (3) Traumatic ecchymosis of face Encounter type: initial encounter Qualified Code(s): S00.83XA - Contusion of other part of head, initial encounter
[2024-06-30] MEDS ORDERED: COLCHICINE 0.6 MG TAB PO PRN (21:00)
[2024-06-30 21:30] LABS: Hematocrit (blood only) 48.3 % (42.0-52.0); Hemoglobin 16.3 g/dl (14.0-18.0)
[2024-06-30] MEDS: AMPICILLIN/SULBACTAM SOD 3,000 MG/100 ML BAG IV SCH (22:07)
[2024-07-01 06:15] LABS: Calcium 9.1 mg/dl (8.6-10.3); Potassium 4.1 mmol/L (3.5-5.1)
[2024-07-01 06:20] LABS: BUN Creatinine Ratio 24.7 (10-20); Creatinine Clr Calc Pharmacy 92.6 ml/min; Est GFR (African American) 98.7 ml/min; Est GFR (Non-African American) 85.1 ml/min
[2024-07-01] MEDS: ONDANSETRON INJ 2 MG/ML 2 ML VIAL IV PRN (07:57)
[2024-07-01 08:36] LABS: Basophils # (auto) 0.01 K/uL (0.00-0.20); Basophils % (auto) 0.1 %; Eosinophils # (auto) 0.08 K/uL (0.00-0.50); Eosinophils % (auto) 0.7 %; Hematocrit (blood only) 46.4 % (42.0-52.0); Hemoglobin 15.5 g/dl (14.0-18.0); Immature Granulocytes # (auto) 0.06 K/uL (0.01-0.20); Immature Granulocytes % (auto) 0.5 %; Lymphocytes # (auto) 1.53 K/uL (1.20-3.40); Mean Corpuscular Hemoglobin 29.5 pg (25.0-34.0); Mean Corpuscular Hgb Conc 33.4 g/dL (32.0-36.0); Mean Corpuscular Volume 88.4 fL (80.0-100.0); Mean Platelet Volume 10.2 fL (9.4-12.4); Monocytes # (auto) 1.16 K/uL (0.11-0.59); Monocytes % (auto) 9.8 %; Neutrophils # (auto) 8.97 K/uL (1.40-6.50); Neutrophils % (auto) 75.9 %; Platelet Count 221 K/uL (130-400); RDW Coefficient of Variation 13.2 % (11.5-14.5); RDW Standard Deviation 42.9 fL (36.4-46.3); Red Blood Count 5.25 M/uL (4.70-6.10); White Blood Count 11.81 K/ul (4.8-10.8)
[2024-07-01] MEDS: TELMISARTAN 20 MG TAB PO SCH (11:32)
--- NOTE | 2024-07-01 11:51 | XCELERA ---
[id number]
[2024-07-01] MEDS: LOSARTAN POTASSIUM 25 MG TAB PO SCH (12:35)
--- NOTE | 2024-07-01 15:21 | Hospitalist Progress Note ---
Date of Service July 01, 2024 Assessment & Plan (1) Facial fracture due to fall: Plan: Patient tripped and fell into a pile of scrap metal on 06/30 striking his face With multiple fractures of bilat maxillary bones with blood in max sinuses, right orbital floor fracture without entrapment of EOM, and nasal bone fracture Not currently on blood thinners, Patient received tetanus vaccine in the ED Oral maxillofacial surgery consulted-No surgical intervention at this time. Recommends antibiotics, icing, pain control, and outpt f/u scheduled for 07/08 COntinue Unasyn 3000 mg IV q6h and convert to po Augmentin at discharge Acetaminophen and oxycodone as needed for pain Hgb stable on CBC, leukocytosis improving and was likely stress response (2) Cervical spine fracture: Plan: Cervical spine CT reveals acute C7 compression fracture I consulted Ortho Spine and discussed his care-Dr. Velazquez reviewed the CT and recommended nonoperative tx with collar can remove collar to shower, f/u in Ortho office in 2 weeks as outpt Maintain [place] J collar (3) Bradycardia: Plan: Patient's heart rate dropped to 28 bpm in the ED and Atropine x 2 administered Unclear etiology; ?vasovagal secondary to trauma and nasal packing; ?tachy- bradycardia syndrome He has a h/o both PSVT as well as bradycardia. He is on metoprolol 50mg po bid at home Did have one brief run of PAT since admission-concern he will have more of this without metoprolol ECHO fairly normal Continue holding metoprolol and may need to resume at lower dose but remains samm in the 40-50s currently Consult Cardiology for further recommendations (4) HTN (hypertension): Plan: BPs becoming quite elevated off metoprolol and his ARB resume ARB hold metoprolol for bradycardia give IV hydralazine prn (5) PSVT (paroxysmal supraventricular tachycardia): Plan: as above, monitor on tele may need to resume lower dose of metoprolol (6) Laceration of right forearm: Plan: Dressed in the ED Daily wound care Also with laceration x 2 on left cheek near nose and will need these sutures removed in 7-10 days--there are two sutures in each lac Plan Disposition: continued stay on PCU telemetry Full code VTE PPx: Hold chemical DVT PPx given bleeding in sinuses; teds Admission and Anticipated Discharge Date Admission Date: June 30, 2024 Subjective Pt reports not much pain in his face but feels fullness in his cheeks. No neck pain, is wearing the C-spine collar. He reports he has been having dizzy spells at home occasionally and thought it was related to a right ear infection. He was not dizzy however when he fell yesterday but rather tripped over something in his garage. No pain anywhere else, no other acute concerns. Tele with sinus samm with rates in 40-50s, some PVCs, one run of PAT Physical Exam Constitutional: WD/WN, vitals as above Eyes: + scleral abnormality (OD injected), PER RL, normal accommodation and EOM intact bilaterally; no alignment abnormality ENMT: Nose: + external nose abnormality (+edema,left nasolabial region with 2 lacerations,scabbed,sutures in place) bilateral periorbital ecchymosis, ++edema of face R>>L Neck: + abnormal visual inspection (C-spine co llar in place) Respiratory: normal respiratory effort, lungs clear to auscultation Cardiovascular: Rate/Rhythm: regular rhythm and + bradycardic Heart Sounds: no murmur Extremities: no edema Neurologic: no focal motor deficits and not confused Motor/Sensory: no tremor Psychiatric: A+Ox3, euthymic affect Results & Data Results & Data Vital Signs (Past 12 Hours) Vital Signs Temp Pulse Pulse Resp BP Pulse Ox O2 Del Method 07/01/24 13:02 66 07/01/24 11:13 36.6 C 52 L 17 180/95 H 95 Room Air 07/01/24 08:00 52 L 07/01/24 07:27 36.6 C 50 L 19 175/84 H 96 Room Air 07/01/24 03:37 36.6 C 52 L 20 162/94 H 95 Room Air Laboratory Results CBC, BMP, LFTs, UA reviewed Diagnostic Findings ECHO reviewed PG Care Time/CCT Total # of Minutes Spent Total Time Spent with Patient: Total time spent is greater than 50% in coordination of care (as documented) at patient's floor/unit and/or counseling patient: Coding Level of Care Code 43271 SUB INP/OBS CARE 3/50MIN Diagnoses Facial fracture due to fall S02.92XA; W19.XXXA Cervical spine fracture S12.9XXA Bradycardia R00.1 HTN (hypertension) I10 PSVT (paroxysmal supraventricular tachycardia) I47.1 Laceration of right forearm S51.813P
[2024-07-01] MEDS: LATANOPROST 0.005% OP SOLN 2.5 ML BTL OPB SCH (20:40)
[2024-07-01] MEDS: ACETAMINOPHEN 325 MG TAB PO PRN (20:49)
[2024-07-02] MEDS: hydrALAZINE HCL 20 MG/ML VIAL IV PRN (06:18)
[2024-07-02 06:24] LABS: Basophils # (auto) 0.03 K/uL (0.00-0.20); Basophils % (auto) 0.2 %; Eosinophils # (auto) 0.15 K/uL (0.00-0.50); Eosinophils % (auto) 1.2 %; Hematocrit (blood only) 47.2 % (42.0-52.0); Hemoglobin 15.5 g/dl (14.0-18.0); Immature Granulocytes # (auto) 0.04 K/uL (0.01-0.20); Immature Granulocytes % (auto) 0.3 %; Lymphocytes # (auto) 1.81 K/uL (1.20-3.40); Lymphocytes % (auto) 14.9 %; Mean Corpuscular Hemoglobin 29.5 pg (25.0-34.0); Mean Corpuscular Hgb Conc 32.8 g/dL (32.0-36.0); Mean Corpuscular Volume 89.9 fL (80.0-100.0); Mean Platelet Volume 10.3 fL (9.4-12.4); Monocytes # (auto) 1.22 K/uL (0.11-0.59); Neutrophils # (auto) 8.91 K/uL (1.40-6.50); Neutrophils % (auto) 73.4 %; Platelet Count 222 K/uL (130-400); RDW Coefficient of Variation 13.3 % (11.5-14.5); RDW Standard Deviation 43.7 fL (36.4-46.3); Red Blood Count 5.25 M/uL (4.70-6.10); White Blood Count 12.16 K/ul (4.8-10.8)
[2024-07-02 06:32] LABS: Calcium 9.4 mg/dl (8.6-10.3); Potassium 4.1 mmol/L (3.5-5.1)
[2024-07-02 06:37] LABS: BUN Creatinine Ratio 14.1 (10-20); Creatinine Clr Calc Pharmacy 81.3 ml/min; Est GFR (Non-African American) 79.4 ml/min
[2024-07-02 07:19] VITALS: RESP 18
[2024-07-02] MEDS: oxyCODONE HCL IR 5 MG TAB (IMMEDIATE RELEASE) PO PRN (08:13)
--- NOTE | 2024-07-02 09:42 | Orthopedic Consultation ---
Date of Consultation July 02, 2024 Assessment & Plan (1) Cervical spine fracture: Patient sustained a fall on 06/30/2024 resulting in multiple lacerations and facial trauma. He has a fracture at C7 which is intrinsically stable. Were going to maintain his collar for at least 2 to 4 weeks. We would like to see him in our office in approximately 2 weeks for flexion-extension x-rays to confirm stability. Continue with pain control and mobilization efforts. Dr. Zaidi have reviewed the films as well as the treatment plan. History of Present Illness Attending Physician: Amanda Brennan MD History of Present Illness Patient is a 71-year-old male who presented to the emergency room on 06/30/2024. The time he was working in his barn. He is getting a piece of wood and tripped over something falling face first into a metal pole and then to the floor. He had immediate onset of pain. He presented to the emergency room with significant ecchymosis in his face and swelling and complaints of neck and chest pain. He does have a history of atrial fibrillation and is on Coumadin. We are consulted for a small fracture of the anterior cortex of C7. Today he is not having any radicular complaints. He is not noted any weakness in his arms. Since the fall however he does not feel that he is comfortable putting his arms up above his head. He has no other numbness, tingling, paresthesias. Allergies Allergy/AdvReac Type Severity Reaction Status Date / Time ezetimibe [From Zetia] AdvReac Intermediate sore joints Verified 06/30/24 16:45 lovastatin AdvReac Intermediate sore joints Verified 06/30/24 16:45 Home Medications Medication Instructions Recorded Confirmed Type telmisartan 20 mg tablet 20 mg PO DAILY #90 tabs 11/04/23 06/30/24 Rx metoprolol tartrate 50 mg tablet 50 mg PO BID #180 tabs 01/29/24 06/30/24 Rx atorvastatin 10 mg tablet 10 mg PO QPM #90 tabs 03/24/24 06/30/24 Rx colchicine 0.6 mg capsule See Rx Instructions PO BID #14 caps 05/04/24 06/30/24 Rx allopurinol 100 mg tablet 100 mg PO HS 06/30/24 06/30/24 History latanoprost 0.005 % eye drops 1 drp OPB HS 06/30/24 06/30/24 History Patient History Medical History PVC (premature ventricular contraction) DVT (deep venous thrombosis) Pulmonary embolism and infarction Osteoarthritis Hyperlipidemia GERD (gastroesophageal reflux disease) Surgical History Hx laparoscopic cholecystectomy (10/31/22) History of surgery (02/21/22) S/P IVC filter S/P insertion of IVC (inferior vena caval) filter History of hernia repair History of surgery (~09/25/20) H/O resection of small bowel H/O exploratory laparotomy S/P inguinal hernia repair History of cardiac cath History of adenoidectomy History of tonsillectomy History of esophagogastroduodenoscopy (EGD) History of colonoscopy History of ear surgery Family History Brother Prostate cancer Heart disease Myocardial infarction Father Heart disease Myocardial infarction Mother Kidney disease Grandfather (Paternal) Myocardial infarction Uncle Myocardial infarction Cancer Other No family history of adverse response to anesthesia Denies family history of Ovarian cancer Diabetes Breast cancer Lung cancer Colorectal cancer Lung disease Hypertension Stroke Social History Smoking Status: Never smoker Tobacco Type: Smokeless Tobacco (Dip or Chew) Second Hand Exposure: No; Do You Dip or Chew Tobacco: No; Hx Alcohol Use: No Hx Substance Use: No Preferred Language: Armenian Communication Ability: Effective Visual Impairment: Limited Hearing Ability: Normal Real Estate Subagent Required: No Beliefs That Will Affect Care: None marital status: Current Living Situation: Spouse Current Living Situation Comment: Lives at home with . current occupational status: retired current occupation: [employer] How many Children do You have: 5 other: decreased vision in left since no change. Feels Safe at Home: Yes Childhood Exposure to Second-Hand Smoke: Yes Diet: regular caffeine: Yes (tea) during the past year weight has: remained stable Dental Care, Regularly: No Physical Activity Frequency: Daily Seatbelt Use: always Sunscreen Use: No Assistive Devices: None Physical Exam Physical Exam: On exam the patient is seated in a chair. Has a collar in place. There is obvious ecchymosis and swelling in the space itself. His upper extremity motor exam reveals no focal atrophy of strength 5 out of 5 to detailed muscle testing. He has full hot worker strength. Sensations intact. He has negative Aylin signs bilaterally. Cardiovascular exam reveals no gross abnormalities. Lungs are clear. His gait is not observed. Results & Data Vital Signs (Past 12 Hours) Vital Signs Temp Pulse Pulse Resp BP Pulse Ox O2 Del Method 07/02/24 07:18 36.9 C 75 18 169/97 H 96 Room Air 07/02/24 06:41 163/95 H 07/02/24 06:03 36.4 C L 65 20 181/97 H 95 Room Air 07/02/24 04:01 172/97 H 07/02/24 03:07 36.5 C 69 18 182/106 H 99 Room Air 07/02/24 01:04 54 L 07/01/24 22:44 36.8 C 69 19 151/91 H 96 Room Air Diagnostic Findings CT scan of the cervical spine performed on 06/30/2024 reveals multilevel spondylosis. There is anterior osteophyte commission multiple levels. The inferior portion of C7 the osteophyte has a fracture through it. There is no extension into the middle or posterior columns. No instability is noted.
[2024-07-02] MEDS: METOPROLOL TARTRATE 25 MG TAB PO SCH (11:56)
--- NOTE | 2024-07-02 11:56 | Cardiology Consultation ---
Date of Consultation July 02, 2024 Assessment & Plan (1) PSVT (paroxysmal supraventricular tachycardia): -Several brief episodes of an SVT noted on telemetry. -Resting heart rate close to 100 bpm. -Would restart metoprolol tartrate. (2) CAD (coronary artery disease): -Nonobstructive at time of cardiac catheterization in 2011. -Quiescent on medical management. (3) HTN (hypertension): -As above, would restart metoprolol to tartrate. (4) Hyperlipidemia: -Continue atorvastatin. History of Present Illness Reason for Consultation: Mr. Peña is a 79-year-old male admitted on June 30 after a mechanical fall resulting in facial and neck trauma. He has demonstrated paroxysms of an SVT, therefore, this consultation was ordered. Of note, the patient typically follows with Dr. Abraham in the outpatient setting. The patient was in his usual state of health until the day of presentation. He tripped and fell into a scrap metal pile. He sustained several maxillary sinus fractures and a fracture to the right inferior orbit. He also had an acute C7 compression fracture. While in the emergency room having nasal packings inserted, his heart rate decreased to 28 bpm. His metoprolol has been on hold since that time. The patient does carry history of a paroxysmal SVT diagnosed in October 2022. He has been on beta-stephan therapy since that time. He has also had a resting sinus bradycardia since starting those medications. He has a remote history of paroxysmal atrial fibrillation diagnosed back in 2011. Anticoagulation therapy was discontinued due to significant hematuria. There has been no recurrence of his atrial fibrillation to the best of his knowledge. He also carries a history of nonobstructive coronary artery disease the time of a cardiac catheterization in 2011. Currently, patient is resting comfortably in bed without complaints. Past medical and surgical history 1. Nonobstructive [id number] 2. Hypertension 3. Mild LVH 4. Hypercholesterolemia 5. Paroxysmal atrial [id number], no anticoagulation 6. Paroxysmal SVTDecember 2021 7. Symptomatic PVCs 8. Persistent sinus bradycardia 9. Chronic renal failure 10. GERD 11. Gout 12. DVT/PEJuly 2019 13. Colorectal fistula 14. Small bowel resectionJuly 2019 15. Hernia repair 16. Tonsillectomy 17. 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 Attending Physician: Amanda Brennan MD Allergies Allergy/AdvReac Type Severity Reaction Status Date / Time ezetimibe [From Zetia] AdvReac Intermediate sore joints Verified 06/30/24 16:45 lovastatin AdvReac Intermediate sore joints Verified 06/30/24 16:45 Home Medications Medication Instructions Recorded Confirmed Type telmisartan 20 mg tablet 20 mg PO DAILY #90 tabs 11/04/23 06/30/24 Rx metoprolol tartrate 50 mg tablet 50 mg PO BID #180 tabs 01/29/24 06/30/24 Rx atorvastatin 10 mg tablet 10 mg PO QPM #90 tabs 03/24/24 06/30/24 Rx colchicine 0.6 mg capsule See Rx Instructions PO BID #14 caps 05/04/24 06/30/24 Rx allopurinol 100 mg tablet 100 mg PO HS 06/30/24 06/30/24 History latanoprost 0.005 % eye drops 1 drp OPB HS 06/30/24 06/30/24 History Patient History Medical History PVC (premature ventricular contraction) DVT (deep venous thrombosis) Pulmonary embolism and infarction Osteoarthritis Hyperlipidemia GERD (gastroesophageal reflux disease) Surgical History Hx laparoscopic cholecystectomy (10/31/22) History of surgery (02/21/22) S/P IVC filter S/P insertion of IVC (inferior vena caval) filter History of hernia repair History of surgery (~09/25/20) H/O resection of small bowel H/O exploratory laparotomy S/P inguinal hernia repair History of cardiac cath History of adenoidectomy History of tonsillectomy History of esophagogastroduodenoscopy (EGD) History of colonoscopy History of ear surgery Family History Brother Prostate cancer Heart disease Myocardial infarction Father Heart disease Myocardial infarction Mother Kidney disease Grandfather (Paternal) Myocardial infarction Uncle Myocardial infarction Cancer Other No family history of adverse response to anesthesia Denies family history of Ovarian cancer Diabetes Breast cancer Lung cancer Colorectal cancer Lung disease Hypertension Stroke Social History Smoking Status: Never smoker Tobacco Type: Smokeless Tobacco (Dip or Chew) Second Hand Exposure: No; Do You Dip or Chew Tobacco: No; Hx Alcohol Use: No Hx Substance Use: No Preferred Language: Kiswahili Communication Ability: Effective Visual Impairment: Limited Hearing Ability: Normal Business Services Administrator Required: No Beliefs That Will Affect Care: None marital status: Current Living Situation: Spouse Current Living Situation Comment: Lives at home with . current occupational status: retired current occupation: [employer] How many Children do You have: 5 other: decreased vision in left since no change. Feels Safe at Home: Yes Childhood Exposure to Second-Hand Smoke: Yes Diet: regular caffeine: Yes (tea) during the past year weight has: remained stable Dental Care, Regularly: No Physical Activity Frequency: Daily Seatbelt Use: always Sunscreen Use: No Assistive Devices: None Physical Exam Physical Exam: In general this is a well-developed well-nourished white male in no acute distress. HEENT exam notes diffuse ecchymoses. Neck is in a collar. Cardiovascular exam reveals a regular rhythm with a normal S1 and S2. No S3, S4, or murmurs are noted. Lungs are clear without rales, rhonchi, or wheezes. Abdomen is soft without bruits. Extremities reveal intact radial artery pulses bilaterally. There is no peripheral edema. Results & Data Vital Signs (Past 12 Hours) Vital Signs Temp Pulse Pulse Resp BP Pulse Ox O2 Del Method 07/02/24 11:20 36.6 C 76 18 157/95 H 95 Room Air 07/02/24 08:00 60 07/02/24 07:18 36.9 C 75 18 169/97 H 96 Room Air 07/02/24 06:41 163/95 H 07/02/24 06:03 36.4 C L 65 20 181/97 H 95 Room Air 07/02/24 04:01 172/97 H 07/02/24 03:07 36.5 C 69 18 182/106 H 99 Room Air 07/02/24 01:04 54 L Diagnostic Findings Echocardiogram notes normal left ventricular systolic function with ejection fraction of 65 to 70%. There is mild LVH. No valvular pathology. No prior study for comparison. EKG on presentation noted sinus bradycardia with PVCs and a left axis deviation. PG Care Time/CCT Total # of Minutes Spent Total Time Spent with Patient: Total time spent is greater than 50% in coordination of care (as documented) at patient's floor/unit and/or counseling patient: Coding Level of Care Code 88008 INT INP/OBS CARE 3/75MIN Diagnoses PSVT (paroxysmal supraventricular tachycardia) I47.1 CAD (coronary artery disease) I25.10 HTN (hypertension) I10 Hyperlipidemia E78.5
--- NOTE | 2024-07-02 14:55 | Discharge Summary ---
Discharge Summary Date of Service July 02, 2024 Principal Dx & Hospital Course #1 = Principal Diagnosis (1) Facial fracture due to fall: Patient tripped and fell into a pile of scrap metal on 06/30 striking his face With multiple fractures of bilat maxillary bones with blood in max sinuses, right orbital floor fracture without entrapment of EOM, and nasal bone fracture Not currently on blood thinners, Patient received tetanus vaccine in the ED Oral maxillofacial surgery consulted-No surgical intervention at this time. Recommends antibiotics, icing, pain control, and outpt f/u scheduled for 07/08 He received Unasyn 3000 mg IV q6h and convert to po Augmentin at discharge to complete a 10-day course Acetaminophen and oxycodone as needed for pain Hgb stable on CBC, leukocytosis improved and was likely from stress response On the day of discharge, patient had some mild intermittent confusion after receiving oxycodone. His also reported to the nurse that he frequently gets hospital delirium-I feel it is safe for him to return home and he will actually do better there. I did prescribe a small amount of oxycodone only to take for severe pain. (2) Cervical spine fracture: Cervical spine CT reveals acute C7 compression fracture I consulted Ortho Spine and discussed his care-Dr. Velazquez reviewed the CT and recommended nonoperative tx with collar can remove collar to shower, f/u in Ortho office in 2 weeks as outpt Maintain [place] J collar otherwise at all times (3) Bradycardia: Patient's heart rate dropped to 28 bpm in the ED and Atropine x 2 administered Unclear etiology but possibly vagal response secondary to trauma and nasal packing He has a h/o both PSVT as well as bradycardia. He is on metoprolol 50mg po bid at home and his metoprolol was held for the first day and a half that he was here He then started to have small runs of SVT and his resting heart rate was up into the 90s-100 with frequent atrial ectopy Appreciate cardiology consultation-will resume metoprolol at a lower dose of 25 Mg p.o. twice daily ECHO fairly normal After resuming metoprolol 25 mg, heart rates were improved to the 70s and he did not drop too low Follow-up with Dr. Abraham in the cardiology office after discharge (4) HTN (hypertension): BPs became quite elevated off metoprolol and his ARB and he required 1 dose of IV hydralazine Continue his ARB and resume metoprolol at a lower dose (5) PSVT (paroxysmal supraventricular tachycardia): as above, resume lower dose of metoprolol (6) Laceration of right forearm: Dressed in the ED Daily wound care Also with laceration x 2 on left cheek near nose and will need these sutures removed in 7-10 days--there are two sutures in each lac-these can be removed when he sees Dr. Reese in the oral maxillary facial surgery office next week Plan Disposition: Stable for discharge to home Full code VTE PPx: Held chemical DVT PPx given bleeding in sinuses; tedosvaldo Notes For Next Care Provider Follow-up with OMFS in 1 week as scheduled, suture removal of the 2 lacerations of the face at that time Follow-up with cardiology for bradycardia/tachycardia after recent changes and metoprolol Follow-up with orthopedic spine surgeon in 2 weeks Medication Changes From Visit Added oxycodone 5 Mg p.o. every 6 hours as needed pain Acetaminophen 650 Mg p.o. every 6 hours as needed pain Decrease metoprolol to 25 Mg p.o. twice daily Admission HPI Per Admitting Provider Олег is a pleasant 79-year-old male with PMH of atrial fibrillation, IVC filter, HTN, colovesical fistula, ileostomy, HLD, CAD, PSVT, and CKD. He presented on 06/30 after tripping while working outside and falling face first into a pile of scrap metal. Patient reports that he tripped over a piece of wood around 9:30 AM. He denies any dizziness or fainting prior to falling. He struck his face. No LOC. Pain is specifically located at his nose and left cheek. He rated the pain 10/10 initially, but 7/10 at present. The pain is constant, and he reports significant swelling. He also endorsed neck pain initially after the fall, but denies any neck pain at present with the [place] J collar on. Patient reports he took all of his regular morning medicine today including metoprolol. He was previously on Cardizem, digoxin, and warfarin for his atrial fibrillation, but was taken off of them for an unknown reason. He does not take blood thinners at this time; reportedly takes aspirin for his bilateral shoulder pain. Patient's heart rate dropped to 28 bpm on arrival and atropine was administered x 2 in the ED. Patient reports he does have a history of bradycardia and has had it for years. Patient denies smoking, tobacco use, or recent alcohol use. At time of admission, patient is hypertensive at 148/95 and bradycardic at 54 bpm. ED course: Atropine 1 mg IV Tdap vaccine Unasyn 3000 mg IV Acetaminophen 1000 mg IV NSS 500 mL IV ROS: Patient endorses nose/cheek/facial pain, and neck pain (resolved after being placed in [place] J collar). Patient denies fever, chills, night sweats, dizziness/lightheadedness, headache, changes in vision, airway closure, difficulty swallowing, chest pain, chest palpitations, pleuritic CP, SOB, cough, abdominal pain, N/V/D, changes in urinary or bowel habits, or numbness or tingling in the arms or legs. Discharge Exam Constitutional WD/WN, vitals as above Eyes + scleral abnormality (OD injected), PERRL, normal accommodation and EOM intact bilaterally; no alignment abnormality ENMT Nose: + external nose abnormality (+edema,left nasolabial region with 2 lace rations,scabbed,sutures in place) Neck + abnormal visual inspection (C-spine collar in place) Respiratory normal respiratory effort, lungs clear to auscultation Cardiovascular Rate/Rhythm: regular rate and regular rhythm Heart Sounds: no murmur Extremities: no edema Neurologic no focal motor deficits and not confused Motor/Sensory: no tremor Psychiatric A+Ox3, euthymic affect Discharge Plan Discharge Items Patient Disposition: Home - Self-Care Reason For Visit: FACE/C-SPINE FX, BRADYCARDIA Discharge Diagnosis: Fall with facial and nasal bone fractures C7 vertebral compression fracture Bradycardia Condition on Discharge: Fair Activity: As commented below Lifting: No more than 5 pounds Bathing: No limitations Bathing Comment: you may remove the cervical collar to shower Exercise/Sports: As tolerated Exercise Comment: must wear C-spine collar at all times except showering Driving/Machine Use: No driving Weightbearing: Full weightbearing Non-emergency contact: Primary Care Provider, Surgeon and Branch Billing Payroll Clerk Call non-emergency contact if: you have any medication questions Follow-up/Referrals: Adelso Eli CRNP [Primary Care Provider] - 07/06/24 11:00 am (PCP follow up 07/06/24 @ 11am.) Nelsy Fontanez PA-C [Physician Belt Press Operator] - (Appointment 07/05 @10:30) Jadiel Velazquez DO [Surgeon] - (Please call to schedule a follow up appointment with the Spine Surgeon in 2 weeks) Smith Reese DMD [Physician] - 07/08/24 10:30 am Diet: Heart Healthy Addtl Attending Provider Instructions: You were admitted after falling onto your face and breaking multiple bones in your face and nose as well as the C7 vertebra in your neck. Please wear the cervical collar as directed and follow up with Dr. Velazquez in 2 weeks at [facility]. Please continue on the antibiotics to prevent sinus infection given all the fractures of your sinuses. You can take tylenol for mild-moderate pain and oxycodone as needed for moderate-severe pain. You should ice your face at the site of the swelling. You should NOT blow your nose. Follow up with the Oromaxillary facial surgeon, Dr. Reese, as directed in 1 week. You can have the sutures in your face removed at the time you see the facial surgeon. Your heart rate dropped quite low while you were here and your metoprolol dose was lowered to 25mg twice a day (down from 50mg). Please follow up with your Branch Billing Payroll Clerk-this appointment will be scheduled for you. Pending Studies at Discharge: No Stand-Alone Forms: My [facility] TISSUELAB, Smoking Cessation Medications and DC Order Prescriptions: New metoprolol tartrate 25 mg Tablet 25 mg PO BID Qty: 60 0RF acetaminophen 325 mg Tablet 650 mg PO Q4H PRN (Reason: pain) Qty: 30 0RF Rx Instructions: OTC oxycodone 5 mg Tablet 5 mg PO Q6H PRN (Reason: moderate-severe pain) Qty: 7 0RF amoxicillin-pot clavulanate 875-125 mg tablet 1 tab PO BID Qty: 16 0RF Continued telmisartan 20 mg tablet 20 mg PO DAILY Qty: 90 2RF atorvastatin 10 mg tablet 10 mg PO QPM Qty: 90 3RF colchicine 0.6 mg capsule See Rx Instructions PO BID Qty: 14 0RF Rx Instructions: orally twice a day; take 2 capsules, then 1 in 1 hour. Then take 1 capsule twice a day until flare resolves, continue for 48 hours more then restart allopurinol. latanoprost 0.005 % drops 1 drp OPB HS allopurinol 100 mg tablet 100 mg PO HS Discontinued metoprolol tartrate 50 mg tablet 50 mg PO BID Qty: 180 3RF Discharge Orders: Discharge Order (Routine); Ordered 07/02/24 Ordered By: Amanda Brennan Admission Data Admit Date/Time: 06/30/24 18:02 Attending Provider: Amanda Brennan Admit Provider: Jayesh Coley Primary Care Provider: Adelso Eli Other Providers: Jayesh Coley; Smith Reese; Jadiel Velazquez; Robb Donahue Hospital Stay Data Consultations 06/30/24 17:09 ED Decision to Admit Stat 06/30/24 18:05 Consult Oromaxillofacial Surgery Routine 07/01/24 07:37 Consult Orthopedic Spine Surgery Routine 07/01/24 15:18 Consult Cardiology Routine Diagnostic Imagining Performed 06/30/24 13:43 CT cervical spine wo con Stat CT facial bones wo con Stat CT head/brain wo con Stat Pending Results Patient Have Any Pending Studies at Discharge: No Discharge Instructions Given to Patient (Per Discharging Provider) You were admitted after falling onto your face and breaking multiple bones in your face and nose as well as the C7 vertebra in your neck. Please wear the cervical collar as directed and follow up with Dr. Velazquez in 2 weeks at [facility]. Please continue on the antibiotics to prevent sinus infection given all the fractures of your sinuses. You can take tylenol for mild-moderate pain and oxycodone as needed for moderate-severe pain. You should ice your face at the site of the swelling. You should NOT blow your nose. Follow up with the Oromaxillary facial surgeon, Dr. Reese, as directed in 1 week. You can have the sutures in your face removed at the time you see the facial surgeon. Your heart rate dropped quite low while you were here and your metoprolol dose was lowered to 25mg twice a day (down from 50mg). Please follow up with your Car diologist-this appointment will be scheduled for you. Total Time Total Time Spent Total Time Spent (In Minutes): 45 minutes Total Time Includes: Examination of the Patient, Discharge Planning, Medication Reconciliation and Communication With Other Providers Coding Level of Care Code 47237 INP/OBS DISCH >30 MIN Diagnoses Facial fracture due to fall S02.92XA; W19.XXXA Cervical spine fracture S12.9XXA Bradycardia R00.1 HTN (hypertension) I10 PSVT (paroxysmal supraventricular tachycardia) I47.1 Laceration of right forearm S51.811A
[2024-07-02 16:00] VITALS: BP 162/97; PULSE 77; TEMP 97.7; O2SAT 96
== END 2024-07-02 17:08 | disposition home or self-care (01) | DRG 552 ==
LOC: ED 13:31 → 2E 18:02 → SUATTDRO 18:02 → 2E 19:37